=== PATIENT | female | born 1945 | race Caucasian/White ===

== ENCOUNTER 2019-05-15 07:33 | Inpatient (IN) ==
--- OUTSIDE RECORDS SUMMARY | 2019-05-15 07:36 | External Medical Summary | Continuity of Care Document ---
:1945 Author Name Lilia Falk Address Unavailable Unavailable , Care Team Providers Name Role Phone Unavailable Unavailable Unavailable KISHA Unavailable Unavailable Problems Active medical history not documented Allergies and Adverse Reactions Allergy history not documented Medications Medications not documented Procedures Procedures not documented Immunizations Immunizations not documented Plan of Treatment Planned Observations Planned Goals not documented Results No Known Results Results not documented
[2019-05-15] MEDS ORDERED: MoRPHine SULFATE 2 MG/ML CARP IV PRN (07:46)
[2019-05-15] MEDS ORDERED: ONDANSETRON INJ 2 MG/ML 2 ML VIAL IV STA (07:46)
[2019-05-15] MEDS ORDERED: SODIUM CHLORIDE 0.9% 1000ML 500 ML IV ONE ×2 (07:46→09:45)
[2019-05-15] MEDS ORDERED: ACETAMINOPHEN 1,000 MG/100 ML VIAL IV STA (07:46)
--- NOTE | 2019-05-15 08:00 | Emergency Department Note ---
Entered by Rasheeda Best acting as a scribe for Gilberto Schaeffer MD History of Present Illness General Chief complaint: Abdominal Pain Time Seen by Provider: 05/15/19 07:37 Source: patient Mode of arrival: EMS Limitations: no limitations History of Present Illness Provider complaint: abdominal pain Onset (ago): day(s) (4-5) Location: abdomen Radiation: back Pain Consistency: + other (persistent) Exacerbated By: + movement Associated symptoms: + denies other symptoms (urinary sx), + fever/chills, + nausea/vomiting and + other (diarrhea) The patient is a 73 year old female with a past medical history of diabetes who presents to the ER via EMS with complaints of persistent left-sided abdominal pain that began 4-5 days ago. The patient reports that the pain radiates into the left side of her back and that it is worsened with movement. She states that she has had a partial nephrectomy as well as several other abdominal surgeries. She also notes that she has a history of kidney stones but denies a history of diverticulitis. She explains that she has had about 10 colonoscopies performed in the past. She reports that she takes Coumadin but states that she did not take any of her morning medications. She denies any urinary symptoms but notes she has had a fever, as well as diarrhea. She reports that she has been nauseous as well but that she has been taking Zofran. She states that she did have an episode of emesis but that it was all liquid. Home Medications Home Medications Medication Instructions Recorded Confirmed Type acetaminophen [Tylenol Extra 500 mg PO Q6H PRN 05/15/19 05/15/19 History Strength] albuterol sulfate 2 puff INHALATION QID PRN 05/15/19 05/15/19 History amiodarone 100 mg PO QAM 05/15/19 05/15/19 History carvedilol 25 mg PO BID 05/15/19 05/15/19 History cholecalciferol (vitamin D3) 5,000 unit PO DAILY 05/15/19 05/15/19 History fish,bora,flax oils-om3,6,9no1 1 cap PO DAILY 05/15/19 05/15/19 History [Hanson 3-6-9] furosemide 40 mg PO BID 05/15/19 05/15/19 History insulin glargine [Lantus Solostar 25 unit SUBCUT HS 05/15/19 05/15/19 History U-100 Insulin] levothyroxine 50 mcg PO QAM 05/15/19 05/15/19 History losartan 100 mg PO HS 05/15/19 05/15/19 History metformin 500 mg PO BIDM 05/15/19 05/15/19 History omeprazole 20 mg PO QAM 05/15/19 05/15/19 History sennosides-docusate sodium 1 tab PO DAILY PRN 05/15/19 05/15/19 History [Senokot-S] spironolactone 50 mg PO BID 05/15/19 05/15/19 History warfarin 2.5 mg PO MO@1600 05/15/19 05/15/19 History warfarin 5 mg PO SUTUWETHFRSA@1600 05/15/19 05/15/19 History Allergies Allergy/AdvReac Type Severity Reaction Status Date / Time Ydzfzkw-Nqk-Dys Reductase Allergy Unknown UNKNOWN Unverified 05/15/19 08:21 Inhibitor Sulfa (Sulfonamide Allergy Unknown HIVES Verified 05/15/19 08:21 Antibiotics) citalopram AdvReac Unknown UNKNOWN Unverified 05/15/19 08:21 hydrocodone AdvReac Unknown NAUSEA AND Unverified 05/15/19 08:21 VOMITING ketorolac AdvReac Unknown RASH Unverified 05/15/19 08:21 oxycodone AdvReac Unknown UNKNOWN Unverified 05/15/19 08:21 propoxyphene AdvReac Unknown UNKNOWN Unverified 05/15/19 08:21 tramadol AdvReac Unknown UNKNOWN Unverified 05/15/19 08:21 Past Med/Surg History Medical History Coronary artery disease (Chronic) CKD (chronic kidney disease), stage III (Chronic) HTN (hypertension) (Chronic) Nocturnal hypoxia (Chronic) Idiopathic cardiomyopathy (Chronic) Chronic systolic heart failure (Chronic) Diabetes mellitus, type II (Chronic) Surgical History S/P ICD (internal cardiac defibrillator) procedure (Chronic) History of knee replacement (Chronic) History of hysterectomy (Chronic) History of cholecystectomy (Chronic) History of appendectomy (Chronic) History of partial nephrectomy (Chronic) [place] [facility] [place] Family History Other Colorectal cancer Heart disease Stroke Social History Preferred Language: [place] Communication Ability: Effective 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 and A total of 10 systems reviewed and were otherwise negative Physical Exam Vital Signs Vital Signs - 24 hr 05/15/19 07:42 05/15/19 07:45 05/15/19 08:00 Temperature 37.8 C H Temperature Source Oral Sepsis Recent Fever Within 48 Hours No Sepsis New/Unexplained Change in Mental Status No Sepsis Action Taken by Nursing No Action Required Pulse Rate 75 73 72 Pulse Rate [Finger] Pulse Rate from SpO2 Sensor 75 73 71 Respiratory Rate 21 17 16 Blood Pressure 138/68 130/59 L Blood Pressure [Right Arm] Blood Pressure Mean 91 82 Blood Pressure Mean [Right Arm] Pulse Oximetry 99 98 98 Oxygen Delivery Method Room Air 05/15/19 08:08 05/15/19 08:13 05/15/19 08:30 Temperature Temperature Source Sepsis Recent Fever Within 48 Hours Sepsis New/Unexplained Change in Mental Status Sepsis Action Taken by Nursing Pulse Rate 69 Pulse Rate [Finger] 73 Pulse Rate from SpO2 Sensor 69 Respiratory Rate 16 17 Blood Pressure 118/67 Blood Pressure [Right Arm] 130/59 L Blood Pressure Mean 84 Blood Pressure Mean [Right Arm] 82 Pulse Oximetry 100 96 97 Oxygen Delivery Method Room Air Room Air 05/15/19 09:10 05/15/19 09:22 05/15/19 09:30 Temperature Temperature Source Sepsis Recent Fever Within 48 Hours Sepsis New/Unexplained Change in Mental Status Sepsis Action Taken by Nursing Pulse Rate 70 66 67 Pulse Rate [Finger] Pulse Rate from SpO2 Sensor Respiratory Rate 13 19 16 Blood Pressure 115/53 L 106/62 Blood Pressure [Right Arm] Blood Pressure Mean 73 76 Blood Pressure Mean [Right Arm] Pulse Oximetry Oxygen Delivery Method 05/15/19 09:32 05/15/19 10:00 05/15/19 10:50 Temperature Temperature Source Sepsis Recent Fever Within 48 Hours Sepsis New/Unexplained Change in Mental Status Sepsis Action Taken by Nursing Pulse Rate 67 63 Pulse Rate [Finger] 67 63 Pulse Rate from SpO2 Sensor 67 Respiratory Rate 16 21 14 Blood Pressure 122/65 133/66 Blood Pressure [Right Arm] 106/62 133/66 Blood Pressure Mean 84 88 Blood Pressure Mean [Right Arm] 76 88 Pulse Oximetry 96 Oxygen Delivery Method 05/15/19 11:00 05/15/19 11:03 05/15/19 11:04 Temperature Temperature Source Sepsis Recent Fever Within 48 Hours Sepsis New/Unexplained Change in Mental Status Sepsis Action Taken by Nursing Pulse Rate 64 65 67 Pulse Rate [Finger] Pulse Rate from SpO2 Sensor Respiratory Rate 17 18 25 H Blood Pressure 129/67 Blood Pressure [Right Arm] Blood Pressure Mean 87 Blood Pressure Mean [Right Arm] Pulse Oximetry Oxygen Delivery Method 05/15/19 11:32 Temperature Temperature Source Sepsis Recent Fever Within 48 Hours Sepsis New/Unexplained Change in Mental Status Sepsis Action Taken by Nursing Pulse Rate 64 Pulse Rate [Finger] Pulse Rate from SpO2 Sensor Respiratory Rate 14 Blood Pressure 108/59 L Blood Pressure [Right Arm] Blood Pressure Mean 75 Blood Pressure Mean [Right Arm] Pulse Oximetry Oxygen Delivery Method GENERAL: Patient is in no acute distress. HEENT: No acute trauma, normocephalic atraumatic, mucous membranes moist, no nasal congestion, no scleral icterus. NECK: No stridor, no adenopathy, no meningismus, trachea is midline. LUNGS: Clear to auscultation bilaterally, no wheeze, no rhonchi, breath sounds equal. HEART: Without murmurs gallops or rubs, regular rate and rhythm. ABDOMEN: Soft, bowel sounds positive, no hernias, no peritonitis. Moderately tender along the entire left side. BACK: Left flank discomfort with percussion. EXTREMITIES: No cyanosis or edema, full range of motion of all the joints without pain or difficulty, no signs for acute trauma. NEUROLOGIC: Oriented x 3, no acute motor or sensory deficits, no focal weakness. SKIN: No jaundice, no diaphoresis. Erythematous, flat, rash noted in the left groin crease. Course 0738: Past medical records reviewed. The patient was evaluated in room B12B. A complete history and physical examination was performed. 1004: I updated the patient. 1013: I reviewed the patient's case with Haleigh Correa PA-C [facility] Hospitalist. She, in conjunction with Dr. Grady, will evaluate the patient for further management. Administered Medications Discontinued Medications Acetaminophen (Tylenol) Confirm Administered Dose 500 mg .ROUTE .STK-MED ONE Stop: 05/15/19 12:23 Last Admin: 05/15/19 12:24 Dose: 500 mg Documented by: [id number] Amiodarone HCl (Cordarone) 100 mg PO NOW ONE Stop: 05/15/19 13:27 Last Admin: 05/15/19 14:01 Dose: 100 mg Documented by: [id number] Carvedilol (Coreg) 25 mg PO NOW ONE Stop: 05/15/19 13:21 Last Admin: 05/15/19 14:01 Dose: 25 mg Documented by: [id number] Sodium Chloride (Nss 1000ml) 500 mls @ 999 mls/hr IV .Q31M ONE Stop: 05/15/19 08:16 Last Infusion: 05/15/19 08:29 Dose: 0 mls/hr Documented by: [id number] Admin: 05/15/19 08:00 Dose: 999 mls/hr Documented by: [id number] Acetaminophen (Ofirmev) 1,000 mg in 100 mls @ 400 mls/hr IV NOW STA Stop: 05/15/19 08:00 Last Infusion: 05/15/19 08:14 Dose: 0 mls/hr Documented by: [id number] Admin: 05/15/19 07:59 Dose: 400 mls/hr Documented by: [id number] Sodium Chloride (Nss 1000ml) 500 mls @ 999 mls/hr IV .Q31M ONE Stop: 05/15/19 10:15 Last Infusion: 05/15/19 10:47 Dose: 0 mls/hr Documented by: [id number] Admin: 05/15/19 10:18 Dose: 999 mls/hr Documented by: [id number] Ceftriaxone Sodium 2,000 mg/ (Dextrose) 70 mls @ 100 mls/hr IV NOW STA Stop: 05/15/19 10:44 Last Infusion: 05/15/19 11:33 Dose: 0 mls/hr Documented by: [id number] Admin: 05/15/19 10:37 Dose: 100 mls/hr Documented by: [id number] Morphine Sulfate (Morphine Sulfate) 2 mg IV Q30M PRN PRN Reason: Pain Stop: 05/29/19 07:45 Last Admin: 05/15/19 08:25 Dose: 2 mg Documented by: [id number] Ondansetron HCl (Zofran) 4 mg IV NOW STA Stop: 05/15/19 07:47 Last Admin: 05/15/19 08:00 Dose: 4 mg Documented by: [id number] Medical Decision Making Differential Diagnosis Differential diagnosis includes: renal colic, pyelonephritis, UTI, d iverticulitis, abscess, pancreatitis, pneumonia, cardiac ischemia, dehydration, electrolyte imbalance, tickborne illness, and renal failure. Medical Records Attestation: I reviewed the patient's medical records. Home Medications Current Medication List: was personally reviewed by me Laboratory Data Attestation: I reviewed the patient's lab results. Result diagrams: 05/15/19 07:53 05/15/19 07:53 Lab Results 05/15/19 05/15/19 05/15/19 Range/Units 07:53 07:53 07:53 WBC 3.36 L (4.8-10.8) K/uL RBC 3.79 L (4.2-5.4) M/uL Hgb 10.5 L (12.0-16.0) g/dL Hct 31.5 L (37-47) % MCV 83.1 (80-100) fL MCH 27.7 (25-34) pg MCHC 33.3 (32-36) g/dL RDW Std Deviation 43.6 (36.4-46.3) fL RDW Coeff of Edilma 14.4 (11.5-14.5) % Plt Count 95 L (130-400) K/uL MPV 10.5 H (7.4-10.4) fL Immature Gran % (Auto) 0.0 % Neut % (Auto) 75.6 % Lymph % (Auto) 11.9 % Kidder % (Auto) 12.2 % Eos % (Auto) 0.3 % Baso % (Auto) 0.0 % Immature Gran # (Auto) 0.00 (0.00-0.02) K/uL Neut # (Auto) 2.54 (1.4-6.5) K/uL Lymph # (Auto) 0.40 L (1.2-3.4) K/uL Kidder # (Auto) 0.41 (0.11-0.59) K/uL Eos # (Auto) 0.01 (0-0.5) K/uL Baso # (Auto) 0.00 (0-0.2) K/uL Platelet Estimate Decreased L (Normal) Peripher Smr Path Cons PT 16.1 H (9.0-12.0) Seconds INR 1.6 H (0.9-1.1) APTT 41.1 H (21.0-31.0) Seconds PTT Ratio 1.5 Sodium 138 (136-145) mmol/L Potassium 3.8 (3.5-5.1) mmol/L Chloride 106 (98-107) mmol/L Carbon Dioxide 23 (21-32) mmol/L Anion Gap 9.0 (3-11) BUN 22 H (7-18) mg/dl Creatinine 1.50 H (0.6-1.2) mg/dl Est Cr Clr Drug Dosing 44.1 ml/min Est GFR ( Amer) 40.2 Est GFR (Non-Af Amer) 34.7 BUN/Creatinine Ratio 14.3 (10-20) Glucose 156 H (70-99) mg/dl Calcium 8.5 (8.5-10.1) mg/dl Magnesium 1.9 (1.8-2.4) mg/dl Total Bilirubin 0.8 (0.2-1) mg/dl AST 19 (15-37) U/L ALT 23 (12-78) U/L Alkaline Phosphatase 68 (45-117) U/L Troponin I < 0.015 (0-0.045) ng/ml Total Protein 6.2 L (6.4-8.2) gm/dl Albumin 3.2 L (3.4-5.0) gm/dl Globulin 3.0 (2.5-4.0) gm/dl Albumin/Globulin Ratio 1.1 (0.9-2) Lipase 283 (73-393) U/L Urine Color Urine Appearance (Clear) Urine pH (4.5-7.5) Ur Specific Archer (1.000-1.030) Urine Protein (Negative) Urine Glucose (UA) (Negative) Urine Ketones (Negative) Urine Blood (Negative) Urine Nitrite (Negative) Urine Bilirubin (Negative) Urine Urobilinogen (Negative) Ur Leukocyte Esterase (Negative) Lyme Disease IgG Ab (Negative) Lyme Disease IgM Ab (Negative) 06/18/19 06/18/19 06/18/19 Range/Units 09:15 10:22 10:22 WBC (4.8-10.8) K/uL RBC (4.2-5.4) M/uL Hgb (12.0-16.0) g/dL Hct (37-47) % MCV (80-100) fL MCH (25-34) pg MCHC (32-36) g/dL RDW Std Deviation (36.4-46.3) fL RDW Coeff of Edilma (11.5-14.5) % Plt Count (130-400) K/uL MPV (7.4-10.4) fL Immature Gran % (Auto) % Neut % (Auto) % Lymph % (Auto) % Kidder % (Auto) % Eos % (Auto) % Baso % (Auto) % Immature Gran # (Auto) (0.00-0.02) K/uL Neut # (Auto) (1.4-6.5) K/uL Lymph # (Auto) (1.2-3.4) K/uL Kidder # (Auto) (0.11-0.59) K/uL Eos # (Auto) (0-0.5) K/uL Baso # (Auto) (0-0.2) K/uL Platelet Estimate (Normal) Peripher Smr Path Cons Cancelled PT (9.0-12.0) Seconds INR (0.9-1.1) APTT (21.0-31.0) Seconds PTT Ratio Sodium (136-145) mmol/L Potassium (3.5-5.1) mmol/L Chloride (98-107) mmol/L Carbon Dioxide (21-32) mmol/L Anion Gap (3-11) BUN (7-18) mg/dl Creatinine (0.6-1.2) mg/dl Est Cr Clr Drug Dosing ml/min Est GFR ( Amer) Est GFR (Non-Af Amer) BUN/Creatinine Ratio (10-20) Glucose (70-99) mg/dl Calcium (8.5-10.1) mg/dl Magnesium (1.8-2.4) mg/dl Total Bilirubin (0.2-1) mg/dl AST (15-37) U/L ALT (12-78) U/L Alkaline Phosphatase (45-117) U/L Troponin I (0-0.045) ng/ml Total Protein (6.4-8.2) gm/dl Albumin (3.4-5.0) gm/dl Globulin (2.5-4.0) gm/dl Albumin/Globulin Ratio (0.9-2) Lipase (73-393) U/L Urine Color Dark Yellow Urine Appearance Clear (Clear) Urine pH 6.0 (4.5-7.5) Ur Specific Archer 1.024 (1.000-1.030) Urine Protein Negative (Negative) Urine Glucose (UA) Negative (Negative) Urine Ketones Trace H (Negative) Urine Blood Negative (Negative) Urine Nitrite Negative (Negative) Urine Bilirubin Negative (Negative) Urine Urobilinogen Negative (Negative) Ur Leukocyte Esterase Negative (Negative) Lyme Disease IgG Ab Negative (Negative) Lyme Disease IgM Ab Negative (Negative) Imaging Data Radiologist's Impression: Radiology results as stated below per my review and the radiologist's interpretation: CT abd pelvis wo con CLINICAL HISTORY: 73 years-old Female presenting with nausea and vomiting, left sided abd pain, left renal surgery. TECHNIQUE: Multidetector CT of the abdomen and pelvis was performed without the use of intravenous contrast. IV contrast: None. One or more dose lowering techniques were used consistent with the principles of ALARA (as low as reasonably achievable), including automatic exposure control, mA or kV adjustment to individual patient size, and/or use of iterative reconstruction. COMPARISON: 07/10/2016. CT DOSE (mGy.cm): The estimated cumulative dose is 817.66 mGy.cm. FINDINGS: [employer] topogram: Cholecystectomy clips. Lung bases: Cardiac lead projects to the right ventricular apex. Calcification of the aortic valve. Normal heart size. No pericardial or pleural effusion. Minimal dependent changes likely atelectasis. Solid fissural 4 mm nodule in the right lower lobe unchanged since 2016 consistent with benignity. Liver: Normal morphology. Redemonstration of multiple liver lesions previously demonstrated to represent hemangiomas. Normal background liver density. Biliary: No gross biliary ductal dilatation allowing for noncontrast technique. Gallbladder surgically absent. Pancreas: Normal noncontrast appearance. Spleen: Normal noncontrast appearance. Adrenal glands: Normal noncontrast appearance. Kidneys and ureters: Postsurgical changes of partial mastectomy in the upper pole the left kidney. Moderate nonspecific perinephric fat infiltration and laterally. Cortical scarring at the posterior aspect of the interpolar region of the right kidney as on prior exam. Possible lesion at the lower pole of the ri ght kidney (series 3 image 229). No nephrolithiasis or hydronephrosis. Ureters nondistended. Bladder: Normal. Pelvic organs: Uterus surgically absent. Simple appearing cysts measuring 2.6 cm and the left ovary. This would be considered benign with no further follow-up warranted. Bowel: Normal. Lipomatous hypertrophy of the ileocecal valve. No bowel obstruction. Trace hiatal hernia. Peritoneal cavity: No free fluid or intraperitoneal gas. Lymph nodes: No gross lymphadenopathy allowing for noncontrast technique. Vasculature: Atherosclerosis of the normal caliber abdominal aorta. Abdominal wall: Postsurgical changes in the infraumbilical abdominal wall. Small fat-containing left inguinal hernia suspected. Musculoskeletal: Degenerative changes of the spine. IMPRESSION: 1. Interval postsurgical changes of partial left nephrectomy. No postsurgical complication. 2. Allowing for noncontrast technique, no acute intra-abdominal pathology. 3. Possible right lower pole lesion or cyst. Renal ultrasound could be obtained if there is clinical concern. Electronically signed by: Irwin Mccullough M.D. 05/15/2019 9:47 AM XR chest 1V portable CLINICAL HISTORY: 73 years-old Female presenting with epigastric pain. TECHNIQUE: Portable upright AP view of the chest was obtained. COMPARISON: 11/18/2016. FINDINGS: Left subclavian implanted cardiac defibrillator with single lead to the right ventricular apex. Atherosclerosis of the aortic arch. Cardiac silhouette enlarged. No focal opacity. No large effusion or pneumothorax. Degenerative changes of the thoracic spine. Upper abdomen normal. IMPRESSION: 1. No acute cardiopulmonary disease. Electronically signed by: Irwin Mccullough M.D. 05/15/2019 8:00 AM ECG Data Attestation: I personally reviewed and interpreted this ECG as follows: Indication: abdominal pain Rate (beats per minute): 75 Rhythm: normal sinus Findings: + other (non-specific ventricular block); no PVC and no ST elevation Blood Pressure Blood Pressure Findings: Normal blood pressure Blood Pressure Disposition: did not require urgent referral MDM Narrative There is a low white blood cell count and hemoglobin, the patient has had this history before. Platelet count is low and this is a new finding. INR is slightly elevated, consistent with her Coumadin use. There was some mild renal insufficiency with a creatinine of 1.5, this is above baseline for the patient and may be consistent with some dehydration. No elevation to the LFTs, no evidence for pancreatitis. EKG shows a sinus rhythm, no acute ischemia. Cardiac enzyme testing x1 is not consistent with acute cardiac injury. Chest film does not show mediastinal widening, free air or pneumonia. Abdominal and pelvis CT shows some chronic findings, no evidence for bowel obstruction, no evidence for diverticulitis or any acute surgical process. On exam, the patient has a bull's-eye-like reddened lesion to the left groin. The patient received IV saline for hydration. She was given IV Zofran for nausea, IV Tylenol for pain and IV morphine for pain. She received IV ceftriaxone as empiric antibiotic coverage. With the left groin rash noted, with the fever, Lyme disease testing and anaplasmosis testing was ordered, these results are pending. Blood cultures were ordered and a peripheral blood smear was ordered. Given the amount of pain, given her fever, given the rash, given her acute kidney injury, given the concern for tickborne illness, I did think a hospital stay would be warranted. Certainly, a cellulitis in the left groin is a consideration but I think less likely the cause of her complaints. I did speak with case management, I talked to the patient and her family. The on-call hosp italist was consulted. Impression & Plan Fever, Left sided abdominal pain, Weakness, Rash of groin Discharge Plan Visit Data Chief Complaint: Abdominal Pain ED Provider: Gilberto Schaeffer Discharge Problem: Fever, Left sided abdominal pain, Weakness, Rash of groin Patient Disposition: Being Evaluated by Hospitalist Discharge Instructions Interventions: ED Discharge Assessment Last Done: 05/15/19 14:25 The faustina's documentation has been prepared under my direction and personally reviewed by me in its entirety. I confirm that the note above accurately reflects all work, treatment, procedures, and medical decision making performed by me.
--- NOTE | 2019-05-15 08:02 | XRay Report ---
XR chest 1V portable CLINICAL HISTORY: 73 years-old Female presenting with epigastric pain. TECHNIQUE: Portable upright AP view of the chest was obtained. COMPARISON: 11/18/2016. FINDINGS: Left subclavian implanted cardiac defibrillator with single lead to the right ventricular apex. Ather osclerosis of the aortic arch. Cardiac silhouette enlarged. No focal opacity. No large effusion or pn eumothorax. Degenerative changes of the thoracic spine. Upper abdomen normal. IMPRESSION: 1. No acute cardiopulmonary disease. Electronically signed by: Irwin Mccullough M.D. 05/15/2019 8:00 AM
[2019-05-15 08:18] LABS: INR 1.6 (0.9-1.1); Partial Thromboplastin Ratio 1.5; Partial Thromboplastin Time 41.1 Seconds (21.0-31.0); Prothrombin Time 16.1 Seconds (9.0-12.0)
[2019-05-15 08:23] LABS: Alanine Aminotransferase 23 U/L (12-78); Albumin Level 3.2 gm/dl (3.4-5.0); Aspartate Aminotransferase 19 U/L (15-37); BUN Creatinine Ratio 14.3 (10-20); Blood Urea Nitrogen 22 mg/dl (7-18); Calcium 8.5 mg/dl (8.5-10.1); Carbon Dioxide 23 mmol/L (21-32); Chloride 106 mmol/L (98-107); Creatinine Clr Calc Pharmacy 44.1 ml/min; Est GFR (African American) 40.2; Est GFR (Non-African American) 34.7; Glucose 156 mg/dl (70-99); Magnesium 1.9 mg/dl (1.8-2.4); Potassium 3.8 mmol/L (3.5-5.1); Sodium 138 mmol/L (136-145)
[2019-05-15 08:25] LABS: Eosinophils # (auto) 0.01 K/uL (0-0.5); Eosinophils % (auto) 0.3 %; Hematocrit (blood only) 31.5 % (37-47); Hemoglobin 10.5 g/dL (12.0-16.0); Lymphocytes % (auto) 11.9 %; Mean Corpuscular Hgb Conc 33.3 g/dL (32-36); Mean Corpuscular Volume 83.1 fL (80-100); Mean Platelet Volume 10.5 fL (7.4-10.4); Monocytes # (auto) 0.41 K/uL (0.11-0.59); Monocytes % (auto) 12.2 %; Neutrophils # (auto) 2.54 K/uL (1.4-6.5); Neutrophils % (auto) 75.6 %; Platelet Count 95 K/uL (130-400); Platelet Estimate Decreased (Normal); RDW Coefficient of Variation 14.4 % (11.5-14.5); RDW Standard Deviation 43.6 fL (36.4-46.3); Red Blood Count 3.79 M/uL (4.2-5.4); White Blood Count 3.36 K/uL (4.8-10.8)
[2019-05-15 08:28] LABS: Albumin Globulin Ratio 1.1 (0.9-2); Alkaline Phosphatase 68 U/L (45-117); Bilirubin,Total 0.8 mg/dl (0.2-1); Total Protein 6.2 gm/dl (6.4-8.2); Troponin I < 0.015 ng/ml (0-0.045)
[2019-05-15 09:38] LABS: Appearance Urine Clear (Clear); Bilirubin Urine Negative (Negative); Blood Urine Negative (Negative); Color Urine Dark Yellow; Glucose Urine UA Negative (Negative); Ketones Urine Trace (Negative); Leukocyte Esterase Urine Negative (Negative); Nitrite Urine Negative (Negative); Protein Urine Negative (Negative); Specific Gravity Urine 1.024 (1.000-1.030); Urobilinogen Urine Negative (Negative)
--- NOTE | 2019-05-15 09:49 | CT Scan Report ---
CT abd pelvis wo con CLINICAL HISTORY: 73 years-old Female presenting with nausea and vomiting, left sided abd pain, left renal surgery. TECHNIQUE: Multidetector CT of the abdomen and pelvis was performed without the use of intravenous co ntrast. IV contrast: None. One or more dose lowering techniques were used consistent with the princip les of ALARA (as low as reasonably achievable), including automatic exposure control, mA or kV adjust ment to individual patient size, and/or use of iterative reconstruction. COMPARISON: 07/10/2016. CT DOSE (mGy.cm): The estimated cumulative dose is 817.66 mGy.cm. FINDINGS: Rn Clinical Appeals topogram: Cholecystectomy clips. Lung bases: Cardiac lead projects to the right ventricular apex. Calcification of the aortic valve. N ormal heart size. No pericardial or pleural effusion. Minimal dependent changes likely atelectasis. S olid fissural 4 mm nodule in the right lower lobe unchanged since 2016 consistent with benignity. Liver: Normal morphology. Redemonstration of multiple liver lesions previously demonstrated to repres ent hemangiomas. Normal background liver density. Biliary: No gross biliary ductal dilatation allowing for noncontrast technique. Gallbladder surgicall y absent. Pancreas: Normal noncontrast appearance. Spleen: Normal noncontrast appearance. Adrenal glands: Normal noncontrast appearance. Kidneys and ureters: Postsurgical changes of partial mastectomy in the upper pole the left kidney. Mo derate nonspecific perinephric fat infiltration and laterally. Cortical scarring at the posterior asp ect of the interpolar region of the right kidney as on prior exam. Possible lesion at the lower pole of the right kidney (series 3 image 229). No nephrolithiasis or hydronephrosis. Ureters nondistended. Bladder: Normal. Pelvic organs: Uterus surgically absent. Simple appearing cysts measuring 2.6 cm and the left ovary. This would be considered benign with no further follow-up warranted. Bowel: Normal. Lipomatous hypertrophy of the ileocecal valve. No bowel obstruction. Trace hiatal adal ia. Peritoneal cavity: No free fluid or intraperitoneal gas. Lymph nodes: No gross lymphadenopathy allowing for noncontrast technique. Vasculature: Atherosclerosis of the normal caliber abdominal aorta. Abdominal wall: Postsurgical changes in the infraumbilical abdominal wall. Small fat-containing left inguinal hernia suspected. Musculoskeletal: Degenerative changes of the spine. IMPRESSION: 1. Interval postsurgical changes of partial left nephrectomy. No postsurgical complication. 2. Allowing for noncontrast technique, no acute intra-abdominal pathology. 3. Possible right lower pole lesion or cyst. Renal ultrasound could be obtained if there is clinical concern. Electronically signed by: Irwin Mccullough M.D. 05/15/2019 9:47 AM
[2019-05-15] MEDS ORDERED: cefTRIAXone SODIUM 2,000 MG in DEXTROSE 5% 50 ML IV STA (10:03)
--- NOTE | 2019-05-15 11:42 | History & Physical Report ---
Date of Service May 15, 2019 Assessment & Plan (1) Fever of unknown origin: This is a 73yo F with a PMH of chronic systolic heart failure, idiopathic cardiomyopathy s/p ICD placement, paroxysmal A Fib on coumadin, known LBBB, DM II and other medical problems listed below who presents with fever, malaise and left-sided abdominal pain x 5 days. -Found to have pancytopenia with platelets of 95 (baseline 180) -Recently fishing, lives in [facility] [place], presenting with L groin rash so concern for lyme/anaplasmosis -Does not meet sepsis criteria, non-toxic appearance -CXR without abnormal findings, CT abd/pelvis w/o contrast with possible right lower pole lesion but no acute intra-abdominal pathology, UA within normal limits -Blood cultures pending, lyme/anaplasma serology pending. 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 Follows with Dr. Willett -CT abd/pelvis with possible R lower pole lesion. Renal ultrasound pending (3) HTN (hypertension): Normotensive. Given AM dose of Carvedilol -Continue losartan, carvedilol (4) Chronic systolic heart failure: (5) Idiopathic cardiomyopathy: (6) S/P ICD (internal cardiac defibrillator) procedure: H/o ICD placement in 2006, replaced in 2014 -2D echo from 2016 with EF of 40% -Clinically on dry side. Will hold lasix until tomorrow morning-- reassess volume status -Continue Spironolactone, carvedilol, losartan (7) CKD (chronic kidney disease), stage III: At baseline. Continue to monitor with daily BMP (8) Diabetes mellitus, type II: A1c of 5.9 in March 2019 -Hold home agents -Basal/bolus insulin while in-patient -BSG AC HS (9) Nocturnal hypoxia: Supplemental 2L NC O2 HS DVT Ppx: Coumadin Code status: FULL PCP: Oren Dispo: Observation med tele. Plan to return home once medically stable. Patient seen in collaboration with Dr. Randolph. Please see addendum. History of Present Illness Chief Complaint: abdominal pain, fever, weakness Primary Care Provider: Irwin Lott MD This is a 73yo F with a PMH of chronic systolic heart failure, idiopathic cardiomyopathy s/p ICD placement, paroxysmal A Fib on coumadin, known LBBB, DM II and other medical problems listed below who presents with fever, malaise and left-sided abdominal pain x 5 days. Patient first developed headache, fever , chills and body aches, followed by abdominal pain and left flank pain in the past few days. Describes left-sided abdominal pain/flank pain as dull, aching and intermittent. Exacerbated with activity. Pain is unchanged with eating. Has also had nausea with one episode of vomiting and diarrhea that is since resolved. Patient went fishing 2 weeks ago but did not note any tick bites. 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 Follows with Dr. Willett. In ED, low-grade fever noted at 37.8. Normotensive with heart rate of 64. Noted to be pancytopenic, with platelets of 95 (baseline around 180). Kidney function appears to be at baseline with creatinine of 1.5. CT abdomen pelvis with possible right lower pole lesion. Chest x-ray unremarkable. No acute intra-abdominal pathology. INR subtherapeutic at 1.6. Denies lightheadedness, visual changes, chest pain, palpitations, shortness of breath, dysuria, hemat uria, constipation, lower extremity swelling. Rash noticed in L groin by ED physician. Allergies Allergy/AdvReac Type Severity Reaction Status Date / Time [id number] Reductase Allergy Unknown UNKNOWN Unverified 05/15/19 08:21 Inhibitor Sulfa (Sulfonamide Allergy Unknown HIVES Verified 05/15/19 08:21 Antibiotics) citalopram AdvReac Unknown UNKNOWN Unverified 05/15/19 08:21 hydrocodone AdvReac Unknown NAUSEA AND Unverified 05/15/19 08:21 VOMITING ketorolac AdvReac Unknown RASH Unverified 05/15/19 08:21 oxycodone AdvReac Unknown UNKNOWN Unverified 05/15/19 08:21 propoxyphene AdvReac Unknown UNKNOWN Unverified 05/15/19 08:21 tramadol AdvReac Unknown UNKNOWN Unverified 05/15/19 08:21 Home Medications Home Medications Medication Instructions Recorded Confirmed Type acetaminophen [Tylenol Extra 500 mg PO Q6H PRN 05/15/19 05/15/19 History Strength] albuterol sulfate 2 puff INHALATION QID PRN 05/15/19 05/15/19 History amiodarone 100 mg PO QAM 05/15/19 05/15/19 History carvedilol 25 mg PO BID 05/15/19 05/15/19 History cholecalciferol (vitamin D3) 5,000 unit PO DAILY 05/15/19 05/15/19 History fish,bora,flax oils-om3,6,9no1 1 cap PO DAILY 05/15/19 05/15/19 History [[place] 3-6-9] furosemide 40 mg PO BID 05/15/19 05/15/19 History insulin glargine [Lantus Solostar 25 unit SUBCUT HS 05/15/19 05/15/19 History U-100 Insulin] levothyroxine 50 mcg PO QAM 05/15/19 05/15/19 History losartan 100 mg PO HS 05/15/19 05/15/19 History metformin 500 mg PO BIDM 05/15/19 05/15/19 History omeprazole 20 mg PO QAM 05/15/19 05/15/19 History sennosides-docusate sodium 1 tab PO DAILY PRN 05/15/19 05/15/19 History [Senokot-S] spironolactone 50 mg PO BID 05/15/19 05/15/19 History warfarin 2.5 mg PO MO@1600 05/15/19 05/15/19 History warfarin 5 mg PO SUTUWETHFRSA@1600 05/15/19 05/15/19 History Past Med/Surg History Medical History Coronary artery disease (Chronic) CKD (chronic kidney disease), stage III (Chronic) HTN (hypertension) (Chronic) Nocturnal hypoxia (Chronic) Idiopathic cardiomyopathy (Chronic) Chronic systolic heart failure (Chronic) Diabetes mellitus, type II (Chronic) Surgical History S/P ICD (internal cardiac defibrillator) procedure (Chronic) History of knee replacement (Chronic) History of hysterectomy (Chronic) History of cholecystectomy (Chronic) History of appendectomy (Chronic) History of partial nephrectomy (Chronic) Left, [facility] [place] Family History Other Colorectal cancer Heart disease Stroke Social History Preferred Language: Uzbek Communication Ability: Effective Denitrator Operator Required: No Beliefs That Will Affect Care: None Current Living Situation: Spouse Other Information That Helps Us Care for You: No Feels Safe at Home: Yes Safety Concerns: Feels Safe At This Time Smoking Status: Never smoker Do You Dip or Chew Tobacco: No Second Hand Exposure: No Tobacco Cessation Education Requested by Patient: No Hx Alcohol Use: No Hx Substance Use: No Review of Systems Review of Systems: At least ten systems reviewed and negative except as noted in the HPI. Physical Exam Physical Exam: General Appearance: WD/WN, no apparent distress, ill appearing Head: normocephalic, atraumatic Eyes: normal inspection, PERRL, EOMI ENT: hearing grossly normal, pharynx normal (dry mucous membranes) Neck: supple, no JVD, no adenopathy Respiratory/Chest: lungs clear to auscultation. No wheezes, rales or rhonci. No respiratory distress or accessory muscle use Cardiovascular: regular rate, rhythm, no murmur, normal peripheral pulses Abdomen/GI: normal bowel sounds, soft, LLQ and L flank tender to palpation, no guarding Back: No CVA tenderness Extremities/Musculoskelatal: normal inspection, no calf tenderness, normal capillary refill, no pedal edema Neurologic/Psych: alert, anxious mood/affect, oriented x 3 Skin: normal color, warm/dry. Flat, erythematous rash in left groin. Warm to touch, mildly TTP Results & Data Vital Signs (Past 12 Hours) Vital Signs Temp Pulse Pulse Resp BP BP Pulse Ox 05/15/19 11:03 65 18 129/67 05/15/19 11:00 64 17 05/15/19 10:50 63 63 14 133/66 133/66 05/15/19 10:00 67 21 122/65 96 05/15/19 09:32 67 16 106/62 05/15/19 09:30 67 16 106/62 05/15/19 09:22 66 19 115/53 L 05/15/19 09:10 70 13 05/15/19 08:30 69 17 118/67 97 05/15/19 08:13 96 05/15/19 08:08 73 16 130/59 L 100 05/15/19 08:00 72 16 130/59 L 98 05/15/19 07:45 73 17 98 05/15/19 07:42 37.8 C H 75 21 138/68 99 Laboratory Results Short CBC 05/15/19 Range/Units 07:53 WBC 3.36 L (4.8-10.8) K/uL Hgb 10.5 L (12.0-16.0) g/dL Hct 31.5 L (37-47) % Plt Count 95 L (130-400) K/uL BMP 05/15/19 07:53 Sodium 138 Potassium 3.8 Chloride 106 Carbon Dioxide 23 BUN 22 H Creatinine 1.50 H Glucose 156 H Calcium 8.5 Cardiac Enzymes 05/15/19 Range/Units 07:53 Troponin I < 0.015 (0-0.045) ng/ml Liver Function 05/15/19 Range/Units 07:53 Total Bilirubin 0.8 (0.2-1) mg/dl AST 19 (15-37) U/L ALT 23 (12-78) U/L Alkaline Phosphatase 68 (45-117) U/L Albumin 3.2 L (3.4-5.0) gm/dl Urine 05/15/19 Range/Units 09:15 Urine Color Dark Yellow Urine Appearance Clear (Clear) Urine pH 6.0 (4.5-7.5) Ur Specific Serena 1.024 (1.000-1.030) Urine Protein Negative (Negative) Urine Glucose (UA) Negative (Negative) Diagnostic Findings CXR: IMPRESSION: 1. No acute cardiopulmonary disease. CT abd/pelvis: IMPRESSION: 1. Interval postsurgical changes of partial left nephrectomy. No postsurgical complication. 2. Allowing for noncontrast technique, no acute intra-abdominal pathology. 3. Possible right lower pole lesion or cyst. Renal ultrasound could be obtained if there is clinical concern. Supervising Physician Co-Signing Physician Notes Pt was seen and examined. Agreed with Haleigh VILLEGAS exam, assessment and plan. 73yo F with a PMH of chronic systolic heart failure, idiopathic cardiomyopathy s/p ICD placement, paroxysmal A Fib on coumadin, known LBBB, DM II presents with left sided abdominal pain associated with fever, malaise, muscles weakness and body ache. Pt said that the abdominal pain radiating to her left flank pain area. Last bowel movement was yesterday that was diarrhea. Pt said that she does have a low appetite. She said that about 2 weeks ago, she was out fishing. She denies any thick bites. She noticed an erythema rash today in her left groin area while examining her in the ER. Denies any chest pain, palpitation, dizziness and SOB. CT abdomen/pelvis done in the ER showed no acute intra- abdominal pathology, but possible right lower pole lesion or cyst. CXR showed no acute cardiopulmonary disease. Blood cx collected in the ER and tick borne pathogen/anaplasmosis work up pending. Received Doxycycline and Rocephin in the ER. Will get an u/s of the kidney to evaluate the possible right lower pole lesion or cyst. Will continue monitor closely. Please refer to Haleigh Villegas documentation for other problems. MD Tomasa
[2019-05-15 11:46] LABS: Lyme Ab IgG w/WB Rflx Negative (Negative); Lyme Ab IgM w/WB Rflx Negative (Negative)
[2019-05-15] MEDS ORDERED: GLUCOSE 10 TABS/TUBE PO PRN (12:16)
[2019-05-15] MEDS ORDERED: DEXTROSE 50% 50 ML SYRINGE IV PRN (12:16)
[2019-05-15] MEDS ORDERED: CARBOHYDRATES FOR HYPOGLYCEMIA PO PRN (12:16)
[2019-05-15] MEDS ORDERED: GLUCOSE 40% GEL 15 GM TUBE PO PRN (12:16)
[2019-05-15] MEDS ORDERED: GLUCAGON FOR INJ 1 MG VIAL SQ PRN (12:16)
[2019-05-15] MEDS ORDERED: ACETAMINOPHEN 500 MG TAB ONE (12:22)
[2019-05-15] MEDS ORDERED: AMIODARONE 200 MG TAB PO ONE ×2 (13:19→13:26)
[2019-05-15] MEDS ORDERED: CARVEDILOL 25 MG TAB PO ONE (13:20)
[2019-05-15] MEDS ORDERED: DOCUSATE SODIUM/SENNA 50/8.6MG TAB PO PRN (14:18)
[2019-05-15] MEDS ORDERED: AMIODARONE 200 MG TAB PO SCH (14:18)
[2019-05-15] MEDS ORDERED: CARVEDILOL 25 MG TAB PO SCH (14:18)
[2019-05-15] MEDS ORDERED: ALBUTEROL HFA 8 GM INHALER INH PRN (14:18)
[2019-05-15] MEDS ORDERED: ACETAMINOPHEN 500 MG TAB PO PRN (14:18)
[2019-05-15] MEDS: DOXYCYCLINE HYCLATE 100 MG CAP PO SCH ×2 (15:32→20:48)
[2019-05-15] MEDS: WARFARIN SOD 5 MG TAB PO SCH (16:37)
--- NOTE | 2019-05-15 17:25 | Ultrasound Report ---
US renal/blad retro comp HISTORY: Pain L flank pain, h/o partial nephrect.,?R pole lesion COMPARISON: CT 05/15/2019 FINDINGS: Right kidney: Maximum linear dimension 11.5 cm. No evidence for hydronephrosis. No abnormality by ult rasound criteria Normal corticomedullary differentiation and cortical thickness. Left kidney: Maximum dimension 11.4 cm. No evidence for hydronephrosis. 7 mm exophytic cyst midpole. Normal corticomedullary differentiation and cortical thickness. Bladder: No bladder wall thickening. The bilateral ureteral jets were identified. IMPRESSION: 1. Normal right renal ultrasound. 2. No evidence for a lesion based on ultrasound criteria. 3. Left kidney contains an 8 mm exophytic cyst midpole. It is otherwise unremarkable. 4. note is made of mild splenomegaly with a maximum dimension of 15 cm. The above report was generated using voice recognition software. It may contain grammatical, syntax or spelling errors. Electronically signed by: Jamey Cat M.D. 05/15/2019 5:24 PM
[2019-05-15] MEDS: INSULIN ASPART 100 UNITS/ML 3 ML PEN SC SCH ×2 (17:30→20:47)
[2019-05-15] MEDS: SPIRONOLACTONE 25 MG TAB PO SCH (17:30)
[2019-05-15] MEDS: MoRPHine SULFATE 2 MG/ML CARP IV PRN (19:42)
[2019-05-15] MEDS: LOSARTAN POTASSIUM 50 MG TAB PO SCH (20:46)
[2019-05-15] MEDS: INSULIN GLARGINE SOLOSTAR 100 UNITS/ML 3 ML PEN SC SCH (20:46)
[2019-05-15] MEDS: CARVEDILOL 25 MG TAB PO SCH (20:48)
[2019-05-16] MEDS: ACETAMINOPHEN 325 MG TAB PO PRN ×4 (06:23→21:48)
[2019-05-16 06:48] LABS: Hematocrit (blood only) 29.7 % (37-47); Hemoglobin 9.8 g/dL (12.0-16.0); Mean Corpuscular Volume 83.2 fL (80-100); RDW Coefficient of Variation 14.4 % (11.5-14.5); RDW Standard Deviation 43.7 fL (36.4-46.3); Red Blood Count 3.57 M/uL (4.2-5.4); White Blood Count 2.96 K/uL (4.8-10.8)
[2019-05-16 06:58] LABS: INR 1.6 (0.9-1.1); Mean Platelet Volume 10.9 fL (7.4-10.4); Platelet Count 91 K/uL (130-400); Prothrombin Time 15.8 Seconds (9.0-12.0)
[2019-05-16 07:27] LABS: Albumin Level 2.9 gm/dl (3.4-5.0); BUN Creatinine Ratio 13.2 (10-20); Calcium 8.2 mg/dl (8.5-10.1); Creatinine Clr Calc Pharmacy 50.8 ml/min; Est GFR (African American) 46.9; Est GFR (Non-African American) 40.5; Potassium 3.9 mmol/L (3.5-5.1)
[2019-05-16 07:29] LABS: Albumin Globulin Ratio 0.9 (0.9-2); Bilirubin,Total 0.5 mg/dl (0.2-1); Globulin 3.1 gm/dl (2.5-4.0)
[2019-05-16] MEDS: INSULIN ASPART 100 UNITS/ML 3 ML PEN SC SCH ×4 (08:37→20:49)
[2019-05-16] MEDS: DOXYCYCLINE HYCLATE 100 MG CAP PO SCH (08:39)
[2019-05-16] MEDS: CARVEDILOL 25 MG TAB PO SCH ×2 (08:39→20:50)
[2019-05-16] MEDS: CHOLECALCIFEROL 1,000 UNITS TAB PO SCH (08:40)
[2019-05-16] MEDS: PANTOprazole 40 MG TAB PO SCH (08:41)
[2019-05-16] MEDS: SPIRONOLACTONE 25 MG TAB PO SCH (08:41)
[2019-05-16] MEDS: AMIODARONE 200 MG TAB PO SCH (08:41)
[2019-05-16] MEDS: INSULIN GLARGINE SOLOSTAR 100 UNITS/ML 3 ML PEN SC SCH ×2 (08:42→20:49)
[2019-05-16] MEDS: LEVOTHYROXINE SODIUM 50 MCG TABLET PO SCH (08:42)
--- NOTE | 2019-05-16 09:52 | Hospitalist Progress Note ---
Date of Service May 16, 2019 Assessment & Plan (1) Fever of unknown origin: This is a 73yo F with a PMH of chronic systolic heart failure, idiopathic cardiomyopathy s/p ICD placement, paroxysmal A Fib on coumadin, known LBBB, DM II and other medical problems listed below who presents with fever, malaise and left-sided abdominal pain x 5 days. 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 [address]. Willett -CT abd/pelvis with possible R lower pole lesion - renal US: IMPRESSION: 1. Normal right renal ultrasound. 2. No evidence for a lesion based on ultrasound criteria. 3. Left kidney contains an 8 mm exophytic cyst midpole. It is otherwise unremarkable. 4. note is made of mild splenomegaly with a maximum dimension of 15 cm. - will consult Urologist given history of renal cell CA (3) HTN (hypertension): Normotensive. Given AM dose of Carvedilol -Continue losartan, carvedilol (4) Chronic systolic heart failure: (5) Idiopathic cardiomyopathy: (6) S/P ICD (internal cardiac defibrillator) procedure: H/o ICD placement in 2006, replaced in 2014 -2D echo from 2017 with EF of 40% -Clinically on dry side. hold Lasix, Spironolactone - continue carvedilol, losartan Paroxysmal A fib - INR 1.6 on Doxycycline - continue usual coumadin monitor INR daily (7) CKD (chronic kidney disease), stage III: At baseline. Continue to monitor with daily BMP (8) Diabetes mellitus, type II: A1c of 5.9 in March 2019 -Hold home agents -Basal/bolus insulin while in-patient -BSG AC HS (9) Nocturnal hypoxia: Supplemental 2L NC O2 HS DVT Ppx: Coumadin INR 1.6 Code status: FULL PCP: Oren Dispo: pending anticipate d/c home when medically stable Subjective ff up for fever, weakness seen resting in bed, not in distress appears somewhat weak states she feels slightly better than yesterday but still with malaise noted left groin rash is head still operator, spreading laterally denies headache, neck pain, facial palsy symptoms, focal weakness/numbness denies flank or abdominal pain today no other symptoms Review of Systems Review of Systems: All systems reviewed & are unremarkable except as noted in HPI & below Physical Exam Physical Exam: Laboratory Results - last 24 hr 05/15/19 05/15/19 05/16/19 17:21 20:33 06:27 WBC 2.96 L RBC 3.57 L Hgb 9.8 L Hct 29.7 L MCV 83.2 MCH 27.5 MCHC 33.0 RDW Std Deviation 43.7 RDW Coeff of Edilma 14.4 Plt Count 91 L MPV 10.9 H Peripher Smr Path Cons PT INR Sodium Potassium Chloride Carbon Dioxide Anion Gap BUN Creatinine Est Cr Clr Drug Do sing Est GFR ( A chris) Est GFR (Non-Af Am er) BUN/Creatinine Rat io Glucose POC Glucose 182 H 155 H Calcium Total Bilirubin AST ALT Alkaline Phosphata se Total Protein Albumin Globulin Albumin/Globulin R atio Lyme IgG (Western Blot) Lyme IgG 18 kDa Ba nd Lyme IgG 23 kDa Ba nd Lyme IgG 28 kDa Ba nd Lyme IgG 30 kDa Ba nd Lyme IgG 39 kDa Ba nd Lyme IgG 41 kDa Ba nd Lyme IgG 45 kDa Ba nd Lyme IgG 58 kDa Ba nd Lyme IgG 66 kDa Ba nd Lyme IgG 93 kDa Ba nd Lyme IgM (Western Blot) Lyme IgM 23 kDa Ba nd Lyme IgM 39 kDa Ba nd Lyme IgM 41 kDa Ba nd 05/16/19 05/16/19 05/16/19 06:27 06:27 07:40 WBC RBC Hgb Hct MCV MCH MCHC RDW Std Deviation RDW Coeff of Edilma Plt Count MPV Peripher Smr Path Cons PT 15.8 H INR 1.6 H Sodium 138 Potassium 3.9 Chloride 109 H Carbon Dioxide 24 Anion Gap 5.0 BUN 17 Creatinine 1.32 H Est Cr Clr Drug Do sing 50.8 Est GFR ( A chris) 46.9 Est GFR (Non-Af Am er) 40.5 BUN/Creatinine Rat io 13.2 Glucose 102 H POC Glucose 114 H Calcium 8.2 L Total Bilirubin 0.5 AST 22 ALT 27 Alkaline Phosphata se 81 Total Protein 6.0 L Albumin 2.9 L Globulin 3.1 Albumin/Globulin R atio 0.9 Lyme IgG (Western Blot) Lyme IgG 18 kDa Ba nd Lyme IgG 23 kDa Ba nd Lyme IgG 28 kDa Ba nd Lyme IgG 30 kDa Ba nd Lyme IgG 39 kDa Ba nd Lyme IgG 41 kDa Ba nd Lyme IgG 45 kDa Ba nd Lyme IgG 58 kDa Ba nd Lyme IgG 66 kDa Ba nd Lyme IgG 93 kDa Ba nd Lyme IgM (Western Blot) Lyme IgM 23 kDa Ba nd Lyme IgM 39 kDa Ba nd Lyme IgM 41 kDa Ba nd 05/16/19 05/16/19 05/16/19 09:28 09:28 11:53 WBC RBC Hgb Hct MCV MCH MCHC RDW Std Deviation RDW Coeff of Edilma Plt Count MPV Peripher Smr Path Cons Cancelled PT INR Sodium Potassium Chloride Carbon Dioxide Anion Gap BUN Creatinine Est Cr Clr Drug Do sing Est GFR ( A chris) Est GFR (Non-Af Am er) BUN/Creatinine Rat io Glucose POC Glucose 122 H Calcium Total Bilirubin AST ALT Alkaline Phosphata se Total Protein Albumin Globulin Albumin/Globulin R atio Lyme IgG (Western Blot) Pending Lyme IgG 18 kDa Ba nd Pending Lyme IgG 23 kDa Ba nd Pending Lyme IgG 28 kDa Ba nd Pending Lyme IgG 30 kDa Ba nd Pending Lyme IgG 39 kDa Ba nd Pending Lyme IgG 41 kDa Ba nd Pending Lyme IgG 45 kDa Ba nd Pending Lyme IgG 58 kDa Ba nd Pending Lyme IgG 66 kDa Ba nd Pending Lyme IgG 93 kDa Ba nd Pending Lyme IgM (Western Blot) Pending Lyme IgM 23 kDa Ba nd Pending Lyme IgM 39 kDa Ba nd Pending Lyme IgM 41 kDa Ba nd Pending Results & Data Vital Signs (Past 12 Hours) Vital Signs Temp Pulse Pulse Resp BP Pulse Ox 05/16/19 07:19 36.9 C 69 20 103/63 95 05/16/19 04:00 36.7 C 66 18 102/61 95 05/15/19 23:43 75 05/15/19 22:53 38.0 C H 76 20 114/65 96
[2019-05-16] MEDS: WARFARIN SOD 5 MG TAB PO SCH (16:16)
[2019-05-16] MEDS: DOXYCYCLINE HYCLATE 100 MG in DEXTROSE 5% 100 ML IV SCH (20:48)
[2019-05-16] MEDS: LOSARTAN POTASSIUM 50 MG TAB PO SCH (20:50)
[2019-05-17] MEDS: ACETAMINOPHEN 325 MG TAB PO PRN ×5 (02:21→23:15)
[2019-05-17] MEDS: LEVOTHYROXINE SODIUM 50 MCG TABLET PO SCH (06:01)
[2019-05-17 06:21] LABS: Hematocrit (blood only) 29.5 % (37-47); Hemoglobin 9.8 g/dL (12.0-16.0); Mean Corpuscular Hgb Conc 33.2 g/dL (32-36); Mean Corpuscular Volume 82.6 fL (80-100); RDW Coefficient of Variation 14.3 % (11.5-14.5); RDW Standard Deviation 43.7 fL (36.4-46.3); Red Blood Count 3.57 M/uL (4.2-5.4); White Blood Count 2.51 K/uL (4.8-10.8)
[2019-05-17 06:35] LABS: INR 1.8 (0.9-1.1); Prothrombin Time 17.6 Seconds (9.0-12.0)
[2019-05-17 06:46] LABS: Mean Platelet Volume 10.5 fL (7.4-10.4); Platelet Count 97 K/uL (130-400)
[2019-05-17 06:48] LABS: Albumin Level 2.9 gm/dl (3.4-5.0); BUN Creatinine Ratio 14.1 (10-20); Calcium 8.5 mg/dl (8.5-10.1); Est GFR (African American) 54.9; Est GFR (Non-African American) 47.3; Potassium 3.7 mmol/L (3.5-5.1)
[2019-05-17 06:51] LABS: Bilirubin,Total 0.5 mg/dl (0.2-1); Total Protein 5.9 gm/dl (6.4-8.2)
[2019-05-17] MEDS: AMIODARONE 200 MG TAB PO SCH (07:44)
[2019-05-17] MEDS: CHOLECALCIFEROL 1,000 UNITS TAB PO SCH (07:45)
[2019-05-17] MEDS: PANTOprazole 40 MG TAB PO SCH (07:47)
[2019-05-17] MEDS: CARVEDILOL 25 MG TAB PO SCH ×2 (07:47→20:47)
[2019-05-17] MEDS: INSULIN ASPART 100 UNITS/ML 3 ML PEN SC SCH ×4 (07:49→20:49)
[2019-05-17] MEDS: INSULIN GLARGINE SOLOSTAR 100 UNITS/ML 3 ML PEN SC SCH ×2 (07:49→20:49)
[2019-05-17] MEDS: DOXYCYCLINE HYCLATE 100 MG in DEXTROSE 5% 100 ML IV SCH ×2 (09:03→20:54)
[2019-05-17] MEDS ORDERED: TRAMADOL HCL 50 MG TABLET PO PRN (09:51)
[2019-05-17] MEDS: cefTRIAXone SODIUM 2,000 MG in DEXTROSE 5% 50 ML IV SCH (10:39)
--- NOTE | 2019-05-17 11:07 | Infectious Disease Consult ---
Date of Consultation May 17, 2019 Assessment & Plan (1) Lyme disease: Patient with what appears to be early Lyme disease with erythema migrans, but I am concerned about possible coinfection with Anaplasma given low platelet count. Both possibilities will be adequately treated with doxycycline 100 mg twice daily for 14 days. Will likely take 5 to 7 days for results of Anaplasma PCR to return. Will follow. History of Present Illness Reason for Consultation: Possible Lyme disease Attending Physician: Sebastien Lala MD History of Present Illness 73-year-old female with history of hypertension, coronary artery disease, stage III chronic kidney disease, diabetes mellitus, status post ICD, who was in usual state of health until last week when she noted fever, body aches, weakness and fatigue. Symptoms progressively worsened, developed some left-sided flank pain and she eventually came to the emergency department for further management. She is found to have thrombocytopenia, and was noted to have erythematous rash in her left groin. Peripheral smear negative for inclusions consistent with Anaplasma, Lyme serology negative. Patient has been started on doxycycline and feeling slightly better. No further fevers. Blood cultures have been negative. Allergies Allergy/AdvReac Type Severity Reaction Status Date / Time Nyqzufp-Qbl-Eyt Reductase Allergy Unknown UNKNOWN Unverified 05/15/19 08:21 Inhibitor Sulfa (Sulfonamide Allergy Unknown HIVES Verified 05/15/19 08:21 Antibiotics) citalopram AdvReac Unknown UNKNOWN Unverified 05/15/19 08:21 hydrocodone AdvReac Unknown NAUSEA AND Unverified 05/15/19 08:21 VOMITING ketorolac AdvReac Unknown RASH Unverified 05/15/19 08:21 oxycodone AdvReac Unknown UNKNOWN Unverified 05/15/19 08:21 propoxyphene AdvReac Unknown UNKNOWN Unverified 05/15/19 08:21 tramadol AdvReac Unknown UNKNOWN Unverified 05/15/19 08:21 Home Medications Home Medications Medication Instructions Recorded Confirmed Type acetaminophen [Tylenol Extra 500 mg PO Q6H PRN 05/15/19 05/15/19 History Strength] albuterol sulfate 2 puff INHALATION QID PRN 05/15/19 05/15/19 History amiodarone 100 mg PO QAM 05/15/19 05/15/19 History carvedilol 25 mg PO BID 05/15/19 05/15/19 History cholecalciferol (vitamin D3) 5,000 unit PO DAILY 05/15/19 05/15/19 History fish,bora,flax oils-om3,6,9no1 1 cap PO DAILY 05/15/19 05/15/19 History [[place] 3-6-9] furosemide 40 mg PO BID 05/15/19 05/15/19 History insulin glargine [Lantus Solostar 25 unit SUBCUT HS 05/15/19 05/15/19 History U-100 Insulin] levothyroxine 50 mcg PO QAM 05/15/19 05/15/19 History losartan 100 mg PO HS 05/15/19 05/15/19 History metformin 500 mg PO BIDM 05/15/19 05/15/19 History omeprazole 20 mg PO QAM 05/15/19 05/15/19 History sennosides-docusate sodium 1 tab PO DAILY PRN 05/15/19 05/15/19 History [Senokot-S] spironolactone 50 mg PO BID 05/15/19 05/15/19 History warfarin 2.5 mg PO MO@1600 05/15/19 05/15/19 History warfarin 5 mg PO SUTUWETHFRSA@1600 05/15/19 05/15/19 History Patient History Medical History Coronary artery disease (Chronic) CKD (chronic kidney disease), stage III (Chronic) HTN (hypertension) (Chronic) Nocturnal hypoxia (Chronic) Idiopathic cardiomyopathy (Chronic) Chronic systolic heart failure (Chronic) Diabetes mellitus, type II (Chronic) Surgical History S/P ICD (internal cardiac defibrillator) procedure (Chronic) History of knee replacement (Chronic) History of hysterectomy (Chronic) History of cholecystectomy (Chronic) History of appendectomy (Chronic) History of partial nephrectomy (Chronic) [facility] in 2018 Family History Other Colorectal cancer Heart disease Stroke Social History Preferred Language: Luxembourgish Communication Ability: Effective 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: No Beliefs That Will Affect Care: None Current Living Situation: Spouse Other Information That Helps Us Care for You: No Feels Safe at Home: Yes Safety Concerns: Feels Safe At This Time Smoking Status: Never smoker Do You Dip or Chew Tobacco: No Second Hand Exposure: No Tobacco Cessation Education Requested by Patient: No Hx Alcohol Use: No Hx Substance Use: No Review of Systems Review of Systems: All systems reviewed & are unremarkable except as noted in HPI & below Physical Exam Constitutional: WD/WN, vitals as above comfortable; no acute distress Eyes: PERRL, conjunctivae normal, anicteric sclerae ENMT: external ear and nose normal, oropharynx normal Neck: trachea midline, no thyromegaly neck nontender Respiratory: normal respiratory effort, lungs clear to auscultation normal percussion; does not use accessory muscles Cardiovascular: Rate/Rhythm: + irregularly irregular Heart Sounds: normal S1 and normal S2; no gallop, no murmur and no cardiac rub Vessels: normal peripheral pulses; no JVD Gastrointestinal (Abdomen): normal bowel sounds, soft, nontender, no hepatosp lenomegaly Musculoskeletal: no cyanosis or clubbing, extremities motor strength 5/5 Spine: thoracic spine normal to inspection and lumbar spine normal to inspection; no cervical spinal tenderness Skin: normal turgor and + rash (Erythematous bull's-eye type rash left groin) Neurologic: patellar DTR's 2+ bilat, sensation intact no focal motor deficits Psychiatric: A+Ox3, euthymic affect Orientation: cooperative Lymphatic: no cervical or axillary lymphadenopathy no inguinal lymphadenopathy Results & Data Vital Signs (Past 12 Hours) Vital Signs Temp Pulse Pulse Resp BP BP Pulse Ox 05/17/19 10:46 62 05/17/19 06:53 36.4 C L 60 20 116/72 97 05/17/19 04:06 36.6 C 59 L 18 100/58 L 96 05/16/19 23:04 36.4 C L 57 L 18 122/89 97 Laboratory Results Short CBC 05/15/19 05/15/19 05/16/19 Range/Units 07:53 10:22 09:28 WBC (4.8-10.8) K/uL Hgb (12.0-16.0) g/dL Hct (37-47) % Plt Count (130-400) K/uL Peripher Smr Path Cons Cancelled Cancelled 05/17/19 Range/Units 06:06 WBC 2.51 L (4.8-10.8) K/uL Hgb 9.8 L (12.0-16.0) g/dL Hct 29.5 L (37-47) % Plt Count 97 L (130-400) K/uL Peripher Smr Path Cons BMP 05/17/19 06:06 Sodium 141 Potassium 3.7 Chloride 113 H Carbon Dioxide 23 BUN 16 Creatinine 1.16 Glucose 97 Calcium 8.5 Liver Function 05/17/19 Range/Units 06:06 Total Bilirubin 0.5 (0.2-1) mg/dl AST 21 (15-37) U/L ALT 27 (12-78) U/L Alkaline Phosphatase 79 (45-117) U/L Albumin 2.9 L (3.4-5.0) gm/dl Diagnostic Findings Microbiology 05/15/19 10:22 Blood Aerobic Blood Culture - Preliminary No growth in Aerobic bottle after 48 hours. 05/15/19 10:22 Blood Anaerobic Blood Culture - Preliminary No growth in Anaerobic bottle after 48 hours. 05/15/19 10:33 Blood Aerobic Blood Culture - Preliminary No growth in Aerobic bottle after 48 hours. 05/15/19 10:33 Blood Anaerobic Blood Culture - Preliminary No growth in Anaerobic bottle after [address] abd pelvis wo con CLINICAL HISTORY: 73 years-old Female presenting with nausea and vomiting, left sided abd pain, left renal surgery. TECHNIQUE: Multidetector CT of the abdomen and pelvis was performed without the use of intravenous contrast. IV contrast: None. One or more dose lowering techniques were used consistent with the principles of ALARA (as low as reasonably achievable), including automatic exposure control, mA or kV adjustment to individual patient size, and/or use of iterative reconstruction. COMPARISON: 07/10/2016. CT DOSE (mGy.cm): The estimated cumulative dose is 817.66 mGy.cm. 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 Lung bases: Cardiac lead projects to the right ventricular apex. Calcification of the aortic valve. Normal heart size. No pericardial or pleural effusion. Minimal dependent changes likely atelectasis. Solid fissural 4 mm nodule in the right lower lobe unchanged since 2016 consistent with benignity. Liver: Normal morphology. Redemonstration of multiple liver lesions previously demonstrated to represent hemangiomas. Normal background liver density. Biliary: No gross biliary ductal dilatation allowing for noncontrast technique. Gallbladder surgically absent. Pancreas: Normal noncontrast appearance. Spleen: Normal noncontrast appearance. Adrenal glands: Normal noncontrast appearance. Kidneys and ureters: Postsurgical changes of partial mastectomy in the upper pole the left kidney. Moderate nonspecific perinephric fat infiltration and laterally. Cortical scarring at the posterior aspect of the interpolar region of the right kidney as on prior exam. Possible lesion at the lower pole of the right kidney (series 3 image 229). No nephrolithiasis or hydronephrosis. Ureters nondistended. Bladder: Normal. Pelvic organs: Uterus surgically absent. Simple appearing cysts measuring 2.6 cm and the left ovary. This would be considered benign with no further follow-up warranted. Bowel: Normal. Lipomatous hypertrophy of the ileocecal valve. No bowel obstruction. Trace hiatal hernia. Peritoneal cavity: No free fluid or intraperitoneal gas. Lymph nodes: No gross lymphadenopathy allowing for noncontrast technique. Vasculature: Atherosclerosis of the normal caliber abdominal aorta. Abdominal wall: Postsurgical changes in the infraumbilical abdominal wall. Small fat-containing left inguinal hernia suspected. Musculoskeletal: Degenerative changes of the spine. IMPRESSION: 1. Interval postsurgical changes of partial left nephrectomy. No postsurgical complication. 2. Allowing for noncontrast technique, no acute intra-abdominal pathology. 3. Possible right lower pole lesion or cyst. Renal ultrasound could be obtained if there is clinical concern. Electronically signed by: Irwin Mccullough M.D. 05/15/2019 9:47 AM Dictated: 05/15/19 [id number]
--- NOTE | 2019-05-17 12:09 | CT Scan Report ---
CT head/brain wo con CLINICAL HISTORY: 73 years-old Female with headache, r/o bleed. Acute headache TECHNIQUE: Multiple axial CT images of the head were obtained without contrast. A dose lowering tech nique was utilized adhering to the principles of ALARA. CT DOSE: 638.56 mGycm COMPARISON: CT maxillofacial 02/07/2015. FINDINGS: No acute intracranial hemorrhage, midline shift, intracranial mass, hydrocephalus, territorial ischem ia or abnormal extra-axial collection. Mild age-related involutional changes. Calcifications noted ab out the bilateral lentiform nuclei. Cerebral vascular calcifications are noted. The calvarium is intact. Trace right mastoid effusion. Left mastoid air cells are clear. Prior bilat eral cataract repair. IMPRESSION: No acute intracranial abnormality. The above report was generated using voice recognition software. It may contain grammatical, syntax o r spelling errors. Electronically signed by: Roland Meza M.D. 05/17/2019 12:08 PM
[2019-05-17] MEDS: ONDANSETRON INJ 2 MG/ML 2 ML VIAL IV PRN (14:28)
[2019-05-17] MEDS: WARFARIN SOD 5 MG TAB PO SCH (15:49)
[2019-05-17 16:04] LABS: Anaplasma phagocytophila IgM <1:20 (<1:20)
--- NOTE | 2019-05-17 16:48 | Hospitalist Progress Note ---
Date of Service May 17, 2019 Assessment & Plan (1) Fever of unknown origin: Possible Lyme disease, rule out anaplasmosis This is a 73yo F with a PMH of chronic systolic heart failure, idiopathic cardiomyopathy s/p ICD placement, paroxysmal A Fib on coumadin, known LBBB, DM II and other medical problems listed below who presents with fever, malaise and left-sided abdominal pain x 5 days. 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 [address] Willett -CT abd/pelvis with possible R lower pole lesion - renal US: IMPRESSION: 1. Normal right renal ultrasound. 2. No evidence for a lesion based on ultrasound criteria. 3. Left kidney contains an 8 mm exophytic cyst midpole. It is otherwise unremarkable. 4. note is made of mild splenomegaly with a maximum dimension of 15 cm. - will consult Urologist given history of renal cell CA Denies left flank pain today (3) HTN (hypertension): Normotensive. Given AM dose of Carvedilol -Continue losartan, carvedilol (4) Chronic systolic heart failure: (5) Idiopathic cardiomyopathy: (6) S/P ICD (internal cardiac defibrillator) procedure: H/o ICD placement in 2006, replaced in 2014 -2D echo from 2017 with EF of 40% -Clinically on dry side. hold Lasix, Spironolactone - continue carvedilol, losartan Paroxysmal A fib - INR 1.8 on Doxycycline - continue usual coumadin monitor INR daily (7) CKD (chronic kidney disease), stage III: At baseline. Continue to monitor with daily BMP (8) Diabetes mellitus, type II: A1c of 5.9 in March 2019 -Hold home agents -Basal/bolus insulin while in-patient -BSG AC HS (9) Nocturnal hypoxia: Supplemental 2L NC O2 HS DVT Ppx: Coumadin INR 1.8 Code status: FULL PCP: Oren Dispo: pending anticipate d/c home when medically stable Subjective Follow-up for possible Lyme disease Seen resting in bed, not in distress but still seems to be on the weak side today next states she feels about the same Still has some weakness, generalized headache, malaise Appetite is fair Denies focal weakness or numbness, arthralgias or myalgias Reports left groin rash is improving, less painful Denies chest pain, shortness of breath, coughing, abdominal pain No other symptoms Review of Systems Review of Systems: All systems reviewed & are unremarkable except as noted in HPI & below Physical Exam Physical Exam: General- oriented x 3, not in distress, speaks in sentences with no effort or accessory muscle use Eyes- anicteric Neck- no JVD Lungs- clear breath sounds bilaterally Heart- normal rate, regular rhythm; no murmurs Abdomen- normal bowel sounds, nondistended, soft, nontender Left groin-erythematous rash fading, less tender, positive left inguinal lymphadenopathy Extremities- no pretibial edema, no calf tenderness Neuro- alert, oriented x 3; no gross focal neurologic deficits Skin- warm & dry Results & Data Vital Signs (Past 12 Hours) Vital Signs Temp Pulse Pulse Resp BP BP Pulse Ox 05/17/19 16:00 62 05/17/19 15:57 36.5 C 57 L 18 127/74 97 05/17/19 11:35 36.6 C 58 L 16 138/75 98 05/17/19 10:46 62 05/17/19 06:53 36.4 C L 60 20 116/72 97 Laboratory Results Laboratory Results - last 24 hr 05/15/19 05/16/19 05/17/19 10:22 20:44 06:06 WBC 2.51 L RBC 3.57 L Hgb 9.8 L Hct 29.5 L MCV 82.6 MCH 27.5 MCHC 33.2 RDW Std Deviation 43.7 RDW Coeff of Edilma 14.3 Plt Count 97 L MPV 10.5 H PT INR Sodium Potassium Chloride Carbon Dioxide Anion Gap BUN Creatinine Est Cr Clr Drug Dosing Est GFR ( Amer) Est GFR (Non-Af Amer) BUN/Creatinine Ratio Glucose POC Glucose 146 H Calcium Total Bilirubin AST ALT Alkaline Phosphatase Total Protein Albumin Globulin Albumin/Globulin Ratio A. phagocytophilum IgG <1:64 A. phagocytophilum IgM <1:20 A. phagocytophilum DNA Not Detected A.phagocytophilum Intrp see note A. phagocytophilum [facility] see note 05/17/19 05/17/19 05/17/19 06:06 06:06 07:24 WBC RBC Hgb Hct MCV MCH MCHC RDW Std Deviation RDW Coeff of Edilma Plt Count MPV PT 17.6 H INR 1.8 H Sodium 141 Potassium 3.7 Chloride 113 H Carbon Dioxide 23 Anion Gap 5.0 BUN 16 Creatinine 1.16 Est Cr Clr Drug Dosing 58.0 Est GFR ( Amer) 54.9 Est GFR (Non-Af Amer) 47.3 BUN/Creatinine Ratio 14.1 Glucose 97 POC Glucose 105 H Calcium 8.5 Total Bilirubin 0.5 AST 21 ALT 27 Alkaline Phosphatase 79 Total Protein 5.9 L Albumin 2.9 L Globulin 3.0 Albumin/Globulin Ratio 1.0 A. phagocytophilum IgG A. phagocytophilum IgM A. phagocytophilum DNA A.phagocytophilum Intrp A. phagocytophilum [facility] 05/17/19 05/17/19 11:42 16:36 WBC RBC Hgb Hct MCV MCH MCHC RDW Std Deviation RDW Coeff of Edilma Plt Count MPV PT INR Sodium Potassium Chloride Carbon Dioxide Anion Gap BUN Creatinine Est Cr Clr Drug Dosing Est GFR ( Amer) Est GFR (Non-Af Amer) BUN/Creatinine Ratio Glucose POC Glucose 137 H 134 H Calcium Total Bilirubin AST ALT Alkaline Phosphatase Total Protein Albumin Globulin Albumin/Globulin Ratio A. phagocytophilum IgG A. phagocytophilum IgM A. phagocytophilum DNA A.phagocytophilum Intrp A. phagocytophilum [facility]
--- NOTE | 2019-05-17 17:45 | Urology Consultation ---
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 I viewed the renal ultrasound and non contrast ct images and reports. Present on Admission?: Yes History of Present Illness Reason for Consultation: right renal mass Requesting Physician: Dr Fonseca Attending Physician: Sebastien Fonseca MD History of Present Illness I am asked by Dr fonseca to evaluate and treat patient for renal mass. She had a left partial nephrectomy for a type 1 papillary renal cell cancer just under 40mm last year. She has been FEDE. SHe is admitted with lymes disease. She has had abd pain and a ct was concerned about a right renal mass. She had a follow up ultrasound which showed the right kidney lesion was a 8mm simple exophytic cyst. No sign of any residual or new suspicious renal mass. Allergies Allergy/AdvReac Type Severity Reaction Status Date / Time Axajled-Llp-Hmd Reductase Allergy Unknown UNKNOWN Unverified 05/15/19 08:21 Inhibitor Sulfa (Sulfonamide Allergy Unknown HIVES Verified 05/15/19 08:21 Antibiotics) citalopram AdvReac Unknown UNKNOWN Unverified 05/15/19 08:21 hydrocodone AdvReac Unknown NAUSEA AND Unverified 05/15/19 08:21 VOMITING ketorolac AdvReac Unknown RASH Unverified 05/15/19 08:21 oxycodone AdvReac Unknown UNKNOWN Unverified 05/15/19 08:21 propoxyphene AdvReac Unknown UNKNOWN Unverified 05/15/19 08:21 tramadol AdvReac Unknown UNKNOWN Unverified 05/15/19 08:21 Home Medications Home Medications Medication Instructions Recorded Confirmed Type acetaminophen [Tylenol Extra 500 mg PO Q6H PRN 05/15/19 05/15/19 History Strength] albuterol sulfate 2 puff INHALATION QID PRN 05/15/19 05/15/19 History amiodarone 100 mg PO QAM 05/15/19 05/15/19 History carvedilol 25 mg PO BID 05/15/19 05/15/19 History cholecalciferol (vitamin D3) 5,000 unit PO DAILY 05/15/19 05/15/19 History fish,bora,flax oils-om3,6,9no1 1 cap PO DAILY 05/15/19 05/15/19 History [[place] 3-6-9] furosemide 40 mg PO BID 05/15/19 05/15/19 History insulin glargine [Lantus Solostar 25 unit SUBCUT HS 05/15/19 05/15/19 History U-100 Insulin] levothyroxine 50 mcg PO QAM 05/15/19 05/15/19 History losartan 100 mg PO HS 05/15/19 05/15/19 History metformin 500 mg PO BIDM 05/15/19 05/15/19 History omeprazole 20 mg PO QAM 05/15/19 05/15/19 History sennosides-docusate sodium 1 tab PO DAILY PRN 05/15/19 05/15/19 History [Senokot-S] spironolactone 50 mg PO BID 05/15/19 05/15/19 History warfarin 2.5 mg PO MO@1600 05/15/19 05/15/19 History warfarin 5 mg PO SUTUWETHFRSA@1600 05/15/19 05/15/19 History Patient History Medical History Coronary artery disease (Chronic) CKD (chronic kidney disease), stage III (Chronic) HTN (hypertension) (Chronic) Nocturnal hypoxia (Chronic) Idiopathic cardiomyopathy (Chronic) Chronic systolic heart failure (Chronic) Diabetes mellitus, type II (Chronic) Surgical History S/P ICD (internal cardiac defibrillator) procedure (Chronic) History of knee replacement (Chronic) History of hysterectomy (Chronic) History of cholecystectomy (Chronic) History of appendectomy (Chronic) History of partial nephrectomy (Chronic) [facility] Family History Other Colorectal cancer Heart disease Stroke Social History Preferred Language: Hebrew Communication Ability: Effective Comprehensive Advisor Required: No Beliefs That Will Affect Care: None Current Living Situation: Spouse Other Information That Helps Us Care for You: No Feels Safe at Home: Yes Safety Concerns: Feels Safe At This Time Smoking Status: Never smoker Do You Dip or Chew Tobacco: No Second Hand Exposure: No Tobacco Cessation Education Requested by Patient: No Hx Alcohol Use: No Hx Substance Use: No Review of Systems Review of Systems: PMH- severe heart disease, DM, Thyroid dz lymes disease Soc- retired, + children, no tobacco no alcohol ROS- no chest pain like angina, + myalgias, + diarrhea, poor appetite, no cough, + rash no emesis + mild nausea which was relieved with zofran Physical Exam Constitutional: + ill appearing, + obese and + frail appearing Respiratory: normal respiratory effort, lungs clear to auscultation able to speak in complete sentences Cardiovascular: Extremities: no calf tenderness and no pedal edema Gastrointestinal (Abdomen): normal bowel sounds, soft, nontender, no hepatosplenomegaly Inspection/Auscultation: abdomen normal to inspection Percussion/Palpation: abdomen nontender and no guarding Skin: normal turgor Psychiatric: A+Ox3, euthymic affect Results & Data Vital Signs (Past 12 Hours) Vital Signs Temp Pulse Pulse Resp BP BP Pulse Ox 05/17/19 16:00 62 05/17/19 15:57 36.5 C 57 L 18 127/74 97 05/17/19 11:35 36.6 C 58 L 16 138/75 98 05/17/19 10:46 62 05/17/19 06:53 36.4 C L 60 20 116/72 97
[2019-05-17] MEDS: LOSARTAN POTASSIUM 50 MG TAB PO SCH (20:47)
[2019-05-18] MEDS: LEVOTHYROXINE SODIUM 50 MCG TABLET PO SCH (06:00)
[2019-05-18] MEDS: INSULIN GLARGINE SOLOSTAR 100 UNITS/ML 3 ML PEN SC SCH ×2 (07:57→20:31)
[2019-05-18] MEDS: ONDANSETRON INJ 2 MG/ML 2 ML VIAL IV PRN (07:57)
[2019-05-18] MEDS: PANTOprazole 40 MG TAB PO SCH (07:58)
[2019-05-18] MEDS: AMIODARONE 200 MG TAB PO SCH (07:58)
[2019-05-18] MEDS: CHOLECALCIFEROL 1,000 UNITS TAB PO SCH (07:59)
[2019-05-18] MEDS: DOXYCYCLINE HYCLATE 100 MG in DEXTROSE 5% 100 ML IV SCH (08:01)
[2019-05-18] MEDS: CARVEDILOL 25 MG TAB PO SCH ×2 (08:05→20:28)
[2019-05-18] MEDS: INSULIN ASPART 100 UNITS/ML 3 ML PEN SC SCH ×4 (08:06→20:29)
[2019-05-18] MEDS: ACETAMINOPHEN 325 MG TAB PO PRN (09:17)
[2019-05-18] MEDS: cefTRIAXone SODIUM 2,000 MG in DEXTROSE 5% 50 ML IV SCH (10:15)
[2019-05-18 10:21] LABS: Basophils # (auto) 0.01 K/uL (0-0.2); Basophils % (auto) 0.3 %; Eosinophils # (auto) 0.06 K/uL (0-0.5); Eosinophils % (auto) 1.6 %; Hematocrit (blood only) 30.9 % (37-47); Hemoglobin 10.4 g/dL (12.0-16.0); Immature Granulocytes # (auto) 0.01 K/uL (0.00-0.02); Immature Granulocytes % (auto) 0.3 %; Lymphocytes # (auto) 0.57 K/uL (1.2-3.4); Lymphocytes % (auto) 15.4 %; Mean Corpuscular Hgb Conc 33.7 g/dL (32-36); Mean Corpuscular Volume 83.7 fL (80-100); Mean Platelet Volume 10.4 fL (7.4-10.4); Monocytes # (auto) 0.36 K/uL (0.11-0.59); Monocytes % (auto) 9.7 %; Neutrophils # (auto) 2.69 K/uL (1.4-6.5); Neutrophils % (auto) 72.7 %; Platelet Count 124 K/uL (130-400); RDW Coefficient of Variation 14.5 % (11.5-14.5); RDW Standard Deviation 44.5 fL (36.4-46.3); Red Blood Count 3.69 M/uL (4.2-5.4)
[2019-05-18 10:42] LABS: INR 2.1 (0.9-1.1)
[2019-05-18 10:48] LABS: BUN Creatinine Ratio 12.2 (10-20); Creatinine Clr Calc Pharmacy 59.7 ml/min; Est GFR (African American) 57.2; Est GFR (Non-African American) 49.4; Potassium 4.1 mmol/L (3.5-5.1)
[2019-05-18] MEDS ORDERED: POLYETHYLENE (MIRALAX) 17 GM PACK PO PRN (10:49)
--- NOTE | 2019-05-18 10:53 | Hospitalist Progress Note ---
Date of Service May 18, 2019 Assessment & Plan (1) Fever of unknown origin: Possible Lyme disease This is a 73yo F with a PMH of chronic systolic heart failure, idiopathic cardiomyopathy s/p ICD placement, paroxysmal A Fib on coumadin, known LBBB, DM II and other medical problems listed below who presents with fever, malaise and left-sided abdominal pain x 5 days. 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 [address]. Willett -CT abd/pelvis with possible R lower pole lesion - renal US: IMPRESSION: 1. Normal right renal ultrasound. 2. No evidence for a lesion based on ultrasound criteria. 3. Left kidney contains an 8 mm exophytic cyst midpole. It is otherwise unremarkable. 4. note is made of mild splenomegaly with a maximum dimension of 15 cm. - will consult Urologist given history of renal cell CA Left flank pain resolved (3) HTN (hypertension): Normotensive -Continue losartan, carvedilol (4) Chronic systolic heart failure: (5) Idiopathic cardiomyopathy: (6) S/P ICD (internal cardiac defibrillator) procedure: H/o ICD placement in 2006, replaced in 2014 -2D echo from 2017 with EF of 40% -Clinically on dry side. hold Lasix, Spironolactone Gentle IV fluids started - continue carvedilol, losartan Paroxysmal A fib - INR 2.1 on Doxycycline - continue usual coumadin monitor INR daily (7) CKD (chronic kidney disease), stage III: At baseline. Continue to monitor with daily BMP (8) Diabetes mellitus, type II: A1c of 5.9 in March 2019 -Hold home agents -Basal/bolus insulin while in-patient -BSG AC HS (9) Nocturnal hypoxia: Supplemental 2L NC O2 HS DVT Ppx: Coumadin INR 2.1 Code status: FULL PCP: Oren Dispo: pending anticipate d/c home when medically stable Subjective Follow-up for suspected Lyme disease Seen resting in bed, patient's and with the bedside States she feels slightly better today, still has frontal headache, still feels weak Denies arthralgias, myalgias, focal weakness or numbness, Denies other symptoms Review of Systems Review of Systems: All systems reviewed & are unremarkable except as noted in HPI & below Physical Exam Physical Exam: General- oriented x 3, not in distress, speaks in sentences with no effort or accessory muscle use Eyes- anicteric Neck- no JVD Lungs-clear BS bilaterally Heart- normal rate, regular rhythm; no murmurs Abdomen- normal bowel sounds, nondistended, soft, nontender Extremities- no pretibial edema, no calf tenderness Left groin-erythematous rash continues to resolve, less tenderness, positive inguinal lymphadenopathy Neuro- alert, oriented x 3; no gross focal neurologic deficits Skin- warm & dry Results & Data Vital Signs (Past 12 Hours) Vital Signs Temp Pulse Pulse Resp BP BP Pulse Ox 05/18/19 08:14 64 129/73 05/18/19 07:28 36.7 C 58 L 20 103/52 L 96 05/18/19 03:52 36.4 C L 59 L 18 92/51 L 96 05/18/19 00:00 59 L 05/17/19 23:00 36.6 C 56 L 20 126/67 98
[2019-05-18 11:12] LABS: Alanine Aminotransferase 26 U/L (12-78); Albumin Level 3.1 gm/dl (3.4-5.0); Alkaline Phosphatase 84 U/L (45-117); Aspartate Aminotransferase 19 U/L (15-37); Bilirubin Direct < 0.1 mg/dl (0-0.2); Bilirubin,Total 0.4 mg/dl (0.2-1); Total Protein 6.2 gm/dl (6.4-8.2)
[2019-05-18] MEDS: D5NSS + 20MEQ KCL 20 MEQ/1,000 ML BAG IV SCH (12:03)
--- NOTE | 2019-05-18 15:53 | Infectious Disease Progress Nt ---
Date of Service May 18, 2019 Assessment & Plan (1) Lyme disease: Patient with what appears to be early Lyme disease with erythema migrans. Continue doxycycline 100 mg twice daily for 14 days total. Subjective Patient seen in follow-up for possible Lyme disease. Feeling somewhat better, still weak and fatigued. Still with some flank pain. No other new complaints. Anaplasma PCR negative. Review of Systems Review of Systems: All systems reviewed & are unremarkable except as noted in HPI & below Physical Exam Constitutional: WD/WN, vitals as above comfortable; no acute distress Eyes: PERRL, conjunctivae normal, anicteric sclerae ENMT: external ear and nose normal, oropharynx normal Neck: trachea midline, no thyromegaly neck nontender Respiratory: normal respiratory effort, lungs clear to auscultation normal percussion; does not use accessory muscles Cardiovascular: Rate/Rhythm: + irregularly irregular Heart Sounds: normal S1 and normal S2; no gallop, no murmur and no cardiac rub Vessels: normal peripheral pulses; no JVD Gastrointestinal (Abdomen): normal bowel sounds, soft, nontender, no hepatosplenomegaly Musculoskeletal: no cyanosis or clubbing, extremities motor strength 5/5 Spine: thoracic spine normal to inspection and lumbar spine normal to inspection; no cervical spinal tenderness Skin: normal turgor and + rash (Erythematous bull's-eye type rash left groin) Neurologic: patellar DTR's 2+ bilat, sensation intact no focal motor deficits Psychiatric: A+Ox3, euthymic affect Orientation: cooperative Lymphatic: no cervical or axillary lymphadenopathy no inguinal lymphadenopathy Results & Data Vital Signs (Past 12 Hours) Vital Signs Temp Pulse Resp BP Pulse Ox 05/18/19 15:48 36.7 C 59 L 20 117/66 98 05/18/19 11:25 36.4 C L 58 L 18 122/70 98 05/18/19 08:14 64 129/73 05/18/19 07:28 36.7 C 58 L 20 103/52 L 96 05/18/19 03:52 36.4 C L 59 L 18 92/51 L 96 Laboratory Results Short CBC 05/18/19 Range/Units 10:06 WBC 3.70 L (4.8-10.8) K/uL Hgb 10.4 L (12.0-16.0) g/dL Hct 30.9 L (37-47) % Plt Count 124 L (130-400) K/uL BMP 05/18/19 10:06 Sodium 142 Potassium 4.1 Chloride 114 H Carbon Dioxide 20 L BUN 14 Creatinine 1.12 Glucose 208 H Calcium 9.0 Liver Function 05/18/19 Range/Units 10:43 Total Bilirubin 0.4 (0.2-1) mg/dl Direct Bilirubin < 0.1 (0-0.2) mg/dl AST 19 (15-37) U/L ALT 26 (12-78) U/L Alkaline Phosphatase 84 (45-117) U/L Albumin 3.1 L (3.4-5.0) gm/dl Diagnostic Findings Microbiology 05/15/19 10:22 Blood Aerobic Blood Culture - Preliminary No growth in Aerobic bottle after 48 hours. 05/15/19 10:22 Blood Anaerobic Blood Culture - Preliminary No growth in Anaerobic bottle after 48 hours. 05/15/19 10:33 Blood Aerobic Blood Culture - Preliminary No growth in Aerobic bottle after 48 hours. 05/15/19 10:33 Blood Anaerobic Blood Culture - Preliminary No growth in Anaerobic bottle after 48 hours.
[2019-05-18] MEDS: ACETAMINOPHEN 65 ML IV SCH (16:49)
[2019-05-18] MEDS: WARFARIN SOD 5 MG TAB PO SCH (16:50)
[2019-05-18] MEDS: DOXYCYCLINE HYCLATE 100 MG CAP PO SCH (20:28)
[2019-05-18] MEDS: LOSARTAN POTASSIUM 50 MG TAB PO SCH (20:28)
[2019-05-18] MEDS: MoRPHine SULFATE 2 MG/ML CARP IV PRN (21:57)
[2019-05-18 23:35] LABS: 18KDIGG Band NONREACTIVE (NONREACTIVE); 23KDIGG Band NONREACTIVE (NONREACTIVE); 23KDIGM Band REACTIVE (NONREACTIVE); 28KDIGG Band NONREACTIVE (NONREACTIVE); 30KDIGG Band NONREACTIVE (NONREACTIVE); 39KDIGG Band NONREACTIVE (NONREACTIVE); 39KDIGM Band NONREACTIVE (NONREACTIVE); 41KDIGG Band NONREACTIVE (NONREACTIVE); 41KDIGM Band NONREACTIVE (NONREACTIVE); 45KDIGG Band NONREACTIVE (NONREACTIVE); 58KDIGG Band NONREACTIVE (NONREACTIVE); 66KDIGG Band REACTIVE (NONREACTIVE); 93KDIGG Band NONREACTIVE (NONREACTIVE); Lyme Antibodies, WB IgG NEGATIVE (NEGATIVE); Lyme Antibodies, WB IgM NEGATIVE (NEGATIVE)
[2019-05-19] MEDS: ACETAMINOPHEN 65 ML IV SCH ×2 (00:44→07:26)
[2019-05-19] MEDS: D5NSS + 20MEQ KCL 20 MEQ/1,000 ML BAG IV SCH (00:44)
[2019-05-19] MEDS: LEVOTHYROXINE SODIUM 50 MCG TABLET PO SCH (06:08)
[2019-05-19 07:05] LABS: Basophils # (auto) 0.01 K/uL (0-0.2); Basophils % (auto) 0.3 %; Eosinophils # (auto) 0.07 K/uL (0-0.5); Eosinophils % (auto) 2.1 %; Hematocrit (blood only) 29.4 % (37-47); Hemoglobin 9.8 g/dL (12.0-16.0); Immature Granulocytes # (auto) 0.01 K/uL (0.00-0.02); Immature Granulocytes % (auto) 0.3 %; Lymphocytes # (auto) 1.01 K/uL (1.2-3.4); Lymphocytes % (auto) 29.8 %; Mean Corpuscular Hgb Conc 33.3 g/dL (32-36); Mean Corpuscular Volume 83.3 fL (80-100); Mean Platelet Volume 10.7 fL (7.4-10.4); Monocytes # (auto) 0.36 K/uL (0.11-0.59); Monocytes % (auto) 10.6 %; Neutrophils # (auto) 1.93 K/uL (1.4-6.5); Neutrophils % (auto) 56.9 %; Platelet Count 142 K/uL (130-400); RDW Coefficient of Variation 14.7 % (11.5-14.5); RDW Standard Deviation 45.2 fL (36.4-46.3); Red Blood Count 3.53 M/uL (4.2-5.4); White Blood Count 3.39 K/uL (4.8-10.8)
[2019-05-19 07:29] LABS: BUN Creatinine Ratio 9.4 (10-20); Calcium 8.6 mg/dl (8.5-10.1); Creatinine Clr Calc Pharmacy 58.8 ml/min; Est GFR (Non-African American) 48.3; Potassium 4.2 mmol/L (3.5-5.1)
[2019-05-19] MEDS: DOXYCYCLINE HYCLATE 100 MG CAP PO SCH (07:50)
[2019-05-19] MEDS: AMIODARONE 200 MG TAB PO SCH (07:50)
[2019-05-19] MEDS: CHOLECALCIFEROL 1,000 UNITS TAB PO SCH (07:50)
[2019-05-19] MEDS: CARVEDILOL 25 MG TAB PO SCH (07:51)
[2019-05-19] MEDS: PANTOprazole 40 MG TAB PO SCH (07:51)
[2019-05-19] MEDS: INSULIN ASPART 100 UNITS/ML 3 ML PEN SC SCH ×2 (07:52→12:08)
[2019-05-19] MEDS: INSULIN GLARGINE SOLOSTAR 100 UNITS/ML 3 ML PEN SC SCH (07:54)
[2019-05-19 09:03] LABS: INR 2.5 (0.9-1.1); Prothrombin Time 23.6 Seconds (9.0-12.0)
[2019-05-19] MEDS: cefTRIAXone SODIUM 2,000 MG in DEXTROSE 5% 50 ML IV SCH (09:48)
--- NOTE | 2019-05-19 11:00 | Hospitalist Progress Note ---
Date of Service May 19, 2019 Assessment & Plan (1) Fever of unknown origin: Possible Lyme disease This is a 73yo F with a PMH of chronic systolic heart failure, idiopathic cardiomyopathy s/p ICD placement, paroxysmal A Fib on coumadin, known LBBB, DM II and other medical problems listed below who presents with fever, malaise and left-sided abdominal pain x 5 days. - (+) fever, malaise in the setting of erythema migrans rash, pancytopenia - lyme screen negative lyme western blood negative anaplasma serologies negative Peripheral smear without evidence of inclusion bodies blood cultures negative - ID consulted received Doxycyline x 5 days, Ceftriaxone x 2 days -Patient remained afebrile malaise and headache improved Pancytopenia improved - discussed with ID Svc- Dr. 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 [address] Willett -CT abd/pelvis with possible R lower pole lesion - renal US: IMPRESSION: 1. Normal right renal ultrasound. 2. No evidence for a lesion based on ultrasound criteria. 3. Left kidney contains an 8 mm exophytic cyst midpole. It is otherwise unremarkable. 4. note is made of mild splenomegaly with a maximum dimension of 15 cm. - consulted Urologist Dr. Willett, per her notes: no sign of local or distant recurrence the new right renal lesion is a simple 8mm cyst Will see her for routine follow up as previously scheduled. I viewed the renal ultrasound and non contrast ct images and reports. -Left flank pain resolved (3) HTN (hypertension): Normotensive -Continue losartan, carvedilol (4) Chronic systolic heart failure: (5) Idiopathic cardiomyopathy: (6) S/P ICD (internal cardiac defibrillator) procedure: H/o ICD placement in 2006, replaced in 2014 -2D echo from 2017 with EF of 40% -Clinically on dry side. Held Lasix, Spironolactone Gentle IV fluids started - continue carvedilol, losartan Paroxysmal A fib - INR 2.5 - continue usual coumadin Repeat INR next week on follow-up with PCP (7) CKD (chronic kidney disease), stage III: At baseline. Continue to monitor with daily BMP (8) Diabetes mellitus, type II: A1c of 5.9 in March 2019 Continue usual regimen (9) Nocturnal hypoxia: Supplemental 2L NC O2 HS DVT Ppx: Coumadin INR 2. 5 Code status: FULL PCP: Oren Dispo: Discharge to home today Follow-up with PCP next week Follow-up with urologist as scheduled (10) Diarrhea: C diff Ag test: pending advised to hold Lasix and Spironoloactone if she has diarrhea Subjective ff up for suspected Lyme disease seen resting in bed, comfortable states she feels better overall headache is much better now strength coming back, ambulating with no problems denies focal weakness/numbness (+) diarrhea, multiple episodes denies abdominal pain, nausea, chills no other symptoms states she is ready and would like to be discharged today Review of Systems Review of Systems: All systems reviewed & are unremarkable except as noted in HPI & below Physical Exam Physical Exam: General- oriented x 3, not in distress, speaks in sentences with no effort or accessory muscle use Eyes- anicteric Neck- no JVD Lungs- clear breath sounds bilaterally no wheezing no crackles Heart- normal rate, regular rhythm; no murmurs Abdomen- normal bowel sounds, nondistended, soft, nontender Left Groin- rash mostly resolved Extremities- no pretibial edema, no calf tenderness Neuro- alert, oriented x 3; no gross focal neurologic deficits Skin- warm & dry Results & Data Vital Signs (Past 12 Hours) Vital Signs Temp Pulse Pulse Resp BP BP Pulse Ox 05/19/19 08:00 36.5 C 59 L 18 107/71 98 05/19/19 07:07 68 05/19/19 03:11 36.7 C 62 18 100/57 L 97 05/19/19 01:24 60 05/18/19 23:33 36.7 C 63 18 127/67 97 Laboratory Results Laboratory Results - last 24 hr 05/16/19 05/18/19 05/18/19 09:28 10:43 11:46 WBC RBC Hgb Hct MCV MCH MCHC RDW Std Deviation RDW Coeff of Edilma Plt Count MPV Immature Gran % (Auto) Neut % (Auto) Lymph % (Auto) [place] % (Auto) Eos % (Auto) Baso % (Auto) Immature Gran # (Auto) Neut # (Auto) Lymph # (Auto) [place] # (Auto) Eos # (Auto) Baso # (Auto) PT INR Sodium Potassium Chloride Carbon Dioxide Anion Gap BUN Creatinine Est Cr Clr Drug Dosing Est GFR ( Amer) Est GFR (Non-Af Amer) BUN/Creatinine Ratio Glucose POC Glucose 197 H Calcium Total Bilirubin 0.4 Direct Bilirubin < 0.1 AST 19 ALT 26 Alkaline Phosphatase 84 Total Protein 6.2 L Albumin 3.1 L Lyme IgG (Western Blot) NEGATIVE Lyme IgG 18 kDa Band NONREACTIVE Lyme IgG 23 kDa Band NONREACTIVE Lyme IgG 28 kDa Band NONREACTIVE Lyme IgG 30 kDa Band NONREACTIVE Lyme IgG 39 kDa Band NONREACTIVE Lyme IgG 41 kDa Band NONREACTIVE Lyme IgG 45 kDa Band NONREACTIVE Lyme IgG 58 kDa Band NONREACTIVE Lyme IgG 66 kDa Band REACTIVE A Lyme IgG 93 kDa Band NONREACTIVE Lyme IgM (Western Blot) NEGATIVE Lyme IgM 23 kDa Band REACTIVE A Lyme IgM 39 kDa Band NONREACTIVE Lyme IgM 41 kDa Band NONREACTIVE 05/18/19 05/18/19 05/19/19 16:40 20:11 06:33 WBC 3.39 L RBC 3.53 L Hgb 9.8 L Hct 29.4 L MCV 83.3 MCH 27.8 MCHC 33.3 RDW Std Deviation 45.2 RDW Coeff of Edilma 14.7 H Plt Count 142 MPV 10.7 H Immature Gran % (Auto) 0.3 Neut % (Auto) 56.9 Lymph % (Auto) 29.8 [place] % (Auto) 10.6 Eos % (Auto) 2.1 Baso % (Auto) 0.3 Immature Gran # (Auto) 0.01 Neut # (Auto) 1.93 Lymph # (Auto) 1.01 L [place] # (Auto) 0.36 Eos # (Auto) 0.07 Baso # (Auto) 0.01 PT INR Sodium Potassium Chloride Carbon Dioxide Anion Gap BUN Creatinine Est Cr Clr Drug Dosing Est GFR ( Amer) Est GFR (Non-Af Amer) BUN/Creatinine Ratio Glucose POC Glucose 169 H 164 H Calcium Total Bilirubin Direct Bilirubin AST ALT Alkaline Phosphatase Total Protein Albumin Lyme IgG (Western Blot) Lyme IgG 18 kDa Band Lyme IgG 23 kDa Band Lyme IgG 28 kDa Band Lyme IgG 30 kDa Band Lyme IgG 39 kDa Band Lyme IgG 41 kDa Band Lyme IgG 45 kDa Band Lyme IgG 58 kDa Band Lyme IgG 66 kDa Band Lyme IgG 93 kDa Band Lyme IgM (Western Blot) Lyme IgM 23 kDa Band Lyme IgM 39 kDa Band Lyme IgM 41 kDa Band 05/19/19 05/19/19 05/19/19 06:33 07:31 08:42 WBC RBC Hgb Hct MCV MCH MCHC RDW Std Deviation RDW Coeff of Edilma Plt Count MPV Immature Gran % (Auto) Neut % (Auto) Lymph % (Auto) [place] % (Auto) Eos % (Auto) Baso % (Auto) Immature Gran # (Auto) Neut # (Auto) Lymph # (Auto) [place] # (Auto) Eos # (Auto) Baso # (Auto) PT 23.6 H INR 2.5 H Sodium 142 Potassium 4.2 Chloride 117 H Carbon Dioxide 22 Anion Gap 3.0 BUN 11 Creatinine 1.14 Est Cr Clr Drug Dosing 58.8 Est GFR ( Amer) 56.0 Est GFR (Non-Af Amer) 48.3 BUN/Creatinine Ratio 9.4 L Glucose 141 H POC Glucose 166 H Calcium 8.6 Total Bilirubin Direct Bilirubin AST ALT Alkaline Phosphatase Total Protein Albumin Lyme IgG (Western Blot) Lyme IgG 18 kDa Band Lyme IgG 23 kDa Band Lyme IgG 28 kDa Band Lyme IgG 30 kDa Band Lyme IgG 39 kDa Band Lyme IgG 41 kDa Band Lyme IgG 45 kDa Band Lyme IgG 58 kDa Band Lyme IgG 66 kDa Band Lyme IgG 93 kDa Band Lyme IgM (Western Blot) Lyme IgM 23 kDa Band Lyme IgM 39 kDa Band Lyme IgM 41 kDa Band
--- NOTE | 2019-05-19 11:20 | Discharge Summary ---
Date of Service May 19, 2019 Admission HPI Per Admitting Provider This is a 73yo F with a PMH of chronic systolic heart failure, idiopathic cardiomyopathy s/p ICD placement, paroxysmal A Fib on coumadin, known LBBB, DM II and other medical problems listed below who presents with fever, malaise and left-sided abdominal pain x 5 days. Patient first developed headache, fever , chills and body aches, followed by abdominal pain and left flank pain in the past few days. Describes left-sided abdominal pain/flank pain as dull, aching and intermittent. Exacerbated with activity. Pain is unchanged with eating. Has also had nausea with one episode of vomiting and diarrhea that is since resolved. Patient went fishing 2 weeks ago but did not note any tick bites. Does have history of papillary renal cell carcinoma status [place] [facility] [place] Follows with Dr. Willett. In ED, low-grade fever noted at 37.8. Normotensive with heart rate of 64. Noted to be pancytopenic, with platelets of 95 (baseline around 180). Kidney function appears to be at baseline with creatinine of 1.5. CT abdomen pelvis with possible right lower pole lesion. Chest x-ray unremarkable. No acute intra-abdominal pathology. INR subtherapeutic at 1.6. Denies lightheadedness, visual changes, chest pain, palpitations, shortness of breath, dysuria, hematuria, constipation, lower extremity swelling. Rash noticed in L groin by ED physician. Admission Exam Per Admitting Provider General Appearance: WD/WN, no apparent distress, ill appearing Head: normocephalic, atraumatic Eyes: normal inspection, PERRL, EOMI ENT: hearing grossly normal, pharynx normal (dry mucous membranes) Neck: supple, no JVD, no adenopathy Respiratory/Chest: lungs clear to auscultation. No wheezes, rales or rhonci. No respiratory distress or accessory muscle use Cardiovascular: regular rate, rhythm, no murmur, normal peripheral pulses Abdomen/GI: normal bowel sounds, soft, LLQ and L flank tender to palpation, no guarding Back: No CVA tenderness Extremities/Musculoskelatal: normal inspection, no calf tenderness, normal capillary refill, no pedal edema Neurologic/Psych: alert, anxious mood/affect, oriented x 3 Skin: normal color, warm/dry. Flat, erythematous rash in left groin. Warm to touch, mildly TTP Principal Diagnosis Lyme disease Discharge Exam General- oriented x 3, not in distress, speaks in sentences with no effort or accessory muscle use Eyes- anicteric Neck- no JVD Lungs- clear breath sounds bilaterally no wheezing no crackles Heart- normal rate, regular rhythm; no murmurs Abdomen- normal bowel sounds, nondistended, soft, nontender Left Groin- rash mostly resolved Extremities- no pretibial edema, no calf tenderness Neuro- alert, oriented x 3; no gross focal neurologic deficits Skin- warm & dry Discharge Data Allergies Allergy/AdvReac Type Severity Reaction Status Date / Time [id number]-Bme Reductase Allergy Unknown UNKNOWN Unverified 05/15/19 08:21 Inhibitor Sulfa (Sulfonamide Allergy Unknown HIVES Verified 05/15/19 08:21 Antibiotics) citalopram AdvReac Unknown UNKNOWN Unverified 05/15/19 08:21 hydrocodone AdvReac Unknown NAUSEA AND Unverified 05/15/19 08:21 VOMITING ketorolac AdvReac Unknown RASH Unverified 05/15/19 08:21 oxycodone AdvReac Unknown UNKNOWN Unverified 05/15/19 08:21 propoxyphene AdvReac Unknown UNKNOWN Unverified 05/15/19 08:21 tramadol AdvReac Unknown UNKNOWN Unverified 05/15/19 08:21 Consultations 05/15/19 10:14 ED Decision to Admit Stat 05/17/19 07:31 Consult Urology Routine 05/17/19 09:49 Consult Infectious Diseases Routine Ordered Studies 05/15/19 07:46 CT abd pelvis wo con Stat CT abd pelvis wo con CLINICAL HISTORY: 73 years-old Female presenting with nausea and vomiting, left sided abd pain, left renal surgery. TECHNIQUE: Multidetector CT of the abdomen and pelvis was performed without the use of intravenous contrast. IV contrast: None. One or more dose lowering techniques were used consistent with the principles of ALARA (as low as reasonably achievable), including automatic exposure control, mA or kV adjustment to individual patient size, and/or use of iterative reconstruction. COMPARISON: 07/10/2016. CT DOSE (mGy.cm): The estimated cumulative dose is 817.66 mGy.cm. FINDINGS: Nurse topogram: Cholecystectomy clips. Lung bases: Cardiac lead projects to the right ventricular apex. Calcification of the aortic valve. Normal heart size. No pericardial or pleural effusion. Minimal dependent changes likely atelectasis. Solid fissural 4 mm nodule in the right lower lobe unchanged since 2016 consistent with benignity. Liver: Normal morphology. Redemonstration of multiple liver lesions previously demonstrated to represent hemangiomas. Normal background liver density. Biliary: No gross biliary ductal dilatation allowing for noncontrast technique. Gallbladder surgically absent. Pancreas: Normal noncontrast appearance. Spleen: Normal noncontrast appearance. Adrenal glands: Normal noncontrast appearance. Kidneys and ureters: Postsurgical changes of partial mastectomy in the upper pole the left kidney. Moderate nonspecific perinephric fat infiltration and laterally. Cortical scarring at the posterior aspect of the interpolar region of the right kidney as on prior exam. Possible lesion at the lower pole of the right kidney (series 3 image 229). No nephrolithiasis or hydronephrosis. Ureters nondistended. Bladder: Normal. Pelvic organs: Uterus surgically absent. Simple appearing cysts measuring 2.6 cm and the left ovary. This would be considered benign with no further follow-up warranted. Bowel: Normal. Lipomatous hypertrophy of the ileocecal valve. No bowel obstruction. Trace hiatal hernia. Peritoneal cavity: No free fluid or intraperitoneal gas. Lymph nodes: No gross lymphadenopathy allowing for noncontrast technique. Vasculature: Atherosclerosis of the normal caliber abdominal aorta. Abdominal wall: Postsurgical changes in the infraumbilical abdominal wall. Small fat-containing left inguinal hernia suspected. Musculoskeletal: Degenerative changes of the spine. IMPRESSION: 1. Interval postsurgical changes of partial left nephrectomy. No postsurgical complication. 2. Allowing for noncontrast technique, no acute intra-abdominal pathology. 3. Possible right lower pole lesion or cyst. Renal ultrasound could be obtained if there is clinical concern. 05/15/19 14:18 US renal/blad retro comp Routine US renal/blad retro comp HISTORY: Pain L flank pain, h/o partial nephrect.,?R pole lesion COMPARISON: CT 05/15/2019 FINDINGS: Right kidney: Maximum linear dimension 11.5 cm. No evidence for hydronephrosis. No abnormality by ultrasound criteria Normal corticomedullary differentiation and cortical thickness. Left kidney: Maximum dimension 11.4 cm. No evidence for hydronephrosis. 7 mm exophytic cyst midpole. Normal corticomedullary differentiation and cortical thickness. Bladder: No bladder wall thickening. The bilateral ureteral jets were identified. IMPRESSION: 1. Normal right renal ultrasound. 2. No evidence for a lesion based on ultrasound criteria. 3. Left kidney contains an 8 mm exophytic cyst midpole. It is otherwise unremarkable. 4. note is made of mild splenomegaly with a maximum dimension of 15 cm. 05/17/19 09:49 CT head/brain wo con Stat CT head/brain wo con CLINICAL HISTORY: 73 years-old Female with headache, r/o bleed. Acute headache TECHNIQUE: Multiple axial CT images of the head were obtained without contrast. A dose lowering technique was utilized adhering to the principles of ALARA. CT DOSE: 638.56 mGycm COMPARISON: CT maxillofacial 02/07/2015. FINDINGS: No acute intracranial hemorrhage, midline shift, intracranial mass, hydrocephalus, territorial ischemia or abnormal extra-axial collection. Mild age-related involutional changes. Calcifications noted about the bilateral lentiform nuclei. Cerebral vascular calcifications are noted. The calvarium is intact. Trace right mastoid effusion. Left mastoid air cells are clear. Prior bilateral cataract repair. IMPRESSION: No acute intracranial abnormality. Hospital Course (1) Fever of unknown origin: Possible Lyme disease This is a 73yo F with a PMH of chronic systolic heart failure, idiopathic cardiomyopathy s/p ICD placement, paroxysmal A Fib on coumadin, known LBBB, DM II and other medical problems listed below who presents with fever, malaise and left-sided abdominal pain x 5 days. - (+) fever, malaise in the setting of erythema migrans rash, pancytopenia - lyme screen negative lyme western blood negative anaplasma serologies negative Peripheral smear without evidence of inclusion bodies blood cultures negative - ID consulted received Doxycyline x 5 days, Ceftriaxone x 2 days -Patient remained afebrile malaise and headache improved Pancytopenia improved - discussed with ID Svc- Dr. Candelario Lyme serologies may be negative with early Lyme disease patient clinically improving - discharge plan: Doxycycline 100mg po BID x 9 more days to complete 14 day course repeat CBC on ff up with PCP (2) Left flank pain: Left flank pain made worse with movement -No acute pathology on CT abd/pelvis -H/o papillary renal cell carcinoma status post [place] [facility] [place]. Follow[address] with [address]. Willett -CT abd/pelvis with possible R lower pole lesion - renal US: IMPRESSION: 1. Normal right renal ultrasound. 2. No evidence for a lesion based on ultrasound criteria. 3. Left kidney contains an 8 mm exophytic cyst midpole. It is otherwise unremarkable. 4. note is made of mild splenomegaly with a maximum dimension of 15 cm. - consulted Urologist Dr. Willett, per her notes: no sign of local or distant recurrence the new right renal lesion is a simple 8mm cyst Will see her for routine follow up as previously scheduled. I viewed the renal ultrasound and non contrast ct images and reports. -Left flank pain resolved (3) Diarrhea: C diff Ag test: negative advised to take Imodium PRN advised to hold Lasix and Spironoloactone if she has diarrhea Repeat PRP/BMP on follow-up with PCP next week (4) HTN (hypertension): Normotensive -Continue losartan, carvedilol (5) Chronic systolic heart failure: (6) Idiopathic cardiomyopathy: (7) S/P ICD (internal cardiac defibrillator) procedure: H/o ICD placement in 2006, replaced in 2014 -2D echo from 2016 with EF of 40% -Clinically on dry side. Held Lasix, Spironolactone Gentle IV fluids started - continue carvedilol, losartan Paroxysmal A fib - INR 2.5 - continue usual coumadin Repeat INR next week on follow-up with PCP (8) CKD (chronic kidney disease), stage III: At baseline. Continue to monitor with daily BMP (9) Diabetes mellitus, type II: A1c of 5.9 in March 2019 Continue usual regimen (10) Nocturnal hypoxia: Supplemental 2L NC O2 HS DVT Ppx: Coumadin INR 2. 5 Code status: FULL PCP: Oren Dispo: Discharge to home today Follow-up with PCP next week Follow-up with urologist as scheduled Total Time Total Time Spent Total Time Spent (In Minutes): 50 minutes Discharge Plan Discharge Items Patient Disposition: Home - Self-Care Reason For Visit: ABD PAIN, FEVER, CONCERN FOR AMPLASMOSIS Discharge Diagnosis: Lyme disease Discharge Goals: Diagnostic testing and Therapeutic intervention Activity: As commented below Activity Comment: Resume activity gradually as tolerated Lifting: Wait until after follow-up appointment Exercise/Sports: Wait until after follow-up appointment Driving/Machine Use Comment: No driving until reevaluated by primary care physician Non-emergency contact: Primary Care Provider Call non-emergency contact if: you have any medication questions, your symptoms worsen, your pain is not controlled, your pain is worsening, your pain is unusual for you, your pain is concerning for you and you have a fever Follow-up/Referrals: Irwin Lott MD [Primary Care Provider] - Diet: Heart Healthy Addtl Provider Instructions: Follow-up with primary care physician in 3 to 5 days. The clinic will be calling you for the appointment soon. The Coumadin clinic will be calling you soon for advice regarding blood work and Coumadin dose. Follow-up with Dr. Willett as scheduled. Please review your new medication list and follow instructions carefully. Resume Lasix (furosemide) and Aldactone (spironolactone) once diarrhea resolves. Always stay well-hydrated. Take probiotics daily while on antibiotics and at least 1 week after completing the course of antibiotics. Call primary care physician or return to the ER immediately if with worsening symptoms, Including worsening of headache, fever or chills, nausea vomiting, weakness, dizziness, diarrhea. Prescriptions: New doxycycline hyclate 100 mg Capsule 100 mg PO BID 9 Days Qty: 18 RF: 0 Continued metformin 500 mg tablet 500 mg PO BIDM RF: 0 carvedilol 25 mg tablet 25 mg PO BID RF: 0 levothyroxine 50 mcg tablet 50 mcg PO QAM RF: 0 warfarin 5 mg tablet 2.5 mg PO MO@1600 RF: 0 warfarin 5 mg tablet 5 mg PO SUTUWETHFRSA@1600 RF: 0 omeprazole 20 mg capsule,delayed release(DR/EC) 20 mg PO QAM RF: 0 losartan 100 mg tablet 100 mg PO HS RF: 0 amiodarone 100 mg tablet 100 mg PO QAM RF: 0 Lantus Solostar U-100 Insulin 100 unit/mL (3 mL) insulin pen 25 unit subcut HS RF: 0 acetaminophen [Tylenol Extra Strength] 500 mg Tablet 500 mg PO Q6H PRN (Reason: Pain) RF: 0 sennosides-docusate sodium [Senokot-S] 8.6-50 mg Tablet 1 tab PO DAILY PRN (Reason: Constipation) RF: 0 albuterol sulfate 90 mcg/actuation Hfa Aerosol Inhaler 2 puff INHALATION QID PRN (Reason: Shortness Of Breath Or Wheezing) RF: 0 cholecalciferol (vitamin D3) 5,000 unit Tablet 5,000 unit PO DAILY RF: 0 [place] 3-6-9 1,200 mg Capsule 1 cap PO DAILY RF: 0 Discontinued furosemide 40 mg tablet 40 mg PO BID RF: 0 spironolactone 50 mg tablet 50 mg PO BID RF: 0 Stand-Alone Forms: Call Back Authorization, [facility] Discharge Orders: Discharge Order (Routine); Ordered 05/19/19 Ordered By: Sebastien Lala Admission Data Admit Date/Time: 05/18/19 14:23 Attending Provider: Sebastien Lala Admit Provider: Jerrell Randolph Primary Care Provider: Irwin Lott Other Providers: Galo Grady ; Erinn Willett ; Erinn Malave Service: Telemetry Medical
[2019-05-19] MEDS ORDERED: LOPERAMIDE HCL 2 MG CAP PO PRN (14:01)
[2019-05-21] MEDS ORDERED: WARFARIN SOD 5 MG TAB PO SCH (16:00)
[2019-05-21] MEDS ORDERED: WARFARIN SOD 2.5 MG TAB PO SCH (16:00)
== END 2019-05-19 15:00 | disposition home or self-care (01) | DRG 868 ==
LOC: 2N 07:33 → ED 07:33 → SUATTDRO 11:37 → 2N 14:25

== ENCOUNTER 2022-08-18 21:17 | Inpatient (IN) ==
[2022-08-18] MEDS ORDERED: LIDOCAINE/PRILOCAINE 2.5% EA CRM EXT ONE (21:33)
[2022-08-18] MEDS ORDERED: SODIUM CHLORIDE 0.9% 1000ML 1,000 ML IV SCH (22:00)
[2022-08-18] MEDS ORDERED: SODIUM CHLORIDE 0.9% 1000ML 500 ML IV ONE (22:10)
[2022-08-18 22:58] LABS: INR 3.3 (0.9-1.1); Partial Thromboplastin Ratio 1.8; Prothrombin Time 32.7 Seconds (9.0-12.0)
[2022-08-18 23:02] LABS: Partial Thromboplastin Time 48.4 Seconds (21.0-31.0)
[2022-08-18 23:04] LABS: Albumin Level 3.6 gm/dl (3.4-5.0); BUN Creatinine Ratio 22.9 (10-20); Bilirubin Direct 0.1 mg/dl (0-0.2); Bilirubin,Total 0.5 mg/dl (0.2-1.0); Calcium 8.5 mg/dl (8.5-10.1); Creatinine Clr Calc Pharmacy 40.6 ml/min; Est GFR (African American) 38.2 ml/min; Est GFR (Non-African American) 32.9 ml/min; Magnesium 1.8 mg/dl (1.7-2.4); Potassium 4.3 mmol/L (3.5-5.1); Total Protein 5.7 gm/dl (6.0-8.3)
--- NOTE | 2022-08-18 23:27 | Emergency Department Note ---
History of Present Illness General Chief complaint: Illness Stated complaint: pain all over, cancer Time Seen by Provider: 08/18/22 21:32 History of Present Illness Maximum Pain Intensity: 8 This 77-year-old newly diagnosed with breast carcinoma presents to the ER complaining of generalized pain and fever today who had chemo last and her Procrit shot on Tuesday Location: Generalized Quality: Weak Severity: Moderate Duration: Today Timing: Today Context: Patient was concerned and came in Modifying factors: better with Tylenol; worse with activity T-max 99.4 at home. Here was 101 patient last took Tylenol at 7:30 PM. Patient states everything hurts. Patient denies chest pain, dyspnea, localized abdominal pain, vomiting, diarrhea. Home Medications Medication Instructions Recorded Confirmed Type acetaminophen 500 mg tablet 500 mg PO Q6H PRN Pain 05/15/19 08/19/22 History (Tylenol Extra Strength) amiodarone 100 mg tablet 100 mg PO QAM 05/15/19 08/19/22 History carvedilol 25 mg tablet 25 mg PO BID 05/15/19 08/19/22 History fish, borage, flaxseed oils-omega 1 cap PO QAM 05/15/19 08/19/22 History 3,6,9 comb no.1 1,200 mg capsule ([place] 3-6-9) insulin glargine 100 unit/mL (3 25 - 30 unit subcut HS 05/15/19 08/19/22 History mL) subcutaneous pen (Lantus Solostar U-100 Insulin) levothyroxine 50 mcg tablet 50 mcg PO QAM 05/15/19 08/19/22 History losartan 100 mg tablet 100 mg PO HS 05/15/19 08/19/22 History metformin 500 mg tablet 500 mg PO BIDM 05/15/19 08/19/22 History omeprazole 20 mg capsule,delayed 20 mg PO QAM 05/15/19 08/19/22 History release warfarin 5 mg tablet 2.5 mg PO WK 05/15/19 08/19/22 History warfarin 5 mg tablet 5 mg PO 6XWK 05/15/19 08/19/22 History furosemide 40 mg tablet (Lasix) 40 mg PO BID 06/06/19 08/19/22 History polyethylene glycol 3350 17 17 g PO BID PRN Constipation 08/27/21 08/19/22 History gram/dose oral powder (Miralax) spironolactone 50 mg tablet 50 mg PO BID 08/27/21 08/19/22 History benzonatate 100 mg capsule 100 mg PO TID PRN cough #30 caps 11/01/21 08/19/22 Rx albuterol sulfate 2.5 mg/3 mL 2.5 mg (3 mL) inhalation Q4H PRN 11/02/21 08/19/22 Rx (0.083 %) solution for nebulization shortness of breath or wheezing #90 mL dexamethasone 4 mg tablet 8 mg PO DIRECTED 08/19/22 08/19/22 History lidocaine-prilocaine 2.5 %-2.5 % 1 applic topical DIRECTED 08/19/22 08/19/22 History topical cream ondansetron HCl 8 mg tablet 8 mg PO Q8 PRN Nausea 08/19/22 08/19/22 History prochlorperazine maleate 10 mg 10 mg PO Q6 PRN Nausea 08/19/22 08/19/22 History tablet Allergies Allergy/AdvReac Type Severity Reaction Status Date / Time Llixtju-CTQ-[id number] Reductase Allergy Intermediate Muscle Pain Verified 08/19/22 02:14 Inhibitor [Uqnbuda-Ujc-Gid Reductase Inhibitor] ketorolac Allergy Mild RASH Verified 08/19/22 02:14 Sulfa (Sulfonamide Allergy Unknown HIVES Verified 08/19/22 02:14 Antibiotics) tramadol AdvReac Intermediate VERY SICK Verified 08/19/22 02:14 TO STOMACH hydrocodone AdvReac Mild NAUSEA AND Verified 08/19/22 02:14 VOMITING Past Med/Surg History Medical History Atrial fibrillation "NOT CHRONIC" Chronic systolic heart failure CKD (chronic kidney disease), stage III Diabetes mellitus, type II Diabetic neuropathy GERD (gastroesophageal reflux disease) Hemorrhoids History of kidney cancer History of kidney stones History of skin cancer ON NOSE HTN (hypertension) Hx of blood clots IN HEART (TREATED WITH INCEASED BLOOD THINNERS) Hypothyroidism Idiopathic cardiomyopathy Nocturnal hypoxia PT DENIES Pacemaker ? DATE IMPLANTED ([facility]) Surgical History H/O breast biopsy H/O cervical spine surgery X 2 (GOOD ROM) H/O knee surgery LEFT H/O partial nephrectomy LEFT "CANCEROUS TUMOR REMOVED" H/O: hysterectomy History of anesthesia reaction N/V AND AGITATED WITH ANESTHESIA History of appendectomy History of bladder surgery History of cardiac cath X 4 (NO STENTS) History of cataract surgery RT/LEFT History of cholecystectomy History of colonoscopy History of cystoscopy History of esophagogastroduodenoscopy (EGD) [place] [facility] [place] [facility] [place] History of tonsillectomy History of tooth extraction S/P ICD (internal cardiac defibrillator) procedure IMPLANTED PACEMAKER/DEFIB ? [facility] Family History Mother Family history of diabetes mellitus Colorectal cancer Brother Family history of diabetes mellitus Sister Colorectal cancer Other Heart disease No family history of adverse response to anesthesia Stroke Social History Smoking Status: Former smoker Second Hand Exposure: No; Hx Alcohol Use: No Hx Substance Use: No Preferred Language: Greenlandic Communication Ability: Effective Records Management Specialist Required: No Beliefs That Will Affect Care: None Current Living Situation: Spouse Feels Safe at Home: Yes Assistive Devices: None Review of Systems A total of 10 systems reviewed and were otherwise negative Physical Exam Vital Signs Vital Signs - 24 hr 08/18/22 21:26 08/18/22 21:26 08/18/22 22:27 Temperature 37.3 C Temperature Source Oral Pulse Rate 103 H 110 H Pulse Rate [Apical] 103 H Pulse Rate from SpO2 Sensor Respiratory Rate 20 20 20 Respiratory Effort / Characteristics Non-Labored Spontaneous Non-Labored Spontaneous Respiratory Depth Normal Normal Respiratory Pattern Regular Regular Blood Pressure 116/66 Blood Pressure [Right Arm] 116/66 Blood Pressure Mean 82 Blood Pressure Mean [Right Arm] 82 Pulse Oximetry 97 97 96 Oxygen Delivery Method Room Air Room Air Room Air Sepsis Recent Fever Within 48 Hours No Sepsis New/Unexplained Change in Mental Status No Sepsis Action Taken by Nursing No Action Required 08/18/22 22:27 08/18/22 21:39 08/18/22 22:00 Temperature 36.8 C Temperature Source Oral Pulse Rate 108 H 95 H Pulse Rate [Apical] Pulse Rate from SpO2 Sensor 109 H 99 H Respiratory Rate Respiratory Effort / Characteristics Respiratory Depth Respiratory Pattern Blood Pressure Blood Pressure [Right Arm] Blood Pressure Mean Blood Pressure Mean [Right Arm] Pulse Oximetry 96 95 Oxygen Delivery Method Sepsis Recent Fever Within 48 Hours Sepsis New/Unexplained Change in Mental Status Sepsis Action Taken by Nursing 08/18/22 22:19 08/18/22 22:19 08/18/22 22:22 Temperature Temperature Source Pulse Rate 108 H Pulse Rate [Apical] Pulse Rate from SpO2 Sensor 107 H Respiratory Rate Respiratory Effort / Characteristics Respiratory Depth Respiratory Pattern Blood Pressure 92/65 L 99/67 L Blood Pressure [Right Arm] Blood Pressure Mean 74 77 Blood Pressure Mean [Right Arm] Pulse Oximetry 96 Oxygen Delivery Method Sepsis Recent Fever Within 48 Hours Sepsis New/Unexplained Change in Mental Status Sepsis Action Taken by Nursing 08/18/22 22:22 08/18/22 22:30 08/18/22 22:30 Temperature Temperature Source Pulse Rate 106 H 100 H Pulse Rate [Apical] Pulse Rate from SpO2 Sensor 107 H 101 H Respiratory Rate Respiratory Effort / Characteristics Respiratory Depth Respiratory Pattern Blood Pressure 109/66 Blood Pressure [Right Arm] Blood Pressure Mean 80 Blood Pressure Mean [Right Arm] Pulse Oximetry 96 96 Oxygen Delivery Method Sepsis Recent Fever Within 48 Hours Sepsis New/Unexplained Change in Mental Status Sepsis Action Taken by Nursing 08/18/22 23:00 08/18/22 23:00 08/18/22 23:30 Temperature Temperature Source Pulse Rate Pulse Rate [Apical] Pulse Rate from SpO2 Sensor 98 H Respiratory Rate Respiratory Effort / Characteristics Respiratory Depth Respiratory Pattern Blood Pressure 97/71 L 103/64 Blood Pressure [Right Arm] Blood Pressure Mean 79 77 Blood Pressure Mean [Right Arm] Pulse Oximetry 97 Oxygen Delivery Method Sepsis Recent Fever Within 48 Hours Sepsis New/Unexplained Change in Mental Status Sepsis Action Taken by Nursing 08/18/22 23:30 08/19/22 00:00 08/19/22 00:00 Temperature Temperature Source Pulse Rate Pulse Rate [Apical] Pulse Rate from SpO2 Sensor 100 H 96 H Respiratory Rate 22 20 Respiratory Effort / Characteristics Respiratory Depth Respiratory Pattern Blood Pressure 90/59 L Blood Pressure [Right Arm] Blood Pressure Mean 69 Blood Pressure Mean [Right Arm] Pulse Oximetry 96 95 Oxygen Delivery Method Sepsis Recent Fever Within 48 Hours Sepsis New/Unexplained Change in Mental Status Sepsis Action Taken by Nursing 08/19/22 00:17 08/19/22 00:17 08/19/22 00:29 Temperature Temperature Source Pulse Rate 104 H Pulse Rate [Apical] Pulse Rate from SpO2 Sensor 100 H 100 H Respiratory Rate 20 Respiratory Effort / Characteristics Respiratory Depth Respiratory Pattern Blood Pressure 90/56 L Blood Pressure [Right Arm] Blood Pressure Mean 67 Blood Pressure Mean [Right Arm] Pulse Oximetry 94 95 Oxygen Delivery Method Sepsis Recent Fever Within 48 Hours Sepsis New/Unexplained Change in Mental Status Sepsis Action Taken by Nursing 08/19/22 00:29 08/19/22 00:30 08/19/22 00:30 Temperature Temperature Source Pulse Rate Pulse Rate [Apical] Pulse Rate from SpO2 Sensor 98 H Respiratory Rate 20 Respiratory Effort / Characteristics Respiratory Depth Respiratory Pattern Blood Pressure 100/62 98/63 L Blood Pressure [Right Arm] Blood Pressure Mean 74 74 Blood Pressure Mean [Right Arm] Pulse Oximetry 97 Oxygen Delivery Method Sepsis Recent Fever Within 48 Hours Sepsis New/Unexplained Change in Mental Status Sepsis Action Taken by Nursing 08/19/22 01:00 08/19/22 01:00 08/19/22 02:00 Temperature Temperature Source Pulse Rate 82 Pulse Rate [Apical] Pulse Rate from SpO2 Sensor Respiratory Rate 20 Respiratory Effort / Characteristics Respiratory Depth Respiratory Pattern Blood Pressure 102/62 Blood Pressure [Right Arm] Blood Pressure Mean 75 Blood Pressure Mean [Right Arm] Pulse Oximetry 97 Oxygen Delivery Method Sepsis Recent Fever Within 48 Hours Sepsis New/Unexplained Change in Mental Status Sepsis Action Taken by Nursing 08/19/22 02:01 08/19/22 02:01 08/19/22 02:30 Temperature Temperature Source Pulse Rate 87 Pulse Rate [Apical] Pulse Rate from SpO2 Sensor 99 H Respiratory Rate 20 Respiratory Effort / Characteristics Respiratory Depth Respiratory Pattern Blood Pressure 102/65 104/56 L Blood Pressure [Right Arm] Blood Pressure Mean 77 72 Blood Pressure Mean [Right Arm] Pulse Oximetry 94 Oxygen Delivery Method Sepsis Recent Fever Within 48 Hours Sepsis New/Unexplained Change in Mental Status Sepsis Action Taken by Nursing 08/19/22 02:30 08/19/22 03:00 08/19/22 03:00 Temperature Temperature Source Pulse Rate 82 80 Pulse Rate [Apical] Pulse Rate from SpO2 Sensor 82 83 Respiratory Rate 20 20 Respiratory Effort / Characteristics Respiratory Depth Respiratory Pattern Blood Pressure 91/53 L Blood Pressure [Right Arm] Blood Pressure Mean 65 Blood Pressure Mean [Right Arm] Pulse Oximetry 95 96 Oxygen Delivery Method Sepsis Recent Fever Within 48 Hours Sepsis New/Unexplained Change in Mental Status Sepsis Action Taken by Nursing VITALS: Vitals are noted on the nurse's note and reviewed by myself. Vital signs reviewed. GENERAL: Pleasant elderly female, in no acute distress, nondiaphoretic, well-d eveloped well-nourished. SKIN: The skin was without rashes, erythema, edema, or bruising. There is no tenting of the skin. Capillary reflex less than 2 seconds. HEAD: Normocephalic atraumatic. EARS: External auditory canals clear, EYES: Pupils equal round and reactive to light and accommodation. Conjunctivae without injection, sclerae without icterus. Extraocular movements intact. NOSE: Patent, turbinates without inflammation or discharge. No sinus tenderness. MOUTH: Mucous membranes mildly dry pharynx without erythema or exudate. Uvula midline. Airway patent. Tongue does not deviate. NECK: Supple without nuchal rigidity. No lymphadenopathy. No thyromegaly. Cervical spine is nontender. No JVD. HEART: Regular rate and rhythm LUNGS: Clear to auscultation bilaterally without wheezes, rales or rhonchi. No retractions or accessory muscle use. ABDOMEN: Positive bowel sounds x 4. Normal tympanic percussion. Soft, nontender, without masses or organomegaly. Villasenor sign negative. No guarding or rebound tenderness. No CVA tenderness MUSCULOSKELETAL: No muscle atrophy, erythema, or edema noted. NEURO: Patient was alert and oriented to person place and time. Normal sensation to light and sharp touch. No focal neurological deficits. Course Administered Medications Discontinued Medications Sodium Chloride (Nss 1000ml) 1,000 mls @ 999 mls/hr IV .Q1H1M JULIA Stop: 08/18/22 23:00 Last Admin: 08/18/22 22:17 Dose: Not Given Documented By: YANET Sodium Chloride (Nss 1000ml) 500 mls @ 999 mls/hr IV .Q31M ONE Stop: 08/18/22 22:40 Last Infusion: 08/18/22 22:54 Dose: 0 mls/hr Documented By: Admin: 08/18/22 22:17 Dose: 999 mls/hr Documented By: YANET Sodium Chloride (Nss 1000ml) 500 mls @ 999 mls/hr IV .Q31M ONE Stop: 08/19/22 01:04 Last Infusion: 08/19/22 01:07 Dose: 0 mls/hr Documented By: Admin: 08/19/22 00:40 Dose: 999 mls/hr Documented By: YANET Lidocaine/Prilocaine (Lidocaine/Prilocaine 2.5% Ea Crm) Confirm Administered Dose 1 each EXT .STK-MED ONE Stop: 08/18/22 21:34 Last Admin: 08/18/22 22:26 Dose: 1 each Documented By: YANET Medical Decision Making Medical Records Attestation: I reviewed the patient's medical records. Home Medications Current Medication List: was personally reviewed by me Laboratory Data Attestation: I reviewed the patient's lab results. Result diagrams: 08/18/22 22:14 08/18/22 22:14 Lab Results 08/18/22 08/18/22 08/18/22 Range/Units 22:14 22:14 22:14 WBC 1.39 L (4.8-10.8) K/ul RBC 3.45 L (3.93-5.22) M/uL Hgb 9.8 L (12.0-16.0) g/dl Hct 29.7 L (34.1-44.9) % MCV 86.1 (80.0-100.0) fL MCH 28.4 (25.0-34.0) pg MCHC 33.0 (32.0-36.0) g/dL RDW Std Deviation 42.2 (36.4-46.3) fL RDW Coeff of Edilma 13.4 (11.5-14.5) % Plt Count 96 L (130-400) K/uL MPV 12.0 (9.4-12.3) fL Neutrophils % (Manual) 17 % Lymphocytes % (Manual) 48 % Monocytes % (Manual) 25 % Eosinophils % (Manual) 1 % Metamyelocytes % (Man) 1 % Myelocytes % (Man) 8 % Neutrophils # (Manual) 0.24 L (1.4-6.5) K/uL Total Absolute Neuts 0.24 L* (1.4-6.5) K/uL Lymphocytes # (Manual) 0.67 L (1.2-3.4) K/uL Total Abs Lymphocytes 0.67 L (1.2-3.4) K/uL Monocytes # (Manual) 0.35 (0.24-0.82) K/uL Eosinophils # (Manual) 0.01 (0-0.50) K/uL Metamyelocytes # (Man) 0.01 H (0-0) K/uL Myelocytes # (Manual) 0.11 H (0-0) K/uL PT 32.7 H (9.0-12.0) Seconds INR 3.3 H (0.9-1.1) APTT 48.4 H* (21.0-31.0) Seconds PTT Ratio 1.8 Sodium 137 (136-145) mmol/L Potassium 4.3 (3.5-5.1) mmol/L Chloride 107 (98-107) mmol/L Carbon Dioxide 23 (21-32) mmol/L Anion Gap 7 (3-11) BUN 35 H (6-23) mg/dl Creatinine 1.53 H (0.6-1.2) mg/dl Est Cr Clr Drug Dosing 40.6 ml/min Est GFR ( Amer) 38.2 ml/min Est GFR (Non-Af Amer) 32.9 ml/min BUN/Creatinine Ratio 22.9 H (10-20) Glucose 172 H (70-99(Fasting)) mg/dl Lactate (0.4-2.0) mmol/L Calcium 8.5 (8.5-10.1) mg/dl Magnesium 1.8 (1.7-2.4) mg/dl Total Bilirubin 0.5 (0.2-1.0) mg/dl Direct Bilirubin 0.1 (0-0.2) mg/dl AST 11 L (13-39) U/L ALT 12 (7-52) U/L Alkaline Phosphatase 49 (34-104) U/L Troponin I High Sens 7.0 (0-14) pg/ml Total Protein 5.7 L (6.0-8.3) gm/dl Albumin 3.6 (3.4-5.0) gm/dl Procalcitonin (0-0.5) ng/ml Urine Color Urine Appearance (Clear) Urine pH (4.5-7.5) Ur Specific [place] (1.000-1.030) Urine Protein (Negative) Urine Glucose (UA) (Negative) Urine Ketones (Negative) Urine Blood (Negative) Urine Nitrite (Negative) Urine Bilirubin (Negative) Urine Urobilinogen (Negative) Ur Leukocyte Esterase (Negative) Urine WBC (Auto) (0-5) /hpf Urine RBC (Auto) (0-4) /hpf U Hyaline Cast (Auto) (0-5) /lpf U Epithel Cells (Auto) (0-5) /lpf Urine Bacteria (Auto) (Negative) Adenovirus (PCR) (NotDetected) B. pertussis DNA (PCR) (NotDetected) B.parapertussis DNA PCR (NotDetected) C. pneumoniae DNA (PCR) (NotDetected) Coronavirus OC43 (PCR) (NotDetected) Coronavirus HKU1 (PCR) (NotDetected) Coronavirus 229E (PCR) (NotDetected) SARS-CoV-2 (PCR) (NotDetected) Coronavirus NL63 (PCR) (NotDetected) Human Metapneumovir PCR (NotDetected) Influenza Type A (PCR) (NotDetected) Influenza Type B (PCR) (NotDetected) M. pneumoniae (PCR) (NotDetected) Parainfluenza 1 (PCR) (NotDetected) Parainfluenza 2 (PCR) (NotDetected) Parainfluenza 3 (PCR) (NotDetected) Parainfluenza 4 (PCR) (NotDetected) RSV (PCR) (NotDetected) Entero/Rhino (PCR) (NotDetected) 08/18/22 08/18/22 08/18/22 Range/Units 22:14 22:14 22:20 WBC (4.8-10.8) K/ul RBC (3.93-5.22) M/uL Hgb (12.0-16.0) g/dl Hct (34.1-44.9) % MCV (80.0-100.0) fL MCH (25.0-34.0) pg MCHC (32.0-36.0) g/dL RDW Std Deviation (36.4-46.3) fL RDW Coeff of Edilma (11.5-14.5) % Plt Count (130-400) K/uL MPV (9.4-12.3) fL Neutrophils % (Manual) % Lymphocytes % (Manual) % Monocytes % (Manual) % Eosinophils % (Manual) % Metamyelocytes % (Man) % Myelocytes % (Man) % Neutrophils # (Manual) (1.4-6.5) K/uL Total Absolute Neuts (1.4-6.5) K/uL Lymphocytes # (Manual) (1.2-3.4) K/uL Total Abs Lymphocytes (1.2-3.4) K/uL Monocytes # (Manual) (0.24-0.82) K/uL Eosinophils # (Manual) (0-0.50) K/uL Metamyelocytes # (Man) (0-0) K/uL Myelocytes # (Manual) (0-0) K/uL PT (9.0-12.0) Seconds INR (0.9-1.1) APTT (21.0-31.0) Seconds PTT Ratio Sodium (136-145) mmol/L Potassium (3.5-5.1) mmol/L Chloride (98-107) mmol/L Carbon Dioxide (21-32) mmol/L Anion Gap (3-11) BUN (6-23) mg/dl Creatinine (0.6-1.2) mg/dl Est Cr Clr Drug Dosing ml/min Est GFR ( Amer) ml/min Est GFR (Non-Af Amer) ml/min BUN/Creatinine Ratio (10-20) Glucose (70-99(Fasting)) mg/dl Lactate 1.2 (0.4-2.0) mmol/L Calcium (8.5-10.1) mg/dl Magnesium (1.7-2.4) mg/dl Total Bilirubin (0.2-1.0) mg/dl Direct Bilirubin (0-0.2) mg/dl AST (13-39) U/L ALT (7-52) U/L Alkaline Phosphatase (34-104) U/L Troponin I High Sens (0-14) pg/ml Total Protein (6.0-8.3) gm/dl Albumin (3.4-5.0) gm/dl Procalcitonin 0.20 (0-0.5) ng/ml Urine Color Urine Appearance (Clear) Urine pH (4.5-7.5) Ur Specific [place] (1.000-1.030) Urine Protein (Negative) Urine Glucose (UA) (Negative) Urine Ketones (Negative) Urine Blood (Negative) Urine Nitrite (Negative) Urine Bilirubin (Negative) Urine Urobilinogen (Negative) Ur Leukocyte Esterase (Negative) Urine WBC (Auto) (0-5) /hpf Urine RBC (Auto) (0-4) /hpf U Hyaline Cast (Auto) (0-5) /lpf U Epithel Cells (Auto) (0-5) /lpf Urine Bacteria (Auto) (Negative) Adenovirus (PCR) Not Detected (NotDetected) B. pertussis DNA (PCR) Not Detected (NotDetected) B.parapertussis DNA PCR Not Detected (NotDetected) C. pneumoniae DNA (PCR) Not Detected (NotDetected) Coronavirus OC43 (PCR) Not Detected (NotDetected) Coronavirus HKU1 (PCR) Not Detected (NotDetected) Coronavirus 229E (PCR) Not Detected (NotDetected) SARS-CoV-2 (PCR) DETECTED A* (NotDetected) Coronavirus NL63 (PCR) Not Detected (NotDetected) Human Metapneumovir PCR Not Detected (NotDetected) Influenza Type A (PCR) Not Detected (NotDetected) Influenza Type B (PCR) Not Detected (NotDetected) M. pneumoniae (PCR) Not Detected (NotDetected) Parainfluenza 1 (PCR) Not Detected (NotDetected) Parainfluenza 2 (PCR) Not Detected (NotDetected) Parainfluenza 3 (PCR) Not Detected (NotDetected) Parainfluenza 4 (PCR) Not Detected (NotDetected) RSV (PCR) Not Detected (NotDetected) Entero/Rhino (PCR) Not Detected (NotDetected) 08/19/22 Range/Units 00:17 WBC (4.8-10.8) K/ul RBC (3.93-5.22) M/uL Hgb (12.0-16.0) g/dl Hct (34.1-44.9) % MCV (80.0-100.0) fL MCH (25.0-34.0) pg MCHC (32.0-36.0) g/dL RDW Std Deviation (36.4-46.3) fL RDW Coeff of Edilma (11.5-14.5) % Plt Count (130-400) K/uL MPV (9.4-12.3) fL Neutrophils % (Manual) % Lymphocytes % (Manual) % Monocytes % (Manual) % Eosinophils % (Manual) % Metamyelocytes % (Man) % Myelocytes % (Man) % Neutrophils # (Manual) (1.4-6.5) K/uL Total Absolute Neuts (1.4-6.5) K/uL Lymphocytes # (Manual) (1.2-3.4) K/uL Total Abs Lymphocytes (1.2-3.4) K/uL Monocytes # (Manual) (0.24-0.82) K/uL Eosinophils # (Manual) (0-0.50) K/uL Metamyelocytes # (Man) (0-0) K/uL Myelocytes # (Manual) (0-0) K/uL PT (9.0-12.0) Seconds INR (0.9-1.1) APTT (21.0-31.0) Seconds PTT Ratio Sodium (136-145) mmol/L Potassium (3.5-5.1) mmol/L Chloride (98-107) mmol/L Carbon Dioxide (21-32) mmol/L Anion Gap (3-11) BUN (6-23) mg/dl Creatinine (0.6-1.2) mg/dl Est Cr Clr Drug Dosing ml/min Est GFR ( Amer) ml/min Est GFR (Non-Af Amer) ml/min BUN/Creatinine Ratio (10-20) Glucose (70-99(Fasting)) mg/dl Lactate (0.4-2.0) mmol/L Calcium (8.5-10.1) mg/dl Magnesium (1.7-2.4) mg/dl Total Bilirubin (0.2-1.0) mg/dl Direct Bilirubin (0-0.2) mg/dl AST (13-39) U/L ALT (7-52) U/L Alkaline Phosphatase (34-104) U/L Troponin I High Sens (0-14) pg/ml Total Protein (6.0-8.3) gm/dl Albumin (3.4-5.0) gm/dl Procalcitonin (0-0.5) ng/ml Urine Color Yellow Urine Appearance Clear (Clear) Urine pH 5.5 (4.5-7.5) Ur Specific [place] 1.016 (1.000-1.030) Urine Protein Negative (Negative) Urine Glucose (UA) Negative (Negative) Urine Ketones Negative (Negative) Urine Blood Negative (Negative) Urine Nitrite Positive A (Negative) Urine Bilirubin Negative (Negative) Urine Urobilinogen Negative (Negative) Ur Leukocyte Esterase Negative (Negative) Urine WBC (Auto) 1-5 (0-5) /hpf Urine RBC (Auto) 0-4 (0-4) /hpf U Hyaline Cast (Auto) 0 (0-5) /lpf U Epithel Cells (Auto) 5-10 H (0-5) /lpf Urine Bacteria (Auto) 2+ H (Negative) Adenovirus (PCR) (NotDetected) B. pertussis DNA (PCR) (NotDetected) B.parapertussis DNA PCR (NotDetected) C. pneumoniae DNA (PCR) (NotDetected) Coronavirus OC43 (PCR) (NotDetected) Coronavirus HKU1 (PCR) (NotDetected) Coronavirus 229E (PCR) (NotDetected) SARS-CoV-2 (PCR) (NotDetected) Coronavirus NL63 (PCR) (NotDetected) Human Metapneumovir PCR (NotDetected) Influenza Type A (PCR) (NotDetected) Influenza Type B (PCR) (NotDetected) M. pneumoniae (PCR) (NotDetected) Parainfluenza 1 (PCR) (NotDetected) Parainfluenza 2 (PCR) (NotDetected) Parainfluenza 3 (PCR) (NotDetected) Parainfluenza 4 (PCR) (NotDetected) RSV (PCR) (NotDetected) Entero/Rhino (PCR) (NotDetected) Imaging Data Attestation: I personally reviewed and interpreted this imaging study as follows: MDM Narrative Prior records/ancillary studies reviewed. Triage Nursing notes reviewed. Additional history obtained from nursing. The patient's history was concerning for fever. Differential diagnosis: Etiologies such as neutropenic fever, viral syndrome, otitis, pharyngitis, pneumonia, influenza, meningitis, urinary tract infection, sepsis, bacteremia, as well as others were entertained. Physical examination: As above ER treatment provided: An order was placed for continuous cardiac monitoring. The monitor shows a rate of 60-1 50 with a sinus rhythm. IV fluids On reassessment the patient felt better. Diagnostics interpreted by me: ECG: Ordered for weakness EKG: Left axis, left bundle branch block, rate of 106. Impression sinus tachycardia with left bundle branch block with PACs deviation interpreted by myself I think arrhythmia is unlikely. EKG shows no interval abnormalities such as QT prolongation or WPW. There are no findings to suggest Brugada syndrome. Cardiac monitoring in the emergency department reveals no tachycardic or bradycardic dysrhythmia. Hypertrophic cardiomyopathy was considered but there are no clear historical elements pointing toward this. EKG is not suggestive. The QRS voltage is not extremely large The labs revealed neutropenia Creat 1.53 and is stable per chart review Supratherapeutic INR Imaging studies: Chest x-ray with no acute consolidation, pneumothorax or free air per my interpretation Consultation: A consultation was placed with hospitalist. The case was discussed and diagnostics were reviewed. The patient was evaluated in the ER for further treatment. This appears to be consistent with COVID-19. Patient was feeling quite weak. H er blood pressure was slightly low. Medicine is consulted. She will be evaluated for possible admission. Patient cannot take the paxlovid secondary to her medications that she is on. This was reviewed with the pharmacist. By the evaluation outlined above emergent etiologies such as otitis, pharyngitis, meningitis, urinary tract infection, sepsis, bacteremia, as well as others were deemed relatively unlikely. The pt informed about the findings as listed above. All questions were answered and pleased with the treatment. The chart was completed utilizing [employer] voice recognition software. Grammatical errors, random word insertions, pronoun errors, and incomplete sentences are an occassional consequence of this system due to software limitations, ambient noise, and hardware issues. Any formal questions or concerns about the content, text, or information contained within the body of this dictation should be directly addressed to the physician senior agricultural assistant for clarification. Impression & Plan COVID-19, Weakness, Myalgia and myositis Discharge Plan Visit Data Chief Complaint: Illness Stated Complaint: pain all over, cancer ED Provider: Jamey Sutton ED Midlevel Provider: Jaki Nix Discharge Problem: COVID-19, Weakness, Myalgia and myositis Patient Disposition: Admitted As Inpatient Condition: Fair Forms Stand Alone Forms: [facility] Prescriptions Prescriptions: No Action furosemide [Lasix] 40 mg Tablet 40 mg PO BID metformin 500 mg tablet 500 mg PO BIDM carvedilol 25 mg tablet 25 mg PO BID levothyroxine 50 mcg tablet 50 mcg PO QAM warfarin 5 mg tablet 2.5 mg PO WK Rx Instructions: 2.5 MG ON FRI warfarin 5 mg tablet 5 mg PO 6XWK Rx Instructions: Tuesday, Tuesday, Tuesday, , Tue, Sat omeprazole 20 mg capsule,delayed release(DR/EC) 20 mg PO QAM losartan 100 mg tablet 100 mg PO HS amiodarone 100 mg tablet 100 mg PO QAM insulin glargine [Lantus Solostar U-100 Insulin] 100 unit/mL (3 mL) insulin pen 25 - 30 unit subcut HS Label Comments: WILL ADJUST DOSE BASED ON BSG acetaminophen [Tylenol Extra Strength] 500 mg Tablet 500 mg PO Q6H PRN (Reason: Pain) [place] 3-6-9 1,200 mg Capsule 1 cap PO QAM ondansetron HCl 8 mg tablet 8 mg PO Q8 PRN (Reason: Nausea) prochlorperazine maleate 10 mg tablet 10 mg PO Q6 PRN (Reason: Nausea) lidocaine-prilocaine 2.5-2.5 % cream 1 applic topical DIRECTED Rx Instructions: BEFORE ACCESSING PORT dexamethasone 4 mg tablet 8 mg PO DIRECTED Rx Instructions: DIRECTED WHEN RECEIVING CHEMO polyethylene glycol 3350 [Miralax] 17 gram/dose Powder 17 g PO BID PRN (Reason: Constipation) spironolactone 50 mg Tablet 50 mg PO BID benzonatate 100 mg capsule 100 mg PO TID PRN (Reason: cough) Qty: 30 0RF albuterol sulfate 2.5 mg /3 mL (0.083 %) solution for nebulization 2.5 mg inhalation Q4H PRN (Reason: shortness of breath or wheezing) Qty: 90 0RF Referrals Referrals: Irwin Lott MD [Primary Care Provider] -
[2022-08-18 23:42] LABS: Adenovirus PCR Not Detected (NotDetected); Bordetella parapertussis PCR Not Detected (NotDetected); Bordetella pertussis PCR Not Detected (NotDetected); Chlamydia pneumoniae PCR Not Detected (NotDetected); Coronavirus 229E PCR Not Detected (NotDetected); Coronavirus HKU1 PCR Not Detected (NotDetected); Coronavirus NL63 PCR Not Detected (NotDetected); Coronavirus OC43PCR Not Detected (NotDetected); Human Metapneumovirus PCR Not Detected (NotDetected); Influenza A PCR Not Detected (NotDetected); Influenza B PCR Not Detected (NotDetected); Mycoplasma pneumoniae PCR Not Detected (NotDetected); Parainfluenza Virus 1 PCR Not Detected (NotDetected); Parainfluenza Virus 2 PCR Not Detected (NotDetected); Parainfluenza Virus 3 PCR Not Detected (NotDetected); Parainfluenza Virus 4 PCR Not Detected (NotDetected); Respiratory Syncytial VirusPCR Not Detected (NotDetected); Rhinovirus/Enterovirus PCR Not Detected (NotDetected)
[2022-08-19 00:03] LABS: Coronavirus CoV-2 (COVID19)PCR DETECTED (NotDetected)
[2022-08-19 00:23] LABS: Hematocrit (blood only) 29.7 % (34.1-44.9); Hemoglobin 9.8 g/dl (12.0-16.0); Mean Corpuscular Hemoglobin 28.4 pg (25.0-34.0); Mean Corpuscular Volume 86.1 fL (80.0-100.0); Platelet Count 96 K/uL (130-400); RDW Coefficient of Variation 13.4 % (11.5-14.5); RDW Standard Deviation 42.2 fL (36.4-46.3); Red Blood Count 3.45 M/uL (3.93-5.22); White Blood Count 1.39 K/ul (4.8-10.8)
[2022-08-19 00:25] LABS: ALC (manual) 0.67 K/uL (1.2-3.4); ANC (manual) 0.24 K/uL (1.4-6.5); Eosinophils # (manual) 0.01 K/uL (0-0.50); Eosinophils % (manual) 1 %; Lymphocytes # (manual) 0.67 K/uL (1.2-3.4); Lymphocytes % (manual) 48 %; Metamyelocytes # (manual) 0.01 K/uL (0-0); Metamyelocytes % (manual) 1 %; Monocytes # (manual) 0.35 K/uL (0.24-0.82); Monocytes % (manual) 25 %; Myelocytes # (manual) 0.11 K/uL (0-0); Myelocytes % (manual) 8 %; Neutrophils # (manual) 0.24 K/uL (1.4-6.5); Neutrophils % (manual) 17 %
[2022-08-19] MEDS ORDERED: SODIUM CHLORIDE 0.9% 1000ML 500 ML IV ONE (00:34)
[2022-08-19 00:52] LABS: Appearance Urine Clear (Clear); Bacteria Urine Automated 2+ (Negative); Bilirubin Urine Negative (Negative); Blood Urine Negative (Negative); Cast Urine Automated 0 /lpf (0-5); Color Urine Yellow; Glucose Urine UA Negative (Negative); Ketones Urine Negative (Negative); Leukocyte Esterase Urine Negative (Negative); Nitrite Urine Positive (Negative); Protein Urine Negative (Negative); RBC Urine Automated 0-4 /hpf (0-4); Specific Gravity Urine 1.016 (1.000-1.030); Urobilinogen Urine Negative (Negative); pH Urine 5.5 (4.5-7.5)
--- NOTE | 2022-08-19 03:45 | History and Physical Report ---
DATE OF ADMISSION: 08/19/2022. CHIEF COMPLAINT: Illness. HISTORY OF PRESENT ILLNESS: A 77-year-old female with past medical history significant for diabetes, chronic kidney disease stage III, hyperlipidemia, hypothyroidism, mild intermittent asthma, chronic systolic CHF with EF of 35% to 39%, paroxysmal atrial fibrillation, hypertension, status post ICD, gastroesophageal reflux disease, history of COVID in October 2021, history of left kidney cancer, status post left partial nephrectomy on 03/28/2018, history of recent diagnosis of breast cancer, left breast invasive ductal carcinoma, triple negative. Underwent lumpectomy, currently on chemo, first cycle of chemo was given last , status post A-port placement, .Taxotere and cyclophosphamide therapy planned , was given, only 20% dosed, plan for if she tolerated well to give full dose. Seems to also have been given prophylactic filgrastim to prevent febrile neutropenia. The patient says since chemo last , she was feeling terrible with severe body aches, weakness, not feeling well. Appetite is down. Today, she checked her temperature and it was elevated. She came to the ER. In the ER, she currently is afebrile. Her blood pressure was low, systolic in 90s, and she has pancytopenia. White count was 1.39, hemoglobin 9.8, platelets 96. INR was 3.3, the patient is on Coumadin. Creatinine 1.53, seems to be at baseline. Urine was positive. COVID came back positive on the BioFire. Chest x-ray, no obvious lesions. Saturating okay on room air. Because the patient recently had chemo and COVID and hypotension, we were called for admission. The patient denies any cough. She is just feeling severe pains all over the body. No shortness of breath. She has nausea, but used her nausea medication. Has some abdominal discomfort. No diarrhea or constipation. Normal bladder movements, but did not micturate much. She says since after chemo, she gained 6 pounds, but when she weighed today, she again lost her 6 pounds. In spite of taking Lasix, she is not micturating much as per the patient. Received a fluid bolus in the ER. Blood pressure improved. No blurred visions, no earache, no runny nose. Has some mild sore throat. Paxlovid was not given as the patient is on amiodarone. The patient is vaccinated and boosted once. ALLERGIES: STATINS, KETOROLAC, SULFA, TRAMADOL, HYDROCODONE. PAST MEDICAL HISTORY: As mentioned above. PAST SURGICAL HISTORY: Breast biopsy, colonoscopy, excision of lymphoma, excision of basal cell carcinoma, defibrillator pacemaker placement, left knee arthroscopy, left partial mastectomy, cervical spinal fusion surgery, partial hysterectomy, left partial removal of the kidney, cataract surgery, cholecystectomy, tonsillectomy, adenoidectomy, sentinel lymph node identification on the left side. MEDICATIONS: The patient is on Tylenol 500 mg p.o. q. 6 hours p.r.n., albuterol 2.5 mg inhalation q. 4 hours p.r.n., amiodarone 100 mg p.o. a.m., benzoate 100 mg p.o. t.i.d. p.r.n., Coreg 25 mg p.o. b.i.d., dexamethasone 8 mg injected prior to chemo, Lasix 40 mg p.o. b.i.d., Lantus 35 units subcutaneous at bedtime, levothyroxine 50 mcg p.o. daily, lidocaine-prilocaine as directed, losartan 100 mg p.o. at bedtime, metformin 500 mg p.o. b.i.d., [place] fish oil 1 capsule daily, omeprazole 20 mg p.o. daily, Zofran 8 mg p.o. 8 hours p.r.n., MiraLax 17 g p.o. b.i.d. p.r.n., prochlorperazine 10 mg p.o. q. 6 hours p.r.n., spironolactone 50 mg p.o. b.i.d., warfarin 2.5 mg on Tuesday and 5 mg rest of the days. FAMILY HISTORY: Significant for brother had cancer, mother had lung cancer, sister has non-Hodgkin lymphoma, brother of COVID in October 2020, father had stroke. SOCIAL HISTORY: Currently . Quit smoking in 1964, smoked quarter pack a day for 2 years. No alcohol use. No drug use. REVIEW OF SYSTEMS: As per HPI. Rest of the review of systems is negative. PHYSICAL EXAMINATION: GENERAL: The patient is of moderate build, not in acute distress. VITAL SIGNS: Temperature 36.8, pulse 87, respiratory rate 20, blood pressure 102/65, oxygen 94% on room air. HEENT: Pupils equal, round and reactive to light. Oral mucosa dry. NECK: No JVD. No neck masses. CARDIOVASCULAR: S1 and S2 heard. Regular rate and rhythm. No murmur, no gallop. RESPIRATORY SYSTEM: Normal AP diameter. No accessory muscle use. No wheezing, no crackles. ABDOMEN: Soft, bowel sounds present, nontender, no distention. CENTRAL NERVOUS SYSTEM: Cranial nerves II-XII grossly intact, nonfocal. EXTREMITIES: No edema, no erythema. LABORATORY DATA: WBC 1.39, hemoglobin 9.8, hematocrit 29.7, platelets 96, neutrophils 0.24. PTT 32.7, INR 3.3, APTT 48.4. Sodium 137, potassium 4.3, chloride 107, bicarbonate 23, BUN 35, creatinine 1.5, serum glucose 172. Lactate 1.2, calcium 8.5, magnesium 1.8, total bilirubin 0.5, direct bilirubin 0.1, AST 11, ALT 12, alkaline phosphatase 49, troponin I of 7, procalcitonin 0.2. Urinalysis positive for nitrite and +2 bacteria. BioFire SARS-CoV-2 PCR positive. IMAGING DATA: Chest x-ray, no acute findings. EKG: Sinus tachycardia with second-degree AV block at the rate of 106, left axis deviation, left bundle-branch block. ASSESSMENT AND PLAN: This is a 77-year-old female who presents with generalized body ache and weakness, COVID positive, recently started on chemo. 1. COVID positive: The patient is saturating okay on room air. Chest x-ray unremarkable. The patient had COVID in October 2021. She is COVID vaccinated and boosted, booster was in November 2021. The patient is currently not qualifying for Paxlovid because the patient is on amiodarone. Will monitor in the hospital. Generalized body aches could also be from the recent chemo last . Getting fluids, will monitor. 2. Urinary tract infection:Started on Rocephin. Follow the cultures. 3. Triple negative breast cancer diagnosed in April of this year. She is status post left partial mastectomy.First chemo last . 4. Pancytopenia secondary to chemo. Seemed to have received filgrastim, monitor the labs. 5 History of chronic systolic congestive heart failure: EF of 35%, status post ICD, holding the Lasix and spironolactone currently. Getting gentle fluids. Monitor for volume overload. Also holding Losartan and Coreg for low blood pressures. Closely monitor. 6. History of hypertension: Currently blood pressure is on lower side. Holding Coreg, losartan, spironolactone, and Lasix. Will monitor the blood pressure. Restart when the pressure comes up. 7. Type 2 heart block, Mobitz 1 in the EKG: Will hold amiodarone and coreg.Consulting cardiology in the a.m. close monitor. 7. History of atrial fibrillation: Holding Coreg and amiodarone. Will monitor in the tele. On Coumadin, INR 3.3. Follow the PT/INR and adjust the Coumadin dose. 8. Chronic kidney disease III: Currently with a creatinine of 1.5, seems to be around baseline, will follow the labs. 9. History of left renal cancer: Partial nephrectomy. Seems to be stable. Seems to be no recurrence. Follows with yearly CAT scans. 10. Diabetes: Continue her home Lantus. Hold metformin. Insulin sliding scale. Follow the blood sugars. 11. Hypothyroidism: On Synthroid. 12. Asthma: On albuterol p.r.n. 13. Gastroesophageal reflux disease: On omeprazole. 14. Deep venous thrombosis prophylaxis: INR 3.3. Monitor the platelets. DISPOSITION: Admit to tele floor. PT/OT prior to discharge. Social service to help with discharge planning. Job ID: [id number] MTDD
[2022-08-19] MEDS ORDERED: POLYETHYLENE (MIRALAX) 17 GM PACK PO PRN (04:14)
[2022-08-19] MEDS ORDERED: BENZONATATE 100 MG CAPSULE PO PRN (04:14)
[2022-08-19] MEDS ORDERED: NITROGLYCERIN SL 0.4 MG/TAB TAB SL PRN (04:14)
[2022-08-19] MEDS ORDERED: ALBUTEROL 0.083% NEBU SOLN 3 ML VIAL INH PRN (04:14)
[2022-08-19] MEDS ORDERED: SODIUM CHLORIDE 0.9% 1000ML 1,000 ML IV SCH (04:14)
[2022-08-19] MEDS ORDERED: DEXTROSE 50% 50 ML SYRINGE IV PRN (04:30)
[2022-08-19] MEDS ORDERED: GLUCOSE 40% GEL 15 GM TUBE PO PRN (04:30)
[2022-08-19] MEDS ORDERED: GLUCAGON FOR INJ 1 MG VIAL IM PRN (04:30)
[2022-08-19] MEDS ORDERED: GLUCOSE 10 TAB/TUBE PO PRN (04:30)
[2022-08-19] MEDS ORDERED: CARBOHYDRATES FOR HYPOGLYCEMIA PO PRN (04:30)
[2022-08-19] MEDS: INSULIN ASPART PER UNIT SC SCH ×5 (04:34→20:41)
[2022-08-19] MEDS ORDERED: oxyCODONE HCL IR 5 MG TAB (IMMEDIATE RELEASE) PO PRN (04:45)
[2022-08-19] MEDS: cefTRIAXone SODIUM 2,000 MG in DEXTROSE 5% 50 ML IV SCH (05:50)
[2022-08-19] MEDS ORDERED: PROMETHAZINE HCL 12.5 MG in SODIUM CHLORIDE 0.9% 50 ML IV PRN (06:43)
[2022-08-19] MEDS ORDERED: traMADol HCL 50 MG TABLET PO PRN (06:43)
[2022-08-19 07:02] LABS: INR 2.7 (0.9-1.1); Prothrombin Time 26.8 Seconds (9.0-12.0)
[2022-08-19 07:11] LABS: Estimated Average Glucose 180 mg/dl; Hemoglobin A1C 7.9 % (4.5-5.6)
[2022-08-19 07:15] LABS: Calcium 7.9 mg/dl (8.5-10.1); Est GFR (African American) 44.4 ml/min; Est GFR (Non-African American) 38.3 ml/min; Magnesium 1.8 mg/dl (1.7-2.4); Potassium 4.1 mmol/L (3.5-5.1)
[2022-08-19 07:16] LABS: Hematocrit (blood only) 28.5 % (34.1-44.9); Hemoglobin 9.4 g/dl (12.0-16.0); Mean Corpuscular Hemoglobin 28.5 pg (25.0-34.0); Mean Corpuscular Volume 86.4 fL (80.0-100.0); Mean Platelet Volume 12.3 fL (9.4-12.3); Platelet Count 101 K/uL (130-400); RDW Coefficient of Variation 13.4 % (11.5-14.5); RDW Standard Deviation 42.3 fL (36.4-46.3); White Blood Count 2.18 K/ul (4.8-10.8)
[2022-08-19 07:36] LABS: Lyme Ab IgG w/WB Rflx Negative (Negative)
[2022-08-19 07:46] LABS: Lyme Ab IgM w/WB Rflx Positive (Negative)
[2022-08-19 07:56] LABS: Basophils # (auto) 0.01 K/uL (0-0.2); Basophils % (auto) 0.5 %; Dohle Bodies 1+; Eosinophils # (auto) 0.02 K/uL (0-0.50); Eosinophils % (auto) 0.9 %; Immature Granulocytes # (auto) 0.15 K/uL (0.00-0.02); Immature Granulocytes % (auto) 6.9 %; Lymphocytes # (auto) 0.77 K/uL (1.2-3.4); Lymphocytes % (auto) 35.3 %; Monocytes # (auto) 0.54 K/uL (0.24-0.82); Monocytes % (auto) 24.8 %; Neutrophils # (auto) 0.69 K/uL (1.4-6.5); Neutrophils % (auto) 31.6 %
--- NOTE | 2022-08-19 08:37 | Electrocardiogram Report ---
Test Reason : Blood Pressure : / mmHG Vent. Rate : 106 BPM Atrial Rate : 127 BPM P-R Int : 000 ms QRS Dur : 132 ms QT Int : 374 ms P-R-T Axes : 000 -68 086 degrees QTc Int : 496 ms Sinus tachycardia with 2nd degree A-V block (Mobitz I) Left axis deviation Left bundle branch block Abnormal ECG When compared with ECG of 14-NOV-2021 10:05, Sinus rhythm has replaced Atrial fibrillation HR has increased by 33 bpm Confirmed by Erik Mathew ([id number]) on 08/19/2022 8:37:23 AM Referred By: REFERRED SELF Confirmed By:Erik Mathew
[2022-08-19] MEDS: LEVOTHYROXINE SODIUM 50 MCG TABLET PO SCH (08:51)
--- NOTE | 2022-08-19 09:31 | XRay Report ---
XR chest 1V portable HISTORY: Sepsis. COMPARISON: Chest 11/14/2021. FINDINGS: No pneumothorax. No pleural effusions. The heart remains mildly enlarged. Is left-sided pac emaker/defibrillator. A right subclavian Port-A-Cath terminates at the proximal SVC. The tip is parti ally obscured by the pacemaker wire. No new focal lung consolidations to suggest edema and pneumonia. No evidence for pulmonary edema. IMPRESSION: No acute process. ACT 112: Negative or not required by law. Electronically signed by: Bebeto Ford M.D. 08/19/2022 9:29 AM
--- NOTE | 2022-08-19 10:56 | Cardiology Consultation ---
Date of Consultation August 19, 2022 Assessment & Plan (1) COVID-19: (2) Chemotherapy induced nausea and vomiting: (3) Pancytopenia: (4) Hypotension: (5) Idiopathic cardiomyopathy: (6) S/P ICD (internal cardiac defibrillator) procedure: (7) Chronic systolic heart failure: (8) Mobitz (type) I (Wenckebach's) atrioventricular block: Plan Hold furosemide (40 mg BID), spironolactone (50 mg BID), and Losartan (100 mg QHS) Resume low dose Amiodarone 100 mg/day Replace carvedilol (25 mg BID) with low dose metoprolol succinate 12.5 mg/day for now Continue anticoagulation Refer for resting echocardiography Interrogate device ([employer]), RE: ? inappropriate pacer spikes on Telemetry, Huseyin Cuevas lead Further recommendations pending the above, patient's ongoing hospitalization, evaluation by Dr. Fitzgerald. Supervising Physician Co-Signing Physician Notes Patient seen and examined at the bedside. Patient admitted secondary to COVID- 19 infection, urinary tract infection, hypotension, pancytopenia. Currently denies chest pain or shortness of breath. No orthopnea or PND. PE: VSS. Gen: NAD, AAOx3. Heart: Regular rhythm. Normal S1-S2. No murmur. Lungs: Clear bilateral, no rales, rhonchi, wheeze. Extremities: No edema. A/P: Agree with above PA-C history, physical exam, assessment and plan. Current diuretics and antihypertensive medications will be placed on hold due to borderline hypotension. Carvedilol transition to low-dose metoprolol for the time being. Telemetry reveals sinus rhythm as well as periods of atrial tachycardia with variable block. ICD in place. Continue amiodarone and anticoagulation with warfarin. Monitor platelet count. History of Present Illness Reason for Consultation: Sinus tachycardia. Mobitz type I. Covid Requesting Physician: Sachi Attending Physician: Fausto History of Present Illness Ms. Marsha Villareal is a complex 77-year-old female who was recently diagnosed with left breast cancer, invasive ductal carcinoma, triple negative, status post lumpectomy. Patient received her first cycle of chemotherapy last . Since chemotherapy last , patient has been feeling poorly with body aches, weakness, nausea and vomiting (no diarrhea), decreased appetite, malaise and fatigue. Patient afebrile on presentation to the ER. Pancytopenia observed along with hypotension, possible urinary tract infection. COVID testing was positive. INR was mildly supratherapeutic at 3.3. Chest x-ray showed no acute process. Patient saturating well on room air with SPO2 readings of 94 to 97%. Cardiology consultation requested due to EKG finding of sinus tachycardia with second-degree AV block, Mobitz type I, Wenckebach. Additional notable EKG findings include left axis deviation, left bundle branch block with QRS duration of 132 ms, QTc 496 ms. Continuous telemetry monitoring reveals sinus tachycardia initially, currently sinus rhythm in the 70s. Carvedilol (25 BI), amiodarone (100 mg/day), losartan, furosemide, and spironolactone have been held. Patient is notably status post single chamber Medtronic ICD implantation initially in March 2007 (with a [employer] Mason lead) with generator exchange last on April 02, 2015. Device interrogation on May 18, 2022 demonstrated appropriate function, 4.1 years of remaining longevity. Backup pacemaker is set to VVI 40 bpm. Past Medical and Surgical History: Nonischemic idiopathic cardiomyopathy with ejection fraction 20% when initially diagnosed in 1986, NYHA Class III CHF Status post single-chamber Medtronic ICD implantation with generator exchange last on April 02, 2015 Cardiac catheterizations in 1986 and again on April 27, 2006 with angiographically normal coronary arteries. 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 No alcohol. No illegal drug use. 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 Lives alone in [place], [place]. Family History: Mother with colon cancer. Father had a stroke. Sister with non-Hodgkin's lymphoma. Brother with CAD, passing with COVID in October 2020. Brother with? Multiple myeloma. Allergies Allergy/AdvReac Type Severity Reaction Status Date / Time Uzyloxf-LTE-CjV Reductase Allergy Intermediate Muscle Pain Verified 08/19/22 02:14 Inhibitor [Jedrcpl-Ikp-Boq Reductase Inhibitor] ketorolac Allergy Mild RASH Verified 08/19/22 02:14 Sulfa (Sulfonamide Allergy Unknown HIVES Verified 08/19/22 02:14 Antibiotics) tramadol AdvReac Intermediate VERY SICK Verified 08/19/22 02:14 TO STOMACH hydrocodone AdvReac Mild NAUSEA AND Verified 08/19/22 02:14 VOMITING Home Medications Medication Instructions Recorded Confirmed Type acetaminophen 500 mg tablet 500 mg PO Q6H PRN Pain 05/15/19 08/19/22 History (Tylenol Extra Strength) amiodarone 100 mg tablet 100 mg PO QAM 05/15/19 08/19/22 History carvedilol 25 mg tablet 25 mg PO BID 05/15/19 08/19/22 History fish, borage, flaxseed oils-omega 1 cap PO QAM 05/15/19 08/19/22 History 3,6,9 comb no.1 1,200 mg capsule ([place] 3-6-9) insulin glargine 100 unit/mL (3 25 - 30 unit subcut HS 05/15/19 08/19/22 History mL) subcutaneous pen (Lantus Solostar U-100 Insulin) levothyroxine 50 mcg tablet 50 mcg PO QAM 05/15/19 08/19/22 History losartan 100 mg tablet 100 mg PO HS 05/15/19 08/19/22 History metformin 500 mg tablet 500 mg PO BIDM 05/15/19 08/19/22 History omeprazole 20 mg capsule,delayed 20 mg PO QAM 05/15/19 08/19/22 History release warfarin 5 mg tablet 2.5 mg PO WK 05/15/19 08/19/22 History warfarin 5 mg tablet 5 mg PO 6XWK 05/15/19 08/19/22 History furosemide 40 mg tablet (Lasix) 40 mg PO BID 06/06/19 08/19/22 History polyethylene glycol 3350 17 17 g PO BID PRN Constipation 08/27/21 08/19/22 History gram/dose oral powder (Miralax) spironolactone 50 mg tablet 50 mg PO BID 08/27/21 08/19/22 History benzonatate 100 mg capsule 100 mg PO TID PRN cough #30 caps 11/01/21 08/19/22 Rx albuterol sulfate 2.5 mg/3 mL 2.5 mg (3 mL) inhalation Q4H PRN 11/02/21 08/19/22 Rx (0.083 %) solution for nebulization shortness of breath or wheezing #90 mL dexamethasone 4 mg tablet 8 mg PO DIRECTED 08/19/22 08/19/22 History lidocaine-prilocaine 2.5 %-2.5 % 1 applic topical DIRECTED 08/19/22 08/19/22 History topical cream ondansetron HCl 8 mg tablet 8 mg PO Q8 PRN Nausea 08/19/22 08/19/22 History prochlorperazine maleate 10 mg 10 mg PO Q6 PRN Nausea 08/19/22 08/19/22 History tablet Patient History Medical History Atrial fibrillation "NOT CHRONIC" Chronic systolic heart failure CKD (chronic kidney disease), stage III Diabetes mellitus, type II Diabetic neuropathy GERD (gastroesophageal reflux disease) Hemorrhoids History of kidney cancer History of kidney stones History of skin cancer ON NOSE HTN (hypertension) Hx of blood clots IN HEART (TREATED WITH INCEASED BLOOD THINNERS) Hypothyroidism Idiopathic cardiomyopathy Nocturnal hypoxia PT DENIES Pacemaker ? DATE IMPLANTED ([employer]) Surgical History H/O breast biopsy H/O cervical spine surgery X 2 (GOOD ROM) H/O knee surgery LEFT H/O partial nephrectomy LEFT "CANCEROUS TUMOR REMOVED" H/O: hysterectomy History of anesthesia reaction N/V AND AGITATED WITH ANESTHESIA History of appendectomy History of bladder surgery History of cardiac cath X 4 (NO STENTS) History of cataract surgery RT/LEFT History of cholecystectomy History of colonoscopy History of cystoscopy History of esophagogastroduodenoscopy (EGD) History of partial nephrectomy Left, [facility] [place] [place] in 2018 History of tonsillectomy History of tooth extraction S/P ICD (internal cardiac defibrillator) procedure IMPLANTED PACEMAKER/DEFIB ? DATE IMPLANTED ([employer] CARDIOLOGY FOLLOWS) Family History Mother Family history of diabetes mellitus Colorectal cancer Brother Family history of diabetes mellitus Sister Colorectal cancer Other Heart disease No family history of adverse response to anesthesia Stroke Social History Smoking Status: Never smoker Second Hand Exposure: No; Do You Dip or Chew Tobacco: No; Hx Alcohol Use: No Hx Substance Use: No Preferred Language: Kazakh Communication Ability: Unable Format Proofreader Required: No Beliefs That Will Affect Care: None marital status: / Current Living Situation: Alone Feels Safe at Home: Yes Safety Concerns: Feels Safe At This Time Assistive Devices: Cane Assistive Devices Comment: cane "sometimes" Review of Systems Review of Systems: Complete Review of Systems is as stated above, negative, or noncontributory. Physical Exam Physical Exam: General: A&Ox3. NAD. Mucous membranes are dry. HENT: Normocephalic. Atraumatic. Eyes: PER. Conjunctiva pink, sclera pale. Neck: Neck veins are flat. Heart: RRR, 70 bpm. Soft systolic murmur. Lungs: Clear to auscultation. Abdomen: +BS. Extremities: No clubbing, cyanosis, or edema. Limited neurological examination is without focal deficits. Results & Data ([facility]) Vital Signs (Past 12 Hours) Vital Signs Temp Pulse Pulse Resp BP BP Pulse Ox 08/19/22 07:55 36.5 C 100 H 18 119/62 96 08/19/22 06:15 72 08/19/22 04:10 36.6 C 76 18 102/58 L 96 08/19/22 04:15 85 08/19/22 04:14 08/19/22 03:00 80 20 96 08/19/22 03:00 91/53 L 08/19/22 02:30 82 20 95 08/19/22 02:30 104/56 L 08/19/22 02:01 87 20 94 08/19/22 02:01 102/65 08/19/22 02:00 82 08/19/22 01:00 20 97 08/19/22 01:00 102/62 08/19/22 00:30 20 97 08/19/22 00:30 98/63 L 08/19/22 00:29 100/62 08/19/22 00:29 95 08/19/22 00:17 104 H 20 94 08/19/22 00:17 90/56 L 08/19/22 00:00 20 95 08/19/22 00:00 90/59 L 08/18/22 23:30 22 96 08/18/22 23:30 103/64 08/18/22 23:00 97 08/18/22 23:00 97/71 L Pulse Ox O2 Del Method O2 Del Method 08/19/22 07:55 Room Air 08/19/22 06:15 08/19/22 04:10 Room Air 08/19/22 04:15 08/19/22 04:14 96 Room Air 08/19/22 03:00 08/19/22 03:00 08/19/22 02:30 08/19/22 02:30 08/19/22 02:01 08/19/22 02:01 08/19/22 02:00 08/19/22 01:00 08/19/22 01:00 08/19/22 00:30 08/19/22 00:30 08/19/22 00:29 08/19/22 00:29 08/19/22 00:17 08/19/22 00:17 08/19/22 00:00 08/19/22 00:00 08/18/22 23:30 08/18/22 23:30 08/18/22 23:00 08/18/22 23:00 Laboratory Results Cardiac Enzymes 08/18/22 Range/Units 22:14 AST 11 L (13-39) U/L Troponin I High Sens 7.0 (0-14) pg/ml Coagulation 08/18/22 08/19/22 Range/Units 22:14 06:01 PT 32.7 H 26.8 H (9.0-12.0) Seconds APTT 48.4 H* (21.0-31.0) Seconds CBC 08/18/22 08/19/22 Range/Units 22:14 06:01 WBC 1.39 L 2.18 L (4.8-10.8) K/ul RBC 3.45 L 3.30 L (3.93-5.22) M/uL Hgb 9.8 L 9.4 L (12.0-16.0) g/dl Hct 29.7 L 28.5 L (34.1-44.9) % Plt Count 96 L 101 L (130-400) K/uL Neut # (Auto) 0.69 L* (1.4-6.5) K/uL Lymph # (Auto) 0.77 L (1.2-3.4) K/uL [place] # (Auto) 0.54 (0.24-0.82) K/uL Eos # (Auto) 0.02 (0-0.50) K/uL Baso # (Auto) 0.01 (0-0.2) K/uL Comprehensive Metabolic Panel 08/18/22 08/19/22 Range/Units 22:14 06:01 Sodium 137 139 (136-145) mmol/L Potassium 4.3 4.1 (3.5-5.1) mmol/L Chloride 107 109 H (98-107) mmol/L Carbon Dioxide 23 25 (21-32) mmol/L BUN 35 H 31 H (6-23) mg/dl Creatinine 1.53 H 1.35 H (0.6-1.2) mg/dl Glucose 172 H 134 H (70-99(Fasting)) mg/dl Calcium 8.5 7.9 L (8.5-10.1) mg/dl Direct Bilirubin 0.1 (0-0.2) mg/dl AST 11 L (13-39) U/L ALT 12 (7-52) U/L Alkaline Phosphatase 49 (34-104) U/L Total Protein 5.7 L (6.0-8.3) gm/dl Albumin 3.6 (3.4-5.0) gm/dl Intake and Output 08/18/22 08/19/22 08/19/22 22:59 06:59 14:59 Intake Total 500 / 1070 570 / 1070 50.5 / 50.5 Balance 500 / 1070 570 / 1070 50.5 / 50.5 Intake: IV 500 / 1070 570 / 1070 50.5 / 50.5 Promethazine HCl 12.5 mg In 50.5 / 50.5 Sodium Chloride 0.9% 50 ml @ 202 mls/hr IV Q6H PRN Rx#: [id number] Sodium Chloride 0.9% 1000ML 500 500 / 1000 500 / 1000 ml @ 999 mls/hr IV .Q31M ONE Rx#:[id number] cefTRIAXone SODIUM 2,000 mg In 70 / 70 Dextrose 5% 50 ml @ 100 mls/hr IV Q24H [facility] Rx#:[id number] Other: Weight 92.5 kg 92.8 kg 92.8 kg Weight Measurement Method Built in [facility] Built in [facility] Patient Weight 08/20/22 06:59 Weight 92.8 kg Diagnostic Findings February 23, 2021 TTE Interpretation Summary (as per Dr. Booth): The left ventricular cavity size is normal. The LV wall thickness is mildly increased (concentric). Trabeculation of the LV apex is present. The septal motion is abnormal consistent with intrventricular conduction delay. The remaining left ventricular wall segments are moderately hypokinetic. The qualitative LV ejection fraction is 35-39% (moderately reduced). The left ventricular diastolic function is mildly abnormal (grade I). Moderate to severe secondary mitral regurgitation is present. The mitral regurgitation jet is posteriorly directed. TSH and LFT's normal this admission.
[2022-08-19] MEDS: CHOLECALCIFEROL 5,000 UNITS 125 MCG TAB PO SCH (11:46)
[2022-08-19] MEDS: PANTOprazole 40 MG TAB PO SCH (11:46)
--- NOTE | 2022-08-19 14:49 | Hospitalist Progress Note ---
Date of Service August 19, 2022 Assessment & Plan (1) Pancytopenia: Plan: Patient is a 77 yr female who presents with generalized body ache and weakness, COVID positive, recently started on chemo. COVID 19 Infection Vaccinated and had Booster in Nov 2021 CXR:No acute process. Normal Procalcitonin CRP pending Blood cultures pending Saturating well on room air Conservative management Urinary tract infection: Urine culture pending Continue empiric Rocephin Suspected Lyme's disease Serological tests pending Continue Rocephin as above Mobitz (type) I (Wenckebach's) atrioventricular block Interrogation of pacemaker requested Carvedilol changed to metoprolol Continue amiodarone as pacemaker already in place Appreciate Cardiology Input Monitor Triple negative breast cancer S/P left partial mastectomy Last chemo 1 week ago Follow up as outpatient Pancytopenia secondary to chemo Received filgrastim as outpatient monitor Chronic systolic congestive heart failure Last EF of 35% S/P ICD Lasix and spironolactone currently held Monitor for volume overload Hypertension: BP currently low Diuretics and Losartan currently held Monitor H/O atrial fibrillation: Coreg changed to Metoprolol Continue Coumadin INR: 2.[address] at baseline Monitor H/O Left renal cancer: S/P Partial nephrectomy Follows with yearly CT scans DM II Hold metformin Continue Insulin Monitor BGs Hypothyroidism: Normal TSH Continue levothyroxine Asthma: On albuterol p.r.n. GERD on PPI DVT Px: Coumadin Code Status Full Code Admission and Anticipated Discharge Date Admission Date: August 19, 2022 Subjective Patient is seen and examined at bedside States having nausea/dry heaves this morning Also reports generalized weakness and body ache Denies any cough, chest pain, dyspnea, dizziness Discussed with cardiology today Offers no other complaints Saturating well on room air Review of Systems Review of Systems: All systems reviewed & are unremarkable except as noted in Subjective Physical Exam Physical Exam: Physical Exam: Vitals signs as noted above General Appearance:Moderately built and nourished, no apparent distress Head: normocephalic, Atraumatic Eyes: normal inspection, EOMI Neck: supple, Trachea midline Respiratory/Chest: Normal breath sounds, CTA, No accessory muscle use Cardiovascular: S1, S2, + murmur Abdomen/GI:Soft, Non tender, Bowel sounds present Extremities/Musculoskeletal:normal inspection, no edema Neurologic/Psych:AAOX3, grossly no focal neurological deficits Skin: normal color, warm Results & Data Results & Data ([facility]) Vital Signs (Past 12 Hours) Vital Signs Temp Pulse Pulse Resp BP BP Pulse Ox 08/19/22 12:01 58 L 08/19/22 11:02 36.7 C 64 17 112/55 L 97 08/19/22 07:55 36.5 C 100 H 18 119/62 96 08/19/22 06:15 72 08/19/22 04:10 36.6 C 76 18 102/58 L 96 08/19/22 04:15 85 08/19/22 04:14 08/19/22 03:00 80 20 96 08/19/22 03:00 91/53 L Pulse Ox O2 Del Method O2 Del Method 08/19/22 12:01 08/19/22 11:02 Room Air 08/19/22 07:55 Room Air 08/19/22 06:15 08/19/22 04:10 Room Air 08/19/22 04:15 08/19/22 04:14 96 Room Air 08/19/22 03:00 08/19/22 03:00 Laboratory Results Short CBC 08/18/22 08/19/22 Range/Units 22:14 06:01 WBC 1.39 L 2.18 L (4.8-10.8) K/ul Hgb 9.8 L 9.4 L (12.0-16.0) g/dl Hct 29.7 L 28.5 L (34.1-44.9) % Plt Count 96 L 101 L (130-400) K/uL BMP 08/18/22 08/19/22 22:14 06:01 Sodium 137 139 Potassium 4.3 4.1 Chloride 107 109 H Carbon Dioxide 23 25 BUN 35 H 31 H Creatinine 1.53 H 1.35 H Glucose 172 H 134 H Calcium 8.5 7.9 L Liver Function 08/18/22 Range/Units 22:14 Total Bilirubin 0.5 (0.2-1.0) mg/dl Direct Bilirubin 0.1 (0-0.2) mg/dl AST 11 L (13-39) U/L ALT 12 (7-52) U/L Alkaline Phosphatase 49 (34-104) U/L Albumin 3.6 (3.4-5.0) gm/dl Urine 09/22/22 Range/Units 00:17 Urine Color Yellow Urine Appearance Clear (Clear) Urine pH 5.5 (4.5-7.5) Ur Specific [place] 1.016 (1.000-1.030) Urine Protein Negative (Negative) Urine Glucose (UA) Negative (Negative)
[2022-08-19] MEDS ORDERED: WARFARIN SOD 5 MG TAB PO SCH (16:00)
--- NOTE | 2022-08-19 16:03 | Electrocardiogram Report ---
Test Reason : Blood Pressure : / mmHG Vent. Rate : 068 BPM Atrial Rate : 068 BPM P-R Int : 166 ms QRS Dur : 134 ms QT Int : 462 ms P-R-T Axes : 013 -73 060 degrees QTc Int : 491 ms Normal sinus rhythm Left axis deviation Left bundle branch block T-wave inversion in Anterior leads , consider ischemia Abnormal ECG When compared with ECG of 18-AUG-2022 21:40, Sinus rhythm is no longer with 2nd degree A-V block (Mobitz I) Vent. rate has decreased BY 38 BPM T wave inversion now evident in Anterior leads Confirmed by Erik Mathew [id number] on 08/19/2022 4:03:16 PM Referred By: REFERRED SELF Confirmed By:Erik Mathew
[2022-08-19] MEDS: ACETAMINOPHEN 325 MG TAB PO PRN (17:21)
[2022-08-19] MEDS ORDERED: LANTUS PER UNIT CHARGE SQ SCH (21:00)
[2022-08-19] MEDS: LANTUS PER UNIT CHARGE SQ SCH (22:25)
[2022-08-20] MEDS ORDERED: HEPARIN 100 UNIT/ML 5ML FLUSH FLUSH PRN (03:23)
[2022-08-20] MEDS: cefTRIAXone SODIUM 2,000 MG in DEXTROSE 5% 50 ML IV SCH (05:33)
[2022-08-20] MEDS: LEVOTHYROXINE SODIUM 50 MCG TABLET PO SCH (05:34)
[2022-08-20 06:13] LABS: INR 2.5 (0.9-1.1); Prothrombin Time 25.6 Seconds (9.0-12.0)
[2022-08-20 06:38] LABS: Hematocrit (blood only) 27.5 % (34.1-44.9); Mean Corpuscular Hemoglobin 28.1 pg (25.0-34.0); Mean Corpuscular Hgb Conc 32.7 g/dL (32.0-36.0); Mean Corpuscular Volume 85.9 fL (80.0-100.0); Mean Platelet Volume 11.7 fL (9.4-12.3); Nucleated RBC # (auto) 0.03 K/uL (0-0); Nucleated RBC % (auto) 0.4 %; Platelet Count 117 K/uL (130-400); RDW Coefficient of Variation 13.7 % (11.5-14.5); RDW Standard Deviation 43.3 fL (36.4-46.3); White Blood Count 8.55 K/ul (4.8-10.8)
[2022-08-20 06:44] LABS: BUN Creatinine Ratio 15.7 (10-20); C Reactive Protein 6.94 mg/dl (0-0.5); Calcium 7.7 mg/dl (8.5-10.1); Creatinine Clr Calc Pharmacy 46.4 ml/min; Est GFR (African American) 44.8 ml/min; Est GFR (Non-African American) 38.7 ml/min; Potassium 4.1 mmol/L (3.5-5.1)
[2022-08-20] MEDS: AMIODARONE 200 MG TAB PO SCH (08:10)
[2022-08-20] MEDS: CHOLECALCIFEROL 5,000 UNITS 125 MCG TAB PO SCH (08:10)
[2022-08-20] MEDS: PANTOprazole 40 MG TAB PO SCH (08:11)
[2022-08-20] MEDS: METOPROLOL SUCC 25MG EXT REL TAB PO SCH (08:11)
[2022-08-20] MEDS ORDERED: PERFLUTREN LIPID MICROSPHERE (DEFINITY) IV ONE (08:13)
[2022-08-20] MEDS: INSULIN ASPART PER UNIT SC SCH ×4 (08:34→21:12)
[2022-08-20 09:59] LABS: Dohle Bodies 1+; Polychromasia 1+; Toxic Granulation 1+
--- NOTE | 2022-08-20 11:01 | Cardiology Progress Note ---
Date of Service August 20, 2022 Assessment & Plan (1) COVID-19: (2) Chemotherapy induced nausea and vomiting: (3) Pancytopenia: (4) Hypotension: (5) Idiopathic cardiomyopathy: (6) S/P ICD (internal cardiac defibrillator) procedure: (7) Chronic systolic heart failure: (8) Mobitz (type) I (Wenckebach's) atrioventricular block: Plan Continue to hold furosemide, spironolactone, and losartan. Continue low-dose metoprolol succinate and amiodarone. Furosemide and Aldactone will likely be resumed at lower doses as patient nears discharge, consider furosemide 40 mg daily, and spironolactone 25 mg daily pending clinical course. ICD interrogation pending regarding inappropriate pacer spikes on Telemetry, [place] lead Admission and Anticipated Discharge Date Admission Date: August 19, 2022 Subjective Patient seen examined the bedside wearing appropriate PPE due to + COVID-19 status. Feeling better from a cardiovascular perspective. No recurrent nausea or vomiting overnight. Tolerated her a.m. meal. Blood pressure improved. Losartan, furosemide, and Aldactone currently on hold. Carvedilol transitioned to low-dose metoprolol 08/19/2022. Patient offers no concerns/complaints. Telemetry reveals sinus rhythm with a first-degree AV block and intermittent atrial tachycardia. Review of Systems Review of Systems: All systems reviewed & are unremarkable except as noted in Subjective Physical Exam Constitutional: well nourished Respiratory: normal respiratory effort; no respiratory distress, no labored breathing and no retractions Auscultation: no crackles, no rales, no rhonchi and no wheezes Cardiovascular: Rate/Rhythm: regular rate and regular rhythm Heart Sounds: normal S1 and normal S2; no murmur Vessels: no JVD Extremities: no edema Gastrointestinal (Abdomen): Inspection/Auscultation: abdomen normal to inspection and normal bowel sounds; abdomen not distended Percussion/Palpation: abdomen soft; abdomen nontender, no guarding and abdomen not rigid Neurologic: CN's II-XI intact bilaterally and moves all extremities; no focal motor deficits Psychiatric: A+Ox3, euthymic affect Results & Data ([facility]) Vital Signs (Past 12 Hours) Vital Signs Temp Pulse Pulse Resp BP Pulse Ox O2 Del Method 08/20/22 08:00 70 08/20/22 03:54 36.6 C 72 18 116/58 L 95 Room Air 08/20/22 01:14 70 08/19/22 23:22 36.7 C 76 20 114/55 L 93 Room Air
[2022-08-20 11:02] LABS: ANC (manual) 5.73 K/uL (1.4-6.5); Blast # (manual) 0.17 K/uL (0-0); Lymphocytes % (manual) 14 %; Metamyelocytes # (manual) 1.03 K/uL (0-0); Metamyelocytes % (manual) 12 %; Monocytes # (manual) 0.34 K/uL (0.24-0.82); Monocytes % (manual) 4 %; Myelocytes # (manual) 0.17 K/uL (0-0); Myelocytes % (manual) 2 %; Neutrophils # (manual) 5.73 K/uL (1.4-6.5); Neutrophils % (manual) 67 %
[2022-08-20 11:03] LABS: Blast Cells % (manual) 2 %
[2022-08-20] MEDS: ACETAMINOPHEN 325 MG TAB PO PRN ×2 (15:55→21:12)
[2022-08-20] MEDS ORDERED: WARFARIN SOD 2.5 MG TAB PO SCH (16:00)
--- NOTE | 2022-08-20 17:11 | Hospitalist Progress Note ---
Date of Service August 20, 2022 Assessment & Plan (1) Pancytopenia: Plan: Patient is a 77 yr female who presents with generalized body ache and weakness, COVID positive, recently started on chemo. COVID 19 Infection Vaccinated and had Booster in Nov 2021 CXR:No acute process. Normal Procalcitonin CRP 6.94 Blood cultures:No growth to date Saturating well on room air Continue Conservative management Urinary tract infection: Urine culture growing gram-negative bacilli Continue empiric Rocephin Suspected Lyme's disease Serological tests pending Continue Rocephin as above Mobitz (type) I (Wenckebach's) atrioventricular block Interrogation of pacemaker requested Carvedilol changed to metoprolol Continue amiodarone as pacemaker already in place Appreciate Cardiology Input Monitor Triple negative breast cancer S/P left partial mastectomy Last chemo 1 week ago Follow up as outpatient Pancytopenia secondary to chemo Received filgrastim as outpatient monitor Neutropenia improved Chronic systolic congestive heart failure Last EF of 35% S/P ICD Lasix and spironolactone currently held Monitor for volume overload Hypertension: BP stable Diuretics and Losartan currently held Monitor H/O atrial fibrillation: Coreg changed to Metoprolol Continue Coumadin INR: 2.[address] at baseline Monitor H/O Left renal cancer: S/P Partial nephrectomy Follows with yearly CT scans DM II Hold metformin Continue Insulin Monitor BGs Hypothyroidism: Normal TSH Continue levothyroxine Asthma: On albuterol p.r.n. GERD on PPI DVT Px: Coumadin Code Status Full Code Admission and Anticipated Discharge Date Admission Date: August 19, 2022 Subjective Patient is seen and examined at bedside States feeling lot better today Eager to get discharged Nausea, weakness much improved Denies any cough, chest pain, dyspnea, dizziness, cough Review of Systems Review of Systems: All systems reviewed & are unremarkable except as noted in Subjective Physical Exam Physical Exam: Physical Exam: Vitals signs as noted above General Appearance:Moderately built and nourished, no apparent distress Head: normocephalic, Atraumatic Eyes: normal inspection, EOMI Neck: supple, Trachea midline Respiratory/Chest: Normal breath sounds, CTA, No accessory muscle use Cardiovascular: S1, S2, + murmur Abdomen/GI:Soft, Non tender, Bowel sounds present Extremities/Musculoskeletal:normal inspection, no edema Neurologic/Psych:AAOX3, grossly no focal neurological deficits Skin: normal color, warm Results & Data Results & Data ([facility]) Vital Signs (Past 12 Hours) Vital Signs Temp Pulse Pulse Resp BP Pulse Ox O2 Del Method 08/20/22 15:12 36.6 C 75 15 116/75 98 Room Air 08/20/22 12:00 36.8 C 70 16 109/59 L 98 Room Air 08/20/22 08:00 70 Laboratory Results Short CBC 08/20/22 Range/Units 05:21 WBC 8.55 (4.8-10.8) K/ul Hgb 9.0 L (12.0-16.0) g/dl Hct 27.5 L (34.1-44.9) % Plt Count 117 L (130-400) K/uL BMP 08/20/22 05:21 Sodium 140 Potassium 4.1 Chloride 110 H Carbon Dioxide 25 BUN 21 Creatinine 1.34 H Glucose 77 Calcium 7.7 L
[2022-08-20] MEDS: LANTUS PER UNIT CHARGE SQ SCH (21:12)
[2022-08-21] MEDS: cefTRIAXone SODIUM 2,000 MG in DEXTROSE 5% 50 ML IV SCH (05:27)
[2022-08-21] MEDS: LEVOTHYROXINE SODIUM 50 MCG TABLET PO SCH (05:28)
[2022-08-21 06:16] LABS: Hematocrit (blood only) 27.1 % (34.1-44.9); Hemoglobin 8.8 g/dl (12.0-16.0); Mean Corpuscular Hemoglobin 27.8 pg (25.0-34.0); Mean Corpuscular Hgb Conc 32.5 g/dL (32.0-36.0); Mean Corpuscular Volume 85.8 fL (80.0-100.0); Mean Platelet Volume 11.2 fL (9.4-12.3); Nucleated RBC # (auto) 0.02 K/uL (0-0); Nucleated RBC % (auto) 0.1 %; Platelet Count 121 K/uL (130-400); RDW Coefficient of Variation 13.8 % (11.5-14.5); RDW Standard Deviation 43.1 fL (36.4-46.3); Red Blood Count 3.16 M/uL (3.93-5.22); White Blood Count 14.01 K/ul (4.8-10.8)
[2022-08-21 06:33] LABS: INR 2.6 (0.9-1.1)
[2022-08-21 06:38] LABS: BUN Creatinine Ratio 11.7 (10-20); Calcium 7.8 mg/dl (8.5-10.1); Creatinine Clr Calc Pharmacy 48.5 ml/min; Est GFR (African American) 47.4 ml/min; Est GFR (Non-African American) 40.9 ml/min; Potassium 3.9 mmol/L (3.5-5.1)
[2022-08-21] MEDS: INSULIN ASPART PER UNIT SC SCH ×2 (08:23→12:05)
[2022-08-21 08:42] LABS: 18KDIGG Band NON-REACTIVE; 23KDIGG Band NON-REACTIVE; 23KDIGM Band REACTIVE; 28KDIGG Band NON-REACTIVE; 30KDIGG Band NON-REACTIVE; 39KDIGG Band NON-REACTIVE; 39KDIGM Band NON-REACTIVE; 41KDIGG Band REACTIVE; 41KDIGM Band NON-REACTIVE; 45KDIGG Band NON-REACTIVE; 58KDIGG Band REACTIVE; 66KDIGG Band NON-REACTIVE; 93KDIGG Band NON-REACTIVE; Lyme Antibodies, WB IgG NEGATIVE (NEGATIVE); Lyme Antibodies, WB IgM NEGATIVE (NEGATIVE)
[2022-08-21] MEDS: AMIODARONE 200 MG TAB PO SCH (08:55)
[2022-08-21] MEDS: PANTOprazole 40 MG TAB PO SCH (08:55)
[2022-08-21] MEDS: METOPROLOL SUCC 25MG EXT REL TAB PO SCH (08:55)
[2022-08-21] MEDS: CHOLECALCIFEROL 5,000 UNITS 125 MCG TAB PO SCH (08:55)
[2022-08-21] MEDS: ACETAMINOPHEN 325 MG TAB PO PRN (08:59)
[2022-08-21 09:09] LABS: ANC (manual) 11.63 K/uL (1.4-6.5); Lymphocytes % (manual) 5 %; Metamyelocytes # (manual) 0.56 K/uL (0-0); Metamyelocytes % (manual) 4 %; Monocytes % (manual) 5 %; Myelocytes # (manual) 0.14 K/uL (0-0); Myelocytes % (manual) 1 %; Neutrophils # (manual) 11.63 K/uL (1.4-6.5); Neutrophils % (manual) 83 %; Ovalocytes 1+; Promyelocytes # (manual) 0.28 K/uL (0-0); Promyelocytes % (manual) 2 %; Toxic Granulation 3+
--- NOTE | 2022-08-21 13:20 | Hospitalist Progress Note ---
Date of Service August 21, 2022 Assessment & Plan (1) Pancytopenia: Plan: Patient is a 77 yr female who presents with generalized body ache and weakness, COVID positive, recently started on chemo. COVID 19 Infection Vaccinated and had Booster in Nov 2021 CXR:No acute process. Normal Procalcitonin CRP 6.94 Blood cultures:No growth to date Saturating well on room air Continue Conservative management Urinary tract infection: Urine culture E.Coli Continue Rocephin Day #3 Suspected Lyme's disease Serological tests negative for lyme based on Western blot Criteria Patient denies any tick bite/rash Mobitz (type) I (Wenckebach's) atrioventricular block Interrogation of pacemaker requested Carvedilol changed to metoprolol Continue amiodarone as pacemaker already in place Appreciate Cardiology Input Monitor Triple negative breast cancer S/P left partial mastectomy Last chemo 1 week ago Follow up as outpatient Pancytopenia secondary to chemo Received filgrastim as outpatient monitor Neutropenia resolved Now Leukocytosis likely due to Filgrastim Chronic systolic congestive heart failure Last EF of 35% S/P ICD Lasix and spironolactone currently held Monitor for volume overload Hypertension: BP stable Resume Diuretics and Losartan at reduced doses Monitor H/O atrial fibrillation: Coreg changed to Metoprolol Continue Coumadin INR: 2.6 CKD III Cr at baseline Monitor H/O Left renal cancer: S/P Partial nephrectomy Follows with yearly CT scans DM II Hold metformin Continue Insulin Monitor BGs Hypothyroidism: Normal TSH Continue levothyroxine Asthma: On albuterol p.r.n. GERD on PPI DVT Px: Coumadin Code Status Full Code Disposition Home Admission and Anticipated Discharge Date Admission Date: August 19, 2022 Subjective Patient is seen and examined at bedside No new complaints Doing well Weakness much improved Nausea resolved Denies any cough, chest pain, dyspnea, dizziness, cough Eager to get discharged Review of Systems Review of Systems: All systems reviewed & are unremarkable except as noted in Subjective Physical Exam Physical Exam: Physical Exam: Vitals signs as noted above General Appearance:Moderately built and nourished, no apparent distress Head: normocephalic, Atraumatic Eyes: normal inspection, EOMI Neck: supple, Trachea midline Respiratory/Chest: Normal breath sounds, CTA, No accessory muscle use Cardiovascular: S1, S2, + murmur Abdomen/GI:Soft, Non tender, Bowel sounds present Extremities/Musculoskeletal:normal inspection, no edema Neurologic/Psych:AAOX3, grossly no focal neurological deficits Skin: normal color, warm Results & Data Results & Data ([facility]) Vital Signs (Past 12 Hours) Vital Signs Temp Pulse Pulse Resp BP Pulse Ox O2 Del Method 08/21/22 12:07 36.5 C 71 18 114/60 94 Room Air 08/21/22 11:46 75 08/21/22 07:23 36.9 C 73 18 133/65 98 Room Air 08/21/22 02:26 37 C 72 19 126/63 98 Room Air Laboratory Results Short CBC 08/21/22 Range/Units 05:41 WBC 14.01 H (4.8-10.8) K/ul Hgb 8.8 L (12.0-16.0) g/dl Hct 27.1 L (34.1-44.9) % Plt Count 121 L (130-400) K/uL BMP 08/21/22 05:41 Sodium 143 Potassium 3.9 Chloride 112 H Carbon Dioxide 24 BUN 15 Creatinine 1.28 H Glucose 108 H Calcium 7.8 L
--- NOTE | 2022-08-21 14:52 | Discharge Summary ---
Date of Service August 21, 2022 Admission HPI Per Admitting Provider CHIEF COMPLAINT: Illness. HISTORY OF PRESENT ILLNESS: A 77-year-old female with past medical history significant for diabetes, chronic kidney disease stage III, hyperlipidemia, hypothyroidism, mild intermittent asthma, chronic systolic CHF with EF of 35% to 39%, paroxysmal atrial fibrillation, hypertension, status post ICD, gastroesophageal reflux disease, history of COVID in October 2021, history of left kidney cancer, status post left partial nephrectomy on 03/28/2018, history of recent diagnosis of breast cancer, left breast invasive ductal carcinoma, triple negative. Underwent lumpectomy, currently on chemo, first cycle of chemo was given last , status post A-port placement, .Taxotere and cyclophosphamide therapy planned , was given, only 20% dosed, plan for if she tolerated well to give full dose. Seems to also have been given prophylactic filgrastim to prevent febrile neutropenia. The patient says since chemo last , she was feeling terrible with severe body aches, weakness, not feeling well. Appetite is down. Today, she checked her temperature and it was elevated. She came to the ER. In the ER, she currently is afebrile. Her blood pressure was low, systolic in 90s, and she has pancytopenia. White count was 1.39, hemoglobin 9.8, platelets 96. INR was 3.3, the patient is on Coumadin. Creatinine 1.53, seems to be at baseline. Urine was positive. COVID came back positive on the [employer]. Chest x-ray, no obvious lesions. Saturating okay on room air. Because the patient recently had chemo and COVID and hypotension, we were called for admission. The patient denies any cough. She is just feeling severe pains all over the body. No shortness of breath. She has nausea, but used her nausea medication. Has some abdominal discomfort. No diarrhea or cons tipation. Normal bladder movements, but did not micturate much. She says since after chemo, she gained 6 pounds, but when she weighed today, she again lost her 6 pounds. In spite of taking Lasix, she is not micturating much as per the patient. Received a fluid bolus in the ER. Blood pressure improved. No blurred visions, no earache, no runny nose. Has some mild sore throat. Paxlovid was not given as the patient is on amiodarone. The patient is vaccinated and boosted once. Admission Exam Per Admitting Provider PHYSICAL EXAMINATION: GENERAL: The patient is of moderate build, not in acute distress. VITAL SIGNS: Temperature 36.8, pulse 87, respiratory rate 20, blood pressure 102/65, oxygen 94% on room air. HEENT: Pupils equal, round and reactive to light. Oral mucosa dry. NECK: No JVD. No neck masses. CARDIOVASCULAR: S1 and S2 heard. Regular rate and rhythm. No murmur, no gallop. RESPIRATORY SYSTEM: Normal AP diameter. No accessory muscle use. No wheezing, no crackles. ABDOMEN: Soft, bowel sounds present, nontender, no distention. CENTRAL NERVOUS SYSTEM: Cranial nerves II-XII grossly intact, nonfocal. EXTREMITIES: No edema, no erythema. Principal Diagnosis COVID 19 Infection Urinary tract infection Mobitz (type) I (Wenckebach's) atrioventricular block Pancytopenia Discharge Data Allergies Allergy/AdvReac Type Severity Reaction Status Date / Time [id number] Reductase Allergy Intermediate Muscle Pain Verified 08/19/22 02:14 Inhibitor [Qoozdnm-Aix-Ggt Reductase Inhibitor] ketorolac Allergy Mild RASH Verified 08/19/22 02:14 Sulfa (Sulfonamide Allergy Unknown HIVES Verified 08/19/22 02:14 Antibiotics) tramadol AdvReac Intermediate VERY SICK Verified 08/19/22 02:14 TO STOMACH hydrocodone AdvReac Mild NAUSEA AND Verified 08/19/22 02:14 VOMITING Consultations 08/19/22 01:18 ED Decision to Admit Stat 08/19/22 08:00 Consult Cardiology Routine Procedures Performed Laboratory Results WBC 14.01 K/ul (4.8-10.8) H 08/21/22 05:41 RBC 3.16 M/uL (3.93-5.22) L 08/21/22 05:41 Hgb 8.8 g/dl (12.0-16.0) L 08/21/22 05:41 Hct 27.1 % (34.1-44.9) L 08/21/22 05:41 MCV 85.8 fL (80.0-100.0) 08/21/22 05:41 MCH 27.8 pg (25.0-34.0) 08/21/22 05:41 MCHC 32.5 g/dL (32.0-36.0) 08/21/22 05:41 RDW Std Deviation 43.1 fL (36.4-46.3) 08/21/22 05:41 RDW Coeff of Edilma 13.8 % (11.5-14.5) 08/21/22 05:41 Plt Count 121 K/uL (130-400) L 08/21/22 05:41 MPV 11.2 fL (9.4-12.3) 08/21/22 05:41 Immature Gran % (Auto) 6.9 % 08/19/22 06:01 Neut % (Auto) 31.6 % 08/19/22 06:01 Lymph % (Auto) 35.3 % 08/19/22 06:01 Ballard % (Auto) 24.8 % 08/19/22 06:01 Eos % (Auto) 0.9 % 08/19/22 06:01 Baso % (Auto) 0.5 % 08/19/22 06:01 Neut # (Auto) 0.69 K/uL (1.4-6.5) L* 08/19/22 06:01 Lymph # (Auto) 0.77 K/uL (1.2-3.4) L 08/19/22 06:01 [place] # (Auto) 0.54 K/uL (0.24-0.82) 08/19/22 06:01 Eos # (Auto) 0.02 K/uL (0-0.50) 08/19/22 06:01 Baso # (Auto) 0.01 K/uL (0-0.2) 08/19/22 06:01 Immature Gran # (Auto) 0.15 K/uL (0.00-0.02) H 08/19/22 06:01 Absolute Nucleated RBC 0.02 K/uL (0-0) H 08/21/22 05:41 Nucleated RBC % (auto) 0.1 % 08/21/22 05:41 Neutrophils % (Manual) 83 % 08/21/22 05:41 Lymphocytes % (Manual) 5 % 08/21/22 05:41 Monocytes % (Manual) 5 % 08/21/22 05:41 Eosinophils % (Manual) 1 % 08/18/22 22:14 Metamyelocytes % (Man) 4 % 08/21/22 05:41 Myelocytes % (Man) 1 % 08/21/22 05:41 Promyelocytes % (Man) 2 % 08/21/22 05:41 Blast Cells % (Manual) 2 % 08/20/22 05:21 Neutrophils # (Manual) 11.63 K/uL (1.4-6.5) H 08/21/22 05:41 Total Absolute Neuts 11.63 K/uL (1.4-6.5) H 08/21/22 05:41 Lymphocytes # (Manual) 0.70 K/uL (1.2-3.4) L 08/21/22 05:41 Total Abs Lymphocytes 0.70 K/uL (1.2-3.4) L 08/21/22 05:41 Monocytes # (Manual) 0.70 K/uL (0.24-0.82) 08/21/22 05:41 Eosinophils # (Manual) 0.01 K/uL (0-0.50) 08/18/22 22:14 Metamyelocytes # (Man) 0.56 K/uL (0-0) H 08/21/22 05:41 Myelocytes # (Manual) 0.14 K/uL (0-0) H 08/21/22 05:41 Promyelocytes # (Man) 0.28 K/uL (0-0) H 08/21/22 05:41 Blast Cells # (Man) 0.17 K/uL (0-0) H 08/20/22 05:21 Toxic Granulation 3+ 08/21/22 05:41 Dohle Bodies 1+ 08/20/22 05:21 Polychromasia 1+ 08/20/22 05:21 Ovalocytes 1+ 08/21/22 05:41 Peripher Smr Path Cons 08/20/22 05:21 PT 26.0 Seconds (9.0-12.0) H 08/21/22 05:41 INR 2.6 (0.9-1.1) H 08/21/22 05:41 APTT 48.4 Seconds (21.0-31.0) H* 08/18/22 22:14 PTT Ratio 1.8 08/18/22 22:14 Sodium 143 mmol/L (136-145) 08/21/22 05:41 Potassium 3.9 mmol/L (3.5-5.1) 08/21/22 05:41 Chloride 112 mmol/L (98-107) H 08/21/22 05:41 Carbon Dioxide 24 mmol/L (21-32) 08/21/22 05:41 Anion Gap 7 (3-11) 08/21/22 05:41 BUN 15 mg/dl (6-23) 08/21/22 05:41 Creatinine 1.28 mg/dl (0.6-1.2) H 08/21/22 05:41 Est Cr Clr Drug Dosing 48.5 ml/min 08/21/22 05:41 Est GFR ( Amer) 47.4 ml/min 08/21/22 05:41 Est GFR (Non-Af Amer) 40.9 ml/min 08/21/22 05:41 BUN/Creatinine Ratio 11.7 (10-20) 08/21/22 05:41 Glucose 108 mg/dl (70-99(Fasting)) H 08/21/22 05:41 POC Glucose 187 mg/dl (70-99) H 08/21/22 11:15 Estimat Average Glucose 180 mg/dl 08/19/22 06:01 Hemoglobin A1c 7.9 % (4.5-5.6) H 08/19/22 06:01 Lactate 1.2 mmol/L (0.4-2.0) 08/18/22 22:14 Calcium 7.8 mg/dl (8.5-10.1) L 08/21/22 05:41 Magnesium 1.8 mg/dl (1.7-2.4) 08/19/22 06:01 Total Bilirubin 0.5 mg/dl (0.2-1.0) 08/18/22 22:14 Direct Bilirubin 0.1 mg/dl (0-0.2) 08/18/22 22:14 AST 11 U/L (13-39) L 08/18/22 22:14 ALT 12 U/L (7-52) 08/18/22 22:14 Alkaline Phosphatase 49 U/L (34-104) 08/18/22 22:14 Troponin I High Sens 7.0 pg/ml (0-14) 08/18/22 22:14 C-Reactive Protein 6.94 mg/dl (0-0.5) H 08/20/22 05:21 Total Protein 5.7 gm/dl (6.0-8.3) L 08/18/22 22:14 Albumin 3.6 gm/dl (3.4-5.0) 08/18/22 22:14 Procalcitonin 0.10 ng/ml (0-0.5) 08/20/22 05:21 TSH 2.896 uIu/ml (0.300-4.500) 08/19/22 06:01 Urine Color Yellow 08/19/22 00:17 Urine Appearance Clear (Clear) 08/19/22 00:17 Urine pH 5.5 (4.5-7.5) 08/19/22 00:17 Ur Specific [place] 1.016 (1.000-1.030) 08/19/22 00:17 Urine Protein Negative (Negative) 08/19/22 00:17 Urine Glucose (UA) Negative (Negative) 08/19/22 00:17 Urine Ketones Negative (Negative) 08/19/22 00:17 Urine Blood Negative (Negative) 08/19/22 00:17 Urine Nitrite Positive (Negative) A 08/19/22 00:17 Urine Bilirubin Negative (Negative) 08/19/22 00:17 Urine Urobilinogen Negative (Negative) 08/19/22 00:17 Ur Leukocyte Esterase Negative (Negative) 08/19/22 00:17 Urine WBC (Auto) 1-5 /hpf (0-5) 08/19/22 00:17 Urine RBC (Auto) 0-4 /hpf (0-4) 08/19/22 00:17 U Hyaline Cast (Auto) 0 /lpf (0-5) 08/19/22 00:17 U Epithel Cells (Auto) 5-10 /lpf (0-5) H 08/19/22 00:17 Urine Bacteria (Auto) 2+ (Negative) H 08/19/22 00:17 Adenovirus (PCR) Not Detected (NotDetected) 08/18/22 22:20 Anaplasma Smear See Comment 08/19/22 06:01 B. pertussis DNA (PCR) Not Detected (NotDetected) 08/18/22 22:20 B.parapertussis DNA PCR Not Detected (NotDetected) 08/18/22 22:20 Lyme Disease IgG Ab Negative (Negative) 08/19/22 06:01 Lyme IgG (Western Blot) NEGATIVE (NEGATIVE) 08/19/22 06:01 Lyme IgG 18 kDa Band NON-REACTIVE 08/19/22 06:01 Lyme IgG 23 kDa Band NON-REACTIVE 08/19/22 06:01 Lyme IgG 28 kDa Band NON-REACTIVE 08/19/22 06:01 Lyme IgG 30 kDa Band NON-REACTIVE 08/19/22 06:01 Lyme IgG 39 kDa Band NON-REACTIVE 08/19/22 06:01 Lyme IgG 41 kDa Band REACTIVE A 08/19/22 06:01 Lyme IgG 45 kDa Band NON-REACTIVE 08/19/22 06:01 Lyme IgG 58 kDa Band REACTIVE A 08/19/22 06:01 Lyme IgG 66 kDa Band NON-REACTIVE 08/19/22 06:01 Lyme IgG 93 kDa Band NON-REACTIVE 08/19/22 06:01 Lyme IgM Ab (WB) NEGATIVE (NEGATIVE) 08/19/22 06:01 Lyme Disease IgM Ab Positive (Negative) A 08/19/22 06:01 Lyme IgM 23 kDa Band REACTIVE A 08/19/22 06:01 Lyme IgM 39 kDa Band NON-REACTIVE 08/19/22 06:01 Lyme IgM 41 kDa Band NON-REACTIVE 08/19/22 06:01 C. pneumoniae DNA (PCR) Not Detected (NotDetected) 08/18/22 22:20 Coronavirus OC43 (PCR) Not Detected (NotDetected) 08/18/22 22:20 Coronavirus HKU1 (PCR) Not Detected (NotDetected) 08/18/22 22:20 Coronavirus 229E (PCR) Not Detected (NotDetected) 08/18/22 22:20 SARS-CoV-2 (PCR) DETECTED (NotDetected) A* 08/18/22 22:20 Coronavirus NL63 (PCR) Not Detected (NotDetected) 08/18/22 22:20 Human Metapneumovir PCR Not Detected (NotDetected) 08/18/22 22:20 Influenza Type A (PCR) Not Detected (NotDetected) 08/18/22 22:20 Influenza Type B (PCR) Not Detected (NotDetected) 08/18/22 22:20 M. pneumoniae (PCR) Not Detected (NotDetected) 08/18/22 22:20 Parainfluenza 1 (PCR) Not Detected (NotDetected) 08/18/22 22:20 Parainfluenza 2 (PCR) Not Detected (NotDetected) 08/18/22 22:20 Parainfluenza 3 (PCR) Not Detected (NotDetected) 08/18/22 22:20 Parainfluenza 4 (PCR) Not Detected (NotDetected) 08/18/22 22:20 RSV (PCR) Not Detected (NotDetected) 08/18/22 22:20 Entero/Rhino (PCR) Not Detected (NotDetected) 08/18/22 22:20 Impressions Chest X-Ray 08/18/22 21:52 XR chest 1V portable HISTORY: Sepsis. COMPARISON: Chest 11/14/2021. FINDINGS: No pneumothorax. No pleural effusions. The heart remains mildly enlarged. Is left-sided pacemaker/defibrillator. A right subclavian Port-A-Cath terminates at the proximal SVC. The tip is partially obscured by the pacemaker wire. No new focal lung consolidations to suggest edema and pneumonia. No evidence for pulmonary edema. IMPRESSION: No acute process. ACT 112: Negative or not required by law. Electronically signed by: Bebeto Ford M.D. 08/19/2022 9:29 AM Hospital Course (1) Pancytopenia: Patient is a 77 yr female who presents with generalized body ache and weakness, COVID positive, recently started on chemo. COVID 19 Infection Vaccinated and had Booster in Nov 2021 CXR:No acute process. Normal Procalcitonin CRP 6.94 Blood cultures:No growth to date Saturating well on room air Continue Conservative management Urinary tract infection: Urine culture E.Coli Continue Rocephin Day #3 Suspected Lyme's disease Serological tests negative for lyme based on Western blot Criteria Patient denies any tick bite/rash Mobitz (type) I (Wenckebach's) atrioventricular block Interrogation of pacemaker requested Carvedilol changed to metoprolol Continue amiodarone as pacemaker already in place Appreciate Cardiology Input Monitor Triple negative breast cancer S/P left partial mastectomy Last chemo 1 week ago Follow up as outpatient Pancytopenia secondary to chemo Received filgrastim as outpatient monitor Neutropenia resolved Now Leukocytosis likely due to Filgrastim Chronic systolic congestive heart failure Last EF of 35% S/P ICD Lasix and spironolactone currently held Monitor for volume overload Hypertension: BP stable Resume Diuretics and Losartan at reduced doses Monitor H/O atrial fibrillation: Coreg changed to Metoprolol Continue Coumadin INR: 2.6 CKD III Cr at baseline Monitor H/O Left renal cancer: S/P Partial nephrectomy Follows with yearly CT scans DM II Hold metformin Continue Insulin Monitor BGs Hypothyroidism: Normal TSH Continue levothyroxine Asthma: On albuterol p.r.n. GERD on PPI DVT Px: Coumadin Code Status Full Code Disposition Home Total Time Total Time Spent Total Time Spent (In Minutes): 50 minutes Discharge Plan Discharge Items Patient Disposition: Home - Self-Care Reason For Visit: ILLNESS Discharge Diagnosis: COVID 19 Infection Urinary tract infection Mobitz (type) I (Wenckebach's) atrioventricular block Pancytopenia Condition on Discharge: Fair Activity: Per Instructions section Exercise/Sports: Gradually increase as tolerated Non-emergency contact: Primary Care Provider and Laundry Technician Call non-emergency contact if: you have any medication questions, your symptoms worsen, your pain is concerning for you and you have a fever Follow-up/Referrals: Irwin Lott MD [Primary Care Provider] - Diet: Carb Consistent or DM2 and Heart Healthy Addtl Attending Provider Instructions: Follow up with your PCP in 1 week Follow up with your Laundry Technician in 3-4 weeks --Your Final blood cultures are pending at the time of discharge. Follow up with your physician for results. -- Complete the antibiotic course for Urinary tract infection as prescribed. Seek immediate medical attention if your symptoms reoccur or worsen Please take all medications as instructed on discharge list below. Please call if you have any questions or problems. You can reach a [facility] hospitalist on duty at [facility] 24 hours a day by calling [phone] Home Isolation COVID-19 Instructions The following information about Home Isolation is from the CDC Website: https://www.cdc.gov/coronavirus/2019-ncov/hcp/qwqiaiet-zavulrx-dtjorb.html Stay home except to get medical care People who are mildly ill with COVID-19 are able to isolate at home during their illness. You should restrict activities outside your home, except for getting medical care. Do not go to work, school, or public areas. Avoid using public transportation, ride-sharing, or taxis. Separate yourself from other people and animals in your home People: As much as possible, you should stay in a specific room and away from other people in your home. Also, you should use a separate bathroom, if available. Animals: You should restrict contact with pets and other animals while you are sick with COVID-19, just like you would around other people. Although there have not been reports of pets or other animals becoming sick with COVID-19, it is still recommended that people sick with COVID-19 limit contact with animals until more information is known about the virus. When possible, have another member of your household care for your animals while you are sick. If you are sick with COVID-19, avoid contact with your pet, including petting, snuggling, being kissed or licked, and sharing food. If you must care for your pet or be around animals while you are sick, wash your hands before and after you interact with pets and wear a face mask. Call ahead before visiting your doctor If you have a medical appointment, call the healthcare provider and tell them that you have or may have COVID-19. This will help the healthcare providers office take steps to keep other people from getting infected or exposed. Wear a face mask You should wear a face mask when you are around other people (e.g., sharing a room or vehicle) or pets and before you enter a healthcare providers office. If you are not able to wear a face mask (for example, because it causes trouble breathing), then people who live with you should not stay in the same room with you, or they should wear a face mask if they enter your room. Cover your coughs and sneezes Cover your mouth and nose with a tissue when you cough or sneeze. Throw used tissues in a lined trash can. Immediately wash your hands with soap and water for at least 20 seconds or, if soap and water are not available, clean your hands with an alcohol-based hand ecommerce analyst that contains at least 60% alcohol. Clean your hands often Wash your hands often with soap and water for at least 20 seconds, especially after blowing your nose, coughing, or sneezing; going to the bathroom; and before eating or preparing food. If soap and water are not readily available, use an alcohol-based hand ecommerce analyst with at least 60% alcohol, covering all surfaces of your hands and rubbing them together until they feel dry. Soap and water are the best option if hands are visibly dirty. Avoid touching your eyes, nose, and mouth with unwashed hands. Avoid sharing personal household items You should not share dishes, drinking glasses, cups, eating utensils, towels, or bedding with other people or pets in your home. After using these items, they should be washed thoroughly with soap and water. Clean all high-touch surfaces everyday High touch surfaces include counters, tabletops, doorknobs, bathroom fixtures, toilets, phones, keyboards, tablets, and bedside tables. Also, clean any surfaces that may have blood, stool, or body fluids on them. Use a household cleaning spray or wipe, according to the label instructions. Labels contain instructions for safe and effective use of the cleaning product including precautions you should take when applying the product, such as wearing gloves and making sure you have good ventilation during use of the product. Monitor your symptoms Seek prompt medical attention if your illness is worsening (e.g., difficulty breathing).Beforeseeking care, call your healthcare provider and tell them that you have, or are being evaluated for, COVID-19. Put on a face mask before you enter the facility. These steps will help the healthcare providers office to keep other people in the office or waiting room from getting infected or exposed. Ask your healthcare provider to call the local or state health department. Persons who are placed under active monitoring or facilitated self- monitoring should follow instructions provided by their local health department or occupational health professionals, as appropriate. When working with your local health department check their available hours. If you have a medical emergency and need to call 911, notify the dispatch personnel that you have, or are being evaluated for COVID-19. If possible, put on a face mask before emergency medical services arrive. Discontinuing home isolation Patients with confirmed COVID-19 should remain under home isolation precautions until the risk of secondary transmission to others is thought to be low. The decision to discontinue home isolation precautions should be made on a rasq-py-jagg basis, in consultation with healthcare providers and state and local health departments. Pending Studies at Discharge: Yes Studies:: Final Blood Cultures Stand-Alone Forms: My [facility], Smoking Cessation Medications and DC Order Prescriptions: New metoprolol succinate 25 mg Tablet Extended Release 24 Hr 12.5 mg PO QAM Qty: 30 0RF spironolactone 25 mg tablet 25 mg PO DAILY Qty: 30 1RF losartan 50 mg tablet 50 mg PO DAILY Qty: 30 1RF cefdinir 300 mg capsule 300 mg PO BID Qty: 6 0RF Rx Instructions: Start Taking from 08/22/22 Continued metformin 500 mg tablet 500 mg PO BIDM levothyroxine 50 mcg tablet 50 mcg PO QAM warfarin 5 mg tablet 2.5 mg PO WK Rx Instructions: 2.5 MG ON FRI warfarin 5 mg tablet 5 mg PO [id number] Rx Instructions: Tuesday, Tuesday, Tuesday, , Tue, Sat omeprazole 20 mg capsule,delayed release(DR/EC) 20 mg PO QAM amiodarone 100 mg tablet 100 mg PO QAM insulin glargine [Lantus Solostar U-100 Insulin] 100 unit/mL (3 mL) insulin pen 25 - 30 unit subcut HS Label Comments: WILL ADJUST DOSE BASED ON BSG acetaminophen [Tylenol Extra Strength] 500 mg Tablet 500 mg PO Q6H PRN (Reason: Pain) [place] 3-6-9 1,200 mg Capsule 1 cap PO QAM ondansetron HCl 8 mg tablet 8 mg PO Q8 PRN (Reason: Nausea) prochlorperazine maleate 10 mg tablet 10 mg PO Q6 PRN (Reason: Nausea) lidocaine-prilocaine 2.5-2.5 % cream 1 applic topical DIRECTED Rx Instructions: BEFORE ACCESSING PORT dexamethasone 4 mg tablet 8 mg PO DIRECTED Rx Instructions: DIRECTED WHEN RECEIVING CHEMO polyethylene glycol 3350 [Miralax] 17 gram/dose Powder 17 g PO BID PRN (Reason: Constipation) benzonatate 100 mg capsule 100 mg PO TID PRN (Reason: cough) Qty: 30 0RF albuterol sulfate 2.5 mg /3 mL (0.083 %) solution for nebulization 2.5 mg inhalation Q4H PRN (Reason: shortness of breath or wheezing) Qty: 90 0RF Changed furosemide [Lasix] 40 mg Tablet 40 mg PO DAILY Qty: 30 0RF Discontinued carvedilol 25 mg tablet 25 mg PO BID losartan 100 mg tablet 100 mg PO HS spironolactone 50 mg Tablet 50 mg PO BID Discharge Orders: Discharge Order (Routine); Ordered 08/21/22 Ordered By: Zacarias Lambert Admission Data Admit Date/Time: 08/19/22 02:33 Attending Provider: Zacarias Lambert Admit Provider: Ignacio Karimi Primary Care Provider: Irwin Lott Other Providers: Aman Matthews ; Sami Hayden ; Len Booth ; Bony Fitzgerald ; Presley Hammond ; Jamey Carbajal ; Reba Quezada ; Unique Sanchez ; Haylee Rivera ; Jeffery Coelho ; Ignacio Karimi
== END 2022-08-21 17:26 | disposition home or self-care (01) | DRG 177 ==
LOC: ED 21:17 → 2E 08-19 02:00

== ENCOUNTER 2022-10-15 13:17 | Inpatient (IN) ==
--- NOTE | 2022-10-15 13:41 | Emergency Department Note ---
Impression & Plan SOB (shortness of breath), Tachycardia, CHF (congestive heart failure), Anemia, Hypokalemia ED Provider Note NAME: SHWETA ALVARADO AGE: 77 SEX: F : 1945 ARRIVES VIA: Ambulance INFORMANT: [Patient] ED PROVIDER(S): [Gilberto Schaeffer MD] CHIEF COMPLAINT: Short of breath HISTORY OF PRESENT ILLNESS: The patient is a 77-year-old female with a complicated recent past history. She has had renal cancer previously but is now undergoing chemotherapy for breast cancer. She has had 3 chemotherapy appointments. She was supposed to have chemotherapy yesterday when it was canceled because of her shortness of breath and tachycardia. The patient states that for a week or so, she has had some cough and congestion. She had a low-grade fever. She spoke with her doctors office and for 3 days now, she has been on Augmentin. She has been using an albuterol inhaler. The patient complains of shortness of breath with exertion and palpitations with exertion. Her chest feels tight when she exerts herself. She has had some cough. She did have COVID and flu testing done and was told that the results were negative. The patient spoke with her placement coordinator office today, Dr. Hammond is her placement coordinator. She was referred to the ED for probable admission. REVIEW OF SYSTEMS: See HPI for pertinent positives and negatives. A total of ten systems were reviewed and were otherwise negative. PMHx/PSHx: See Below SOCIAL HISTORY: See Below. PHYSICAL EXAM: GENERAL: Patient is in no acute distress. HEENT: No acute trauma, normocephalic atraumatic, mucous membranes moist, no nasal congestion, no scleral icterus. NECK: No stridor, no adenopathy, no meningismus, trachea is midline. LUNGS: Clear to auscultation bilaterally, no wheeze, no rhonchi, breath sounds equal. HEART: No murmurs, irregular rhythm, normal rate. ABDOMEN: Soft, nontender, bowel sounds positive, no peritonitis. EXTREMITIES: No cyanosis or edema, full range of motion of all the joints without pain or difficulty, no signs for acute trauma. NEUROLOGIC: Oriented x 3, no acute motor or sensory deficits, no focal weakness. SKIN: No rash, no jaundice, no diaphoresis. DIFFERENTIAL DIAGNOSIS: Reactive airway disease, pneumonia, RSV, COVID-19, influenza, generalized viral illness, dysrhythmia, pneumothorax, COPD, CHF, infection, cardiac ischemia, pulmonary embolism, bronchitis, chemotherapy reaction, as well as other pathologies. EMERGENCY DEPARTMENT COURSE/PROCEDURES: ECG: Indication was shortness of breath. The ECG shows a very poor baseline but likely atrial fibrillation. The rate was 104. There was a left bundle b ranch block. No ST elevation, no PVCs. The QTc is 544 Continuous Cardiac Monitoring: An order was placed for continuous cardiac monitoring. The monitor shows a rate of 98 with atrial fibrillation. MEDICAL DECISION MAKING: There is no leukocytosis. The patient is anemic but this is baseline when looking back at recent testing. There was a normal platelet count. INR was high at 5.4, she is over anticoagulated on Coumadin. Renal panel testing showed some renal insufficiency consistent with her past history. Potassium slightly low. Lactic acid level was elevated at over 3, this could be consistent with infection or maybe hypoxia. No concerning liver enzyme elevation. BNP was elevated consistent with CHF and fluid overload. Chest x-ray does show CHF, no pneumonia. Respiratory bio fire testing was completely negative. ECG showed atrial fibrillation with a poor baseline. Cardiac enzyme testing x1 was not consistent with acute cardiac injury. The patient was given IV Lasix to help with diuresis. She was given oral and IV potassium for the somewhat lower potassium value. The patient presents with shortness of breath, tachycardia and fatigue. She is not able to function at home. She was found to be in heart failure. I do think a hospital stay is warranted. I spoke with the patient and case management, the on-call hospitalist was consulted. Past Med/Surg History Medical History Atrial fibrillation "NOT CHRONIC" Chronic systolic heart failure CKD (chronic kidney disease), stage III Diabetes mellitus, type II Diabetic neuropathy GERD (gastroesophageal reflux disease) Hemorrhoids History of kidney cancer History of kidney stones History of skin cancer ON NOSE HTN (hypertension) Hx of blood clots IN HEART (TREATED WITH INCEASED BLOOD THINNERS) Hypothyroidism Idiopathic cardiomyopathy Nocturnal hypoxia PT DENIES Pacemaker ? DATE IMPLANTED ([facility]) Surgical History H/O breast biopsy H/O cervical spine surgery X 2 (GOOD ROM) H/O knee surgery LEFT H/O partial nephrectomy LEFT "CANCEROUS TUMOR REMOVED" H/O: hysterectomy History of anesthesia reaction N/V AND AGITATED WITH ANESTHESIA History of appendectomy History of bladder surgery History of cardiac cath X 4 (NO STENTS) History of cataract surgery RT/LEFT History of cholecystectomy History of colonoscopy History of cystoscopy History of esophagogastroduodenoscopy (EGD) History of partial nephrectomy Left, [facility] in 2018 History of tonsillectomy History of tooth extraction S/P ICD (internal cardiac defibrillator) procedure IMPLANTED PACEMAKER/DEFIB ? DATE [facility] Family History Mother Family history of diabetes mellitus Colorectal cancer Brother Family history of diabetes mellitus Sister Colorectal cancer Other Heart disease No family history of adverse response to anesthesia Stroke Social History Smoking Status: Former smoker Second Hand Exposure: No; Hx Alcohol Use: No Hx Substance Use: No Preferred Language: Lithuanian Communication Ability: Unable Manager Ob Required: No Beliefs That Will Affect Care: None marital status: / Current Living Situation: Alone Feels Safe at Home: Yes Assistive Devices: Cane Allergies Allergies Allergy/AdvReac Type Severity Reaction Status Date / Time Yjvncwe-YCM-EyW Reductase Allergy Intermediate Muscle Pain Verified 08/19/22 02:14 Inhibitor [Eywldjr-Pas-Mla Reductase Inhibitor] ketorolac Allergy Mild RASH Verified 08/19/22 02:14 Sulfa (Sulfonamide Allergy Unknown HIVES Verified 08/19/22 02:14 Antibiotics) tramadol AdvReac Intermediate VERY SICK Verified 08/19/22 02:14 TO STOMACH hydrocodone AdvReac Mild NAUSEA AND Verified 08/19/22 02:14 VOMITING Home Meds Home Medications Medication Instructions Recorded Confirmed acetaminophen 500 mg tablet 500 mg PO UD PRN Pain 05/15/19 10/15/22 (Tylenol Extra Strength) amiodarone 100 mg tablet 100 mg PO QAM 05/15/19 10/15/22 insulin glargine 100 unit/mL (3 32 unit subcut HS 05/15/19 10/15/22 mL) subcutaneous pen (Lantus Solostar U-100 Insulin) levothyroxine 50 mcg tablet 50 mcg PO QAM 05/15/19 10/15/22 metformin 500 mg tablet 500 mg PO BIDM 05/15/19 10/15/22 omeprazole 20 mg capsule,delayed 20 mg PO QAM 05/15/19 10/15/22 release warfarin 5 mg tablet 2.5 mg PO WK 05/15/19 10/15/22 warfarin 5 mg tablet 5 mg PO 6XWK 05/15/19 10/15/22 polyethylene glycol 3350 17 17 g PO DAILY PRN Constipation 08/27/21 10/15/22 gram/dose oral powder (Miralax) dexamethasone 4 mg tablet 4 mg PO DIRECTED 08/19/22 10/15/22 lidocaine-prilocaine 2.5 %-2.5 % 1 applic topical DIRECTED 08/19/22 10/15/22 topical cream ondansetron HCl 8 mg tablet 8 mg PO Q8 PRN Nausea 08/19/22 10/15/22 prochlorperazine maleate 10 mg 10 mg PO Q6 PRN Nausea 08/19/22 10/15/22 tablet albuterol sulfate 90 mcg/actuation 2 puff inhalation Q4 PRN Wheezing 10/15/22 10/15/22 aerosol inhaler amoxicillin 875 mg-potassium 1 tab PO BID 10/15/22 10/15/22 clavulanate 125 mg tablet fexofenadine 180 mg tablet 180 mg PO QAM 10/15/22 10/15/22 furosemide 40 mg tablet (Lasix) 40 mg PO QAM 10/15/22 10/15/22 losartan 25 mg tablet 25 mg PO QAM 10/15/22 10/15/22 omega-3s 300 ye-amh-mls-other 1 cap PO DAILY 10/15/22 10/15/22 [id number] oil 1,000 mg capsule ([place]-3 Fish Oil) spironolactone 25 mg tablet 25 mg PO QAM 10/15/22 10/15/22 Previous Rx's Medication Instructions Recorded metoprolol succinate 25 mg 12.5 mg PO QAM #30 tabs 08/21/22 tablet,extended release 24 hr Results & Data (ED) Vital Signs Vital Signs - 24 hr 10/15/22 13:31 10/15/22 13:31 10/15/22 13:31 Temperature 36.6 C Temperature Source Oral Pulse Rate 93 H Pulse Rate from SpO2 Sensor Pulse Rhythm Irregular Pulse Strength Normal Respiratory Rate 22 Respiratory Effort / Characteristics Non-Labored Spontaneous Short of Breath Non-Labored Spontaneous Short of Breath Respiratory Depth Normal Blood Pressure 138/92 Blood Pressure Mean 107 Pulse Oximetry 97 97 Oxygen Delivery Method Room Air Room Air Sepsis Recent Fever Within 48 Hours No Sepsis New/Unexplained Change in Mental Status No Sepsis Action Taken by Nursing No Action Required 10/15/22 13:28 10/15/22 13:30 10/15/22 13:30 Temperature Temperature Source Pulse Rate 85 82 Pulse Rate from SpO2 Sensor 90 85 Pulse Rhythm Pulse Strength Respiratory Rate 17 23 Respiratory Effort / Characteristics Respiratory Depth Blood Pressure 149/80 H Blood Pressure Mean 103 Pulse Oximetry 97 98 Oxygen Delivery Method Sepsis Recent Fever Within 48 Hours Sepsis New/Unexplained Change in Mental Status Sepsis Action Taken by Nursing 10/15/22 14:00 10/15/22 14:00 10/15/22 14:30 Temperature Temperature Source Pulse Rate 66 69 Pulse Rate from SpO2 Sensor 68 70 Pulse Rhythm Pulse Strength Respiratory Rate 19 20 Respiratory Effort / Characteristics Respiratory Depth Blood Pressure 141/70 H Blood Pressure Mean 93 Pulse Oximetry 98 99 Oxygen Delivery Method Sepsis Recent Fever Within 48 Hours Sepsis New/Unexplained Change in Mental Status Sepsis Action Taken by Nursing 10/15/22 15:00 10/15/22 15:00 10/15/22 15:30 Temperature Temperature Source Pulse Rate 81 Pulse Rate from SpO2 Sensor 79 Pulse Rhythm Pulse Strength Respiratory Rate 24 Respiratory Effort / Characteristics Respiratory Depth Blood Pressure 118/69 124/77 Blood Pressure Mean 85 92 Pulse Oximetry 99 Oxygen Delivery Method Sepsis Recent Fever Within 48 Hours Sepsis New/Unexplained Change in Mental Status Sepsis Action Taken by Nursing 10/15/22 15:30 10/15/22 16:00 10/15/22 16:00 Temperature Temperature Source Pulse Rate 80 81 Pulse Rate from SpO2 Sensor 85 78 Pulse Rhythm Pulse Strength Respiratory Rate 23 16 Respiratory Effort / Characteristics Respiratory Depth Blood Pressure 133/70 Blood Pressure Mean 91 Pulse Oximetry 99 98 Oxygen Delivery Method Sepsis Recent Fever Within 48 Hours Sepsis New/Unexplained Change in Mental Status Sepsis Action Taken by Snf Medications Current Medication List: was personally reviewed by me Laboratory Data Attestation: I reviewed the patient's lab results. Result diagrams: 10/15/22 13:37 10/15/22 13:37 Lab Results 10/15/22 10/15/22 10/15/22 Range/Units 13:37 13:37 13:37 WBC 9.51 (4.8-10.8) K/ul RBC 3.12 L (3.93-5.22) M/uL Hgb 8.7 L (12.0-16.0) g/dl Hct 27.4 L (34.1-44.9) % MCV 87.8 (80.0-100.0) fL MCH 27.9 (25.0-34.0) pg MCHC 31.8 L (32.0-36.0) g/dL RDW Std Deviation 54.0 H (36.4-46.3) fL RDW Coeff of Edilma 17.0 H (11.5-14.5) % Plt Count 316 (130-400) K/uL MPV 10.5 (9.4-12.3) fL Immature Gran % (Auto) 0.8 % Neut % (Auto) 84.4 % Lymph % (Auto) 4.9 % Wilson % (Auto) 9.6 % Eos % (Auto) 0.1 % Baso % (Auto) 0.2 % Neut # (Auto) 8.02 H (1.4-6.5) K/uL Lymph # (Auto) 0.47 L (1.2-3.4) K/uL Wilson # (Auto) 0.91 H (0.24-0.82) K/uL Eos # (Auto) 0.01 (0-0.50) K/uL Baso # (Auto) 0.02 (0-0.2) K/uL Immature Gran # (Auto) 0.08 H (0.00-0.02) K/uL PT 52.6 H (9.0-12.0) Seconds INR 5.4 H (0.9-1.1) APTT 43.3 H (21.0-31.0) Seconds PTT Ratio 1.6 Sodium (136-145) mmol/L Potassium (3.5-5.1) mmol/L Chloride (98-107) mmol/L Carbon Dioxide (21-32) mmol/L Anion Gap (3-11) BUN (6-23) mg/dl Creatinine (0.6-1.2) mg/dl Est Cr Clr Drug Dosing ml/min Est GFR ( Amer) ml/min Est GFR (Non-Af Amer) ml/min BUN/Creatinine Ratio (10-20) Glucose (70-99(Fasting)) mg/dl Lactate 3.2 H* (0.4-2.0) mmol/L Calcium (8.5-10.1) mg/dl Magnesium (1.7-2.4) mg/dl Total Bilirubin (0.2-1.0) mg/dl AST (13-39) U/L ALT (7-52) U/L Alkaline Phosphatase (34-104) U/L Troponin I High Sens (0-14) pg/ml B-Natriuretic Peptide (0-100) pg/ml Total Protein (6.0-8.3) gm/dl Albumin (3.4-5.0) gm/dl Globulin (2.5-4.0) gm/dl Albumin/Globulin Ratio (0.9-2) Adenovirus (PCR) (NotDetected) B. pertussis DNA (PCR) (NotDetected) B.parapertussis DNA PCR (NotDetected) C. pneumoniae DNA (PCR) (NotDetected) Coronavirus OC43 (PCR) (NotDetected) Coronavirus HKU1 (PCR) (NotDetected) Coronavirus 229E (PCR) (NotDetected) SARS-CoV-2 (PCR) (NotDetected) Coronavirus NL63 (PCR) (NotDetected) Human Metapneumovir PCR (NotDetected) Influenza Type A (PCR) (NotDetected) Influenza Type B (PCR) (NotDetected) M. pneumoniae (PCR) (NotDetected) Parainfluenza 1 (PCR) (NotDetected) Parainfluenza 2 (PCR) (NotDetected) Parainfluenza 3 (PCR) (NotDetected) Parainfluenza 4 (PCR) (NotDetected) RSV (PCR) (NotDetected) Entero/Rhino (PCR) (NotDetected) 10/15/22 10/15/22 10/15/22 Range/Units 13:37 14:15 14:42 WBC (4.8-10.8) K/ul RBC (3.93-5.22) M/uL Hgb (12.0-16.0) g/dl Hct (34.1-44.9) % MCV (80.0-100.0) fL MCH (25.0-34.0) pg MCHC (32.0-36.0) g/dL RDW Std Deviation (36.4-46.3) fL RDW Coeff of Edilma (11.5-14.5) % Plt Count (130-400) K/uL MPV (9.4-12.3) fL Immature Gran % (Auto) % Neut % (Auto) % Lymph % (Auto) % Wilson % (Auto) % Eos % (Auto) % Baso % (Auto) % Neut # (Auto) (1.4-6.5) K/uL Lymph # (Auto) (1.2-3.4) K/uL Wilson # (Auto) (0.24-0.82) K/uL Eos # (Auto) (0-0.50) K/uL Baso # (Auto) (0-0.2) K/uL Immature Gran # (Auto) (0.00-0.02) K/uL PT (9.0-12.0) Seconds INR (0.9-1.1) APTT (21.0-31.0) Seconds PTT Ratio Sodium 138 (136-145) mmol/L Potassium 3.4 L (3.5-5.1) mmol/L Chloride 104 (98-107) mmol/L Carbon Dioxide 22 (21-32) mmol/L Anion Gap 12 H (3-11) BUN 36 H (6-23) mg/dl Creatinine 1.44 H (0.6-1.2) mg/dl Est Cr Clr Drug Dosing 43.9 ml/min Est GFR ( Amer) 41.1 ml/min Est GFR (Non-Af Amer) 35.4 ml/min BUN/Creatinine Ratio 25.0 H (10-20) Glucose 211 H (70-99(Fasting)) mg/dl Lactate (0.4-2.0) mmol/L Calcium 9.2 (8.5-10.1) mg/dl Magnesium 1.8 (1.7-2.4) mg/dl Total Bilirubin 0.5 (0.2-1.0) mg/dl AST 24 (13-39) U/L ALT 17 (7-52) U/L Alkaline Phosphatase 70 (34-104) U/L Troponin I High Sens 7.1 (0-14) pg/ml B-Natriuretic Peptide 224 H (0-100) pg/ml Total Protein 6.4 (6.0-8.3) gm/dl Albumin 3.8 (3.4-5.0) gm/dl Globulin 2.6 (2.5-4.0) gm/dl Albumin/Globulin Ratio 1.5 (0.9-2) Adenovirus (PCR) Not Detected (NotDetected) B. pertussis DNA (PCR) Not Detected (NotDetected) B.parapertussis DNA PCR Not Detected (NotDetected) C. pneumoniae DNA (PCR) Not Detected (NotDetected) Coronavirus OC43 (PCR) Not Detected (NotDetected) Coronavirus HKU1 (PCR) Not Detected (NotDetected) Coronavirus 229E (PCR) Not Detected (NotDetected) SARS-CoV-2 (PCR) Not Detected (NotDetected) Coronavirus NL63 (PCR) Not Detected (NotDetected) Human Metapneumovir PCR Not Detected (NotDetected) Influenza Type A (PCR) Not Detected (NotDetected) Influenza Type B (PCR) Not Detected (NotDetected) M. pneumoniae (PCR) Not Detected (NotDetected) Parainfluenza 1 (PCR) Not Detected (NotDetected) Parainfluenza 2 (PCR) Not Detected (NotDetected) Parainfluenza 3 (PCR) Not Detected (NotDetected) Parainfluenza 4 (PCR) Not Detected (NotDetected) RSV (PCR) Not Detected (NotDetected) Entero/Rhino (PCR) Not Detected (NotDetected) 10/15/22 Range/Units 15:39 WBC (4.8-10.8) K/ul RBC (3.93-5.22) M/uL Hgb (12.0-16.0) g/dl Hct (34.1-44.9) % MCV (80.0-100.0) fL MCH (25.0-34.0) pg MCHC (32.0-36.0) g/dL RDW Std Deviation (36.4-46.3) fL RDW Coeff of Edilma (11.5-14.5) % Plt Count (130-400) K/uL MPV (9.4-12.3) fL Immature Gran % (Auto) % Neut % (Auto) % Lymph % (Auto) % Wilson % (Auto) % Eos % (Auto) % Baso % (Auto) % Neut # (Auto) (1.4-6.5) K/uL Lymph # (Auto) (1.2-3.4) K/uL Wilson # (Auto) (0.24-0.82) K/uL Eos # (Auto) (0-0.50) K/uL Baso # (Auto) (0-0.2) K/uL Immature Gran # (Auto) (0.00-0.02) K/uL PT (9.0-12.0) Seconds INR (0.9-1.1) APTT (21.0-31.0) Seconds PTT Ratio Sodium (136-145) mmol/L Potassium (3.5-5.1) mmol/L Chloride (98-107) mmol/L Carbon Dioxide (21-32) mmol/L Anion Gap (3-11) BUN (6-23) mg/dl Creatinine (0.6-1.2) mg/dl Est Cr Clr Drug Dosing ml/min Est GFR ( Amer) ml/min Est GFR (Non-Af Amer) ml/min BUN/Creatinine Ratio (10-20) Glucose (70-99(Fasting)) mg/dl Lactate 2.2 H* (0.4-2.0) mmol/L Calcium (8.5-10.1) mg/dl Magnesium (1.7-2.4) mg/dl Total Bilirubin (0.2-1.0) mg/dl AST (13-39) U/L ALT (7-52) U/L Alkaline Phosphatase (34-104) U/L Troponin I High Sens (0-14) pg/ml B-Natriuretic Peptide (0-100) pg/ml Total Protein (6.0-8.3) gm/dl Albumin (3.4-5.0) gm/dl Globulin (2.5-4.0) gm/dl Albumin/Globulin Ratio (0.9-2) Adenovirus (PCR) (NotDetected) B. pertussis DNA (PCR) (NotDetected) B.parapertussis DNA PCR (NotDetected) C. pneumoniae DNA (PCR) (NotDetected) Coronavirus OC43 (PCR) (NotDetected) Coronavirus HKU1 (PCR) (NotDetected) Coronavirus 229E (PCR) (NotDetected) SARS-CoV-2 (PCR) (NotDetected) Coronavirus NL63 (PCR) (NotDetected) Human Metapneumovir PCR (NotDetected) Influenza Type A (PCR) (NotDetected) Influenza Type B (PCR) (NotDetected) M. pneumoniae (PCR) (NotDetected) Parainfluenza 1 (PCR) (NotDetected) Parainfluenza 2 (PCR) (NotDetected) Parainfluenza 3 (PCR) (NotDetected) Parainfluenza 4 (PCR) (NotDetected) RSV (PCR) (NotDetected) Entero/Rhino (PCR) (NotDetected) Administered Medications Discontinued Medications Furosemide (Furosemide 40 Mg/4 Ml Vial) 60 mg IV ONE ONE Stop: 10/15/22 14:05 Last Admin: 10/15/22 14:31 Dose: 60 mg Documented By: MAG Potassium Chloride (K Timi / Wtr) 10 meq in 100 mls @ 100 mls/hr IV ONE ONE; Protocol Stop: 10/15/22 15:28 Last Infusion: 10/15/22 15:40 Dose: 0 mls/hr Documented By: Admin: 10/15/22 14:53 Dose: 100 mls/hr Documented By: AMS Potassium Chloride (Potassium Chloride Crtab 20 Meq Tabcr) 20 meq PO NOW STA Stop: 10/15/22 14:30 Last Admin: 10/15/22 14:50 Dose: 20 meq Documented By: [facility] Imaging Data Radiologist's Impression: Chest X-Ray 10/15/22 13:31 XR chest 1V portable CLINICAL HISTORY: Dyspnea TECHNIQUE: Single frontal radiograph of the chest was obtained. Comparison: Comparison is made to chest radiograph 08/18/2022 FINDINGS: Pacemaker defibrillator is seen. A right port catheter is seen. Cardiomegaly is noted. There is prominence and cephalization of the vasculature with Jose Miguel B lines seen. No evidence of pleural effusion or pneumothorax. IMPRESSION: Cardiomegaly and moderate pulmonary edema. This is new from prior exam. ACT 112: Negative or not required by law. Electronically signed by: Hari Fuentes M.D. 10/15/2022 2:02 PM Discharge Plan Visit Data Chief Complaint: Chest Pain Stated Complaint: CHEST PRESSURE, SOB ED Provider: Gilberto Schaeffer Discharge Problem: SOB (shortness of breath), Tachycardia, CHF (congestive heart failure), Anemia, Hypokalemia Patient Disposition: Admitted As Inpatient Condition: Fair Forms Stand Alone Forms: My [facility] [place] [facility]ubl Prescriptions Prescriptions: No Action metformin 500 mg tablet 500 mg PO BIDM levothyroxine 50 mcg tablet 50 mcg PO QAM warfarin 5 mg tablet 2.5 mg PO WK Rx Instructions: 2.5 MG ON FRI warfarin 5 mg tablet 5 mg PO [id number] Rx Instructions: Tuesday, Tuesday, Tuesday, , Tue, Sat omeprazole 20 mg capsule,delayed release(DR/EC) 20 mg PO QAM amiodarone 100 mg tablet 100 mg PO QAM insulin glargine [Lantus Solostar U-100 Insulin] 100 unit/mL (3 mL) insulin pen 32 unit subcut HS Label Comments: WILL ADJUST DOSE BASED ON BSG Rx Instructions: increase by 3 units every 3 days fasting sugar above 150 acetaminophen [Tylenol Extra Strength] 500 mg Tablet 500 mg PO UD PRN (Reason: Pain) ondansetron HCl 8 mg tablet 8 mg PO Q8 PRN (Reason: Nausea) prochlorperazine maleate 10 mg tablet 10 mg PO Q6 PRN (Reason: Nausea) lidocaine-prilocaine 2.5-2.5 % cream 1 applic topical DIRECTED Rx Instructions: apply to skin over mediport & cover 1 hour prior to accessing dexamethasone 4 mg tablet 4 mg PO DIRECTED Rx Instructions: take 2 tablets twice a day,starting on the previous day of the the treatment for a total 3 dayas and repeat with each chemo cycle. PT TAKING 2 TABLETS A DAY metoprolol succinate 25 mg Tablet Extended Release 24 Hr 12.5 mg PO QAM Qty: 30 0RF polyethylene glycol 3350 [Miralax] 17 gram/dose Powder 17 g PO DAILY PRN (Reason: Constipation) albuterol sulfate 90 mcg/actuation HFA aerosol inhaler 2 puff INHALATION Q4 PRN (Reason: Wheezing) amoxicillin-pot clavulanate 875-125 mg tablet 1 tab PO BID Rx Instructions: take for 10 days ordered 10/13/22 end 10/23/22 spironolactone 25 mg tablet 25 mg PO QAM losartan 25 mg tablet 25 mg PO QAM furosemide [Lasix] 40 mg tablet 40 mg PO QAM Rx Instructions: can also take extra 20mg or 40mg in the afternoon as needed for fluid retention. Take extra 40mg on days you take decadron fexofenadine 180 mg Tablet 180 mg PO QAM [place]-3 Fish Oil 300-1,000 mg Capsule 1 cap PO DAILY Referrals Referrals: Irwin Lott MD [Primary Care Provider] -
[2022-10-15 13:51] LABS: Basophils # (auto) 0.02 K/uL (0-0.2); Basophils % (auto) 0.2 %; Eosinophils # (auto) 0.01 K/uL (0-0.50); Eosinophils % (auto) 0.1 %; Hematocrit (blood only) 27.4 % (34.1-44.9); Hemoglobin 8.7 g/dl (12.0-16.0); Immature Granulocytes # (auto) 0.08 K/uL (0.00-0.02); Immature Granulocytes % (auto) 0.8 %; Lymphocytes # (auto) 0.47 K/uL (1.2-3.4); Lymphocytes % (auto) 4.9 %; Mean Corpuscular Hemoglobin 27.9 pg (25.0-34.0); Mean Corpuscular Hgb Conc 31.8 g/dL (32.0-36.0); Mean Corpuscular Volume 87.8 fL (80.0-100.0); Mean Platelet Volume 10.5 fL (9.4-12.3); Monocytes # (auto) 0.91 K/uL (0.24-0.82); Monocytes % (auto) 9.6 %; Neutrophils # (auto) 8.02 K/uL (1.4-6.5); Neutrophils % (auto) 84.4 %; Platelet Count 316 K/uL (130-400); Red Blood Count 3.12 M/uL (3.93-5.22); White Blood Count 9.51 K/ul (4.8-10.8)
--- NOTE | 2022-10-15 14:03 | XRay Report ---
XR chest 1V portable CLINICAL HISTORY: Dyspnea TECHNIQUE: Single frontal radiograph of the chest was obtained. Comparison: Comparison is made to chest radiograph 08/18/2022 FINDINGS: Pacemaker defibrillator is seen. A right port catheter is seen. Cardiomegaly is noted. There is promi nence and cephalization of the vasculature with Jose Miguel B lines seen. No evidence of pleural effusion or pneumothorax. IMPRESSION: Cardiomegaly and moderate pulmonary edema. This is new from prior exam. ACT 112: Negative or not required by law. Electronically signed by: Hari Fuentes M.D. 10/15/2022 2:02 PM
[2022-10-15] MEDS ORDERED: FUROSEMIDE 40 MG/4 ML VIAL IV ONE (14:04)
--- NOTE | 2022-10-15 14:04 | Electrocardiogram Report ---
Test Reason : Blood Pressure : / mmHG Vent. Rate : 104 BPM Atrial Rate : 102 BPM P-R Int : 000 ms QRS Dur : 140 ms QT Int : 414 ms P-R-T Axes : 000 -68 075 degrees QTc Int : 544 ms Poor data quality, interpretation may be adversely affected Atrial fibrillation with rapid ventricular response Left axis deviation Left bundle branch block Abnormal ECG When compared with ECG of 19-AUG-2022 10:52, Atrial fibrillation has replaced Sinus rhythm Vent. rate has increased BY 36 BPM T wave inversion no longer evident in Anterior leads Confirmed by Alverto Zamora ([id number]) on 10/15/2022 2:04:10 PM Referred By: ED Confirmed By:Alverto Zamora
[2022-10-15 14:11] LABS: INR 5.4 (0.9-1.1); Partial Thromboplastin Ratio 1.6; Partial Thromboplastin Time 43.3 Seconds (21.0-31.0); Prothrombin Time 52.6 Seconds (9.0-12.0)
[2022-10-15 14:16] LABS: Troponin I High Sensitivity 7.1 pg/ml (0-14)
[2022-10-15 14:20] LABS: Albumin Globulin Ratio 1.5 (0.9-2); Albumin Level 3.8 gm/dl (3.4-5.0); Bilirubin,Total 0.5 mg/dl (0.2-1.0); Calcium 9.2 mg/dl (8.5-10.1); Creatinine Clr Calc Pharmacy 43.9 ml/min; Est GFR (African American) 41.1 ml/min; Est GFR (Non-African American) 35.4 ml/min; Globulin 2.6 gm/dl (2.5-4.0); Magnesium 1.8 mg/dl (1.7-2.4); Potassium 3.4 mmol/L (3.5-5.1); Total Protein 6.4 gm/dl (6.0-8.3)
[2022-10-15] MEDS ORDERED: POTASSIUM CHLORIDE CRTAB 20 MEQ TABCR PO STA ×2 (14:29→17:11)
[2022-10-15] MEDS ORDERED: POTASSIUM CHLORIDE / WTR 10 MEQ/100 ML PLCT IV ONE (14:29)
[2022-10-15 16:20] LABS: Adenovirus PCR Not Detected (NotDetected); Bordetella parapertussis PCR Not Detected (NotDetected); Bordetella pertussis PCR Not Detected (NotDetected); Chlamydia pneumoniae PCR Not Detected (NotDetected); Coronavirus 229E PCR Not Detected (NotDetected); Coronavirus CoV-2 (COVID19)PCR Not Detected (NotDetected); Coronavirus HKU1 PCR Not Detected (NotDetected); Coronavirus NL63 PCR Not Detected (NotDetected); Coronavirus OC43PCR Not Detected (NotDetected); Human Metapneumovirus PCR Not Detected (NotDetected); Influenza A PCR Not Detected (NotDetected); Influenza B PCR Not Detected (NotDetected); Mycoplasma pneumoniae PCR Not Detected (NotDetected); Parainfluenza Virus 1 PCR Not Detected (NotDetected); Parainfluenza Virus 2 PCR Not Detected (NotDetected); Parainfluenza Virus 3 PCR Not Detected (NotDetected); Parainfluenza Virus 4 PCR Not Detected (NotDetected); Respiratory Syncytial VirusPCR Not Detected (NotDetected); Rhinovirus/Enterovirus PCR Not Detected (NotDetected)
--- NOTE | 2022-10-15 18:15 | History & Physical Report ---
Date of Service October 15, 2022 Assessment & Plan (1) Acute on chronic systolic CHF (congestive heart failure): (2) Nonischemic cardiomyopathy: (3) ICD (implantable cardioverter-defibrillator) in place: Plan: Admit to telemetry Patient presenting from home with reports of shortness of breath. Reports shortness of breath over the past several weeks that acutely worsened in the past week. History of idiopathic nonischemic cardiomyopathy s/p ICD, EF 35 to 40% on echo 07/2022 In the ED, patient is saturating well on room air, CXR shows moderate pulmonary edema, however I cannot appreciate significant crackles on exam and patient's BNP is only minimally elevated with minimal lower extremity edema. Admitted 07/2022 for illness 2/2 chemo and COVID 19, diuretics reduced at discharged s/p Lasix 60mg IV in the ED, patient also took her home dose of PO Lasix 40mg this AM. Will hold on further diuresis at this time and re-assess volume status in the morning. Strict I/Os, kulkarni, daily standing weights, low Na+ diet Update echo Cardio consult (4) Elevated lactic acid level: Plan: Lactate 3.2 --> 2.2 --> 1.3 ? Due to possible transient exertional hypoxia Does not appear septic (5) Bronchitis: Plan: Started on Augmentin as an outpatient, improving per patient, continue Augmentin to complete course (6) Paroxysmal atrial fibrillation: Plan: Presenting EKG shows atrial fibrillation, rate 104 Rhythm controlled on amiodarone, rate controlled on metoprolol Anticoagulated on Coumadin, INR 5.2 (? Due to recent antibiotic use), no signs of bleeding Hold Coumadin for now, follow-up INR in a.m. (7) Breast cancer: Plan: Left breast invasive ductal carcinoma triple negative, s/p lumpectomy Currently on chemotherapy, Taxotere and cyclophosphamide every 21 days, last treatment on 09/[address] Mitchell Posada (8) Diabetes mellitus, type II: Plan: Hgb A1c 7.9 07/2022 Lantus and NovoLog per protocol while hospitalized (9) Anemia: Plan: Chronic anemia 2/2 chemo, malignancy hgb 8.7, at baseline (10) CKD (chronic kidney disease), stage III: Plan: Baseline creat low 1s Creat 1.4 today Monitor renal functions w/ diuresis (11) DVT prophylaxis: Plan: On Coumadin with supratherapeutic INR History of Present Illness Chief Complaint: Shortness of breath Primary Care Provider: Irwin Lott MD 77-year-old female with PMH DM type II, hypothyroidism, idiopathic cardiomyopathy s/p ICD, EF 35 to 40%, paroxysmal atrial fibrillation anticoagulant on Coumadin and on amiodarone therapy, HTN, CKD stage III, history of primary renal papillary carcinoma s/p left nephrectomy, invasive ductal carcinoma of left breast diagnosed 07/2022 s/p lumpectomy currently on chemotherapy, and other problems listed below who presents to the ED for evaluation of shortness of breath. Patient recently admitted to [facility] 08/19 through 08/21 for management of illness s/p chemo, COVID-19, UTI. At discharge, patient's spironolactone, Lasix, losartan doses were all reduced and carvedilol was transitioned to metoprolol succinate. Patient's last chemotherapy on 09/23. Patient reports she has not felt well since her last treatment. She reports progressive worsening shortness of breath that has gotten acutely worse over the past week. Patient reports shortness of breath with minimal exertion. Patient states that she typically sleeps with her HOB elevated at 45 degrees. She weighs herself twice daily, reports weights have been stable. Notes increased lower extremity edema around her ankles yesterday. Patient developed a cough productive for yellow/green sputum. Started on Augmentin 2 days ago for suspected bronchitis/sinus infection. Patient reports improvement in cough since starting Augmentin. Patient reports that when she is feeling very short o f breath, she also has palpitations. She denies chest pain. No lightheadedness, dizziness, diaphoresis, syncopal events. Reports she has had a very poor appetite however denies abdominal pain, nausea, vomiting, diarrhea. No fevers or chills. Denies urinary symptoms. In the ED, patient is hemodynamically stable and saturating well on room air. CXR shows Cardiomegaly and moderate pulmonary edema. Patient was given Lasix 60 mg IV. Allergies Allergy/AdvReac Type Severity Reaction Status Date / Time Plovodf-TKH-OyL Reductase Allergy Intermediate Muscle Pain Verified 08/19/22 02:14 Inhibitor [Orlwymr-Qaq-Kqr Reductase Inhibitor] ketorolac Allergy Mild RASH Verified 08/19/22 02:14 Sulfa (Sulfonamide Allergy Unknown HIVES Verified 08/19/22 02:14 Antibiotics) tramadol AdvReac Intermediate VERY SICK Verified 08/19/22 02:14 TO STOMACH hydrocodone AdvReac Mild NAUSEA AND Verified 08/19/22 02:14 VOMITING Home Medications Medication Instructions Recorded Confirmed Type acetaminophen 500 mg tablet 500 mg PO UD PRN Pain 05/15/19 10/15/22 History (Tylenol Extra Strength) amiodarone 100 mg tablet 100 mg PO QAM 05/15/19 10/15/22 History insulin glargine 100 unit/mL (3 24 - 26 unit subcut HS 05/15/19 10/15/22 History mL) subcutaneous pen (Lantus Solostar U-100 Insulin) levothyroxine 50 mcg tablet 50 mcg PO QAM 05/15/19 10/15/22 History metformin 500 mg tablet 500 mg PO BIDM 05/15/19 10/15/22 History omeprazole 20 mg capsule,delayed 20 mg PO QAM 05/15/19 10/15/22 History release warfarin 5 mg tablet 2.5 mg PO WK 05/15/19 10/15/22 History warfarin 5 mg tablet 5 mg PO 6XWK 05/15/19 10/15/22 History polyethylene glycol 3350 17 17 g PO DAILY PRN Constipation 08/27/21 10/15/22 History gram/dose oral powder (Miralax) dexamethasone 4 mg tablet 4 mg PO DIRECTED 08/19/22 10/15/22 History lidocaine-prilocaine 2.5 %-2.5 % 1 applic topical DIRECTED 08/19/22 10/15/22 History topical cream ondansetron HCl 8 mg tablet 8 mg PO Q8 PRN Nausea 08/19/22 10/15/22 History prochlorperazine maleate 10 mg 10 mg PO Q6 PRN Nausea 08/19/22 10/15/22 History tablet metoprolol succinate 25 mg 12.5 mg PO QAM #30 tabs 08/21/22 10/15/22 Rx tablet,extended release 24 hr albuterol sulfate 90 mcg/actuation 2 puff inhalation Q4 PRN Wheezing 10/15/22 10/15/22 History aerosol inhaler amoxicillin 875 mg-potassium 1 tab PO BID 10/15/22 10/15/22 History clavulanate 125 mg tablet furosemide 40 mg tablet 20 mg PO QDL 10/15/22 10/15/22 History furosemide 40 mg tablet (Lasix) 40 mg PO QAM 10/15/22 10/15/22 History loratadine 10 mg tablet 10 mg PO DAILY 10/15/22 10/15/22 History losartan 25 mg tablet 25 mg PO QAM 10/15/22 10/15/22 History omega-3s 300 tb-wqx-fdp-other 1 cap PO DAILY 10/15/22 10/15/22 History nwnmp1j-naeh oil 1,000 mg capsule ([place]-3 Fish Oil) spironolactone 25 mg tablet 25 mg PO QAM 10/15/22 10/15/22 History Past Med/Surg History Medical History Anemia Breast cancer left breast invasive ductal carcinoma, s/p lumpectomy Chronic systolic heart failure CKD (chronic kidney disease), stage III Diabetes mellitus, type II Diabetic neuropathy GERD (gastroesophageal reflux disease) Hemorrhoids History of kidney cancer History of kidney stones History of skin cancer ON NOSE HTN (hypertension) Hx of blood clots IN HEART (TREATED WITH INCEASED BLOOD THINNERS) Hypothyroidism ICD (implantable cardioverter-defibrillator) in place Idiopathic cardiomyopathy Nocturnal hypoxia PT DENIES Nonischemic cardiomyopathy Paroxysmal atrial fibrillation Surgical History H/O breast biopsy H/O cervical spine surgery X 2 (GOOD ROM) H/O knee surgery LEFT H/O partial nephrectomy LEFT "CANCEROUS TUMOR REMOVED" H/O: hysterectomy History of anesthesia reaction N/V AND AGITATED WITH ANESTHESIA History of appendectomy History of bladder surgery History of cardiac cath X 4 (NO STENTS) History of cataract surgery RT/LEFT History of cholecystectomy History of colonoscopy History of cystoscopy History of esophagogastroduodenoscopy (EGD) History of partial nephrectomy Left, [facility] [place] in 2018 History of tonsillectomy History of tooth extraction S/P ICD (internal cardiac defibrillator) procedure IMPLANTED PACEMAKER/DEFIB ? DATE IMPLANTED ([facility] FOLLOWS) Family History Mother Family history of diabetes mellitus Colorectal cancer Brother Family history of diabetes mellitus Sister Colorectal cancer Other Heart disease No family history of adverse response to anesthesia Stroke Social History Smoking Status: Never smoker Second Hand Exposure: No; Do You Dip or Chew Tobacco: No; Tobacco Cessation Education Requested by Patient: No Hx Alcohol Use: No Hx Substance Use: No Preferred Language: Polish Communication Ability: Effective Resource Director Required: No Beliefs That Will Affect Care: None marital status: / Current Living Situation: Alone Other Information That Helps Us Care for You: No Feels Safe at Home: Yes Safety Concerns: Feels Safe At This Time Assistive Devices: Cane and Walker Review of Systems Review of Systems: ROS per HPI, all other systems reviewed and negative Results & Data Results & Data ([place]) Vital Signs (Past 12 Hours) Vital Signs Temp Pulse Resp BP Pulse Ox O2 Del Method 10/15/22 16:00 81 16 98 10/15/22 16:00 133/70 10/15/22 15:30 80 23 99 10/15/22 15:30 124/77 10/15/22 15:00 81 24 99 10/15/22 15:00 118/69 10/15/22 14:30 69 20 99 10/15/22 14:00 66 19 98 10/15/22 14:00 141/70 H 10/15/22 13:30 82 23 98 10/15/22 13:30 149/80 H 10/15/22 13:28 85 17 97 10/15/22 13:31 97 Room Air 10/15/22 13:31 36.6 C 93 H 22 138/92 97 Room Air Code Status & VTE Plan VTE Prophylaxis Plan VTE Prophylaxis will be ordered: No Supervising Physician Co-Signing Physician Notes I have seen and examined the patient and have discussed the case with the provider above. I agree with the assessment and plan as stated. 77 yo F with underlying breast cancer s/p recent chemotherapy that has wiped her out causing generalized weakness and poor energy. 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 Her SOB is also better. She denies any focal symptoms at this time but it just wipeed out. My exam is consistent with that listed above. Labs and imaging reviewed. Agree with plan to hold further diuresis and reassess her in the morning. Consulting cardiology for further recommendations. DO Lb (1) Anemia Anemia type: unspecified type Qualified Code(s): D64.9 - Anemia, unspecified
[2022-10-15] MEDS ORDERED: GLUCAGON FOR INJ 1 MG VIAL SQ PRN (18:27)
[2022-10-15] MEDS ORDERED: GLUCOSE 40% GEL 15 GM TUBE PO PRN (18:27)
[2022-10-15] MEDS ORDERED: GLUCOSE 10 TAB/TUBE PO PRN (18:27)
[2022-10-15] MEDS ORDERED: ACETAMINOPHEN 325 MG TAB PO PRN (18:27)
[2022-10-15] MEDS ORDERED: CARBOHYDRATES FOR HYPOGLYCEMIA PO PRN (18:27)
[2022-10-15] MEDS ORDERED: DEXTROSE 50% 50 ML SYRINGE IV PRN (18:27)
[2022-10-15] MEDS: AMOXICILLIN/CLAVULANATE 875 MG TAB PO SCH (20:12)
[2022-10-15] MEDS: INSULIN ASPART PER UNIT SC SCH (21:23)
[2022-10-15] MEDS: LANTUS PER UNIT CHARGE SQ SCH (21:23)
[2022-10-15] MEDS: ACETAMINOPHEN 500 MG TAB PO SCH (21:24)
[2022-10-16 05:44] LABS: Appearance Urine Clear (Clear); Bacteria Urine Automated Negative (Negative); Bilirubin Urine Negative (Negative); Blood Urine 3+ (Negative); Color Urine Yellow; Glucose Urine UA Negative (Negative); Ketones Urine Negative (Negative); Leukocyte Esterase Urine Trace (Negative); Nitrite Urine Negative (Negative); Protein Urine 1+ (Negative); RBC Urine Automated >30 /hpf (0-4); Urobilinogen Urine Negative (Negative); pH Urine 5.5 (4.5-7.5)
[2022-10-16 05:52] LABS: Hematocrit (blood only) 25.1 % (34.1-44.9); Mean Corpuscular Hemoglobin 27.9 pg (25.0-34.0); Mean Corpuscular Hgb Conc 31.9 g/dL (32.0-36.0); Mean Corpuscular Volume 87.5 fL (80.0-100.0); Mean Platelet Volume 10.4 fL (9.4-12.3); Platelet Count 254 K/uL (130-400); RDW Coefficient of Variation 16.8 % (11.5-14.5); RDW Standard Deviation 53.7 fL (36.4-46.3); Red Blood Count 2.87 M/uL (3.93-5.22); White Blood Count 4.58 K/ul (4.8-10.8)
[2022-10-16 06:09] LABS: Prothrombin Time 56.9 Seconds (9.0-12.0)
[2022-10-16 06:11] LABS: Cast Urine Automated 0 /lpf (0-5)
[2022-10-16 06:12] LABS: BUN Creatinine Ratio 25.4 (10-20); Calcium 8.7 mg/dl (8.5-10.1); Creatinine Clr Calc Pharmacy 40.6 ml/min; Est GFR (African American) 43.2 ml/min; Est GFR (Non-African American) 37.3 ml/min; Magnesium 1.9 mg/dl (1.7-2.4); Potassium 3.4 mmol/L (3.5-5.1)
[2022-10-16] MEDS: ACETAMINOPHEN 500 MG TAB PO SCH ×3 (06:16→21:21)
[2022-10-16] MEDS: LEVOTHYROXINE SODIUM 50 MCG TABLET PO SCH (06:16)
[2022-10-16 06:43] LABS: INR 5.9 (0.9-1.1)
[2022-10-16] MEDS ORDERED: PHYTONADIONE 5 MG TAB PO STA (07:07)
[2022-10-16] MEDS ORDERED: PHYTONADIONE PED 1 MG, ORA-SWEET SYRUP 2.25 ML, ORA-PLUS SUSP VEHICLE 2.25 ML, BARCODE ... PO STA (07:13)
[2022-10-16] MEDS: INSULIN ASPART PER UNIT SC SCH ×4 (08:18→21:12)
[2022-10-16] MEDS: AMIODARONE 200 MG TAB PO SCH (08:50)
[2022-10-16] MEDS: AMOXICILLIN/CLAVULANATE 875 MG TAB PO SCH ×2 (08:51→21:20)
[2022-10-16] MEDS: LORATADINE 10 MG TAB PO SCH (08:52)
[2022-10-16] MEDS: PANTOprazole 40 MG TAB PO SCH (08:52)
[2022-10-16] MEDS ORDERED: LOSARTAN POTASSIUM 25 MG TAB PO SCH (09:00)
[2022-10-16] MEDS ORDERED: METOPROLOL SUCC 25MG EXT REL TAB PO SCH (09:00)
[2022-10-16] MEDS ORDERED: POTASSIUM CHLORIDE CRTAB 20 MEQ TABCR PO ONE (09:30)
--- NOTE | 2022-10-16 13:07 | Cardiology Consultation ---
Date of Consultation October 16, 2022 Assessment & Plan (1) Acute on chronic systolic CHF (congestive heart failure): (2) Nonischemic cardiomyopathy: (3) Anemia: (4) Breast cancer: (5) Paroxysmal atrial fibrillation: Plan - At time of admission in July,, with findings of hypotension in the setting of COVID-19 infection, UTI, pancytopenia with recent chemotherapy patient was in sinus rhythm. She has now reverted to atrial fibrillation. Upon presentation yesterday ventricular rates are mildly elevated, well controlled now. Based on device interrogation has likely been in atrial fibrillation for several weeks dating back to August,. -During hospital stay July,, there were concerns of intermittent type I second-degree AV block (Wenckebach block on telemetry), relative hypotension. This prompted to transition from carvedilol 25 mg twice daily to metoprolol succinate 12.5 mg daily. Losartan was reduced to 25 mg daily, spironolactone reduced to 12.5 mg daily. Echocardiogram performed today reveals no pericardial effusion. There is been interval decline in the left ventricular ejection fraction, now down to 30%, with 2D suggestion of left ventricular dyssynchrony, abnormal septal motion consistent with left bundle branch block, otherwise moderate to severe global hypokinesis present, with moderate to severe mitral regurgitation. Of note, this degree of mitral regurgitation has been present on previous studies dating back to 2020 prior to the diagnosis of breast carcinoma. At present, we will cautiously transition the patient back to carvedilol, 3.125 mg twice daily as patient subjectively feels like she was doing better on that medication in the past. -Discontinue losartan, proceed with trial of Entresto. -Potassium supplemented earlier today. -Remain off spironolactone -Proceed with furosemide 20 mg x 1 now. -Based on recent hematology input, chemotherapy to remain on hold due to patient's generalized illness pending further optimization. -Patient received vitamin K for coagulopathy, INR 5.9. -It may be time to consider transitioning her to Eliquis if cost permits to avoid labile INRs. -Given her recurrent atrial fibrillation, we will plan on titrating her amiodarone after the coagulopathy is resolved. -Future considerations include referral back to [facility] for consideration of upgrade to a ENVIRONMENTAL SOLUTIONS ENGINEER capable device. Per patient, this has been discussed in the past, but it is felt that the risks outweigh the benefits at that time. With patient's progressive decline, this likely needs to be reassessed. History of Present Illness Attending Physician: Zacarias Lambert MD History of Present Illness Marsha Villareal is a 77-year-old female seen in cardiology consultation per the request of MIC Nunez for evaluation of acute on chronic heart failure with reduced ejection fraction. The patient has a longstanding history of congestive heart failure due to an idiopathic cardiomyopathy dating back to 1986 as noted below. Recently she has had relatively stable ejection fractions in the range of 35 to 40%. Shortly after initiating chemotherapy for breast carcinoma having received first course of Taxotere and cyclophosphamide she was hospitalized with generalized illness including recurrent COVID-19 infection, urinary tract infection, hypotension and pancytopenia. Telemetry at that time revealed sinus rhythm and atrial tachycardia, but no atrial fibrillation. After recovering, she had a second course of chemotherapy. She presents however with over a month of progressive shortness of breath and increasing palpitations. Remote device interrogation was performed, with findings of normal single-chamber Medtronic AICD function, and based on her heart rate trend , it appears that she reverted back to atrial fibrillation sometime in August. At present, rate controlled atrial fibrillation noted on telemetry. Patient received 60 mg of IV furosemide in the emergency room yesterday, as well as potassium chloride. Her INR had trended up to 5.9, prompting administration of vitamin K this morning at 707 a.m. At present, patient without acute distress. PAST MEDICAL HISTORY: Nonischemic idiopathic cardiomyopathy with ejection fraction 20% when initially diagnosed in 1986, NYHA Class III CHF Status post single-chamber Medtronic ICD implantation with generator exchange last on April 02, 2015 Cardiac catheterizations in 1986 and again on April 27, 2006 with angiographically normal coronary arteries. 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 Stage III chronic kidney disease Recent diagnosis of left breast invasive ductal carcinoma, triple negative, status postlumpectomy, initiation of chemotherapy in July 2022 Status post A port placement Type 2 diabetes mellitus Hypertension Dyslipidemia Hypothyroidism Asthma COVID in October 2021 GERD Osteoarthritis Degenerative joint disease Status post cervical spine fusion Social History: Patient notes that her , Chato, in October,, with history of CLL, and acute illness with COVID-19 related pneumonia and ventilator dependent respiratory failure Allergies Allergy/AdvReac Type Severity Reaction Status Date / Time Ynjtgpz-WPV-RrC Reductase Allergy Intermediate Muscle Pain Verified 08/19/22 02:14 Inhibitor [Bggbncc-Zze-Vka Reductase Inhibitor] ketorolac Allergy Mild RASH Verified 08/19/22 02:14 Sulfa (Sulfonamide Allergy Unknown HIVES Verified 08/19/22 02:14 Antibiotics) tramadol AdvReac Intermediate VERY SICK Verified 08/19/22 02:14 TO STOMACH hydrocodone AdvReac Mild NAUSEA AND Verified 08/19/22 02:14 VOMITING Home Medications Medication Instructions Recorded Confirmed Type acetaminophen 500 mg tablet 500 mg PO UD PRN Pain 05/15/19 10/15/22 History (Tylenol Extra Strength) amiodarone 100 mg tablet 100 mg PO QAM 05/15/19 10/15/22 History insulin glargine 100 unit/mL (3 24 - 26 unit subcut HS 05/15/19 10/15/22 History mL) subcutaneous pen (Lantus Solostar U-100 Insulin) levothyroxine 50 mcg tablet 50 mcg PO QAM 05/15/19 10/15/22 History metformin 500 mg tablet 500 mg PO BIDM 05/15/19 10/15/22 History omeprazole 20 mg capsule,delayed 20 mg PO QAM 05/15/19 10/15/22 History release warfarin 5 mg tablet 2.5 mg PO WK 05/15/19 10/15/22 History warfarin 5 mg tablet 5 mg PO 6XWK 05/15/19 10/15/22 History polyethylene glycol 3350 17 17 g PO DAILY PRN Constipation 08/27/21 10/15/22 History gram/dose oral powder (Miralax) dexamethasone 4 mg tablet 4 mg PO DIRECTED 08/19/22 10/15/22 History lidocaine-prilocaine 2.5 %-2.5 % 1 applic topical DIRECTED 08/19/22 10/15/22 History topical cream ondansetron HCl 8 mg tablet 8 mg PO Q8 PRN Nausea 08/19/22 10/15/22 History prochlorperazine maleate 10 mg 10 mg PO Q6 PRN Nausea 08/19/22 10/15/22 History tablet metoprolol succinate 25 mg 12.5 mg PO QAM #30 tabs 08/21/22 10/15/22 Rx tablet,extended release 24 hr albuterol sulfate 90 mcg/actuation 2 puff inhalation Q4 PRN Wheezing 10/15/22 10/15/22 History aerosol inhaler amoxicillin 875 mg-potassium 1 tab PO BID 10/15/22 10/15/22 History clavulanate 125 mg tablet furosemide 40 mg tablet 20 mg PO QDL 10/15/22 10/15/22 History furosemide 40 mg tablet (Lasix) 40 mg PO QAM 10/15/22 10/15/22 History loratadine 10 mg tablet 10 mg PO DAILY 10/15/22 10/15/22 History losartan 25 mg tablet 25 mg PO QAM 10/15/22 10/15/22 History omega-3s 300 lg-iuw-teg-other 1 cap PO DAILY 10/15/22 10/15/22 History wugns8v-hkjl oil 1,000 mg capsule ([place]-3 Fish Oil) spironolactone 25 mg tablet 25 mg PO QAM 10/15/22 10/15/22 History Patient History Medical History Anemia Breast cancer left breast invasive ductal carcinoma, s/p lumpectomy Chronic systolic heart failure CKD (chronic kidney disease), stage III Diabetes mellitus, type II Diabetic neuropathy GERD (gastroesophageal reflux disease) Hemorrhoids History of kidney cancer History of kidney stones History of skin cancer ON NOSE HTN (hypertension) Hx of blood clots IN HEART (TREATED WITH INCEASED BLOOD THINNERS) Hypothyroidism ICD (implantable cardioverter-defibrillator) in place Idiopathic cardiomyopathy Nocturnal hypoxia PT DENIES Nonischemic cardiomyopathy Paroxysmal atrial fibrillation Surgical History H/O breast biopsy H/O cervical spine surgery X 2 (GOOD ROM) H/O knee surgery LEFT H/O partial nephrectomy LEFT "CANCEROUS TUMOR REMOVED" H/O: hysterectomy History of anesthesia reaction N/V AND AGITATED WITH ANESTHESIA History of appendectomy History of bladder surgery History of cardiac cath X 4 (NO STENTS) History of cataract surgery RT/LEFT History of cholecystectomy History of colonoscopy History of cystoscopy History of esophagogastroduodenoscopy (EGD) History of partial nephrectomy Left, [facility] [place] in 2018 History of tonsillectomy History of tooth extraction S/P ICD (internal cardiac defibrillator) procedure IMPLANTED PACEMAKER/DEFIB ? DATE IMPLANTED ([facility] C[facility] FOLLOWS) Family History Mother Family history of diabetes mellitus Colorectal cancer Brother Family history of diabetes mellitus Sister Colorectal cancer Other Heart disease No family history of adverse response to anesthesia Stroke Social History Smoking Status: Never smoker Second Hand Exposure: No; Do You Dip or Chew Tobacco: No; Tobacco Cessation Education Requested by Patient: No Hx Alcohol Use: No Hx Substance Use: No Preferred Language: Slovak Communication Ability: Effective Methods Time Analyst Required: No Beliefs That Will Affect Care: None marital status: / Current Living Situation: Alone Other Information That Helps Us Care for You: No Feels Safe at Home: Yes Safety Concerns: Feels Safe At This Time Assistive Devices: Cane and Walker Review of Systems Review of Systems: All systems reviewed & are unremarkable except as noted in HPI & below Physical Exam Constitutional: + ill appearing; no acute distress Respiratory: no labored breathing, no retractions and does not use accessory muscles Auscultation: + diminished lung sounds (Mildly reduced breath sounds at the bases); no crackles and no rales Cardiovascular: Rate/Rhythm: + irregularly irregular Heart Sounds: + murmur (2/6 systolic murmur, apex) Vessels: no JVD Extremities: no edema Neurologic: PERRL, EOMI, accommodation nl, no face palsy, no dysarthria Genitourinary: Chavez catheter in place draining clear yellow urine Results & Data ([facility]) Vital Signs (Past 12 Hours) Vital Signs Temp Pulse Resp BP Pulse Ox O2 Del Method 10/16/22 11:30 36.5 C 72 18 119/72 97 Room Air 10/16/22 06:48 36.8 C 75 18 117/68 96 Room Air 10/16/22 04:05 36.6 C 68 17 102/65 98 Room Air Laboratory Results Cardiac Enzymes 10/15/22 10/15/22 10/15/22 Range/Units 13:37 14:15 19:08 AST 24 (13-39) U/L Troponin I High Sens 7.1 8.9 (0-14) pg/ml B-Natriuretic Peptide 224 H (0-100) pg/ml 10/16/22 Range/Units 00:46 AST (13-39) U/L Troponin I High Sens 9.5 (0-14) pg/ml B-Natriuretic Peptide (0-100) pg/ml Coagulation 10/15/22 10/15/22 10/16/22 Range/Units 13:37 14:15 05:26 PT 52.6 H 56.9 H (9.0-12.0) Seconds APTT 43.3 H (21.0-31.0) Seconds B-Natriuretic Peptide 224 H (0-100) pg/ml CBC 10/15/22 10/16/22 Range/Units 13:37 05:26 WBC 9.51 4.58 L (4.8-10.8) K/ul RBC 3.12 L 2.87 L (3.93-5.22) M/uL Hgb 8.7 L 8.0 L (12.0-16.0) g/dl Hct 27.4 L 25.1 L (34.1-44.9) % Plt Count 316 254 (130-400) K/uL Neut # (Auto) 8.02 H (1.4-6.5) K/uL Lymph # (Auto) 0.47 L (1.2-3.4) K/uL Greer # (Auto) 0.91 H (0.24-0.82) K/uL Eos # (Auto) 0.01 (0-0.50) K/uL Baso # (Auto) 0.02 (0-0.2) K/uL Comprehensive Metabolic Panel 10/15/22 10/16/22 Range/Units 13:37 05:26 Sodium 138 141 (136-145) mmol/L Potassium 3.4 L 3.4 L (3.5-5.1) mmol/L Chloride 104 107 (98-107) mmol/L Carbon Dioxide 22 26 (21-32) mmol/L BUN 36 H 35 H (6-23) mg/dl Creatinine 1.44 H 1.38 H (0.6-1.2) mg/dl Glucose 211 H 128 H (70-99(Fasting)) mg/dl Calcium 9.2 8.7 (8.5-10.1) mg/dl AST 24 (13-39) U/L ALT 17 (7-52) U/L Alkaline Phosphatase 70 (34-104) U/L Total Protein 6.4 (6.0-8.3) gm/dl Albumin 3.8 (3.4-5.0) gm/dl Diagnostic Findings Chest x-ray with findings of enlargement of the cardiac silhouette and moderate pulmonary edema EKG performed 10/15/2022 at 1321 and reviewed/interpreted independently: Atrial fibrillation 104 bpm with left bundle branch block, QRS duration 140 ms. QT interval difficult to measure due to the regular RR interval, and not certain that the computer-generated measurement of 544 is clinically accurate. Compared to the previous dated 08/19/2022, atrial fibrillation has replaced sinus rhythm, rate is increased by 36 bpm (1) Anemia Anemia type: unspecified type Qualified Code(s): D64.9 - Anemia, unspecified
[2022-10-16] MEDS ORDERED: FUROSEMIDE INJ 20 MG/2 ML VIAL IV ONE (13:30)
--- NOTE | 2022-10-16 16:07 | Hospitalist Progress Note ---
Date of Service October 16, 2022 Assessment & Plan (1) Acute on chronic systolic CHF (congestive heart failure): (2) Nonischemic cardiomyopathy: (3) ICD (implantable cardioverter-defibrillator) in place: Plan: Acute on chronic systolic heart failure Nonischemic cardiomyopathy --CXR:Cardiomegaly and moderate pulmonary edema. This is new from prior exam. --ECHO: Rate controlled atrial fibrillation at the time of echo study. (COVID moderately dilated. Interventricular septal motion is abnormal consistent with left bundle branch block. Otherwise moderate to severe global hypokinesis present. Left ventricle systolic function is moderate to severely reduced, EF 30%. Moderate to severe mitral regurgitation. -Losartan discontinued, started on Entresto Continue diuretics as per cardiology Metoprolol transition to carvedilol Appreciate Cardiology input Monitor volume status, I/Os, daily weight (4) Elevated lactic acid level: Plan: Lactate 3.2 --> 2.2 --> 1.3 No signs of sepsis On Metformin at home (5) Bronchitis: Plan: Continue Augmentin--started as outpatient Improving (6) Paroxysmal atrial fibrillation: Plan: Rate controlled Continue amiodarone Metoprolol changed back to Carvedilol Coumadin on hold Coagulopathy Received vitamin K INR 5.9 On Coumadin for Monitor INR No bleeding issues Hypokalemia Replace electrolytes as needed Monitor (7) Breast cancer: Plan: Left breast invasive ductal carcinoma triple negative S/P lumpectomy Currently on chemotherapy, Taxotere and cyclophosphamide every 21 days, last treatment on 09/[address] Mitchell Posada (8) Diabetes mellitus, type II: Plan: Hgb A1c 7.9 07/2022 Lantus and NovoLog per protocol while hospitalized Monitor BGs (9) Anemia: Plan: Anemia of Chronic disease Due to Malignancy, Chemotherapy Monitor CBC (10) CKD (chronic kidney disease), stage III: Plan: Baseline creat low 1s Cr at baseline Monitor renal functions (11) DVT prophylaxis: Plan: Supratherapeutic INR Code Status Full Code Admission and Anticipated Discharge Date Admission Date: October 15, 2022 Subjective Patient is seen and examined at bedside Emotional during my encounter Less dyspnea today Reports intermittent palpitations Denies any chest pain, dizziness, nausea, abdominal pain Offers no new complaints Review of Systems Review of Systems: All systems reviewed & are unremarkable except as noted in Subjective Physical Exam Physical Exam: Physical Exam: Vitals signs as noted above General Appearance:Moderately built and nourished, no apparent distress, chronic ill Head: normocephalic, Atraumatic Eyes: normal inspection, EOMI Neck: supple, Trachea midline Respiratory/Chest: Normal breath sounds, CTA, No accessory muscle use Cardiovascular:+ Irregularly irregular, + murmur Abdomen/GI:Soft, Non tender, Bowel sounds present Extremities/Musculoskeletal:normal inspection, no edema Neurologic/Psych:AAOX3, grossly no focal neurological deficits Skin: normal color, warm Results & Data Results & Data ([facility]) Vital Signs (Past 12 Hours) Vital Signs Temp Pulse Resp BP Pulse Ox O2 Del Method 10/16/22 11:30 36.5 C 72 18 119/72 97 Room Air 10/16/22 06:48 36.8 C 75 18 117/68 96 Room Air 10/16/22 04:05 36.6 C 68 17 102/65 98 Room Air Laboratory Results Short CBC 10/16/22 Range/Units 05:26 WBC 4.58 L (4.8-10.8) K/ul Hgb 8.0 L (12.0-16.0) g/dl Hct 25.1 L (34.1-44.9) % Plt Count 254 (130-400) K/uL BMP 10/16/22 05:26 Sodium 141 Potassium 3.4 L Chloride 107 Carbon Dioxide 26 BUN 35 H Creatinine 1.38 H Glucose 128 H Calcium 8.7 Urine 10/16/22 Range/Units 05:10 Urine Color Yellow Urine Appearance Clear (Clear) Urine pH 5.5 (4.5-7.5) Ur Specific [place] 1.020 (1.000-1.030) Urine Protein 1+ H (Negative) Urine Glucose (UA) Negative (Negative) (1) Anemia Anemia type: unspecified type Qualified Code(s): D64.9 - Anemia, unspecified
[2022-10-16] MEDS: LANTUS PER UNIT CHARGE SQ SCH (21:13)
[2022-10-16] MEDS: carvediloL 3.125 MG TAB PO SCH (21:20)
[2022-10-17] MEDS: ACETAMINOPHEN 500 MG TAB PO SCH ×3 (05:28→21:05)
[2022-10-17] MEDS: LEVOTHYROXINE SODIUM 50 MCG TABLET PO SCH (05:30)
[2022-10-17 05:59] LABS: Hematocrit (blood only) 27.8 % (34.1-44.9); Hemoglobin 8.7 g/dl (12.0-16.0)
[2022-10-17 06:14] LABS: BUN Creatinine Ratio 23.2 (10-20); Calcium 8.8 mg/dl (8.5-10.1); Creatinine Clr Calc Pharmacy 44.5 ml/min; Est GFR (African American) 43.2 ml/min; Est GFR (Non-African American) 37.3 ml/min; Potassium 3.8 mmol/L (3.5-5.1)
[2022-10-17 06:26] LABS: INR 2.1 (0.9-1.1); Prothrombin Time 21.8 Seconds (9.0-12.0)
[2022-10-17] MEDS: INSULIN ASPART PER UNIT SC SCH ×4 (08:11→21:13)
[2022-10-17] MEDS: AMIODARONE 200 MG TAB PO SCH (08:42)
[2022-10-17] MEDS: carvediloL 3.125 MG TAB PO SCH ×2 (08:43→21:04)
[2022-10-17] MEDS: AMOXICILLIN/CLAVULANATE 875 MG TAB PO SCH ×2 (08:43→21:03)
[2022-10-17] MEDS: VALSARTAN/SACUBITRIL 26/24MG TAB PO SCH ×2 (08:43→21:04)
[2022-10-17] MEDS: PANTOprazole 40 MG TAB PO SCH (08:43)
[2022-10-17] MEDS: LORATADINE 10 MG TAB PO SCH (08:43)
[2022-10-17] MEDS ORDERED: FUROSEMIDE INJ 20 MG/2 ML VIAL IV ONE (12:14)
[2022-10-17] MEDS ORDERED: POTASSIUM CHLORIDE CRTAB 20 MEQ TABCR PO STA (12:15)
--- NOTE | 2022-10-17 14:04 | Hospitalist Progress Note ---
Date of Service October 17, 2022 Assessment & Plan (1) Acute on chronic systolic CHF (congestive heart failure): (2) Nonischemic cardiomyopathy: (3) ICD (implantable cardioverter-defibrillator) in place: Plan: Acute on chronic systolic heart failure Nonischemic cardiomyopathy --CXR:Cardiomegaly and moderate pulmonary edema. This is new from prior exam. --ECHO: Rate controlled atrial fibrillation at the time of echo study. (COVID moderately dilated. Interventricular septal motion is abnormal consistent with left bundle branch block. Otherwise moderate to severe global hypokinesis present. Left ventricle systolic function is moderate to severely reduced, EF 30%. Moderate to severe mitral regurgitation. -Losartan discontinued, started on Entresto Continue diuretics as per cardiology Metoprolol transition to carvedilol Appreciate Cardiology input Monitor volume status, I/Os, daily weight Received 20mg IV lasix today Volume status improved (4) Elevated lactic acid level: Plan: Lactate 3.2 --> 2.2 --> 1.3 No signs of sepsis On Metformin at home (5) Bronchitis: Plan: Continue Augmentin--started as outpatient Improving (6) Paroxysmal atrial fibrillation: Plan: Rate controlled Continue amiodarone Metoprolol changed back to Carvedilol Resumed Coumadin Coagulopathy Received vitamin K INR 5.9>2.1 Monitor INR No bleeding issues Coumadin resumed Hypokalemia Replace electrolytes as needed Monitor (7) Breast cancer: Plan: Left breast invasive ductal carcinoma triple negative S/P lumpectomy Currently on chemotherapy, Taxotere and cyclophosphamide every 21 days, last treatment on 09/[address] Mitchell Posada (8) Diabetes mellitus, type II: Plan: Hgb A1c 7.9 07/2022 Lantus and NovoLog per protocol while hospitalized Monitor BGs (9) Anemia: Plan: Anemia of Chronic disease Due to Malignancy, Chemotherapy Monitor CBC (10) CKD (chronic kidney disease), stage III: Plan: Baseline creat low 1s Cr at baseline Monitor renal functions (11) DVT prophylaxis: Plan: Coumadin Code Status Full Code Admission and Anticipated Discharge Date Admission Date: October 15, 2022 Subjective Patient is seen and examined at bedside Feels much better today Dyspnea on exertion improved No new complaints Denies any chest pain, dizziness, nausea, abdominal pain Review of Systems Review of Systems: All systems reviewed & are unremarkable except as noted in Subjective Physical Exam Physical Exam: Physical Exam: Vitals signs as noted above General Appearance:Moderately built and nourished, no apparent distress, chronic ill Head: normocephalic, Atraumatic Eyes: normal inspection, EOMI Neck: supple, Trachea midline Respiratory/Chest: Normal breath sounds, CTA, No accessory muscle use Cardiovascular:+ Irregularly irregular, + murmur Abdomen/GI:Soft, Non tender, Bowel sounds present Extremities/Musculoskeletal:normal inspection, no edema Neurologic/Psych:AAOX3, grossly no focal neurological deficits Skin: normal color, warm Results & Data Results & Data ([facility]) Vital Signs (Past 12 Hours) Vital Signs Temp Pulse Resp BP Pulse Ox O2 Del Method 10/17/22 12:30 36.5 C 90 18 133/62 97 Room Air 10/17/22 08:00 36.5 C 90 18 133/80 97 Room Air 10/17/22 03:00 36.9 C 79 18 107/67 98 Room Air Laboratory Results Short CBC 10/17/22 Range/Units 05:33 Hgb 8.7 L (12.0-16.0) g/dl Hct 27.8 L (34.1-44.9) % BMP 10/17/22 05:33 Sodium 141 Potassium 3.8 Chloride 108 H Carbon Dioxide 27 BUN 32 H Creatinine 1.38 H Glucose 121 H Calcium 8.8 (1) Anemia Anemia type: unspecified type Qualified Code(s): D64.9 - Anemia, unspecified
--- NOTE | 2022-10-17 14:45 | Cardiology Progress Note ---
Date of Service October 17, 2022 Assessment & Plan (1) Acute on chronic systolic CHF (congestive heart failure): (2) Nonischemic cardiomyopathy: (3) Anemia: (4) Breast cancer: (5) Paroxysmal atrial fibrillation: Plan -Continue repeat trial of carvedilol 3.125 mg twice daily (replaces metoprolol). -Received second dose of Entresto this morning, tolerating thus far -INR 2.1, down from 5.9, continue current dose of Coumadin. Repeat INR in am. -Increase amiodarone to 200 mg daily with patient having lapsed into atrial fibrillation in August,. -Proceed with another dose of furosemide 20 mg IV x1 today, 10/17/2022, with plans to likely transition her to oral furosemide 40 mg daily tomorrow. Admission and Anticipated Discharge Date Admission Date: October 15, 2022 Subjective Patient seen in cardiology follow-up of chief complaint of shortness of breath. Patient states that she feels markedly improved. She is cleaned up and is in her pajamas in the bedside chair. 2.3 L of urine output noted in the last 24 hours, fluid balance -1.9 L, having received furosemide 20 mg x 1 on 10/16/2022. Physical Exam Constitutional: no acute distress Respiratory: no labored breathing, no retractions and does not use accessory muscles Auscultation: + diminished lung sounds (Mildly reduced breath sounds at the bases); no crackles and no rales Cardiovascular: Rate/Rhythm: + irregularly irregular Heart Sounds: + murmur (2/6 systolic murmur, apex) Vessels: no JVD Extremities: no edema Neurologic: PERRL, EOMI, accommodation nl, no face palsy, no dysarthria Results & Data ([facility]) Vital Signs (Past 12 Hours) Vital Signs Temp Pulse Resp BP Pulse Ox O2 Del Method 10/17/22 12:30 36.5 C 90 18 133/62 97 Room Air 10/17/22 08:00 36.5 C 90 18 133/80 97 Room Air 10/17/22 03:00 36.9 C 79 18 107/67 98 Room Air (1) Anemia Anemia type: unspecified type Qualified Code(s): D64.9 - Anemia, unspecified
[2022-10-17] MEDS ORDERED: WARFARIN SOD 3 MG TAB PO SCH (16:00)
[2022-10-17] MEDS: LANTUS PER UNIT CHARGE SQ SCH (21:13)
[2022-10-18] MEDS: ACETAMINOPHEN 500 MG TAB PO SCH ×2 (04:52→13:56)
[2022-10-18] MEDS: LEVOTHYROXINE SODIUM 50 MCG TABLET PO SCH (04:53)
[2022-10-18 05:21] LABS: Hematocrit (blood only) 27.7 % (34.1-44.9); Hemoglobin 8.8 g/dl (12.0-16.0); Mean Corpuscular Hgb Conc 31.8 g/dL (32.0-36.0); Mean Corpuscular Volume 88.2 fL (80.0-100.0); Mean Platelet Volume 10.3 fL (9.4-12.3); Platelet Count 261 K/uL (130-400); RDW Coefficient of Variation 16.5 % (11.5-14.5); RDW Standard Deviation 53.3 fL (36.4-46.3); Red Blood Count 3.14 M/uL (3.93-5.22)
[2022-10-18 05:43] LABS: INR 1.7 (0.9-1.1); Prothrombin Time 17.5 Seconds (9.0-12.0)
[2022-10-18 05:45] LABS: Calcium 8.4 mg/dl (8.5-10.1); Creatinine Clr Calc Pharmacy 45.5 ml/min; Est GFR (African American) 44.4 ml/min; Est GFR (Non-African American) 38.3 ml/min; Potassium 3.5 mmol/L (3.5-5.1)
[2022-10-18] MEDS: carvediloL 3.125 MG TAB PO SCH (08:37)
[2022-10-18] MEDS: AMOXICILLIN/CLAVULANATE 875 MG TAB PO SCH (08:37)
[2022-10-18] MEDS: PANTOprazole 40 MG TAB PO SCH (08:37)
[2022-10-18] MEDS: LORATADINE 10 MG TAB PO SCH (08:37)
[2022-10-18] MEDS: VALSARTAN/SACUBITRIL 26/24MG TAB PO SCH (08:37)
[2022-10-18] MEDS: INSULIN ASPART PER UNIT SC SCH ×2 (08:38→12:23)
[2022-10-18] MEDS ORDERED: AMIODARONE 200 MG TAB PO SCH (09:00)
--- NOTE | 2022-10-18 11:41 | Cardiology Progress Note ---
Date of Service October 18, 2022 Assessment & Plan (1) Acute on chronic systolic CHF (congestive heart failure): (2) Nonischemic cardiomyopathy: (3) Anemia: (4) Breast cancer: (5) Paroxysmal atrial fibrillation: Plan - Supplement potassium orally - Start oral furosemide at 20 mg/day for now - Start spironolactone at 12.5 mg/day for now - Losartan was replaced by Entresto this admission, hence the reason for the reduce dose of furosemide/spironolactone for now. - Metoprolol was replaced by carvedilol, 3.125 mg twice daily, this admission. - Amiodarone increased to 200 mg/day this admission, patient lapsing in to atrial fibrillation in August 2022 - INR 1.7. Give 7.5 mg Coumadin today. Admission and Anticipated Discharge Date Admission Date: October 15, 2022 Supervising Physician Co-Signing Physician Notes Supervising Physician Attestation: I have personally performed a history and physical examination on the patient. I agree with the physician assistant health educator's findings and plan as documented with the following additions. Subjective: Patient feeling subjectively improved. Sitting in bedside chair. Telemetry rev eals rate controlled atrial fibrillation in the 70s to 90s, with occasional PVCs. Exam: Pulmonary: Lungs clear to auscultation Cardiovascular: Irregular rhythm, no murmurs, no edema Data: Hemoglobin 8.8 INR 1.7 Potassium 3.5 Assessment and Plan: Diagnosis as noted above -Agree with medications as noted above. -stable for discharge from cardiac perspective with medication changes as noted. -Has a follow up visit with Dr Hammond scheduled in November. I requested an additonal visit with one of our cardio providers in 1-2 weeks. Sami Hayden, DO Subjective Patient seen and examined. Chart, medications, and telemetry reviewed. Feeling a lot better than when she came, in regards to dyspnea. + Palpitations with activity. No chest pain. No PND. No edema. No dizziness or near syncope. I/O's 2,775 mL's overall INR 1.7 this morning, having received vitamin K for coagulopathy, INR 5.9 on 10/16/2022. Telemetry: Atrial fibrillation in the 70's and 80's predominately, rare PVC overnight. Review of Systems Review of Systems: Complete Review of Systems is as stated above, negative, or noncontributory Physical Exam Physical Exam: General: A&Ox3. NAD. + Pallor HENT: Normocephalic. Atraumatic. Eyes: PER. Conjunctiva pink, sclera clear. Neck: No carotid bruits. No JVD. Heart: Irregularly irregular at 90 bpm. No murmur. No rub. Lungs: Clear to auscultation. Abdomen: +BS. Soft. Nontender. No masses or organomegaly. Extremities: No clubbing, cyanosis, or edema. Limited neurological examination is without focal deficits. Pulses: Posterior tibial=2/4. Results & Data ([facility]) Vital Signs (Past 12 Hours) Vital Signs Temp Pulse Pulse Resp BP Pulse Ox O2 Del Method 10/18/22 06:50 36.6 C 73 18 106/62 96 Room Air 10/18/22 04:56 36.9 C 80 18 116/70 94 Room Air 10/17/22 23:40 71 Laboratory Results Coagulation 10/18/22 Range/Units 04:45 PT 17.5 H (9.0-12.0) Seconds CBC 10/18/22 Range/Units 04:45 WBC 5.90 (4.8-10.8) K/ul RBC 3.14 L (3.93-5.22) M/uL Hgb 8.8 L (12.0-16.0) g/dl Hct 27.7 L (34.1-44.9) % Plt Count 261 (130-400) K/uL Comprehensive Metabolic Panel 10/18/22 Range/Units 04:45 Sodium 140 (136-145) mmol/L Potassium 3.5 (3.5-5.1) mmol/L Chloride 108 H (98-107) mmol/L Carbon Dioxide 26 (21-32) mmol/L BUN 27 H (6-23) mg/dl Creatinine 1.35 H (0.6-1.2) mg/dl Glucose 111 H (70-99(Fasting)) mg/dl Calcium 8.4 L (8.5-10.1) mg/dl Intake and Output 10/17/22 10/18/22 10/18/22 22:59 06:59 14:59 Intake Total 400 / 600 200 / 600 Output Total 500 / 1850 350 / 1850 Balance -100 / -1250 -150 / -1250 Intake: Oral 400 / 600 200 / 600 Output: Urine 500 / 1450 350 / 1450 Other: Weight 90.1 kg Weight Measurement Method Standing Scale (1) Anemia Anemia type: unspecified type Qualified Code(s): D64.9 - Anemia, unspecified
[2022-10-18] MEDS ORDERED: WARFARIN SOD 2.5 MG TAB PO ONE (11:57)
[2022-10-18] MEDS ORDERED: POTASSIUM CHLORIDE 10 MEQ TABCR PO ONE (12:00)
[2022-10-18] MEDS ORDERED: SPIRONOLACTONE 12.5 MG TAB PO SCH (12:00)
[2022-10-18] MEDS ORDERED: FUROSEMIDE 20 MG TAB PO SCH (12:00)
[2022-10-18] MEDS ORDERED: FUROSEMIDE INJ 20 MG/2 ML VIAL IV ONE (12:31)
--- NOTE | 2022-10-18 14:40 | Hospitalist Progress Note ---
Date of Service October 18, 2022 Assessment & Plan (1) Acute on chronic systolic CHF (congestive heart failure): (2) Nonischemic cardiomyopathy: (3) ICD (implantable cardioverter-defibrillator) in place: Plan: Acute on chronic systolic heart failure Nonischemic cardiomyopathy --CXR:Cardiomegaly and moderate pulmonary edema. This is new from prior exam. --ECHO: Rate controlled atrial fibrillation at the time of echo study. (COVID moderately dilated. Interventricular septal motion is abnormal consistent with left bundle branch block. Otherwise moderate to severe global hypokinesis present. Left ventricle systolic function is moderate to severely reduced, EF 30%. Moderate to severe mitral regurgitation. -Losartan discontinued, started on Entresto Continue diuretics as per cardiology Metoprolol transition to carvedilol 3.125 mg twice a day Appreciate Cardiology input Monitor volume status, I/Os, daily weight Received 20mg IV lasix today Volume status improved Plan to discharge on furosemide 20 mg daily and spironolactone 12.5 mg daily Needs follow-up with cardiology upon discharge (4) Elevated lactic acid level: Plan: Lactate 3.2 --> 2.2 --> 1.3 No signs of sepsis On Metformin at home (5) Bronchitis: Plan: Continue Augmentin--started as outpatient Improving (6) Paroxysmal atrial fibrillation: Plan: Rate controlled Continue amiodarone--increased to 200 mg daily Metoprolol changed back to Carvedilol Resumed Coumadin Coagulopathy Received vitamin K INR 5.9>2.1>1.7 Monitor INR No bleeding issues Coumadin resumed Plan to give 7.5 mg Coumadin today Hypokalemia Replace electrolytes as needed Monitor (7) Breast cancer: Plan: Left breast invasive ductal carcinoma triple negative S/P lumpectomy Currently on chemotherapy, Taxotere and cyclophosphamide every 21 days, last treatment on 09/[address] Mitchell Posada (8) Diabetes mellitus, type II: Plan: Hgb A1c 7.9 07/2022 Lantus and NovoLog per protocol while hospitalized Monitor BGs (9) Anemia: Plan: Anemia of Chronic disease Due to Malignancy, Chemotherapy Monitor CBC (10) CKD (chronic kidney disease), stage III: Plan: Baseline creat low 1s Cr at baseline Monitor renal functions (11) DVT prophylaxis: Plan: Coumadin Code Status Full Code Disposition Home Admission and Anticipated Discharge Date Admission Date: October 15, 2022 Subjective Patient is seen and examined at bedside Reports minimal cough Dyspnea on exertion continues to improve Discussed with cardiology today Reports intermittent palpitations with activity Denies any chest pain, dizziness, nausea, abdominal pain Plan to discharge home today Review of Systems Review of Systems: All systems reviewed & are unremarkable except as noted in Subjective Physical Exam Physical Exam: Physical Exam: Vitals signs as noted above General Appearance:Moderately built and nourished, no apparent distress, chronic ill Head: normocephalic, Atraumatic Eyes: normal inspection, EOMI Neck: supple, Trachea midline Respiratory/Chest: Normal breath sounds, CTA, No accessory muscle use Cardiovascular:+ Irregularly irregular, + murmur Abdomen/GI:Soft, Non tender, Bowel sounds present Extremities/Musculoskeletal:normal inspection, no edema Neurologic/Psych:AAOX3, grossly no focal neurological deficits Skin: normal color, warm Results & Data Results & Data ([facility]) Vital Signs (Past 12 Hours) Vital Signs Temp Pulse Resp BP Pulse Ox O2 Del Method 10/18/22 11:56 36.5 C 84 20 107/68 96 Room Air 10/18/22 06:50 36.6 C 73 18 106/62 96 Room Air 10/18/22 04:56 36.9 C 80 18 116/70 94 Room Air Laboratory Results Short CBC 10/18/22 Range/Units 04:45 WBC 5.90 (4.8-10.8) K/ul Hgb 8.8 L (12.0-16.0) g/dl Hct 27.7 L (34.1-44.9) % Plt Count 261 (130-400) K/uL BMP 10/18/22 04:45 Sodium 140 Potassium 3.5 Chloride 108 H Carbon Dioxide 26 BUN 27 H Creatinine 1.35 H Glucose 111 H Calcium 8.4 L (1) Anemia Anemia type: unspecified type Qualified Code(s): D64.9 - Anemia, unspecified
--- NOTE | 2022-10-18 15:02 | Discharge Summary ---
Date of Service October 18, 2022 Admission HPI Per Admitting Provider 77-year-old female with PMH DM type II, hypothyroidism, idiopathic cardiomyopathy s/p ICD, EF 35 to 40%, paroxysmal atrial fibrillation anticoagulant on Coumadin and on amiodarone therapy, HTN, CKD stage III, history of primary renal papillary carcinoma s/p left nephrectomy, invasive ductal carcinoma of left breast diagnosed 07/2022 s/p lumpectomy currently on chemotherapy, and other problems listed below who presents to the ED for evaluation of shortness of breath. Patient recently admitted to [facility] 08/19 through 08/21 for management of illness s/p chemo, COVID-19, UTI. At discharge, patient's spironolactone, Lasix, losartan doses were all reduced and carvedilol was transitioned to metoprolol succinate. Patient's last chemotherapy on 09/23. Patient reports she has not felt well since her last treatment. She reports progressive worsening shortness of breath that has gotten acutely worse over the past week. Patient reports shortness of breath with minimal exertion. Patient states that she typically sleeps with her HOB elevated at 45 degrees. She weighs herself twice daily, reports weights have been stable. Notes increased lower extremity edema around her ankles yesterday. Patient developed a cough productive for yellow/green sputum. Started on Augmentin 2 days ago for suspected bronchitis/sinus infection. Patient reports improvement in cough since starting Augmentin. Patient reports that when she is feeling very short of breath, she also has palpitations. She denies chest pain. No lightheadedness, dizziness, diaphoresis, syncopal events. Reports she has had a very poor appetite however denies abdominal pain, nausea, vomiting, diarrhea. No fevers or chills. Denies urinary symptoms. In the ED, patient is hemodynamically stable and saturating well on room air. CXR shows Cardiomegaly and moderate pulmonary edema. Patient was given Lasix 60 mg IV. Principal Diagnosis Acute on chronic systolic heart failure Nonischemic cardiomyopathy Coagulopathy secondary to Coumadin Paroxysmal atrial fibrillation Discharge Data Allergies Allergy/AdvReac Type Severity Reaction Status Date / Time Eqvgicr-JPW-PvC Reductase Allergy Intermediate Muscle Pain Verified 08/19/22 02:14 Inhibitor [Qgostgq-Scg-Dgq Reductase Inhibitor] ketorolac Allergy Mild RASH Verified 08/19/22 02:14 Sulfa (Sulfonamide Allergy Unknown HIVES Verified 08/19/22 02:14 Antibiotics) tramadol AdvReac Intermediate VERY SICK Verified 08/19/22 02:14 TO STOMACH hydrocodone AdvReac Mild NAUSEA AND Verified 08/19/22 02:14 VOMITING Consultations 10/15/22 15:27 ED Decision to Admit Stat 10/15/22 18:27 Consult Cardiology Routine Procedures Performed Laboratory Results WBC 5.90 K/ul (4.8-10.8) 10/18/22 04:45 RBC 3.14 M/uL (3.93-5.22) L 10/18/22 04:45 Hgb 8.8 g/dl (12.0-16.0) L 10/18/22 04:45 Hct 27.7 % (34.1-44.9) L 10/18/22 04:45 MCV 88.2 fL (80.0-100.0) 10/18/22 04:45 MCH 28.0 pg (25.0-34.0) 10/18/22 04:45 MCHC 31.8 g/dL (32.0-36.0) L 10/18/22 04:45 RDW Std Deviation 53.3 fL (36.4-46.3) H 10/18/22 04:45 RDW Coeff of Edilma 16.5 % (11.5-14.5) H 10/18/22 04:45 Plt Count 261 K/uL (130-400) 10/18/22 04:45 MPV 10.3 fL (9.4-12.3) 10/18/22 04:45 Immature Gran % (Auto) 0.8 % 10/15/22 13:37 Neut % (Auto) 84.4 % 10/15/22 13:37 Lymph % (Auto) 4.9 % 10/15/22 13:37 Yell % (Auto) 9.6 % 10/15/22 13:37 Eos % (Auto) 0.1 % 10/15/22 13:37 Baso % (Auto) 0.2 % 10/15/22 13:37 Neut # (Auto) 8.02 K/uL (1.4-6.5) H 10/15/22 13:37 Lymph # (Auto) 0.47 K/uL (1.2-3.4) L 10/15/22 13:37 Yell # (Auto) 0.91 K/uL (0.24-0.82) H 10/15/22 13:37 Eos # (Auto) 0.01 K/uL (0-0.50) 10/15/22 13:37 Baso # (Auto) 0.02 K/uL (0-0.2) 10/15/22 13:37 Immature Gran # (Auto) 0.08 K/uL (0.00-0.02) H 10/15/22 13:37 PT 17.5 Seconds (9.0-12.0) H 10/18/22 04:45 INR 1.7 (0.9-1.1) H 10/18/22 04:45 APTT 43.3 Seconds (21.0-31.0) H 10/15/22 13:37 PTT Ratio 1.6 10/15/22 13:37 Sodium 140 mmol/L (136-145) 10/18/22 04:45 Potassium 3.5 mmol/L (3.5-5.1) 10/18/22 04:45 Chloride 108 mmol/L (98-107) H 10/18/22 04:45 Carbon Dioxide 26 mmol/L (21-32) 10/18/22 04:45 Anion Gap 6 (3-11) 10/18/22 04:45 BUN 27 mg/dl (6-23) H 10/18/22 04:45 Creatinine 1.35 mg/dl (0.6-1.2) H 10/18/22 04:45 Est Cr Clr Drug Dosing 45.5 ml/min 10/18/22 04:45 Est GFR ( Amer) 44.4 ml/min 10/18/22 04:45 Est GFR (Non-Af Amer) 38.3 ml/min 10/18/22 04:45 BUN/Creatinine Ratio 20.0 (10-20) 10/18/22 04:45 Glucose 111 mg/dl (70-99(Fasting)) H 10/18/22 04:45 POC Glucose 230 mg/dl (70-99) H 10/18/22 11:55 Lactate 1.3 mmol/L (0.4-2.0) 10/15/22 19:08 Calcium 8.4 mg/dl (8.5-10.1) L 10/18/22 04:45 Magnesium 2.0 mg/dl (1.7-2.4) 10/18/22 04:45 Total Bilirubin 0.5 mg/dl (0.2-1.0) 10/15/22 13:37 AST 24 U/L (13-39) 10/15/22 13:37 ALT 17 U/L (7-52) 10/15/22 13:37 Alkaline Phosphatase 70 U/L (34-104) 10/15/22 13:37 Troponin I High Sens 9.5 pg/ml (0-14) 10/16/22 00:46 B-Natriuretic Peptide 224 pg/ml (0-100) H 10/15/22 14:15 Total Protein 6.4 gm/dl (6.0-8.3) 10/15/22 13:37 Albumin 3.8 gm/dl (3.4-5.0) 10/15/22 13:37 Globulin 2.6 gm/dl (2.5-4.0) 10/15/22 13:37 Albumin/Globulin Ratio 1.5 (0.9-2) 10/15/22 13:37 Urine Color Yellow 10/16/22 05:10 Urine Appearance Clear (Clear) 10/16/22 05:10 Urine pH 5.5 (4.5-7.5) 10/16/22 05:10 Ur Specific Fletcher 1.020 (1.000-1.030) 10/16/22 05:10 Urine Protein 1+ (Negative) H 10/16/22 05:10 Urine Glucose (UA) Negative (Negative) 10/16/22 05:10 Urine Ketones Negative (Negative) 10/16/22 05:10 Urine Blood 3+ (Negative) H 10/16/22 05:10 Urine Nitrite Negative (Negative) 10/16/22 05:10 Urine Bilirubin Negative (Negative) 10/16/22 05:10 Urine Urobilinogen Negative (Negative) 10/16/22 05:10 Ur Leukocyte Esterase Trace (Negative) H 10/16/22 05:10 Urine WBC (Auto) 5-10 /hpf (0-5) H 10/16/22 05:10 Urine RBC (Auto) >30 /hpf (0-4) H 10/16/22 05:10 U Hyaline Cast (Auto) 0 /lpf (0-5) 10/16/22 05:10 U Epithel Cells (Auto) 10-20 /lpf (0-5) H 10/16/22 05:10 Urine Bacteria (Auto) Negative (Negative) 10/16/22 05:10 Ur Renal Epithelial Cell Not Reportable 10/16/22 05:10 Adenovirus (PCR) Not Detected (NotDetected) 10/15/22 14:42 B. pertussis DNA (PCR) Not Detected (NotDetected) 10/15/22 14:42 B.parapertussis DNA PCR Not Detected (NotDetected) 10/15/22 14:42 C. pneumoniae DNA (PCR) Not Detected (NotDetected) 10/15/22 14:42 Coronavirus OC43 (PCR) Not Detected (NotDetected) 10/15/22 14:42 Coronavirus HKU1 (PCR) Not Detected (NotDetected) 10/15/22 14:42 Coronavirus 229E (PCR) Not Detected (NotDetected) 10/15/22 14:42 SARS-CoV-2 (PCR) Not Detected (NotDetected) 10/15/22 14:42 Coronavirus NL63 (PCR) Not Detected (NotDetected) 10/15/22 14:42 Human Metapneumovir PCR Not Detected (NotDetected) 10/15/22 14:42 Influenza Type A (PCR) Not Detected (NotDetected) 10/15/22 14:42 Influenza Type B (PCR) Not Detected (NotDetected) 10/15/22 14:42 M. pneumoniae (PCR) Not Detected (NotDetected) 10/15/22 14:42 Parainfluenza 1 (PCR) Not Detected (NotDetected) 10/15/22 14:42 Parainfluenza 2 (PCR) Not Detected (NotDetected) 10/15/22 14:42 Parainfluenza 3 (PCR) Not Detected (NotDetected) 10/15/22 14:42 Parainfluenza 4 (PCR) Not Detected (NotDetected) 10/15/22 14:42 RSV (PCR) Not Detected (NotDetected) 10/15/22 14:42 Entero/Rhino (PCR) Not Detected (NotDetected) 10/15/22 14:42 Impressions Chest X-Ray 10/15/22 13:31 XR chest 1V portable CLINICAL HISTORY: Dyspnea TECHNIQUE: Single frontal radiograph of the chest was obtained. Comparison: Comparison is made to chest radiograph 08/18/2022 FINDINGS: Pacemaker defibrillator is seen. A right port catheter is seen. Cardiomegaly is noted. There is prominence and cephalization of the vasculature with Jose Miguel B lines seen. No evidence of pleural effusion or pneumothorax. IMPRESSION: Cardiomegaly and moderate pulmonary edema. This is new from prior exam. ACT 112: Negative or not required by law. Electronically signed by: Hari Fuentes M.D. 10/15/2022 2:02 PM Hospital Course (1) Acute on chronic systolic CHF (congestive heart failure): (2) Nonischemic cardiomyopathy: (3) ICD (implantable cardioverter-defibrillator) in place: Acute on chronic systolic heart failure Nonischemic cardiomyopathy --CXR:Cardiomegaly and moderate pulmonary edema. This is new from prior exam. --ECHO: Rate controlled atrial fibrillation at the time of echo study. (COVID moderately dilated. Interventricular septal motion is abnormal consistent with left bundle branch block. Otherwise moderate to severe global hypokinesis present. Left ventricle systolic function is moderate to severely reduced, EF 30%. Moderate to severe mitral regurgitation. -Losartan discontinued, started on Entresto Continue diuretics as per cardiology Metoprolol transition to carvedilol 3.125 mg twice a day Appreciate Cardiology input Monitor volume status, I/Os, daily weight Received 20mg IV lasix today Volume status improved Plan to discharge on furosemide 20 mg daily and spironolactone 12.5 mg daily Needs follow-up with cardiology upon discharge (4) Elevated lactic acid level: Lactate 3.2 --> 2.2 --> 1.3 No signs of sepsis On Metformin at home (5) Bronchitis: Continue Augmentin--started as outpatient Improving (6) Paroxysmal atrial fibrillation: Rate controlled Continue amiodarone--increased to 200 mg daily Metoprolol changed back to Carvedilol Resumed Coumadin Coagulopathy Received vitamin K INR 5.9>2.1>1.7 Monitor INR No bleeding issues Coumadin resumed Plan to give 7.5 mg Coumadin today Hypokalemia Replace electrolytes as needed Monitor (7) Breast cancer: Left breast invasive ductal carcinoma triple negative S/P lumpectomy Currently on chemotherapy, Taxotere and cyclophosphamide every 21 days, last treatment on 09/[address] Mitchell Posada (8) Diabetes mellitus, type II: Hgb A1c 7.9 07/2022 Lantus and NovoLog per protocol while hospitalized Monitor BGs (9) Anemia: Anemia of Chronic disease Due to Malignancy, Chemotherapy Monitor CBC (10) CKD (chronic kidney disease), stage III: Baseline creat low 1s Cr at baseline Monitor renal functions (11) DVT prophylaxis: Coumadin Code Status Full Code Disposition Home Total Time Total Time Spent Total Time Spent (In Minutes): 48 minutes Discharge Plan Discharge Items Patient Disposition: Home - Self-Care Reason For Visit: CHF Discharge Diagnosis: Acute on chronic systolic heart failure Nonischemic cardiomyopathy Coagulopathy secondary to Coumadin Paroxysmal atrial fibrillation Condition on Discharge: Fair Activity: Per Instructions section Exercise/Sports: Gradually increase as tolerated Non-emergency contact: Primary Care Provider and [employer] Cabinet Finisher Call non-emergency contact if: you have any medication questions, your symptoms worsen, your pain is concerning for you and you have a fever Follow-up/Referrals: Irwin Lott MD [Primary Care Provider] - (Date & Time 10/26/2022 1:00 PM Provider rIwin Lott MD Department Family Practice [facility] ) Presley Hammond DO [Met[employer]isher] - (The cardiology office will call you with a hospital follow up appointment.) Diet: Carb Consistent or DM2 and Low Sodium (2gm) Addtl Attending Provider Instructions: Follow-up with your primary care physician Dr. Ibanez on 10/26/2022 1:00 PM Follow-up with your unit director Dr. Hammond as advised. Cardiology office will call you with appointment. -- Follow-up with Coumadin clinic in 2 to 3 days for monitoring of PT/INR and adjusting your Coumadin dose as needed. Take Coumadin 7.5 mg daily as your INR is 1.7 today (Your Target INR is between 2.0-3.0) Seek immediate medical attention if your symptoms reoccur or worsen Please take all medications as instructed on discharge list below. Please call if you have any questions or problems. You can reach a [facility] hospitalist on duty at [facility] 24 hours a day by calling [phone] Call your Primary Care doctor if any of the following symptoms or problems start or get worse: * Shortness of breath or difficulty breathing * Wake up at night short of breath * Chest pain * Cough * Swelling of your hands, feet, or legs * More fatigued or tired with your normal activity * Palpitations - sudden fast heart beats WEIGHT * Weigh yourself every morning after using the bathroom. * Use the same scale. * Wear the same amount of clothing. * Write your weight down on a chart. * Call your Primary Care doctor if you gain more than 2-3 pounds in 1-2 days. MEDICATIONS * Use this discharge instruction sheet for medication instructions. * Take your medications at the time your doctor ordered. * Do not skip a dose of your medicines. * If you miss a dose of medicine, take it as soon as possible, but DO NOT DOUBLE A DOSE. * Read your medicine information when you get home. * Know all of the side effects of your medicine. If in doubt, ask your pharmacist * Call your Primary Care doctor's office if you have any side effects. * Be sure all of your doctors know what medicine and herbs you take (including cold, flu, and herbal medicine). Take the following with you to your follow-up doctor appointments: * Weight Chart * Medication List * List of questions Do not drink excessive alcohol, beer or wine. Pending Studies at Discharge: No Stand-Alone Forms: My [facility], Smoking Cessation Medications and DC Order Prescriptions: New carvedilol 3.125 mg Tablet 3.125 mg PO BID Qty: 60 1RF Entresto 24-26 mg Tablet 1 tab PO BID Qty: 60 1RF furosemide 20 mg Tablet 20 mg PO QAM Qty: 30 1RF Continued metformin 500 mg tablet 500 mg PO BIDM levothyroxine 50 mcg tablet 50 mcg PO QAM warfarin 5 mg tablet 2.5 mg PO WK Rx Instructions: 2.5 MG ON TUE warfarin 5 mg tablet 5 mg PO [id number] Rx Instructions: Tuesday, Tuesday, Tuesday, Tuesday, , Tue omeprazole 20 mg capsule,delayed release(DR/EC) 20 mg PO QAM insulin glargine [Lantus Solostar U-100 Insulin] 100 unit/mL (3 mL) insulin pen 24 - 26 unit subcut HS Label Comments: WILL ADJUST DOSE BASED ON BSG acetaminophen [Tylenol Extra Strength] 500 mg Tablet 500 mg PO UD PRN (Reason: Pain) ondansetron HCl 8 mg tablet 8 mg PO Q8 PRN (Reason: Nausea) prochlorperazine maleate 10 mg tablet 10 mg PO Q6 PRN (Reason: Nausea) lidocaine-prilocaine 2.5-2.5 % cream 1 applic topical DIRECTED Rx Instructions: apply to skin over mediport & cover 1 hour prior to accessing dexamethasone 4 mg tablet 4 mg PO DIRECTED Rx Instructions: take 2 tablets twice a day,starting on the previous day of the the treatment for a total 3 dayas and repeat with each chemo cycle. PT TAKING 2 TABLETS A DAY polyethylene glycol 3350 [Miralax] 17 gram/dose Powder 17 g PO DAILY PRN (Reason: Constipation) albuterol sulfate 90 mcg/actuation HFA aerosol inhaler 2 puff INHALATION Q4 PRN (Reason: Wheezing) amoxicillin-pot clavulanate 875-125 mg tablet 1 tab PO BID Rx Instructions: take for 10 days ordered 10/13/22 end 10/23/22 losartan 25 mg tablet 25 mg PO QAM [place]-3 Fish Oil 300-1,000 mg Capsule 1 cap PO DAILY loratadine 10 mg Tablet 10 mg PO DAILY Changed amiodarone 100 mg tablet 200 mg PO QAM Qty: 60 0RF spironolactone 25 mg tablet 12.5 mg PO QAM Qty: 30 0RF Discontinued metoprolol succinate 25 mg Tablet Extended Release 24 Hr 12.5 mg PO QAM Qty: 30 0RF furosemide [Lasix] 40 mg tablet 40 mg PO QAM furosemide 40 mg tablet 20 mg PO QDL Discharge Orders: Discharge Order (Routine); Ordered 10/18/22 Ordered By: Zacarias Lambert Admission Data Admit Date/Time: 10/15/22 15:38 Attending Provider: Zacarias Lambert Admit Provider: Bridgette Asher Primary Care Provider: Irwin Lott Other Providers: Bridgette Asher ; Sami Hayden
[2022-10-18] MEDS ORDERED: WARFARIN SOD 5 MG TAB PO SCH (16:00)
== END 2022-10-18 17:04 | disposition home or self-care (01) | DRG 291 ==
LOC: ED 13:17 → 4W 15:38 → SUATTDRO 15:38 → 4W 17:30

== ENCOUNTER 2022-10-25 23:19 | Inpatient (IN) ==
[2022-10-25] MEDS ORDERED: ALBUT/IPRATROP 3MG/0.5MG NEB 3 ML VIAL INH STA (23:29)
--- NOTE | 2022-10-25 23:33 | Emergency Department Note ---
Impression & Plan Acute dyspnea ADMIT ED Provider Note HPI: The patient is a 77-year-old female with history of idiopathic cardiomyopathy with reduced ejection fraction, status post ICD, history of atrial fibrillation on Coumadin, history of breast cancer, recently taken off chemotherapy, presents emergency department with a chief complaint of worsening cough and shortness of breath over the past 2 days. Patient states she is having increasing difficulty ambulating throughout her house secondary to severe shortness of breath with exertion. She denies any chest pain. She states she has had a harsh cough. On arrival here to the ED the patient is hemodynamically stable, she is saturating well on room air on my initial assessment. ROS: -Cardiopulmonary: Dyspnea on exertion *10 point review systems was conducted and is otherwise negative unless stated above *Outpatient medications and allergy history reviewed PE: General: Alert, no acute distress HEENT: Normocephalic, trachea midline Eyes: Extraocular eye movement is intact, no scleral erythema Pulmonary: Rhonchorous breath sounds at the bases, mild expiratory wheezing, no crackles Cardio: Regular rate and rhythm GI: Abdomen is soft, nontender : No suprapubic tenderness MSK: No evidence of trauma or malformation of the extremities, no edema Skin: No evidence of rash Neuro: Alert, no focal deficits Psychiatric: Cooperative traffic monitor specialist: - An order was placed for continuous cardiac monitoring - Patient was noted to be in atrial fibrillation with a rate of 95 EKG: The rate: 101 Rhythm: Atrial fibrillation Intervals: NJ indeterminate, QRS 146 ms, QTC [address] changes: No ST elevation Time: 2331 Interventions provided in ED: -DuoNeb breathing treatment, IV Lasix Medical Decision Making: Patient presented to the emergency department chief complaint shortness of breath, dyspnea on exertion, she does have multiple comorbidities including a idiopathic cardiomyopathy, status post ICD, atrial fibrillation, on Coumadin. Patient denies any chest pain. Chest x-ray shows a pattern concerning for pulmonary edema per my interpretation, patient does not have any leukocytosis, no fever, low suspicion for pneumonia at this time. Viral panel testing was sent and is negative. Troponin is within normal limits, EKG does not show any acute ischemic changes. BNP is mildly elevated at 233. Patient was given a DuoNeb breathing treatment here in the ED and on my reassessment her wheezing is improved but the patient states that symptomatically she does not feel much improved. I did discuss IV steroid initiation with the patient and she declined, states that this causes her sugar to go up and she does not want to be initiated on steroids for bronchospasm. She was given a dose of IV Lasix secondary to concern for pulmonary edema on chest x-ray in addition to her history of reduced ejection fraction. She states that her symptoms are mostly when she exerts herself, states this has been an acute blade changer the past several days. Patient is concerned about her medication regimen and feels that she is unsafe to go home secondary to her inability to ambulate and take care of herself very well. Given the patient's concerns, I did discuss the above findings with the on-call hospitalist, Dr. Karimi, who was in agreement to admit the patient for further care. Patient and her daughter at the bedside are in agreement to the above plan and the patient was admitted in stable condition. Diagnosis: 1. Dyspnea on exertion, acute 2. Idiopathic cardiomyopathy with reduced ejection fraction 3. Pulmonary edema, mild 4. Elevated BNP level 5. Chronic anemia, stable 6. Supratherapeutic INR 7. Cough, acute 8. Acute bronchospasm Disposition: ADMIT Jamey Sutton DO Emergency Medicine Past Med/Surg History Medical History Anemia Breast cancer left breast invasive ductal carcinoma, s/p lumpectomy Chronic systolic heart failure CKD (chronic kidney disease), stage III Diabetes mellitus, type II Diabetic neuropathy GERD (gastroesophageal reflux disease) Hemorrhoids History of kidney cancer History of kidney stones History of skin cancer ON NOSE HTN (hypertension) Hx of blood clots IN HEART (TREATED WITH INCEASED BLOOD THINNERS) Hypothyroidism ICD (implantable cardioverter-defibrillator) in place Idiopathic cardiomyopathy Nocturnal hypoxia PT DENIES Nonischemic cardiomyopathy Paroxysmal atrial fibrillation Surgical History H/O breast biopsy H/O cervical spine surgery X 2 (GOOD ROM) H/O knee surgery LEFT H/O partial nephrectomy LEFT "CANCEROUS TUMOR REMOVED" H/O: hysterectomy History of anesthesia reaction N/V AND AGITATED WITH ANESTHESIA History of appendectomy History of bladder surgery History of cardiac cath X 4 (NO STENTS) History of cataract surgery RT/LEFT History of cholecystectomy History of colonoscopy History of cystoscopy History of esophagogastroduodenoscopy (EGD) History of partial nephrectomy Left, [facility] in 2018 History of tonsillectomy History of tooth extraction S/P ICD (internal cardiac defibrillator) procedure IMPLANTED PACEMAKER/DEFIB ? DATE IMPLANTED ([facility] CARDI[facility] FOLLOWS) Family History Mother Family history of diabetes mellitus Colorectal cancer Brother Family history of diabetes mellitus Sister Colorectal cancer Other Heart disease No family history of adverse response to anesthesia Stroke Social History Smoking Status: Never smoker Second Hand Exposure: No; Hx Alcohol Use: No Hx Substance Use: No Preferred Language: Kittitian Communication Ability: Effective Certified Energy Manager Required: No Beliefs That Will Affect Care: None marital status: / Current Living Situation: Alone Feels Safe at Home: Yes Assistive Devices: Cane Allergies Allergies Allergy/AdvReac Type Severity Reaction Status Date / Time Hhqkbkd-CPP-[id number] Reductase Allergy Intermediate Muscle Pain Verified 08/19/22 02:14 Inhibitor [Uvfcktl-Cdv-Jtt Reductase Inhibitor] ketorolac Allergy Mild RASH Verified 08/19/22 02:14 Sulfa (Sulfonamide Allergy Unknown HIVES Verified 08/19/22 02:14 Antibiotics) tramadol AdvReac Intermediate VERY SICK Verified 08/19/22 02:14 TO STOMACH hydrocodone AdvReac Mild NAUSEA AND Verified 08/19/22 02:14 VOMITING Home Meds Home Medications Medication Instructions Recorded Confirmed acetaminophen 500 mg tablet 500 mg PO UD PRN Pain 05/15/19 10/15/22 (Tylenol Extra Strength) insulin glargine 100 unit/mL (3 24 - 26 unit subcut HS 05/15/19 10/15/22 mL) subcutaneous pen (Lantus Solostar U-100 Insulin) levothyroxine 50 mcg tablet 50 mcg PO QAM 05/15/19 10/15/22 metformin 500 mg tablet 500 mg PO BIDM 05/15/19 10/15/22 omeprazole 20 mg capsule,delayed 20 mg PO QAM 05/15/19 10/15/22 release warfarin 5 mg tablet 2.5 mg PO WK 05/15/19 10/15/22 warfarin 5 mg tablet 5 mg PO 6XWK 05/15/19 10/15/22 polyethylene glycol 3350 17 17 g PO DAILY PRN Constipation 08/27/21 10/15/22 gram/dose oral powder (Miralax) dexamethasone 4 mg tablet 4 mg PO DIRECTED 08/19/22 10/15/22 lidocaine-prilocaine 2.5 %-2.5 % 1 applic topical DIRECTED 08/19/22 10/15/22 topical cream ondansetron HCl 8 mg tablet 8 mg PO Q8 PRN Nausea 08/19/22 10/15/22 prochlorperazine maleate 10 mg 10 mg PO Q6 PRN Nausea 08/19/22 10/15/22 tablet albuterol sulfate 90 mcg/actuation 2 puff inhalation Q4 PRN Wheezing 10/15/22 10/15/22 aerosol inhaler amoxicillin 875 mg-potassium 1 tab PO BID 10/15/22 10/15/22 clavulanate 125 mg tablet loratadine 10 mg tablet 10 mg PO DAILY 10/15/22 10/15/22 losartan 25 mg tablet 25 mg PO QAM 10/15/22 10/15/22 omega-3s 300 yo-dnk-ewa-other 1 cap PO DAILY 10/15/22 10/15/22 ovzpa2n-etpy oil 1,000 mg capsule ([place]-3 Fish Oil) Previous Rx's Medication Instructions Recorded amiodarone 100 mg tablet 200 mg PO QAM #60 tabs 10/18/22 carvedilol 3.125 mg tablet 3.125 mg PO BID #60 tabs 10/18/22 furosemide 20 mg tablet 20 mg PO QAM #30 tabs 10/18/22 sacubitril 24 mg-valsartan 26 mg 1 tab PO BID #60 tabs 10/18/22 tablet (Entresto) spironolactone 25 mg tablet 12.5 mg PO QAM #30 tabs 10/18/22 Results & Data (ED) Vital Signs Vital Signs - 24 hr 10/25/22 23:28 10/25/22 23:28 10/25/22 23:28 Temperature 36.7 C Temperature Source Oral Pulse Rate 101 H Pulse Rate [Apical] Pulse Rhythm Irregular Respiratory Rate 24 Respiratory Depth Normal Respiratory Pattern Regular Blood Pressure 138/76 Blood Pressure [Right Arm] Blood Pressure Mean 96 Blood Pressure Mean [Right Arm] Pulse Oximetry 96 Oxygen Delivery Method Room Air Room Air Sepsis Recent Fever Within 48 Hours No Sepsis New/Unexplained Change in Mental Status No Sepsis Action Taken by Nursing Physician Notified 10/26/22 00:06 10/26/22 01:00 Temperature Temperature Source Pulse Rate Pulse Rate [Apical] 91 H 85 Pulse Rhythm Respiratory Rate 15 19 Respiratory Depth Normal Respiratory Pattern Blood Pressure Blood Pressure [Right Arm] 107/60 120/69 Blood Pressure Mean Blood Pressure Mean [Right Arm] 75 86 Pulse Oximetry 95 96 Oxygen Delivery Method Room Air Sepsis Recent Fever Within 48 Hours Sepsis New/Unexplained Change in Mental Status Sepsis Action Taken by Nursing Laboratory Data Result diagrams: 10/25/22 23:55 10/25/22 23:56 Lab Results 10/25/22 10/25/22 10/25/22 Range/Units 23:55 23:55 23:55 WBC 6.43 (4.8-10.8) K/ul RBC 3.27 L (3.93-5.22) M/uL Hgb 8.8 L (12.0-16.0) g/dl Hct 28.1 L (34.1-44.9) % MCV 85.9 (80.0-100.0) fL MCH 26.9 (25.0-34.0) pg MCHC 31.3 L (32.0-36.0) g/dL RDW Std Deviation 51.0 H (36.4-46.3) fL RDW Coeff of Edilma 16.2 H (11.5-14.5) % Plt Count 287 (130-400) K/uL MPV 10.4 (9.4-12.3) fL Immature Gran % (Auto) 0.2 % Neut % (Auto) 78.8 % Lymph % (Auto) 8.2 % [place] % (Auto) 10.0 % Eos % (Auto) 2.0 % Baso % (Auto) 0.8 % Neut # (Auto) 5.07 (1.4-6.5) K/uL Lymph # (Auto) 0.53 L (1.2-3.4) K/uL [place] # (Auto) 0.64 (0.24-0.82) K/uL Eos # (Auto) 0.13 (0-0.50) K/uL Baso # (Auto) 0.05 (0-0.2) K/uL Immature Gran # (Auto) 0.01 (0.00-0.02) K/uL PT (9.0-12.0) Seconds INR (0.9-1.1) VBG pH 7.40 (7.36-7.41) VBG pCO2 37 L (38-50) mmHg VBG pO2 34 mmHg VBG HCO3 23 mmol/L VBG O2 Saturation < 60.0 % VBG Base Excess -1.5 mEq/L Sodium (136-145) mmol/L Potassium (3.5-5.1) mmol/L Chloride (98-107) mmol/L Carbon Dioxide (21-32) mmol/L Anion Gap (3-11) BUN (6-23) mg/dl Creatinine (0.6-1.2) mg/dl Est Cr Clr Drug Dosing Est GFR ( Amer) ml/min Est GFR (Non-Af Amer) ml/min BUN/Creatinine Ratio (10-20) Glucose (70-99(Fasting)) mg/dl Calcium (8.5-10.1) mg/dl Total Bilirubin (0.2-1.0) mg/dl AST (13-39) U/L ALT (7-52) U/L Alkaline Phosphatase (34-104) U/L Troponin I High Sens (0-14) pg/ml B-Natriuretic Peptide 233 H (0-100) pg/ml Total Protein (6.0-8.3) gm/dl Albumin (3.4-5.0) gm/dl Globulin (2.5-4.0) gm/dl Albumin/Globulin Ratio (0.9-2) SARS-CoV-2 (PCR) (Negative) Influenza Type A (PCR) (Neg) Influenza Type B (PCR) (Neg) RSV (RT-PCR) (Neg) 10/25/22 10/25/22 10/26/22 Range/Units 23:56 23:56 00:00 WBC (4.8-10.8) K/ul RBC (3.93-5.22) M/uL Hgb (12.0-16.0) g/dl Hct (34.1-44.9) % MCV (80.0-100.0) fL MCH (25.0-34.0) pg MCHC (32.0-36.0) g/dL RDW Std Deviation (36.4-46.3) fL RDW Coeff of Edilma (11.5-14.5) % Plt Count (130-400) K/uL MPV (9.4-12.3) fL Immature Gran % (Auto) % Neut % (Auto) % Lymph % (Auto) % [place] % (Auto) % Eos % (Auto) % Baso % (Auto) % Neut # (Auto) (1.4-6.5) K/uL Lymph # (Auto) (1.2-3.4) K/uL [place] # (Auto) (0.24-0.82) K/uL Eos # (Auto) (0-0.50) K/uL Baso # (Auto) (0-0.2) K/uL Immature Gran # (Auto) (0.00-0.02) K/uL PT 47.8 H (9.0-12.0) Seconds INR 4.9 H (0.9-1.1) VBG pH (7.36-7.41) VBG pCO2 (38-50) mmHg VBG pO2 mmHg VBG HCO3 mmol/L VBG O2 Saturation % VBG Base Excess mEq/L Sodium 139 (136-145) mmol/L Potassium 3.6 (3.5-5.1) mmol/L Chloride 109 H (98-107) mmol/L Carbon Dioxide 21 (21-32) mmol/L Anion Gap 9 (3-11) BUN 18 (6-23) mg/dl Creatinine 1.28 H (0.6-1.2) mg/dl Est Cr Clr Drug Dosing Not Reportable Est GFR ( Amer) 47.4 ml/min Est GFR (Non-Af Amer) 40.9 ml/min BUN/Creatinine Ratio 14.1 (10-20) Glucose 143 H (70-99(Fasting)) mg/dl Calcium 9.1 (8.5-10.1) mg/dl Total Bilirubin 0.6 (0.2-1.0) mg/dl AST 12 L (13-39) U/L ALT 11 (7-52) U/L Alkaline Phosphatase 61 (34-104) U/L Troponin I High Sens 6.9 (0-14) pg/ml B-Natriuretic Peptide (0-100) pg/ml Total Protein 5.9 L (6.0-8.3) gm/dl Albumin 3.8 (3.4-5.0) gm/dl Globulin 2.1 L (2.5-4.0) gm/dl Albumin/Globulin Ratio 1.8 (0.9-2) SARS-CoV-2 (PCR) NEGATIVE (Negative) Influenza Type A (PCR) Negative (Neg) Influenza Type B (PCR) Negative (Neg) RSV (RT-PCR) Negative (Neg) Administered Medications Discontinued Medications Albuterol (Albut/Ipratrop 3mg/0.5mg Neb 3 Ml Vial) 3 ml INH NOW STA Stop: 10/25/22 23:30 Last Admin: 10/25/22 23:59 Dose: 3 ml Documented By: EMB Discharge Plan Visit Data Chief Complaint: Shortness of Breath/Dyspnea ED Provider: Jamey Sutton Discharge Problem: Acute dyspnea Forms Stand Alone Forms: My [facility] Prescriptions Prescriptions: No Action metformin 500 mg tablet 500 mg PO BIDM levothyroxine 50 mcg tablet 50 mcg PO QAM warfarin 5 mg tablet 2.5 mg PO WK Rx Instructions: 2.5 MG ON TUE warfarin 5 mg tablet 5 mg PO 6XWK Rx Instructions: Tuesday, Tuesday, Tuesday, Tuesday, , Sat omeprazole 20 mg capsule,delayed release(DR/EC) 20 mg PO QAM insulin glargine [Lantus Solostar U-100 Insulin] 100 unit/mL (3 mL) insulin pen 24 - 26 unit subcut HS Label Comments: WILL ADJUST DOSE BASED ON BSG acetaminophen [Tylenol Extra Strength] 500 mg Tablet 500 mg PO UD PRN (Reason: Pain) ondansetron HCl 8 mg tablet 8 mg PO Q8 PRN (Reason: Nausea) prochlorperazine maleate 10 mg tablet 10 mg PO Q6 PRN (Reason: Nausea) lidocaine-prilocaine 2.5-2.5 % cream 1 applic topical DIRECTED Rx Instructions: apply to skin over mediport & cover 1 hour prior to accessing dexamethasone 4 mg tablet 4 mg PO DIRECTED Rx Instructions: take 2 tablets twice a day,starting on the previous day of the the treatment for a total 3 dayas and repeat with each chemo cycle. PT TAKING 2 TABLETS A DAY polyethylene glycol 3350 [Miralax] 17 gram/dose Powder 17 g PO DAILY PRN (Reason: Constipation) albuterol sulfate 90 mcg/actuation HFA aerosol inhaler 2 puff INHALATION Q4 PRN (Reason: Wheezing) amoxicillin-pot clavulanate 875-125 mg tablet 1 tab PO BID Rx Instructions: take for 10 days ordered 10/13/22 end 10/23/22 losartan 25 mg tablet 25 mg PO QAM [place]-3 Fish Oil 300-1,000 mg Capsule 1 cap PO DAILY loratadine 10 mg Tablet 10 mg PO DAILY carvedilol 3.125 mg Tablet 3.125 mg PO BID Qty: 60 1RF Entresto 24-26 mg Tablet 1 tab PO BID Qty: 60 1RF furosemide 20 mg Tablet 20 mg PO QAM Qty: 30 1RF spironolactone 25 mg tablet 12.5 mg PO QAM Qty: 30 0RF amiodarone 100 mg tablet 200 mg PO QAM Qty: 60 0RF Referrals Referrals: Irwin Lott MD [Primary Care Provider] -
[2022-10-26 00:08] LABS: Base Excess VBG -1.5 mEq/L; HCO3 VBG 23 mmol/L; Oxygen Saturation VBG < 60.0 %; PCO2 VBG 37 mmHg (38-50); PO2 VBG 34 mmHg
[2022-10-26 00:12] LABS: Basophils # (auto) 0.05 K/uL (0-0.2); Basophils % (auto) 0.8 %; Eosinophils # (auto) 0.13 K/uL (0-0.50); Hematocrit (blood only) 28.1 % (34.1-44.9); Hemoglobin 8.8 g/dl (12.0-16.0); Immature Granulocytes # (auto) 0.01 K/uL (0.00-0.02); Immature Granulocytes % (auto) 0.2 %; Lymphocytes # (auto) 0.53 K/uL (1.2-3.4); Lymphocytes % (auto) 8.2 %; Mean Corpuscular Hemoglobin 26.9 pg (25.0-34.0); Mean Corpuscular Hgb Conc 31.3 g/dL (32.0-36.0); Mean Corpuscular Volume 85.9 fL (80.0-100.0); Mean Platelet Volume 10.4 fL (9.4-12.3); Monocytes # (auto) 0.64 K/uL (0.24-0.82); Neutrophils # (auto) 5.07 K/uL (1.4-6.5); Neutrophils % (auto) 78.8 %; Platelet Count 287 K/uL (130-400); RDW Coefficient of Variation 16.2 % (11.5-14.5); Red Blood Count 3.27 M/uL (3.93-5.22); White Blood Count 6.43 K/ul (4.8-10.8)
[2022-10-26 00:31] LABS: INR 4.9 (0.9-1.1); Prothrombin Time 47.8 Seconds (9.0-12.0)
[2022-10-26 00:32] LABS: Alanine Aminotransferase 11 U/L (7-52); Albumin Globulin Ratio 1.8 (0.9-2); Albumin Level 3.8 gm/dl (3.4-5.0); Alkaline Phosphatase 61 U/L (34-104); Anion Gap 9 (3-11); Aspartate Aminotransferase 12 U/L (13-39); BUN Creatinine Ratio 14.1 (10-20); Bilirubin,Total 0.6 mg/dl (0.2-1.0); Blood Urea Nitrogen 18 mg/dl (6-23); Calcium 9.1 mg/dl (8.5-10.1); Carbon Dioxide 21 mmol/L (21-32); Chloride 109 mmol/L (98-107); Est GFR (African American) 47.4 ml/min; Est GFR (Non-African American) 40.9 ml/min; Globulin 2.1 gm/dl (2.5-4.0); Glucose 143 mg/dl (70-99(Fasting)); Potassium 3.6 mmol/L (3.5-5.1); Sodium 139 mmol/L (136-145); Total Protein 5.9 gm/dl (6.0-8.3)
[2022-10-26 00:35] LABS: Troponin I High Sensitivity 6.9 pg/ml (0-14)
[2022-10-26 01:27] LABS: Influenza A virus by PCR Negative (Neg); Influenza B virus by PCR Negative (Neg); RSV by PCR Negative (Neg); SARS CoV2 RNA(COVID-19) Ceph NEGATIVE (Negative)
[2022-10-26] MEDS ORDERED: FUROSEMIDE INJ 20 MG/2 ML VIAL IV ONE (01:50)
[2022-10-26] MEDS ORDERED: POLYETHYLENE (MIRALAX) 17 GM PACK PO PRN (04:55)
[2022-10-26] MEDS ORDERED: ACETAMINOPHEN 325 MG TAB PO PRN (04:55)
[2022-10-26] MEDS ORDERED: LIDOCAINE/PRILOCAINE 2.5% EA CRM EXT PRN (04:55)
[2022-10-26] MEDS ORDERED: ALBUTEROL HFA 8 GM INHALER INH PRN (04:55)
[2022-10-26] MEDS ORDERED: NITROGLYCERIN SL 0.4 MG/TAB TAB SL PRN (04:55)
--- NOTE | 2022-10-26 05:07 | History and Physical Report ---
DATE OF ADMISSION: 10/26/2022. CHIEF COMPLAINT: Shortness of breath. HISTORY OF PRESENT ILLNESS: This is a 77-year-old female with past medical history significant for type 2 diabetes, hypothyroidism, idiopathic cardiomyopathy, status post ICD, recent echo on 10/15/2022 showed an EF of 30% and zswpfyly-vu-brsxjx mitral regurgitation, history of paroxysmal atrial fibrillation, on Coumadin and on amiodarone, history of hypertension, chronic kidney disease stage III, history of primary renal papillary carcinoma, status post left nephrectomy, history of invasive ductal carcinoma of left breast diagnosed in July 2022, triple negative breast cancer, status post lumpectomy. Had three cycles of chemotherapy, could not tolerate it, last dose was in end of August. As per the patient, currently chemo is stopped and plan for radiation therapy. History of hypothyroidism, intermittent asthma, GERD, history of COVID last year, presents with shortness of breath. The patient was recently in the hospital. He was in the hospital from 10/15/2022 to 10/18/2022 with focli-fx-tamhipu systolic CHF, was treated with IV Lasix and discharged on Lasix 20 mg daily and spironolactone 12.5 mg p.o. daily, metoprolol changed to Coreg 3.125 mg daily, and also started on Entresto. The patient says that she was also on losartan dose, decreased to 25 mg daily, and amiodarone was increased to 200 mg daily and the patient says she was not getting better. She also was on antibiotics for bronchitis, she was discharged on Augmentin 10-day course, completed on 10/24/2022. The patient says before that, she was on doxycycline, but she is still having a lot of cough, not able to bring phlegm, before she used bring greenish phlegm, now she thinks she is phlegm inside but is not coming out. When she is resting, she is okay, but minimal exertion is making her heart rate to go to 120s and feeling huffing and puffing and could not do anything. Says she is not doing much activity because of these ongoing symptoms. She says the chemo has upset her body and if the heart rates and shortness of breath are controlled, then she can do some activity. She has some chest discomfort when the heart rate goes into 120, otherwise there is no chest pain. Currently, no nausea or vomiting. Appetite is very down. No difficulty swallowing. Has some abdominal pain from coughing. Once in a while, she gets diarrhea and she uses Imodium. She says she is not micturating much since the Lasix dose was decreased to 20 mg. Has some swelling in the legs. Denies any headache. No blurred visions, somewhat hard of hearing, no runny nose, no sore throat. Afebrile. Resting comfortably and able to give her history and daughter is in the room. Daughter lives across the street. The patient lives alone at home. At home, she does not use any support for ambulation, but when she goes out she uses a cane. ALLERGIES: STATINS, KETOROLAC, SULFA ANTIBIOTICS, TRAMADOL, HYDROCODONE. PAST MEDICAL HISTORY: As mentioned above. PAST SURGICAL HISTORY: Breast biopsy, colonoscopy, excision of the breast lesion, excision of lipoma, excision of basal cell carcinoma, pacemaker placement, biventricular upgrade, left knee arthroscopy, left partial mastectomy, cervical fusion surgery, partial hysterectomy, left partial nephrectomy, bilateral cataract surgery, cholecystectomy, tonsillectomy, adenoidectomy, sentinel lymph node identification. MEDICATIONS: The patient is on Tylenol Extra Strength 500 mg p.r.n., albuterol 2 puffs inhalation q. 4 hours p.r.n., amiodarone 200 mg p.o. a.m., Coreg 3.125 mg p.o. b.i.d., Lasix 20 mg p.o. daily, Lantus 24- 26 units at bedtime, levothyroxine 50 mcg p.o. daily, lidocaine patch topical p.r.n., loratadine 10 mg p.o. daily, losartan 25 mg p.o. daily, metformin 500 mg p.o. b.i.d., fish oil 1 capsule p.o. daily, omeprazole 20 mg p.o. daily, MiraLax 17 g p.o. daily p.r.n., prochlorperazine 10 mg p.o. q. 6 hours p.r.n., Entresto 24/26 one tablet p.o. b.i.d., spironolactone 12.5 mg p.o. daily, Coumadin 2.5 mg p.o. once weekly on 5 mg p.o. 6 times a week. FAMILY HISTORY: Significant for brother had cancer; mother had colon cancer; sister has non-Hodgkin lymphoma; one brother from COVID; father had stroke. SOCIAL HISTORY: Currently . Quit smoking in 1965, smoked quarter pack a day for 2 years. No alcohol use. No drug use. REVIEW OF SYSTEMS: As per HPI. Rest of review of systems is negative. PHYSICAL EXAMINATION: GENERAL: The patient is of moderate build, not in acute distress. VITAL SIGNS: Temperature 36.7, pulse 85, respiratory rate 19, blood pressure 120/69, oxygen 96% on room air. HEENT: Pupils equal, round and reactive to light. Oral mucosa moist. NECK: No JVD or neck masses. CARDIOVASCULAR: S1 and S2 heard. Irregular rhythm. No obvious murmur. RESPIRATORY SYSTEM: Normal AP diameter. No accessory muscle use. Bilateral mild wheezing heard. No bibasilar crackles. ABDOMEN: Soft, bowel sounds present, nontender, no distention. CENTRAL NERVOUS SYSTEM: Cranial nerves II through XII grossly intact, nonfocal. EXTREMITIES: Bilateral pedal edema present, no erythema seen. LABORATORY DATA: WBC 6.4, hemoglobin 8.8, hematocrit 28.1, platelets 287. PT 47.8, INR 4.9. Venous pH of 7.4. Sodium 139, potassium 3.6, chloride 109, bicarbonate 21, BUN 18, creatinine 1.2, serum glucose 143, calcium 9.1, total bilirubin 0.6, AST 12, ALT 11, alkaline phosphatase 61. Troponin I high sensitivity 6.9. BNP 233. SARS-CoV-2 PCR negative. Influenza A and B PCR negative. RSV PCR negative. IMAGING DATA: Chest x-ray, possible mild pulmonary congestion. EKG: Atrial fibrillation with rapid ventricular response at a rate of 104, left axis deviation, left bundle-branch block, prolonged QTc. ASSESSMENT AND PLAN: This is a 77-year-old female who presents with shortness of breath with exertion and palpitations. 1. Shortness of breath with exertion: Most likely abufg-vd-tmlfqal systolic congestive heart failure. Recent echo on 10/15/2022 showed EF of 30% and atfozxkg-op-xhkotz mitral regurgitation. Received IV Lasix 20 in the ER, will continue with IV Lasix 40 daily. Continue her home spironolactone. Daily weights, I's and O's. Consult cardiology. Recently, her medications were adjusted. Currently on Entresto, spironolactone, Lasix 20 mg which will be held, and losartan, and Coreg. Further adjustment of medication as per Cardiology. Closely monitor. 2. Rapid atrial fibrillation: Currently, when resting heart rate is okay, but with minimal exertion, heart rate is going up. Last admission, amiodarone was increased to 200 mg, and on Coreg and Coumadin. INR is supratherapeutic at 4.9. Adjustment of medications as per cardiology. 3. Ongoing cough: Just completed a 10-day course of Augmentin for bronchitis and also prior to that, she had a course of doxycycline. Will get a CT of chest to get a better picture for any underlying pneumonia. Viral studies for COVID, influenza A and B, and RSV are negative. 4. Chronic kidney disease stage III: Baseline creatinine of around 1.3, presently creatinine of 1.2. Will follow the labs while the patient is getting IV Lasix. 5. Diabetes: Continue her home Lantus. Insulin sliding scale. Follow the blood sugars. 6. Supratherapeutic INR: INR is 4.9. Holding Coumadin. Follow the PT/INR. 7. History of breast cancer, left breast invasive ductal carcinoma, triple negative, status post lumpectomy: Was started on chemotherapy with Taxotere and cyclophosphamide. Last treatment was on 09/23/2022. She says she had three cycles of chemo, but could not tolerate it. Currently, chemo is stopped and plan for radiation treatment. Follow up with hem/onc. 8. Anemia of chronic disease: Due to malignancy and chemotherapy. Will monitor CBC. Seems to be around baseline. 9.Prolonged Qt .To avoid qt prolonging drugs. Will follow repeat ekg. 10. Deep venous thrombosis prophylaxis: On Coumadin. INR is supratherapeutic. CODE STATUS: Full code. DISPOSITION: Closely monitor in the tele floor, PT/OT prior to discharge. Social service to help with discharge planning. Expect to discharge home and follow with her family doctor and cardiology and heme/onco. Job ID: [id number] [facility]ITAL[facility]isa
[2022-10-26] MEDS: LEVOTHYROXINE SODIUM 50 MCG TABLET PO SCH (05:40)
[2022-10-26 06:57] LABS: Basophils # (auto) 0.03 K/uL (0-0.2); Basophils % (auto) 0.6 %; Eosinophils # (auto) 0.12 K/uL (0-0.50); Eosinophils % (auto) 2.6 %; Hematocrit (blood only) 27.8 % (34.1-44.9); Hemoglobin 8.6 g/dl (12.0-16.0); Immature Granulocytes # (auto) 0.01 K/uL (0.00-0.02); Immature Granulocytes % (auto) 0.2 %; Lymphocytes # (auto) 0.54 K/uL (1.2-3.4); Lymphocytes % (auto) 11.6 %; Mean Corpuscular Hemoglobin 27.2 pg (25.0-34.0); Mean Corpuscular Hgb Conc 30.9 g/dL (32.0-36.0); Mean Platelet Volume 9.9 fL (9.4-12.3); Monocytes # (auto) 0.64 K/uL (0.24-0.82); Monocytes % (auto) 13.7 %; Neutrophils # (auto) 3.32 K/uL (1.4-6.5); Neutrophils % (auto) 71.3 %; Platelet Count 237 K/uL (130-400); RDW Coefficient of Variation 16.2 % (11.5-14.5); RDW Standard Deviation 52.4 fL (36.4-46.3); Red Blood Count 3.16 M/uL (3.93-5.22); White Blood Count 4.66 K/ul (4.8-10.8)
--- NOTE | 2022-10-26 07:06 | CT Scan Report ---
CT SCAN OF THE CHEST WITHOUT IV CONTRAST CLINICAL HISTORY: Cough. COMPARISON STUDY: Chest x-ray dated 10/25/2022. Chest CT dated 02/05/2015. TECHNIQUE: CT scan of the thorax was performed from the thoracic inlet to the upper abdomen. Images are reviewed in the axial, sagittal, and coronal planes. IV contrast was not administered for this ex amination as per the referring clinician. A dose lowering technique was utilized adhering to the natacha nciples of ALARA. CT DOSE: 361.85 mGy.cm FINDINGS: Thyroid: Imaged portions of the thyroid gland are normal in size and attenuation. Thoracic aorta: The thoracic aorta is normal in caliber and demonstrates standard 3-vessel arch anato my. Heart: A right subclavian central venous infusion port is in place. A cardiac pacemaker is present in the left chest wall. The heart is enlarged noting trace pericardial effusion. The coronary arteries are densely calcified. Lungs and pleural spaces: There are ktyth-rx-ontbottt pleural effusions, right larger than left with dependent consolidation. The trachea and central airways are clear. Intralobular septal thickening is noted throughout both lungs. There are faint groundglass opacities scattered throughout both lungs. Mediastinum: There is no mediastinal lymphadenopathy. Tatiana: Not well assessed without IV contrast. Axillae: There is no axillary lymphadenopathy. Upper abdomen: Cholecystectomy clips are noted. There are at least 3 hepatic mass lesions which measu re up to 5 cm. These are unchanged from 2015 and showed typical enhancement for hemangioma on the natacha or examination. Skeletal structures: The skeletal structures are osteopenic. No lytic or blastic bony lesions are see n. Degenerative change is noted in the thoracic spine. Soft tissues: Postsurgical changes noted in the left breast. IMPRESSION: 1. Cardiomegaly and cardiac pacemaker without evidence of congestive failure. 2. Bilateral groundglass opacities likely represent mild pulmonary edema. Correlate clinically for th e presence of a superimposed infectious/inflammatory pneumonitis. Radiographic follow-up to resolutio n is recommended. 3. Small to moderate pleural effusions with dependent consolidation. 4. Additional findings as above. ACT 112: Negative or not required by law. Electronically signed by: Gilberto Wheeler M.D. 10/26/2022 7:04 AM
[2022-10-26 07:23] LABS: Anion Gap 7 (3-11); Blood Urea Nitrogen 17 mg/dl (6-23); Calcium 8.9 mg/dl (8.5-10.1); Carbon Dioxide 24 mmol/L (21-32); Chloride 110 mmol/L (98-107); Est GFR (Non-African American) 39.7 ml/min; Glucose 76 mg/dl (70-99(Fasting)); Magnesium 1.6 mg/dl (1.7-2.4); Potassium 3.4 mmol/L (3.5-5.1); Sodium 141 mmol/L (136-145)
[2022-10-26 07:28] LABS: Troponin I High Sensitivity 6.4 pg/ml (0-14)
[2022-10-26 07:42] LABS: INR 4.8 (0.9-1.1); Prothrombin Time 46.5 Seconds (9.0-12.0)
[2022-10-26] MEDS: INSULIN ASPART PER UNIT SC SCH ×4 (07:50→20:39)
[2022-10-26] MEDS: LORATADINE 10 MG TAB PO SCH (08:20)
[2022-10-26] MEDS: AMIODARONE 200 MG TAB PO SCH (08:20)
[2022-10-26] MEDS: VALSARTAN/SACUBITRIL 26/24MG TAB PO SCH ×2 (08:20→20:43)
[2022-10-26] MEDS: SPIRONOLACTONE 12.5 MG TAB PO SCH (08:20)
[2022-10-26] MEDS: PANTOprazole 40 MG TAB PO SCH (08:20)
--- NOTE | 2022-10-26 08:36 | XRay Report ---
SINGLE VIEW CHEST CLINICAL HISTORY: Dyspnea. FINDINGS: An AP, portable, upright chest radiograph is compared to study dated 10/15/2022 and correla allen with chest CT dated 02/05/2015. A single lead cardiac GI series the is unchanged in position and p artially obscures the left lower chest. A right subclavian central venous infusion port is in place. The heart is enlarged with atherosclerotic calcification of the thoracic aorta. There is pulmonary va scular congestion. Bilateral airspace opacities likely represent pulmonary edema. There are layering pleural effusions with bibasilar consolidation. No pneumothorax is seen. The skeletal structures are osteopenic. The bony thorax is grossly intact. IMPRESSION: 1. Cardiomegaly and AICD without evidence of congestive failure. 2. Bilateral airspace opacities likely represent pulmonary edema. Clinical correlation will be requir ed. 3. Layering pleural effusions with dependent consolidation. ACT 112: Negative or not required by law. Electronically signed by: Gilberto Wheeler M.D. 10/26/2022 8:34 AM
[2022-10-26] MEDS ORDERED: FUROSEMIDE 40 MG/4 ML VIAL IV SCH ×2 (09:00→17:00)
[2022-10-26] MEDS ORDERED: carvediloL 3.125 MG TAB PO SCH (09:00)
[2022-10-26] MEDS ORDERED: LOSARTAN POTASSIUM 25 MG TAB PO SCH (09:00)
--- NOTE | 2022-10-26 09:07 | Cardiology Consultation ---
Date of Consultation October 26, 2022 Assessment & Plan (1) HFrEF (heart failure with reduced ejection fraction): (2) Nonischemic congestive cardiomyopathy: (3) Persistent atrial fibrillation: (4) Anemia: (5) Breast cancer: Plan Medically complex 77 year old female with NICM. Recent admission due to acute on chronic CHF. Multiple med changes that admission- patient represented due to worsening shortness of breath, leg edema, and cough. Tachycardiac rates- AFIB/flutter with rates in the upper 90s and tachy-palpitations. NYHA class 3. -Volume status improving, CXR with pulmonary edema. Increase Lasix to 40 mg IV BID for further diuresis. -Trend BMP, replace electrolytes as necessary for a potassium goal of 4.0 and mag goal of 2.0. Supplementation given this am. -Tachycardiac rates with palpitations, Afib/flutter- stop Coreg, this will give more room for BP. Start metoprolol tartrate 25 mg TID with hold parameters. -Continue Amiodarone 200 mg daily. -Coumadin held due to supratherapeutic INR. Will consider transitioning to Eliquis once INR is within range. -Can consider possible cardioversion once patient is clinically stable from a heart failure standpoint. -Continue GDMT with Entresto and Aldactone -Anemia likely secondary to chronic illness/ breast cancer/chemo- will defer to primary team for monitoring. Ideally hgb of >10 recommended given HFrEF. Case discussed with Dr. Fitzgerald. We will follow. Supervising Physician Co-Signing Physician Notes Patient seen examined the bedside. Reports progressive dyspnea on exertion and palpitations prompting presentation to the ER. Mild improvement with IV diuresis. Telemetry reveals borderline rate controlled atrial fibrillation. Chronically treated with carvedilol and amiodarone. PE: VSS, Gen: NAD, AAOx3. Heart: Irregular rhythm: Normal S1-S2. No murmur. Lungs: Crackles at the bases bilateral. No wheeze. Extremities: Trace bilateral pedal edema. A/P: Agree with above CV TECH history, physical exam, assessment and plan. Transition carvedilol to metoprolol to improve rate control particularly with activity/exertion. Also recommend continuing amiodarone with plans for external direct-current cardioversion after patient is adequately anticoagulated for 4 weeks. Labile INR is noted. Transition to Eliquis when INR is below 2.0. Continue IV diuretic therapy. Follow daily weight, fluid balance, electrolytes, and GFR. History of Present Illness Reason for Consultation: Acute on chronic systolic CHF Requesting Physician: Jaime hospitalist Attending Physician: Jerrell Randolph MD History of Present Illness Medically complex 77-year-old female who presented to the [facility] emergency department due to shortness of breath and tachy-palpitations. Patient was recently admitted from 10/15-10/18 with acute on chronic systolic CHF and was treated with IV Lasix, discharged home on Lasix 20 mg daily with spironolactone. Metoprolol was transitioned to carvedilol and she was also started on Entresto. Amiodarone was increased to 200 mg daily. Completed a course of Augmentin for bronchitis on 10/24. In the emergency department patient was given 20 mg of IV Lasix. Currently on 40 mg of IV Lasix daily plus spironolactone. Heart rates were elevated, patient in rapid A. fib. Patient symptomatic with tachy-palpitations with higher heart rates. INR supratherapeutic at 4.9, Coumadin held. Respiratory panel negative. Patient has known chronic anemia secondary to malignancy and chemotherapy. She has a history of breast cancer, left breast invasive ductal carcinoma, triple negative, status post lumpectomy. Was started on chemotherapy with Taxotere and cyclophosphamide. Last treatment was on 09/23/2022. Labs: Renal function stable, creatinine 1.3. Mild hypokalemia 3.4. Magnesium low at 1.6. BNP elevated to 233. Chest x-ray 10/25: Bilateral air space opacities likely represent pulmonary edema, layering pleural effusions with dependent consolidation. CT of the chest 10/26: Bilateral ground-glass opacities, mild pulmonary edema. Small to moderate pleural effusions with dependent consolidation. Patient seen and examined at bedside. Chart telemetry reviewed. Telemetry: Afib/flutter 70-90s I&O: -180 mL Weight: 92.6 >>89.9 kg Upon entrance into the room patient resting in bed. Very fatigue and shortness of breath with minimal activity. Notes depression due to inability to perform ADLS without getting tachy-palpitations and worsening shortness of breath. Upon admission legs were very swollen- patient believes they are significantly improved this morning. Ongoing wheezing productive cough x2 weeks. Unable to take a deep breath without coughing. PAST MEDICAL HISTORY: Nonischemic idiopathic cardiomyopathy with ejection fraction 20% when initially diagnosed in 1986, NYHA Class III CHF Status post single-chamber [employer] ICD implantation with generator exchange last on April 02, 2015 Cardiac catheterizations in 1986 and again on April 27, 2006 with angiographically normal coronary arteries. 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 Stage III chronic kidney disease Recent diagnosis of left breast invasive ductal carcinoma, triple negative, status postlumpectomy, initiation of chemotherapy in July 2022 Status post A port placement Type 2 diabetes mellitus Hypertension Dyslipidemia Hypothyroidism Asthma COVID in October 2021 GERD Osteoarthritis Degenerative joint disease Status post cervical spine fusion Allergies Allergy/AdvReac Type Severity Reaction Status Date / Time [id number] Reductase Allergy Intermediate Muscle Pain Verified 08/19/22 02:14 Inhibitor [Vyqzvoj-Mor-Usf Reductase Inhibitor] ketorolac Allergy Mild RASH Verified 08/19/22 02:14 Sulfa (Sulfonamide Allergy Unknown HIVES Verified 08/19/22 02:14 Antibiotics) tramadol AdvReac Intermediate VERY SICK Verified 08/19/22 02:14 TO STOMACH hydrocodone AdvReac Mild NAUSEA AND Verified 08/19/22 02:14 VOMITING Home Medications Medication Instructions Recorded Confirmed Type acetaminophen 500 mg tablet 500 mg PO UD PRN Pain 05/15/19 10/15/22 History (Tylenol Extra Strength) insulin glargine 100 unit/mL (3 24 - 26 unit subcut HS 05/15/19 10/15/22 History mL) subcutaneous pen (Lantus Solostar U-100 Insulin) levothyroxine 50 mcg tablet 50 mcg PO QAM 05/15/19 10/15/22 History metformin 500 mg tablet 500 mg PO BIDM 05/15/19 10/15/22 History omeprazole 20 mg capsule,delayed 20 mg PO QAM 05/15/19 10/15/22 History release warfarin 5 mg tablet 2.5 mg PO WK 05/15/19 10/15/22 History warfarin 5 mg tablet 5 mg PO 6XWK 05/15/19 10/15/22 History polyethylene glycol 3350 17 17 g PO DAILY PRN Constipation 08/27/21 10/15/22 H istory gram/dose oral powder (Miralax) dexamethasone 4 mg tablet 4 mg PO DIRECTED 08/19/22 10/15/22 History lidocaine-prilocaine 2.5 %-2.5 % 1 applic topical DIRECTED 08/19/22 10/15/22 History topical cream ondansetron HCl 8 mg tablet 8 mg PO Q8 PRN Nausea 08/19/22 10/15/22 History prochlorperazine maleate 10 mg 10 mg PO Q6 PRN Nausea 08/19/22 10/15/22 History tablet albuterol sulfate 90 mcg/actuation 2 puff inhalation Q4 PRN Wheezing 10/15/22 10/15/22 History aerosol inhaler amoxicillin 875 mg-potassium 1 tab PO BID 10/15/22 10/15/22 History clavulanate 125 mg tablet loratadine 10 mg tablet 10 mg PO DAILY 10/15/22 10/15/22 History losartan 25 mg tablet 25 mg PO QAM 10/15/22 10/15/22 History omega-3s 300 qs-ios-lwu-other 1 cap PO DAILY 10/15/22 10/15/22 History [id number] oil 1,000 mg capsule ([place]-3 Fish Oil) amiodarone 100 mg tablet 200 mg PO QAM #60 tabs 10/18/22 Rx carvedilol 3.125 mg tablet 3.125 mg PO BID #60 tabs 10/18/22 Rx furosemide 20 mg tablet 20 mg PO QAM #30 tabs 10/18/22 Rx sacubitril 24 mg-valsartan 26 mg 1 tab PO BID #60 tabs 10/18/22 Rx tablet (Entresto) spironolactone 25 mg tablet 12.5 mg PO QAM #30 tabs 10/18/22 10/15/22 Rx Patient History Medical History Anemia Breast cancer left breast invasive ductal carcinoma, s/p lumpectomy Chronic systolic heart failure CKD (chronic kidney disease), stage III Diabetes mellitus, type II Diabetic neuropathy GERD (gastroesophageal reflux disease) Hemorrhoids History of kidney cancer History of kidney stones History of skin cancer ON NOSE HTN (hypertension) Hx of blood clots IN HEART (TREATED WITH INCEASED BLOOD THINNERS) Hypothyroidism ICD (implantable cardioverter-defibrillator) in place Idiopathic cardiomyopathy Nocturnal hypoxia PT DENIES Nonischemic cardiomyopathy Paroxysmal atrial fibrillation Surgical History H/O breast biopsy H/O cervical spine surgery X 2 (GOOD ROM) H/O knee surgery LEFT H/O partial nephrectomy LEFT "CANCEROUS TUMOR REMOVED" H/O: hysterectomy History of anesthesia reaction N/V AND AGITATED WITH ANESTHESIA History of appendectomy History of bladder surgery History of cardiac cath X 4 (NO STENTS) History of cataract surgery RT/LEFT History of cholecystectomy History of colonoscopy History of cystoscopy History of esophagogastroduodenoscopy (EGD) History of partial nephrectomy Left, [facility] in 2018 History of tonsillectomy History of tooth extraction S/P ICD (internal cardiac defibrillator) procedure IMPLANTED PACEMAKER/DEFIB ? 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 Beliefs That Will Affect Care: None marital status: / Current Living Situation: Alone Feels Safe at Home: Yes Safety Concerns: Feels Safe At This Time Assistive Devices: Cane Review of Systems Review of Systems: All systems reviewed & are unremarkable except as noted in HPI & below Physical Exam Constitutional: WD/WN, vitals as above + ill appearing; no acute distress Neck: normal visual inspection and trachea midline Respiratory: normal respiratory effort and + cough; no respiratory distress Auscultation: + rales, + rhonchi and + wheezes Cardiovascular: Rate/Rhythm: + tachycardic and + irregularly irregular Heart Sounds: normal S1, normal S2 and + murmur (+systolic murmur) Vessels: no JVD Extremities: + pedal edema (trace ) Gastrointestinal (Abdomen): normal bowel sounds, soft, nontender, no hepatosplenomegaly Skin: no rashes, warm and dry Psychiatric: A+Ox3, euthymic affect Affect: + depressed affect Results & Data ([facility]) Vital Signs (Past 12 Hours) Vital Signs Temp Pulse Pulse Resp BP BP Pulse Ox 10/26/22 08:00 36.8 C 84 18 96/62 L 95 10/26/22 05:04 82 10/26/22 04:55 10/26/22 04:36 36.6 C 104 H 18 111/87 95 10/26/22 03:00 71 20 129/70 96 10/26/22 03:25 71 20 96 10/26/22 01:00 85 19 120/69 96 10/26/22 00:06 91 H 15 107/60 95 10/25/22 23:28 10/25/22 23:28 36.7 C 101 H 24 138/76 96 O2 Del Method 10/26/22 08:00 Room Air 10/26/22 05:04 10/26/22 04:55 Room Air 10/26/22 04:36 Room Air 10/26/22 03:00 Room Air 10/26/22 03:25 Room Air 10/26/22 01:00 10/26/22 00:06 Room Air 10/25/22 23:28 Room Air 10/25/22 23:28 Room Air Laboratory Results Cardiac Enzymes 10/25/22 10/25/22 10/26/22 Range/Units 23:55 23:56 06:44 AST 12 L (13-39) U/L Troponin I High Sens 6.9 6.4 (0-14) pg/ml B-Natriuretic Peptide 233 H (0-100) pg/ml Coagulation 10/25/22 10/25/22 10/26/22 Range/Units 23:55 23:56 06:44 PT 47.8 H 46.5 H (9.0-12.0) Seconds B-Natriuretic Peptide 233 H (0-100) pg/ml CBC 10/25/22 10/26/22 Range/Units 23:55 06:44 WBC 6.43 4.66 L (4.8-10.8) K/ul RBC 3.27 L 3.16 L (3.93-5.22) M/uL Hgb 8.8 L 8.6 L (12.0-16.0) g/dl Hct 28.1 L 27.8 L (34.1-44.9) % Plt Count 287 237 (130-400) K/uL Neut # (Auto) 5.07 3.32 (1.4-6.5) K/uL Lymph # (Auto) 0.53 L 0.54 L (1.2-3.4) K/uL [place] # (Auto) 0.64 0.64 (0.24-0.82) K/uL Eos # (Auto) 0.13 0.12 (0-0.50) K/uL Baso # (Auto) 0.05 0.03 (0-0.2) K/uL Comprehensive Metabolic Panel 10/25/22 10/26/22 Range/Units 23:56 06:44 Sodium 139 141 (136-145) mmol/L Potassium 3.6 3.4 L (3.5-5.1) mmol/L Chloride 109 H 110 H (98-107) mmol/L Carbon Dioxide 21 24 (21-32) mmol/L BUN 18 17 (6-23) mg/dl Creatinine 1.28 H 1.31 H (0.6-1.2) mg/dl Glucose 143 H 76 (70-99(Fasting)) mg/dl Calcium 9.1 8.9 (8.5-10.1) mg/dl AST 12 L (13-39) U/L ALT 11 (7-52) U/L Alkaline Phosphatase 61 (34-104) U/L Total Protein 5.9 L (6.0-8.3) gm/dl Albumin 3.8 (3.4-5.0) gm/dl Intake and Output 10/25/22 10/26/22 10/26/22 22:59 06:59 14:59 Intake Total 120 / 120 338 / 338 Output Total 300 / 300 1250 / 1250 Balance -180 / -180 -912 / -912 Intake: Oral 120 / 120 338 / 338 Output: Urine 300 / 300 1250 / 1250 Other: # Unmeasured Voids 1 Weight 89.9 kg Weight Measurement Method Standing Scale
[2022-10-26] MEDS ORDERED: MAGNESIUM OXIDE 400 MG TAB PO ONE (09:18)
[2022-10-26] MEDS ORDERED: POTASSIUM CHLORIDE CRTAB 20 MEQ TABCR PO STA (09:18)
--- NOTE | 2022-10-26 09:18 | Electrocardiogram Report ---
Test Reason : Blood Pressure : / mmHG Vent. Rate : 101 BPM Atrial Rate : 098 BPM P-R Int : 000 ms QRS Dur : 146 ms QT Int : 400 ms P-R-T Axes : 000 -79 066 degrees QTc Int : 518 ms Atrial fibrillation with rapid ventricular response Left axis deviation Non-specific intra-ventricular conduction block Possible Lateral infarct , age undetermined Inferior infarct , age undetermined Low voltage QRS Abnormal ECG When compared with ECG of 15-OCT-2022 13:22, Non-specific intra-ventricular conduction block has replaced Left bundle branch block Confirmed by Aaron Chaparro ([id number]) on 10/26/2022 9:18:12 AM Referred By: REFERRED SELF Confirmed By:Mateus Chaparro
[2022-10-26] MEDS ORDERED: GLUCAGON FOR INJ 1 MG VIAL IM PRN (12:00)
[2022-10-26] MEDS ORDERED: GLUCOSE 10 TAB/TUBE PO PRN (12:00)
[2022-10-26] MEDS ORDERED: CARBOHYDRATES FOR HYPOGLYCEMIA PO PRN (12:00)
[2022-10-26] MEDS ORDERED: DEXTROSE 50% 50 ML SYRINGE IV PRN (12:00)
[2022-10-26] MEDS ORDERED: GLUCOSE 40% GEL 15 GM TUBE PO PRN (12:00)
[2022-10-26] MEDS: SODIUM CHLOR 7% 4 ML NEB NEB SCH ×2 (12:13→18:03)
[2022-10-26] MEDS ORDERED: Nursing to Pharmacy Communication SCH (12:15)
[2022-10-26] MEDS: METOPROLOL TARTRATE 25 MG TAB PO SCH ×2 (13:13→20:43)
[2022-10-26] MEDS: guaiFENesin 200 MG TAB PO SCH ×3 (13:13→23:49)
[2022-10-26] MEDS ORDERED: LOPERAMIDE HCL 2 MG CAP PO PRN (13:24)
[2022-10-26] MEDS: FUROSEMIDE 40 MG/4 ML VIAL IV SCH (16:00)
[2022-10-26] MEDS ORDERED: LANTUS PER UNIT CHARGE SQ SCH (21:00)
--- NOTE | 2022-10-26 22:17 | Communication Note ---
Date of Service: October 26, 2022 Patient was seen and evaluated for follow-up of shortness of breath Lying in bed with no acute distress Patient said she does have shortness of breath with minimal exertion Denies any chest pain, palpitation, dizziness, and fever. Exam General- No acute distress Head- atraumatic Eyes- PERRL, EOMI, ENT- oropharynx clear Neck- supple, no JVD Lungs- +crackles Heart- irregular rhythm; no murmur Abdomen- normal bowel sounds, soft, nontender Extremities- no calf tenderness, +edema Neuro- alert, oriented x 3; PERRL, EOMI; no facial palsy; no dysarthria Skin- warm & dry A/P HFrEF (heart failure with reduced ejection fraction): Present admission with worsening shortness of breath CXR showed Cardiomegaly and AICD without evidence of congestive failure. Bilateral airspace opacities likely represent pulmonary edema. CT chest showed Bilateral groundglass opacities likely represent mild pulmonary edema. BNP elevated at 233 Received IV Lasix 20 mg IV x1 Cardiology on board recommend to continue Lasix 40 mg twice daily Continue monitor I&O Continue monitor BMP while on IV Lasix Paroxysmal A. fib rate control With amiodarone and beta-tammi Coumadin on hold due to elevated INR Continue monitor Supratherapeutic INR INR today 4.8 Coumadin on hold Continue monitor PT/INR Electrolyte imbalance Magnesium 1.6 today Mag replaced Continue monitor electrolyte DVT prophylaxis on Coumadin that is on hold due to elevate INR Code status Full code
[2022-10-27] MEDS: LEVOTHYROXINE SODIUM 50 MCG TABLET PO SCH (05:39)
[2022-10-27] MEDS: guaiFENesin 200 MG TAB PO SCH ×3 (05:39→17:15)
[2022-10-27 06:25] LABS: Hematocrit (blood only) 27.9 % (34.1-44.9); Hemoglobin 8.6 g/dl (12.0-16.0); Mean Corpuscular Hemoglobin 26.6 pg (25.0-34.0); Mean Corpuscular Hgb Conc 30.8 g/dL (32.0-36.0); Mean Corpuscular Volume 86.4 fL (80.0-100.0); Mean Platelet Volume 9.9 fL (9.4-12.3); Platelet Count 249 K/uL (130-400); RDW Coefficient of Variation 16.3 % (11.5-14.5); RDW Standard Deviation 51.5 fL (36.4-46.3); Red Blood Count 3.23 M/uL (3.93-5.22); White Blood Count 4.51 K/ul (4.8-10.8)
[2022-10-27] MEDS: SODIUM CHLOR 7% 4 ML NEB NEB SCH ×2 (07:07→19:19)
[2022-10-27 07:13] LABS: BUN Creatinine Ratio 15.4 (10-20); Calcium 8.7 mg/dl (8.5-10.1); Creatinine Clr Calc Pharmacy 48.4 ml/min; Est GFR (African American) 46.5 ml/min; Est GFR (Non-African American) 40.1 ml/min; Magnesium 1.7 mg/dl (1.7-2.4); Potassium 3.4 mmol/L (3.5-5.1)
[2022-10-27 07:15] LABS: INR 3.2 (0.9-1.1); Prothrombin Time 31.8 Seconds (9.0-12.0)
[2022-10-27] MEDS: INSULIN ASPART PER UNIT SC SCH ×4 (08:12→21:21)
[2022-10-27] MEDS: PANTOprazole 40 MG TAB PO SCH (09:03)
[2022-10-27] MEDS: LORATADINE 10 MG TAB PO SCH (09:03)
[2022-10-27] MEDS: AMIODARONE 200 MG TAB PO SCH (09:04)
[2022-10-27] MEDS: VALSARTAN/SACUBITRIL 26/24MG TAB PO SCH ×2 (09:04→21:23)
[2022-10-27] MEDS: SPIRONOLACTONE 12.5 MG TAB PO SCH (09:04)
[2022-10-27] MEDS: FUROSEMIDE 40 MG/4 ML VIAL IV SCH ×2 (09:09→17:15)
[2022-10-27] MEDS: METOPROLOL TARTRATE 25 MG TAB PO SCH ×3 (10:34→21:23)
[2022-10-27] MEDS: POTASSIUM CHLORIDE CRTAB 20 MEQ TABCR PO SCH (10:44)
--- NOTE | 2022-10-27 11:37 | Cardiology Progress Note ---
Date of Service October 27, 2022 Assessment & Plan (1) HFrEF (heart failure with reduced ejection fraction): (2) Nonischemic congestive cardiomyopathy: (3) Persistent atrial fibrillation: (4) Anemia: (5) Breast cancer: Plan Medically complex 77 year old female with NICM. Recent admission due to acute on chronic CHF and afib with elevated rates -Volume status improving, CXR with pulmonary edema. Continue lasix to 40 mg IV BID for further diuresis. -Replace potassium. Monitor BMP Afib/flutter, rates improving with transitioning to metoprolol. -Continue Amiodarone 200 mg daily. -Coumadin held due to supratherapeutic INR. Will consider transitioning to Eliquis once INR is <2. -Can consider possible cardioversion once patient is clinically stable from a heart failure standpoint. -Continue GDMT with Entresto and Aldactone -Anemia likely secondary to chronic illness/ breast cancer/chemo- will defer to primary team for monitoring. Ideally hgb of >10 recommended given HFrEF. Case discussed with Dr. Fitzgerald. We will follow. Admission and Anticipated Discharge Date Admission Date: October 26, 2022 Supervising Physician Co-Signing Physician Notes Patient seen examined the bedside. Clinically improved with IV diuresis. CKD stable this AM. Mild hypokalemia noted. INR remains supratherapeutic, 3.2. Heart rate borderline elevated, however, patient did not receive her a.m. dose of metoprolol due to parameters. Carvedilol discontinued in favor of metoprolol yesterday. Telemetry reveals rate controlled atrial fibrillation heart rate ranging from 60-80s. PE: VSS, Gen: NAD, AAOx3. Heart: Irregular rhythm: Normal S1-S2. No murmur. Lungs: Crackles at the bases bilateral. No wheeze. Extremities: Trace bilateral pedal edema. A/P: Agree with above AP history, physical exam, assessment and plan. Continue metoprolol, amiodarone, and IV diuresis. I will adjust metoprolol hold parameters as patient's systolic blood pressure often near or below 100 mmHg without associated symptoms. Transition to Eliquis when INR below 2.0. Subtherapeutic INR 10/18/22. Consider external direct-current cardioversion after 4 weeks of adequate anticoagulation. Continue IV diuretic therapy. Follow daily weight, fluid balance, electrolytes, and GFR. Subjective Patient resting in bed comfortably. reports her SOB has improved from admission but still very dyspneic with minimal exertion in room. worsening cough today with sputum production noted. Edema improved. Diuresing overnight with good outputs. No chest pain. Tolerating meds. Review of Systems Review of Systems: All systems reviewed & are unremarkable except as noted in HPI & below Physical Exam Constitutional: WD/WN, vitals as above no acute distress Neck: normal visual inspection and trachea midline Respiratory: normal respiratory effort and + cough; no respiratory distress Auscultation: + rales, + rhonchi and + wheezes Cardiovascular: Rate/Rhythm: + irregularly irregular Heart Sounds: normal S1, normal S2 and + murmur (+systolic murmur) Vessels: no JVD Gastrointestinal (Abdomen): normal bowel sounds, soft, nontender, no hepatosplenomegaly Skin: no rashes, warm and dry Psychiatric: A+Ox3, euthymic affect Affect: + depressed affect Results & Data ([facility]) Vital Signs (Past 12 Hours) Vital Signs Temp Pulse Resp BP Pulse Ox O2 Del Method 10/27/22 08:00 Room Air 10/27/22 08:00 36.9 C 77 16 93/58 L 97 Room Air 10/27/22 07:09 60 16 96 Room Air 10/27/22 03:21 36.7 C 62 18 97/56 L 95 Room Air 10/27/22 00:00 Room Air Laboratory Results Cardiac Enzymes 10/26/22 Range/Units 12:51 Troponin I High Sens 6.3 (0-14) pg/ml Coagulation 10/27/22 Range/Units 06:04 PT 31.8 H (9.0-12.0) Seconds CBC 10/27/22 Range/Units 06:04 WBC 4.51 L (4.8-10.8) K/ul RBC 3.23 L (3.93-5.22) M/uL Hgb 8.6 L (12.0-16.0) g/dl Hct 27.9 L (34.1-44.9) % Plt Count 249 (130-400) K/uL Comprehensive Metabolic Panel 10/27/22 Range/Units 06:04 Sodium 141 (136-145) mmol/L Potassium 3.4 L (3.5-5.1) mmol/L Chloride 109 H (98-107) mmol/L Carbon Dioxide 24 (21-32) mmol/L BUN 20 (6-23) mg/dl Creatinine 1.30 H (0.6-1.2) mg/dl Glucose 56 L (70-99(Fasting)) mg/dl Calcium 8.7 (8.5-10.1) mg/dl Intake and Output 10/26/22 10/27/22 10/27/22 22:59 06:59 14:59 Intake Total 336 / 914 Output Total 900 / 2850 250 / 2850 Balance -564 / -1936 -250 / -1936 Intake: Oral 336 / 914 Output: Urine 900 / 2850 250 / 2850 Other: Weight 95.2 kg Weight Measurement Method Built in [facility] Diagnostic Findings Telemetry reviewed - Afib, rates now controlled. Medications Administered Current Inpatient Medications Acetaminophen (Acetaminophen 325 Mg Tab) 650 mg PO Q4H PRN PRN Reason: Pain or Fever Stop: 11/25/22 04:54 Albuterol (Albuterol Hfa 8 Gm Inhaler) 2 puffs INH Q4 PRN PRN Reason: Wheezing Stop: 11/25/22 04:54 Amiodarone HCl (Amiodarone 200 Mg Tab) 200 mg PO QAM [facility] Stop: 11/25/22 08:59 Last Admin: 10/27/22 09:04 Dose: 200 mg Dextrose (Dextrose 50% 50 Ml Syringe) 25 - 50 ml IV UD PRN; Protocol PRN Reason: Hypoglycemia Protocol Stop: 11/25/22 11:59 Furosemide (Furosemide 40 Mg/4 Ml Vial) 40 mg IV BID@0900,1600 [facility] Stop: 11/25/22 15:59 Last Admin: 10/27/22 09:09 Dose: 40 mg Glucagon (Glucagon For Inj 1 Mg Vial) 1 mg IM UD PRN; Protocol PRN Reason: Hypoglycemia Protocol Stop: 11/25/22 11:59 Glucose (Glucose 40% Gel 15 Gm Tube) 15 - 30 gm PO UD PRN; Protocol PRN Reason: Hypoglycemia Protocol Stop: 11/25/22 11:59 Glucose (Glucose 10 Tab/Tube) 4 - 8 tab PO UD PRN; Protocol PRN Reason: Hypoglycemia Protocol Stop: 11/25/22 11:59 Guaifenesin (Guaifenesin 200 Mg Tab) 200 mg PO Q6H JULIA Stop: 11/25/22 11:59 Last Admin: 10/27/22 05:39 Dose: 200 mg Insulin Aspart (Insulin Aspart Per Unit) 0 units SC ACHS [facility] Stop: 11/25/22 07:29 Last Admin: 10/27/22 08:12 Dose: Not Given Insulin Glargine (Lantus Per Unit Charge) 24 units SQ HS [facility] Stop: 11/25/22 20:59 Last Admin: 10/26/22 20:40 Dose: 24 units Levothyroxine Sodium (Levothyroxine Sodium 50 Mcg Tablet) 50 mcg PO DAILYBB [facility] Stop: 11/25/22 06:29 Last Admin: 10/27/22 05:39 Dose: 50 mcg Lidocaine/Prilocaine (Lidocaine/Prilocaine 2.5% Ea Crm) 1 each EXT . DIRECTED PRN PRN Reason: for medi-port access Stop: 11/25/22 04:54 Loperamide HCl (Loperamide Hcl 2 Mg Cap) 2 mg PO Q6H PRN PRN Reason: other Stop: 11/25/22 13:23 Last Admin: 10/26/22 13:43 Dose: 2 mg Loratadine (Loratadine 10 Mg Tab) 10 mg PO DAILY [facility] Stop: 11/25/22 08:59 Last Admin: 10/27/22 09:03 Dose: 10 mg Metoprolol Tartrate (Metoprolol Tartrate 25 Mg Tab) 25 mg PO TID [facility] Stop: 11/25/22 13:59 Last Admin: 10/27/22 10:34 Dose: Not Given Miscellaneous (Carbohydrates For Hypoglycemia ) 15 - 30 gm PO UD PRN PRN Reason: Hypoglycemia Treatment Stop: 11/25/22 11:59 Nitroglycerin (Nitroglycerin Sl 0.4 Mg/Tab Tab) 0.4 mg SL Q5M PRN PRN Reason: Chest Pain Stop: 11/25/22 04:54 Pantoprazole Sodium (Pantoprazole 40 Mg Tab) 40 mg PO QAM [facility] Stop: 11/25/22 08:59 Last Admin: 10/27/22 09:03 Dose: 40 mg Polyethylene Glycol (Polyethylene (Miralax) 17 Gm Pack) 17 gm PO DAILY PRN PRN Reason: Constipation Stop: 11/25/22 04:54 Potassium Chloride (Potassium Chloride Crtab 20 Meq Tabcr) 20 meq PO QAM [facility] Stop: 11/26/22 10:14 Last Admin: 10/27/22 10:44 Dose: 20 meq Sacubitril/Valsartan (Valsartan/Sacubitril 26/24mg Tab) 1 tab PO BID [facility] Stop: 11/25/22 08:59 Last Admin: 10/27/22 09:04 Dose: 1 tab Sodium Chloride (Sodium Chlor 7% 4 Ml Neb) 4 ml NEB BIDR [facility] Stop: 11/25/22 11:39 Last Admin: 10/27/22 07:07 Dose: 4 ml Spironolactone (Spironolactone 12.5 Mg Tab) 12.5 mg PO QAM [facility] Stop: 11/25/22 08:59 Last Admin: 10/27/22 09:04 Dose: 12.5 mg
[2022-10-27] MEDS ORDERED: WARFARIN SOD 5 MG TAB PO ONE (16:36)
[2022-10-27 17:00] LABS: Appearance Urine Clear (Clear); Bacteria Urine Automated Negative (Negative); Bilirubin Urine Negative (Negative); Blood Urine Negative (Negative); Color Urine Yellow; Epithelial Cell Urine Auto >30 /lpf (0-5); Glucose Urine UA Negative (Negative); Ketones Urine Negative (Negative); Leukocyte Esterase Urine 2+ (Negative); Nitrite Urine Negative (Negative); Protein Urine Negative (Negative); RBC Urine Automated 0-4 /hpf (0-4); Urobilinogen Urine Negative (Negative)
--- NOTE | 2022-10-27 21:08 | Hospitalist Progress Note ---
Date of Service October 27, 2022 Assessment & Plan (1) HFrEF (heart failure with reduced ejection fraction): (2) Acute dyspnea: (3) Acute on chronic systolic CHF (congestive heart failure): Plan: Present admission with worsening shortness of breath CXR showedCardiomegaly and AICD without evidence of congestive failure. Bilateral airspace opacities likely represent pulmonary edema. CT chest showed Bilateral groundglass opacities likely represent mild pulmonary edema. BNP elevated at 233 Received IV Lasix 20 mg IV x1 Cardiology on board recommend to continue Lasix 40 mg twice daily Continue spironolactone and Entresto Continue monitor I&O Continue monitor BMP while on IV Lasix Clinically improved Paroxysmal A. fib Rate control with amiodarone and beta-tammi Coumadin on hold due to elevated INR Plan to transition to Eliquis when INR below 2, continue to hold coumadin Continue monitor Supratherapeutic INR INR today 3.2 today Today dose coumadin already given Plan to transition to Eliquis when INR below 2, continue to hold coumadin Continue monitor PT/INR Electrolyte imbalance Magnesium 1.7 today Potassium 3.4 K replaced Continue monitor electrolyte Abnormal UA UA positive for Leukocytes Urine cx pending Continue monitor Diabetes She has been having hypoglycemic episode Most recent Hba1c 7.9 on 08/19/22 Continue insulin sliding scale and lantus decreased to 18 units during hospital course Continue monitor BS DVT prophylaxis on Coumadin, INR 3.2 Code status Full code Admission and Anticipated Discharge Date Admission Date: October 26, 2022 Subjective Patient was seen and evaluated for follow-up of shortness of breath Lying in bed with no acute distress She said that she started to bring phlegm out She said that she slept good last night She feels a little better today and diuresis well Denies any chest pain, palpitation, dizziness, and fever. Review of Systems Review of Systems: All systems reviewed & are unremarkable except as noted in Subjective Physical Exam Physical Exam: General- No acute distress Head- atraumatic Eyes- PERRL, EOMI, ENT- oropharynx clear Neck- supple, no JVD Lungs- +coarse BS Heart- irregular rhythm; no murmur Abdomen- normal bowel sounds, soft, nontender Extremities- no calf tenderness, +edema Neuro- alert, oriented x 3; PERRL, EOMI; no facial palsy; no dysarthria Skin- warm & dry Results & Data Results & Data ([facility]) Vital Signs (Past 12 Hours) Vital Signs Temp Pulse Pulse Resp BP Pulse Ox O2 Del Method 10/27/22 19:44 36.9 C 76 20 114/72 95 Room Air 10/27/22 19:19 67 18 95 Room Air 10/27/22 17:00 36.6 C 69 18 101/59 L 96 Room Air 10/27/22 15:57 84 10/27/22 13:52 85 110/56 L 10/27/22 12:00 36.8 C 63 16 101/69 97 Room Air
[2022-10-27] MEDS: LANTUS PER UNIT CHARGE SQ SCH (21:22)
[2022-10-28] MEDS: guaiFENesin 200 MG TAB PO SCH ×5 (00:09→23:34)
[2022-10-28] MEDS: LEVOTHYROXINE SODIUM 50 MCG TABLET PO SCH (05:57)
[2022-10-28] MEDS: SODIUM CHLOR 7% 4 ML NEB NEB SCH (07:20)
[2022-10-28 07:51] LABS: Hematocrit (blood only) 28.8 % (34.1-44.9); Hemoglobin 8.9 g/dl (12.0-16.0); Mean Corpuscular Hemoglobin 26.9 pg (25.0-34.0); Mean Corpuscular Hgb Conc 30.9 g/dL (32.0-36.0); Mean Platelet Volume 10.8 fL (9.4-12.3); Platelet Count 223 K/uL (130-400); RDW Coefficient of Variation 16.2 % (11.5-14.5); RDW Standard Deviation 51.6 fL (36.4-46.3); Red Blood Count 3.31 M/uL (3.93-5.22); White Blood Count 3.66 K/ul (4.8-10.8)
[2022-10-28 08:01] LABS: INR 2.7 (0.9-1.1); Prothrombin Time 27.7 Seconds (9.0-12.0)
[2022-10-28 08:25] LABS: BUN Creatinine Ratio 16.4 (10-20); Calcium 8.8 mg/dl (8.5-10.1); Creatinine Clr Calc Pharmacy 43.2 ml/min; Est GFR (African American) 40.4 ml/min; Est GFR (Non-African American) 34.8 ml/min; Magnesium 1.7 mg/dl (1.7-2.4); Potassium 3.7 mmol/L (3.5-5.1)
[2022-10-28] MEDS: INSULIN ASPART PER UNIT SC SCH ×5 (09:04→23:41)
[2022-10-28] MEDS: FUROSEMIDE 40 MG/4 ML VIAL IV SCH ×3 (09:06→15:03)
[2022-10-28] MEDS: PANTOprazole 40 MG TAB PO SCH (09:06)
[2022-10-28] MEDS: METOPROLOL TARTRATE 25 MG TAB PO SCH ×3 (09:06→21:37)
[2022-10-28] MEDS: VALSARTAN/SACUBITRIL 26/24MG TAB PO SCH ×2 (09:06→21:37)
[2022-10-28] MEDS: SPIRONOLACTONE 12.5 MG TAB PO SCH (09:06)
[2022-10-28] MEDS: AMIODARONE 200 MG TAB PO SCH (09:07)
[2022-10-28] MEDS: LORATADINE 10 MG TAB PO SCH (09:07)
[2022-10-28] MEDS: POTASSIUM CHLORIDE CRTAB 20 MEQ TABCR PO SCH (09:08)
[2022-10-28] MEDS ORDERED: predniSONE 20 MG TAB PO ONE (09:28)
--- NOTE | 2022-10-28 09:59 | XRay Report ---
XR chest 1V portable HISTORY: increased cough, wheezing COMPARISON: Chest 10/25/2022. FINDINGS: No pneumothorax. The pulmonary vascular congestion has slightly improved. Small bilateral p leural effusions and left basilar densities persist. The heart remains enlarged. There is a left-side d pacemaker/defibrillator and a right subclavian Port-A-Cath. These remain unchanged in position. IMPRESSION: 1. Interval improvement in the pulmonary vascular congestion. 2. Small bilateral pleural effusions and left basilar densities persist. ACT 112: Negative or not required by law. Electronically signed by: Bebeto Ford M.D. 10/28/2022 9:57 AM
[2022-10-28] MEDS ORDERED: DOXYCYCLINE HYCLATE 100 MG CAP PO SCH (10:45)
--- NOTE | 2022-10-28 10:56 | Cardiology Progress Note ---
Date of Service October 28, 2022 Assessment & Plan (1) HFrEF (heart failure with reduced ejection fraction): (2) Nonischemic congestive cardiomyopathy: (3) Persistent atrial fibrillation: (4) Anemia: (5) Breast cancer: Plan Medically complex 77 year old female with NICM. Recent admission due to acute on chronic CHF and afib with elevated rates -Volume status improved. Chest xray with improved pulm edema. Only small b/l pleural effusions. Her persistent cough/wheeze likely pneumonitis/bronchitis. Message sent to hospitalist. Consider steroid vs antbiotic therapy. -will continue IV lasix today with potassium and magnesium supplement. -monitor I+O's. -Monitor creatinine. May need to hold AM dose until labs are reviewed. -Afib/flutter, rates improved with transitioning to metoprolol. -Continue Amiodarone 200 mg daily. -Continue metoprolol 25 mg TID. -Hold Coumadin. INR 2.7. Given labile readings, will transition to Eliquis once INR is <2. -After 4 weeks of appropriate anticoagulation, consider DCCV. -Continue GDMT with Entresto and Aldactone -Anemia likely secondary to chronic illness/ breast cancer/chemo- will defer to primary team for monitoring. Ideally hgb of >10 recommended given HFrEF. Case discussed with Dr. Fitzgerald. We will follow. Admission and Anticipated Discharge Date Admission Date: October 26, 2022 Supervising Physician Co-Signing Physician Notes Patient seen examined the bedside. Wheezing unchanged. Denies chest pain or palpitations. Rate controlled atrial fibrillation noted on telemetry. INR continues to trend downward, however, remains therapeutic at 2.4. PE: VSS, Gen: NAD, AAOx3. Heart: Irregular rhythm: Normal S1-S2. No murmur. Lungs: Crackles at the bases bilateral. +wheeze. Extremities: Trace bilateral pedal edema. A/P: Agree with above AP history, physical exam, assessment and plan. Continue metoprolol, and amiodarone. Transition to oral furosemide. Transition to Eliquis when INR below 2.0 (coordinate with the outpatient [facility] anticoagulation clinic). Subtherapeutic INR 10/18/22. Consider external direct-current cardioversion after 4 weeks of adequate anticoagulation. Subjective Patient resting in bed with ongoing complaints of SOB and cough with wheeze. cough is no longer productive. Feels "tight" in her chest. No orthopnea or PND. Edema improved. No chest pain. No palpitations. HR's improved on telemetry. Persistent afib noted Review of Systems Review of Systems: All systems reviewed & are unremarkable except as noted in HPI & below Physical Exam Constitutional: WD/WN, vitals as above no acute distress Neck: normal visual inspection and trachea midline Respiratory: normal respiratory effort and + cough; no respiratory distress Auscultation: + wheezes (diffuse, expiratory) Cardiovascular: Rate/Rhythm: + irregularly irregular Heart Sounds: normal S1, normal S2 and + murmur (+systolic murmur) Vessels: no JVD Gastrointestinal (Abdomen): normal bowel sounds, soft, nontender, no hepatosplenomegaly Skin: no rashes, warm and dry Psychiatric: A+Ox3, euthymic affect Affect: + depressed affect Results & Data ([facility]) Vital Signs (Past 12 Hours) Vital Signs Temp Pulse Resp BP Pulse Ox O2 Del Method 10/28/22 07:51 36.7 C 85 20 108/64 98 Room Air 10/28/22 03:13 36.7 C 69 20 110/56 L 96 Room Air 10/28/22 02:52 76 21 Room Air Laboratory Results Coagulation 10/28/22 Range/Units 07:17 PT 27.7 H (9.0-12.0) Seconds CBC 10/28/22 Range/Units 07:17 WBC 3.66 L (4.8-10.8) K/ul RBC 3.31 L (3.93-5.22) M/uL Hgb 8.9 L (12.0-16.0) g/dl Hct 28.8 L (34.1-44.9) % Plt Count 223 (130-400) K/uL Comprehensive Metabolic Panel 10/28/22 Range/Units 07:17 Sodium 141 (136-145) mmol/L Potassium 3.7 (3.5-5.1) mmol/L Chloride 107 (98-107) mmol/L Carbon Dioxide 26 (21-32) mmol/L BUN 24 H (6-23) mg/dl Creatinine 1.46 H (0.6-1.2) mg/dl Glucose 129 H (70-99(Fasting)) mg/dl Calcium 8.8 (8.5-10.1) mg/dl Intake and Output 10/27/22 10/28/22 10/28/22 22:59 06:59 14:59 Intake Total 60 / 60 Output Total 650 / 850 100 / 850 Balance -650 / -790 -40 / -790 Intake: Oral 60 / 60 Output: Urine 650 / 850 100 / 850 Other: Weight 96 kg Weight Measurement Method Built in [facility] Diagnostic Findings Telemetry reviewed: Persistent afib with HR's ranging 60-70 bpm. Repeat chest xray this morning reviewed and per report: IMPRESSION: 1. Interval improvement in the pulmonary vascular congestion. 2. Small bilateral pleural effusions and left basilar densities persist. Medications Administered Current Inpatient Medications Acetaminophen (Acetaminophen 325 Mg Tab) 650 mg PO Q4H PRN PRN Reason: Pain or Fever Stop: 11/25/22 04:54 Last Admin: 10/28/22 00:08 Dose: 650 mg Albuterol (Albuterol Hfa 8 Gm Inhaler) 2 puffs INH Q4 PRN PRN Reason: Wheezing Stop: 11/25/22 04:54 Last Admin: 10/28/22 02:52 Dose: 2 puffs Amiodarone HCl (Amiodarone 200 Mg Tab) 200 mg PO QAM [facility] Stop: 11/25/22 08:59 Last Admin: 10/28/22 09:07 Dose: 200 mg Dextrose (Dextrose 50% 50 Ml Syringe) 25 - 50 ml IV UD PRN; Protocol PRN Reason: Hypoglycemia Protocol Stop: 11/25/22 11:59 Furosemide (Furosemide 40 Mg/4 Ml Vial) 40 mg IV BID@0900,1600 [facility] Stop: 11/25/22 15:59 Last Admin: 10/28/22 09:06 Dose: 40 mg Glucagon (Glucagon For Inj 1 Mg Vial) 1 mg IM UD PRN; Protocol PRN Reason: Hypoglycemia Protocol Stop: 11/25/22 11:59 Glucose (Glucose 40% Gel 15 Gm Tube) 15 - 30 gm PO UD PRN; Protocol PRN Reason: Hypoglycemia Protocol Stop: 11/25/22 11:59 Glucose (Glucose 10 Tab/Tube) 4 - 8 tab PO UD PRN; Protocol PRN Reason: Hypoglycemia Protocol Stop: 11/25/22 11:59 Guaifenesin (Guaifenesin 200 Mg Tab) 200 mg PO Q6H [facility] Stop: 11/25/22 11:59 Last Admin: 10/28/22 05:57 Dose: 200 mg Insulin Aspart (Insulin Aspart Per Unit) 0 units SC ACHS [facility] Stop: 11/25/22 07:29 Last Admin: 10/28/22 09:04 Dose: 2 units Insulin Glargine (Lantus Per Unit Charge) 18 units SQ HS [facility] Stop: 11/26/22 20:59 Last Admin: 10/27/22 21:22 Dose: 18 units Levothyroxine Sodium (Levothyroxine Sodium 50 Mcg Tablet) 50 mcg PO DAILYBB [facility] Stop: 11/25/22 06:29 Last Admin: 10/28/22 05:57 Dose: 50 mcg Lidocaine/Prilocaine (Lidocaine/Prilocaine 2.5% Ea Crm) 1 each EXT . DIRECTED PRN PRN Reason: for medi-port access Stop: 11/25/22 04:54 Loperamide HCl (Loperamide Hcl 2 Mg Cap) 2 mg PO Q6H PRN PRN Reason: other Stop: 11/25/22 13:23 Last Admin: 10/26/22 13:43 Dose: 2 mg Loratadine (Loratadine 10 Mg Tab) 10 mg PO DAILY [facility] Stop: 11/25/22 08:59 Last Admin: 10/28/22 09:07 Dose: 10 mg Magnesium Oxide (Magnesium Oxide 400 Mg Tab) 400 mg PO DAILY@1100 [facility] Stop: 11/27/22 10:59 Metoprolol Tartrate (Metoprolol Tartrate 25 Mg Tab) 25 mg PO TID [facility] Stop: 11/25/22 13:59 Last Admin: 10/28/22 09:06 Dose: 25 mg Miscellaneous (Carbohydrates For Hypoglycemia ) 15 - 30 gm PO UD PRN PRN Reason: Hypoglycemia Treatment Stop: 11/25/22 11:59 Nitroglycerin (Nitroglycerin Sl 0.4 Mg/Tab Tab) 0.4 mg SL Q5M PRN PRN Reason: Chest Pain Stop: 11/25/22 04:54 Pantoprazole Sodium (Pantoprazole 40 Mg Tab) 40 mg PO QAM [facility] Stop: 11/25/22 08:59 Last Admin: 10/28/22 09:06 Dose: 40 mg Polyethylene Glycol (Polyethylene (Miralax) 17 Gm Pack) 17 gm PO DAILY PRN PRN Reason: Constipation Stop: 11/25/22 04:54 Potassium Chloride (Potassium Chloride Crtab 20 Meq Tabcr) 20 meq PO QAM [facility] Stop: 11/26/22 10:14 Last Admin: 10/28/22 09:08 Dose: 20 meq Sacubitril/Valsartan (Valsartan/Sacubitril 26/24mg Tab) 1 tab PO BID [facility] Stop: 11/25/22 08:59 Last Admin: 10/28/22 09:06 Dose: 1 tab Sodium Chloride (Sodium Chlor 7% 4 Ml Neb) 4 ml NEB BIDR [facility] Stop: 11/25/22 11:39 Last Admin: 10/28/22 07:20 Dose: Not Given Spironolactone (Spironolactone 12.5 Mg Tab) 12.5 mg PO QAM [facility] Stop: 11/25/22 08:59 Last Admin: 10/28/22 09:06 Dose: 12.5 mg
[2022-10-28] MEDS: MAGNESIUM OXIDE 400 MG TAB PO SCH (11:01)
--- NOTE | 2022-10-28 15:47 | Hospitalist Progress Note ---
Date of Service October 28, 2022 Assessment & Plan (1) HFrEF (heart failure with reduced ejection fraction): (2) Acute dyspnea: (3) Acute on chronic systolic CHF (congestive heart failure): Plan: Present admission with worsening shortness of breath CXR showedCardiomegaly and AICD without evidence of congestive failure. Bilateral airspace opacities likely represent pulmonary edema. CT chest showed Bilateral groundglass opacities likely represent mild pulmonary edema. BNP elevated at 233 Cardiology on board recommend to continue Lasix 40 mg twice daily Continue spironolactone and Entresto Continue monitor I&O Creatinine bumped to ~1.5 today, will hold afternoon dose lasix Clinically improved Paroxysmal A. fib Rate control with amiodarone and beta-tammi Coumadin on hold due to elevated INR Plan to transition to Eliquis when INR below 2, continue to hold coumadin INR 2.7 today Supratherapeutic INR INR today 2.7 today Plan to transition to Eliquis when INR below 2, continue to hold coumadin Continue monitor PT/INR Electrolyte imbalance Magnesium 1.7 today Potassium 3.7 Continue potassium supplement Continue monitor electrolyte Bronchitis CXR showed interval improvement in the pulmonary vascular congestion. Will start prednisone Continue flutter valve and guaifenesin Will give a try of mucomyst Abnormal UA UA positive for Leukocytes Urine cx grew pinpoint continue to hold on abx Continue monitor Diabetes She has been having hypoglycemic episode Most recent Hba1c 7.9 on 08/19/22 Continue insulin sliding scale and lantus decreased to 18 units during hospital course Continue monitor BS DVT prophylaxis on Coumadin, INR 2.7 Code status Full code Admission and Anticipated Discharge Date Admission Date: October 26, 2022 Subjective Patient was seen and evaluated for follow-up of shortness of breath Lying in bed with no acute distress She said that she continued to have a hard time to bring the phlegm Denies any chest pain, palpitation, dizziness, and fever. Review of Systems Review of Systems: All systems reviewed & are unremarkable except as noted in Subjective Physical Exam Physical Exam: General- No acute distress Head- atraumatic Eyes- PERRL, EOMI, ENT- oropharynx clear Neck- supple, no JVD Lungs- +coarse BS Heart- irregular rhythm; no murmur Abdomen- normal bowel sounds, soft, nontender Extremities- no calf tenderness, +edema Neuro- alert, oriented x 3; PERRL, EOMI; no facial palsy; no dysarthria Skin- warm & dry Results & Data Results & Data ([facility]) Vital Signs (Past 12 Hours) Vital Signs Temp Pulse Pulse Resp BP Pulse Ox O2 Del Method 10/28/22 14:00 68 10/28/22 15:00 36.5 C 87 18 111/80 94 Room Air 10/28/22 05:59 67 10/28/22 08:00 Room Air 10/28/22 11:03 36.6 C 76 18 112/67 98 Room Air 10/28/22 07:51 36.7 C 85 20 108/64 98 Room Air
[2022-10-28] MEDS ORDERED: ALBUT/IPRATROP 3MG/0.5MG NEB 3 ML VIAL NEB PRN (16:03)
[2022-10-28] MEDS: ACETYLCYSTEINE 10% INHAL SOLN 4 ML **DISPENSED BY RESP. INH SCH (18:06)
[2022-10-28] MEDS: LANTUS PER UNIT CHARGE SQ SCH (20:56)
[2022-10-28] MEDS ORDERED: LANTUS PER UNIT CHARGE SQ STA (21:01)
[2022-10-29] MEDS ORDERED: LANTUS PER UNIT CHARGE SQ STA (01:00)
[2022-10-29] MEDS: guaiFENesin 200 MG TAB PO SCH ×3 (06:13→16:59)
[2022-10-29] MEDS: LEVOTHYROXINE SODIUM 50 MCG TABLET PO SCH (06:13)
[2022-10-29] MEDS: ACETYLCYSTEINE 10% INHAL SOLN 4 ML **DISPENSED BY RESP. INH SCH (07:22)
[2022-10-29 07:56] LABS: INR 2.4 (0.9-1.1)
[2022-10-29 08:08] LABS: BUN Creatinine Ratio 24.1 (10-20); Calcium 9.2 mg/dl (8.5-10.1); Creatinine Clr Calc Pharmacy 47.9 ml/min; Est GFR (African American) 45.2 ml/min; Potassium 3.7 mmol/L (3.5-5.1)
[2022-10-29] MEDS: INSULIN ASPART PER UNIT SC SCH ×4 (08:13→21:42)
[2022-10-29] MEDS: POTASSIUM CHLORIDE CRTAB 20 MEQ TABCR PO SCH (08:13)
[2022-10-29] MEDS: LORATADINE 10 MG TAB PO SCH (08:13)
[2022-10-29] MEDS: METOPROLOL TARTRATE 25 MG TAB PO SCH ×3 (08:14→20:10)
[2022-10-29] MEDS: AMIODARONE 200 MG TAB PO SCH (08:14)
[2022-10-29] MEDS: SPIRONOLACTONE 12.5 MG TAB PO SCH (08:14)
[2022-10-29] MEDS: VALSARTAN/SACUBITRIL 26/24MG TAB PO SCH ×2 (08:14→20:11)
[2022-10-29] MEDS: PANTOprazole 40 MG TAB PO SCH (08:14)
--- NOTE | 2022-10-29 11:28 | Cardiology Progress Note ---
Date of Service October 29, 2022 Assessment & Plan (1) HFrEF (heart failure with reduced ejection fraction): (2) Nonischemic congestive cardiomyopathy: (3) Persistent atrial fibrillation: (4) Anemia: (5) Breast cancer: Plan Medically complex 77 year old female with NICM. Recent admission due to acute on chronic CHF and afib with elevated rates -Volume status improved. Chest xray with improved pulm edema. Only small b/l pleural effusions. -transition to oral furosemide. Home dose was 20 mg daily per patient. Will increase to 20 mg in morning and 20 mg in afternoon, starting today -continue supplemental potassium and magnesium supplement. -monitor I+O's. -Afib/flutter, rates improved with transitioning to metoprolol. -Continue Amiodarone 200 mg daily. -Continue metoprolol 25 mg TID. -Hold Coumadin. INR trending down. Given labile readings, will transition to Eliquis once INR is <2. -Recommend INR with [facility] clinic on Tuesday. If < 2.0, start Eliquis. Will send message to [facility] clinic -After 4 weeks of appropriate anticoagulation, consider DCCV. -Continue GDMT with Entresto and Aldactone -Anemia likely secondary to chronic illness/ breast cancer/chemo- will defer to primary team for monitoring. Ideally hgb of >10 recommended given HFrEF. Further treatment for bronchitis per hospitalist. stable cardiac symptoms for discharge. Will sign off. Case discussed with Dr. Fitzgerald. Admission and Anticipated Discharge Date Admission Date: October 26, 2022 Supervising Physician Co-Signing Physician Notes Patient seen examined the bedside. Wheezing unchanged. Denies chest pain or palpitations. Rate controlled atrial fibrillation noted on telemetry. INR continues to trend downward, however, remains therapeutic at 2.4. PE: VSS, Gen: NAD, AAOx3. Heart: Irregular rhythm: Normal S1-S2. No murmur. Lungs: Crackles at the bases bilateral. +wheeze. Extremities: Trace bilateral pedal edema. A/P: Agree with above AP history, physical exam, assessment and plan. Continue metoprolol, and amiodarone. Transition to Eliquis when INR below 2.0 (coordinate with the outpatient [facility] anticoagulation clinic). Subtherapeutic INR 10/18/22. Consider external direct-current cardioversion after 4 weeks of adequate anticoagulation. Subjective Patient resting in bed. Feeling better than yesterday but still with cough/wheezing. SOB improved with ambulation in her room. No chest pain. Tolerating meds. Review of Systems Review of Systems: All systems reviewed & are unremarkable except as noted in HPI & below Physical Exam Constitutional: WD/WN, vitals as above no acute distress Neck: normal visual inspection and trachea midline Respiratory: normal respiratory effort and + cough; no respiratory distress Auscultation: + rhonchi and + wheezes Cardiovascular: Rate/Rhythm: + irregularly irregular Heart Sounds: normal S1, normal S2 and + murmur (+systolic murmur) Vessels: no JVD Gastrointestinal (Abdomen): normal bowel sounds, soft, nontender, no hepatosplenomegaly Skin: no rashes, warm and dry Psychiatric: A+Ox3, euthymic affect Affect: + depressed affect Results & Data ([facility]) Vital Signs (Past 12 Hours) Vital Signs Temp Pulse Pulse Resp BP Pulse Ox O2 Del Method 10/29/22 08:00 60 10/29/22 06:41 36.6 C 78 24 128/72 97 Room Air 10/29/22 03:14 36.9 C 62 16 103/59 L 98 Room Air 10/29/22 00:00 101 H Laboratory Results Coagulation 10/29/22 Range/Units 06:44 PT 24.0 H (9.0-12.0) Seconds Comprehensive Metabolic Panel 10/29/22 Range/Units 06:44 Sodium 140 (136-145) mmol/L Potassium 3.7 (3.5-5.1) mmol/L Chloride 106 (98-107) mmol/L Carbon Dioxide 26 (21-32) mmol/L BUN 32 H (6-23) mg/dl Creatinine 1.33 H (0.6-1.2) mg/dl Glucose 163 H (70-99(Fasting)) mg/dl Calcium 9.2 (8.5-10.1) mg/dl Intake and Output 10/28/22 10/29/22 10/29/22 22:59 06:59 14:59 Intake Total 150 / 750 100 / 750 Output Total 250 / 250 Balance -100 / 500 100 / 500 Intake: Oral 150 / 750 100 / 750 Output: Urine 250 / 250 Other: Weight 98 kg Weight Measurement Method Built in [facility] Diagnostic Findings Telemetry reviewed - persistent afib, controlled rates. Medications Administered Current Inpatient Medications Acetaminophen (Acetaminophen 325 Mg Tab) 650 mg PO Q4H PRN PRN Reason: Pain or Fever Stop: 11/25/22 04:54 Last Admin: 10/28/22 00:08 Dose: 650 mg Albuterol (Albuterol Hfa 8 Gm Inhaler) 2 puffs INH Q4 PRN PRN Reason: Wheezing Stop: 11/25/22 04:54 Last Admin: 10/28/22 02:52 Dose: 2 puffs Albuterol (Albut/Ipratrop 3mg/0.5mg Neb 3 Ml Vial) 3 ml NEB Q4R PRN; Protocol PRN Reason: SOB/Wheezing Stop: 11/27/22 18:59 Amiodarone HCl (Amiodarone 200 Mg Tab) 200 mg PO QAM [facility] Stop: 11/25/22 08:59 Last Admin: 10/29/22 08:14 Dose: 200 mg Dextrose (Dextrose 50% 50 Ml Syringe) 25 - 50 ml IV UD PRN; Protocol PRN Reason: Hypoglycemia Protocol Stop: 11/25/22 11:59 Furosemide (Furosemide 20 Mg Tab) 20 mg PO BID@0900,1600 [facility] Stop: 11/28/22 11:29 Last Admin: 10/29/22 11:58 Dose: 20 mg Glucagon (Glucagon For Inj 1 Mg Vial) 1 mg IM UD PRN; Protocol PRN Reason: Hypoglycemia Protocol Stop: 11/25/22 11:59 Glucose (Glucose 40% Gel 15 Gm Tube) 15 - 30 gm PO UD PRN; Protocol PRN Reason: Hypoglycemia Protocol Stop: 11/25/22 11:59 Glucose (Glucose 10 Tab/Tube) 4 - 8 tab PO UD PRN; Protocol PRN Reason: Hypoglycemia Protocol Stop: 11/25/22 11:59 Guaifenesin (Guaifenesin 200 Mg Tab) 200 mg PO Q6H [facility]UL[facility] Stop: 11/25/22 11:59 Last Admin: 10/29/22 11:54 Dose: 200 mg Insulin Aspart (Insulin Aspart Per Unit) 0 units SC ACHS JULIA Stop: 11/28/22 00:00 Last Admin: 10/29/22 11:58 Dose: 3 units Insulin Glargine (Lantus Per Unit Charge) 30 units SQ HS JULIA Stop: 11/28/22 20:59 Levothyroxine Sodium (Levothyroxine Sodium 50 Mcg Tablet) 50 mcg PO DAILYBB [facility] Stop: 11/25/22 06:29 Last Admin: 10/29/22 06:13 Dose: 50 mcg Lidocaine/Prilocaine (Lidocaine/Prilocaine 2.5% Ea Crm) 1 each EXT . DIRECTED PRN PRN Reason: for medi-port access Stop: 11/25/22 04:54 Loperamide HCl (Loperamide Hcl 2 Mg Cap) 2 mg PO Q6H PRN PRN Reason: other Stop: 11/25/22 13:23 Last Admin: 10/26/22 13:43 Dose: 2 mg Loratadine (Loratadine 10 Mg Tab) 10 mg PO DAILY [facility] Stop: 11/25/22 08:59 Last Admin: 10/29/22 08:13 Dose: 10 mg Magnesium Oxide (Magnesium Oxide 400 Mg Tab) 400 mg PO DAILY@1100 [facility] Stop: 11/27/22 10:59 Last Admin: 10/29/22 11:54 Dose: 400 mg Metoprolol Tartrate (Metoprolol Tartrate 25 Mg Tab) 25 mg PO TID [facility] Stop: 11/25/22 13:59 Last Admin: 10/29/22 08:14 Dose: 25 mg Miscellaneous (Carbohydrates For Hypoglycemia ) 15 - 30 gm PO UD PRN PRN Reason: Hypoglycemia Treatment Stop: 11/25/22 11:59 Nitroglycerin (Nitroglycerin Sl 0.4 Mg/Tab Tab) 0.4 mg SL Q5M PRN PRN Reason: Chest Pain Stop: 11/25/22 04:54 Pantoprazole Sodium (Pantoprazole 40 Mg Tab) 40 mg PO QAM [facility] Stop: 11/25/22 08:59 Last Admin: 10/29/22 08:14 Dose: 40 mg Polyethylene Glycol (Polyethylene (Miralax) 17 Gm Pack) 17 gm PO DAILY PRN PRN Reason: Constipation Stop: 11/25/22 04:54 Potassium Chloride (Potassium Chloride Crtab 20 Meq Tabcr) 20 meq PO QAM [facility] Stop: 11/26/22 10:14 Last Admin: 10/29/22 08:13 Dose: 20 meq Sacubitril/Valsartan (Valsartan/Sacubitril 26/24mg Tab) 1 tab PO BID [facility] Stop: 11/25/22 08:59 Last Admin: 10/29/22 08:14 Dose: 1 tab Spironolactone (Spironolactone 12.5 Mg Tab) [facility] [place] Stop: 11/25/22 08:59 Last Admin: 10/29/22 08:14 Dose: 12.5 mg
[2022-10-29] MEDS: MAGNESIUM OXIDE 400 MG TAB PO SCH (11:54)
[2022-10-29] MEDS: FUROSEMIDE 20 MG TAB PO SCH ×2 (11:58→16:25)
[2022-10-29] MEDS: ALBUT/IPRATROP 3MG/0.5MG NEB 3 ML VIAL NEB SCH ×3 (14:44→23:23)
--- NOTE | 2022-10-29 15:56 | Hospitalist Progress Note ---
Date of Service October 29, 2022 Assessment & Plan (1) HFrEF (heart failure with reduced ejection fraction): (2) Acute dyspnea: (3) Acute on chronic systolic CHF (congestive heart failure): Plan: Present admission with worsening shortness of breath CXR showedCardiomegaly and AICD without evidence of congestive failure. Bilateral airspace opacities likely represent pulmonary edema. CT chest showed Bilateral groundglass opacities likely represent mild pulmonary edema. BNP elevated at 233 Repeat chest x-ray showed improvement in vascular congestion Switch to oral Lasix 20 twice daily today by cardiology Monitor input and output. Paroxysmal A. fib Rate control with amiodarone and beta-tammi Coumadin on hold due to elevated INR Plan to transition to Eliquis when INR below 2, INR is 2.4 today. Supratherapeutic INR INR today 2.7 today Plan to transition to Eliquis when INR below 2, continue to hold coumadin Continue monitor PT/INR Bronchitis CXR showed interval improvement in the pulmonary vascular congestion. Started on duo nebs Currently on prednisone and doxycycline. Abnormal UA UA positive for Leukocytes Urine cx grew pinpoint continue to hold on abx Continue monitor Diabetes She has been having hypoglycemic episode Most recent Hba1c 7.9 on 08/19/22 Continue insulin sliding scale and lantus decreased to 18 units during hospital course Continue monitor BS DVT prophylaxis on Coumadin, Code status Full code Dispositionlikely discharge in a.m. depending on respiratory status. Admission and Anticipated Discharge Date Admission Date: October 26, 2022 Subjective Patient seen and examined at bedside. She reports her shortness of breath is slightly better today. Continues to have dry cough Review of Systems Review of Systems: All systems reviewed & are unremarkable except as noted in Subjective Physical Exam Physical Exam: General- No acute distress Head- atraumatic Eyes- PERRL, EOMI, ENT- oropharynx clear Neck- supple, no JVD Lungs- +coarse BS bilaterally. Minimal crackles Heart- irregular rhythm; no murmur Abdomen- normal bowel sounds, soft, nontender Extremities- no calf tenderness, +edema Neuro- alert, oriented x 3; PERRL, EOMI; no facial palsy; no dysarthria Skin- warm & dry Results & Data Results & Data ([facility]) Vital Signs (Past 12 Hours) Vital Signs Temp Pulse Pulse Resp BP Pulse Ox O2 Del Method 10/29/22 15:50 36.7 C 79 21 108/59 L 93 Room Air 10/29/22 14:44 80 18 98 Room Air 10/29/22 11:37 36.7 C 65 18 102/55 L 94 Room Air 10/29/22 11:22 Room Air 10/29/22 08:00 60 10/29/22 06:41 36.6 C 78 24 128/72 97 Room Air Laboratory Results Laboratory Results WBC 3.66 K/ul (4.8-10.8) L 10/28/22 07:17 RBC 3.31 M/uL (3.93-5.22) L 10/28/22 07:17 Hgb 8.9 g/dl (12.0-16.0) L 10/28/22 07:17 Hct 28.8 % (34.1-44.9) L 10/28/22 07:17 MCV 87.0 fL (80.0-100.0) 10/28/22 07:17 MCH 26.9 pg (25.0-34.0) 10/28/22 07:17 MCHC 30.9 g/dL (32.0-36.0) L 10/28/22 07:17 RDW Std Deviation 51.6 fL (36.4-46.3) H 10/28/22 07:17 RDW Coeff of Edilma 16.2 % (11.5-14.5) H 10/28/22 07:17 Plt Count 223 K/uL (130-400) 10/28/22 07:17 MPV 10.8 fL (9.4-12.3) 10/28/22 07:17 Immature Gran % (Auto) 0.2 % 10/26/22 06:44 Neut % (Auto) 71.3 % 10/26/22 06:44 Lymph % (Auto) 11.6 % 10/26/22 06:44 [place] % (Auto) 13.7 % 10/26/22 06:44 Eos % (Auto) 2.6 % 10/26/22 06:44 Baso % (Auto) 0.6 % 10/26/22 06:44 Neut # (Auto) 3.32 K/uL (1.4-6.5) 10/26/22 06:44 Lymph # (Auto) 0.54 K/uL (1.2-3.4) L 10/26/22 06:44 [place] # (Auto) 0.64 K/uL (0.24-0.82) 10/26/22 06:44 Eos # (Auto) 0.12 K/uL (0-0.50) 10/26/22 06:44 Baso # (Auto) 0.03 K/uL (0-0.2) 10/26/22 06:44 Immature Gran # (Auto) 0.01 K/uL (0.00-0.02) 10/26/22 06:44 PT 24.0 Seconds (9.0-12.0) H 10/29/22 06:44 INR 2.4 (0.9-1.1) H 10/29/22 06:44 VBG pH 7.40 (7.36-7.41) 10/25/22 23:55 VBG pCO2 37 mmHg (38-50) L 10/25/22 23:55 VBG pO2 34 mmHg 10/25/22 23:55 VBG HCO3 23 mmol/L 10/25/22 23:55 VBG O2 Saturation < 60.0 % 10/25/22 23:55 VBG Base Excess -1.5 mEq/L 10/25/22 23:55 Sodium 140 mmol/L (136-145) 10/29/22 06:44 Potassium 3.7 mmol/L (3.5-5.1) 10/29/22 06:44 Chloride 106 mmol/L (98-107) 10/29/22 06:44 Carbon Dioxide 26 mmol/L (21-32) 10/29/22 06:44 Anion Gap 8 (3-11) 10/29/22 06:44 BUN 32 mg/dl (6-23) H 10/29/22 06:44 Creatinine 1.33 mg/dl (0.6-1.2) H 10/29/22 06:44 Est Cr Clr Drug Dosing 47.9 ml/min 10/29/22 06:44 Est GFR ( Amer) 45.2 ml/min 10/29/22 06:44 Est GFR (Non-Af Amer) 39.0 ml/min 10/29/22 06:44 BUN/Creatinine Ratio 24.1 (10-20) H 10/29/22 06:44 Glucose 163 mg/dl (70-99(Fasting)) H 10/29/22 06:44 POC Glucose 102 mg/dl (70-99) H 10/29/22 11:34 Calcium 9.2 mg/dl (8.5-10.1) 10/29/22 06:44 Magnesium 1.7 mg/dl (1.7-2.4) 10/28/22 07:17 Total Bilirubin 0.6 mg/dl (0.2-1.0) 10/25/22 23:56 AST 12 U/L (13-39) L 10/25/22 23:56 ALT 11 U/L (7-52) 10/25/22 23:56 Alkaline Phosphatase 61 U/L (34-104) 10/25/22 23:56 Troponin I High Sens 6.3 pg/ml (0-14) 10/26/22 12:51 B-Natriuretic Peptide 233 pg/ml (0-100) H 10/25/22 23:55 Total Protein 5.9 gm/dl (6.0-8.3) L 10/25/22 23:56 Albumin 3.8 gm/dl (3.4-5.0) 10/25/22 23:56 Globulin 2.1 gm/dl (2.5-4.0) L 10/25/22 23:56 Albumin/Globulin Ratio 1.8 (0.9-2) 10/25/22 23:56 Urine Color Yellow 10/27/22 16:30 Urine Appearance Clear (Clear) 10/27/22 16:30 Urine pH 5.0 (4.5-7.5) 10/27/22 16:30 Ur Specific [place] 1.010 (1.000-1.030) 10/27/22 16:30 Urine Protein Negative (Negative) 10/27/22 16:30 Urine Glucose (UA) Negative (Negative) 10/27/22 16:30 Urine Ketones Negative (Negative) 10/27/22 16:30 Urine Blood Negative (Negative) 10/27/22 16:30 Urine Nitrite Negative (Negative) 10/27/22 16:30 Urine Bilirubin Negative (Negative) 10/27/22 16:30 Urine Urobilinogen Negative (Negative) 10/27/22 16:30 Ur Leukocyte Esterase 2+ (Negative) H 10/27/22 16:30 Urine WBC (Auto) 10-30 /hpf (0-5) H 10/27/22 16:30 Urine RBC (Auto) 0-4 /hpf (0-4) 10/27/22 16:30 U Hyaline Cast (Auto) 1-5 /lpf (0-5) 10/27/22 16:30 U Epithel Cells (Auto) >30 /lpf (0-5) H 10/27/22 16:30 Urine Bacteria (Auto) Negative (Negative) 10/27/22 16:30 SARS-CoV-2 (PCR) NEGATIVE (Negative) 10/26/22 00:00 Influenza Type A (PCR) Negative (Neg) 10/26/22 00:00 Influenza Type B (PCR) Negative (Neg) 10/26/22 00:00 RSV (RT-PCR) Negative (Neg) 10/26/22 00:[address] 10/26/22 02:56 CT SCAN OF THE CHEST WITHOUT IV CONTRAST CLINICAL HISTORY: Cough. COMPARISON STUDY: Chest x-ray dated 10/25/2022. Chest CT dated 02/05/2015. TECHNIQUE: CT scan of the thorax was performed from the thoracic inlet to the upper abdomen. Images are reviewed in the axial, sagittal, and coronal planes. IV contrast was not administered for this examination as per the referring clinician. A dose lowering technique was utilized adhering to the principles of ALARA. CT DOSE: 361.85 mGy.cm FINDINGS: Thyroid: Imaged portions of the thyroid gland are normal in size and attenuation. Thoracic aorta: The thoracic aorta is normal in caliber and demonstrates standard 3-vessel arch anatomy. Heart: A right subclavian central venous infusion port is in place. A cardiac pacemaker is present in the left chest wall. The heart is enlarged noting trace pericardial effusion. The coronary arteries are densely calcified. Lungs and pleural spaces: There are [id number] pleural effusions, right larger than left with dependent consolidation. The trachea and central airways are clear. Intralobular septal thickening is noted throughout both lungs. There are faint groundglass opacities scattered throughout both lungs. Mediastinum: There is no mediastinal lymphadenopathy. Tatiana: Not well assessed without IV contrast. Axillae: There is no axillary lymphadenopathy. Upper abdomen: Cholecystectomy clips are noted. There are at least 3 hepatic mass lesions which measure up to 5 cm. These are unchanged from 2014 and showed typical enhancement for hemangioma on the prior examination. Skeletal structures: The skeletal structures are osteopenic. No lytic or blastic bony lesions are seen. Degenerative change is noted in the thoracic spine. Soft tissues: Postsurgical changes noted in the left breast. IMPRESSION: 1. Cardiomegaly and cardiac pacemaker without evidence of congestive failure. 2. Bilateral groundglass opacities likely represent mild pulmonary edema. Correlate clinically for the presence of a superimposed infectious/inflammatory pneumonitis. Radiographic follow-up to resolution is recommended. 3. Small to moderate pleural effusions with dependent consolidation. 4. Additional findings as above. ACT 112: Negative or not required by law. Electronically signed by: Gilberto Wheeler M.D. 10/26/2022 7:04 AM Chest X-Ray 10/28/22 09:17 XR chest 1V portable HISTORY: increased cough, wheezing COMPARISON: Chest 10/25/2022. FINDINGS: No pneumothorax. The pulmonary vascular congestion has slightly improved. Small bilateral pleural effusions and left basilar densities persist. The heart remains enlarged. There is a left-sided pacemaker/defibrillator and a right subclavian Port-A-Cath. These remain unchanged in position. IMPRESSION: 1. Interval improvement in the pulmonary vascular congestion. 2. Small bilateral pleural effusions and left basilar densities persist. ACT 112: Negative or not required by law. Electronically signed by: Bebeto Ford M.D. 10/28/2022 9:57 AM
[2022-10-29] MEDS: DOXYCYCLINE HYCLATE 100 MG CAP PO SCH (20:09)
[2022-10-29] MEDS ORDERED: LANTUS PER UNIT CHARGE SQ SCH ×2 (21:00)
[2022-10-30] MEDS: guaiFENesin 200 MG TAB PO SCH ×2 (00:10→05:37)
[2022-10-30] MEDS: ALBUT/IPRATROP 3MG/0.5MG NEB 3 ML VIAL NEB SCH ×3 (01:59→11:02)
[2022-10-30] MEDS: LEVOTHYROXINE SODIUM 50 MCG TABLET PO SCH (05:37)
[2022-10-30 06:34] LABS: Basophils # (auto) 0.04 K/uL (0-0.2); Eosinophils # (auto) 0.09 K/uL (0-0.50); Eosinophils % (auto) 2.1 %; Hematocrit (blood only) 29.1 % (34.1-44.9); Hemoglobin 9.2 g/dl (12.0-16.0); Immature Granulocytes # (auto) 0.01 K/uL (0.00-0.02); Immature Granulocytes % (auto) 0.2 %; Lymphocytes # (auto) 0.66 K/uL (1.2-3.4); Lymphocytes % (auto) 15.7 %; Mean Corpuscular Hemoglobin 27.3 pg (25.0-34.0); Mean Corpuscular Hgb Conc 31.6 g/dL (32.0-36.0); Mean Corpuscular Volume 86.4 fL (80.0-100.0); Mean Platelet Volume 10.3 fL (9.4-12.3); Monocytes # (auto) 0.46 K/uL (0.24-0.82); Monocytes % (auto) 10.9 %; Neutrophils # (auto) 2.95 K/uL (1.4-6.5); Neutrophils % (auto) 70.1 %; Platelet Count 189 K/uL (130-400); RDW Coefficient of Variation 16.3 % (11.5-14.5); RDW Standard Deviation 51.2 fL (36.4-46.3); Red Blood Count 3.37 M/uL (3.93-5.22); White Blood Count 4.21 K/ul (4.8-10.8)
[2022-10-30 06:51] LABS: INR 2.3 (0.9-1.1); Prothrombin Time 23.8 Seconds (9.0-12.0)
[2022-10-30 07:06] LABS: BUN Creatinine Ratio 21.6 (10-20); Calcium 8.9 mg/dl (8.5-10.1); Creatinine Clr Calc Pharmacy 42.6 ml/min; Est GFR (African American) 39.7 ml/min; Est GFR (Non-African American) 34.3 ml/min; Potassium 3.8 mmol/L (3.5-5.1)
[2022-10-30] MEDS: INSULIN ASPART PER UNIT SC SCH ×2 (08:02→11:50)
[2022-10-30] MEDS: FUROSEMIDE 20 MG TAB PO SCH (08:04)
[2022-10-30] MEDS: METOPROLOL TARTRATE 25 MG TAB PO SCH (08:04)
[2022-10-30] MEDS: AMIODARONE 200 MG TAB PO SCH (08:05)
[2022-10-30] MEDS: VALSARTAN/SACUBITRIL 26/24MG TAB PO SCH (08:05)
[2022-10-30] MEDS: PANTOprazole 40 MG TAB PO SCH (08:05)
[2022-10-30] MEDS: POTASSIUM CHLORIDE CRTAB 20 MEQ TABCR PO SCH (08:05)
[2022-10-30] MEDS: SPIRONOLACTONE 12.5 MG TAB PO SCH (08:05)
[2022-10-30] MEDS: DOXYCYCLINE HYCLATE 100 MG CAP PO SCH (08:05)
[2022-10-30] MEDS: LORATADINE 10 MG TAB PO SCH (08:06)
[2022-10-30] MEDS ORDERED: guaiFENesin/DEXTROM SYRUP 100MG/10MG 5ML UDC PO PRN (10:55)
[2022-10-30] MEDS: MAGNESIUM OXIDE 400 MG TAB PO SCH (11:01)
--- NOTE | 2022-10-30 11:23 | Discharge Summary ---
Date of Service October 30, 2022 Admission HPI Per Admitting Provider This is a 77-year-old female with past medical history significant for type 2 diabetes, hypothyroidism, idiopathic cardiomyopathy, status post ICD, recent echo on 10/15/2022 showed an EF of 30% and batyzakw-ke-feawvy mitral regurgitation, history of paroxysmal atrial fibrillation, on Coumadin and on amiodarone, history of hypertension, chronic kidney disease stage III, history of primary renal papillary carcinoma, status post left nephrectomy, history of invasive ductal carcinoma of left breast diagnosed in July 2022, triple negative breast cancer, status post lumpectomy. Had three cycles of chemotherapy, could not tolerate it, last dose was in end of August. As per the patient, currently chemo is stopped and plan for radiation therapy. History of hypothyroidism, intermittent asthma, GERD, history of COVID last year, presents with shortness of breath. The patient was recently in the hospital. He was in the hospital from 10/15/2022 to 10/18/2022 with ysfge-le-fmorkya systolic CHF, was treated with IV Lasix and discharged on Lasix 20 mg daily and spironolactone 12.5 mg p.o. daily, metoprolol changed to Coreg 3.125 mg daily, and also started on Entresto. The patient says that she was also on losartan dose, decreased to 25 mg daily, and amiodarone was increased to 200 mg daily and the patient says she was not getting better. She also was on antibiotics for bronchitis, she was discharged on Augmentin 10-day course, completed on 10/24/2022. The patient says before that, she was on doxycycline, but she is still having a lot of cough, not able to bring phlegm, before she used bring greenish phlegm, now she thinks she is phlegm inside but is not coming out. When she is resting, she is okay, but minimal exertion is making her heart rate to go to 120s and feeling huffing and puffing and could not do anything. Says she is not doing much activity because of these ongoing symptoms. She says the chemo has upset her body and if the heart rates and shortness of breath are controlled, then she can do some activity. She has some chest discomfort when the heart rate goes into 120, otherwise there is no chest pain. Currently, no nausea or vomiting. Appetite is very down. No difficulty swallowing. Has some abdominal pain from coughing. Once in a while, she gets diarrhea and she uses Imodium. She says she is not micturating much since the Lasix dose was decreased to 20 mg. Has some swelling in the legs. Denies any headache. No blurred visions, somewhat hard of hearing, no runny nose, no sore throat. Afebrile. Resting comfortably and able to give her history and daughter is in the room. Daughter lives across the street. The patient lives alone at home. At home, she does not use any support for ambulation, but when she goes out she uses a cane. Admission Exam Per Admitting Provider GENERAL: The patient is of moderate build, not in acute distress. VITAL SIGNS: Temperature 36.7, pulse 85, respiratory rate 19, blood pressure 120/69, oxygen 96% on room air. HEENT: Pupils equal, round and reactive to light. Oral mucosa moist. NECK: No JVD or neck masses. CARDIOVASCULAR: S1 and S2 heard. Irregular rhythm. No obvious murmur. RESPIRATORY SYSTEM: Normal AP diameter. No accessory muscle use. Bilateral mild wheezing heard. No bibasilar crackles. ABDOMEN: Soft, bowel sounds present, nontender, no distention. CENTRAL NERVOUS SYSTEM: Cranial nerves II through XII grossly intact, nonfocal. EXTREMITIES: Bilateral pedal edema present, no erythema seen. Principal Diagnosis (1) HFrEF (heart failure with reduced ejection fraction): (2) Acute dyspnea: (3) Acute on chronic systolic CHF (congestive heart failure): (4) Paroxysmal A.fib Discharge Exam General- No acute distress Head- atraumatic Eyes- PERRL, EOMI, ENT- oropharynx clear Neck- supple, no JVD Lungs- occasional crrackles. improved Heart- irregular rhythm; no murmur Abdomen- normal bowel sounds, soft, nontender Extremities- no calf tenderness, edema resolved Neuro- alert, oriented x 3; PERRL, EOMI; no facial palsy; no dysarthria Skin- warm & dry Discharge Data Allergies Allergy/AdvReac Type Severity Reaction Status Date / Time [id number]-[id number] Reductase Allergy Intermediate Muscle Pain Verified 08/19/22 02:14 Inhibitor [Fzhiwjv-Hku-Gou Reductase Inhibitor] ketorolac Allergy Mild RASH Verified 08/19/22 02:14 Sulfa (Sulfonamide Allergy Unknown HIVES Verified 08/19/22 02:14 Antibiotics) tramadol AdvReac Intermediate VERY SICK Verified 08/19/22 02:14 TO STOMACH hydrocodone AdvReac Mild NAUSEA AND Verified 08/19/22 02:14 VOMITING Consultations 10/26/22 01:51 ED Decision to Admit Stat 10/26/22 08:00 Consult Cardiology Routine Ordered Studies 10/26/22 02:56 CT chest diagnostic wo con Stat Hospital Course (1) HFrEF (heart failure with reduced ejection fraction): (2) Acute dyspnea: (3) Acute on chronic systolic CHF (congestive heart failure): Present admission with worsening shortness of breath CXR showedCardiomegaly and AICD without evidence of congestive failure. Bilateral airspace opacities likely represent pulmonary edema. CT chest showed Bilateral groundglass opacities likely represent mild pulmonary edema. BNP elevated at 233 Repeat chest x-ray showed improvement in vascular congestion Plan: Discharged on Lasix 20 mg twice daily; increased from once daily. Instruction provided regarding daily weights and adjusting dose of Lasix. Paroxysmal A. fib Supratherapeutic INR Rate control with amiodarone and beta-tammi Coumadin on hold due to elevated INR Plan: Patient's Coreg was discontinued and she was started on metoprolol 25 mg 3 times daily. Prescription for metoprolol was sent to her pharmacy. Cardiology recommended patient to be started on Eliquis after INR is less than 2. As per cardiology, patient to have PT/INR checked on Tuesday; if INR is less than 2. Patient to be provided with Eliquis prescription. Patient is planned for cardioversion as outpatient in 4 weeks as per cardiology. Bronchitis -Treated with duo nebs and antibiotic during the hospitalization -Discharged on doxycycline for 4 more days. Total Time Total Time Spent Total Time Spent (In Minutes): 35 Total Time Includes: Examination of the Patient, Discharge Planning, Medication Reconciliation, Communication With Other Providers and Other Discharge Plan Discharge Items Patient Disposition: Hospice - Home Reason For Visit: SOB Discharge Diagnosis: (1) HFrEF (heart failure with reduced ejection fraction): (2) Acute dyspnea: (3) Acute on chronic systolic CHF (congestive heart failure) (4) Paroxysmal A.fib (5) Supratherapeutic INR Activity: Resume your previous activity Non-emergency contact: Primary Care Provider Call non-emergency contact if: you have any medication questions and your symptoms worsen Follow-up/Referrals: Irwin Lott MD [Primary Care Provider] - 11/04/22 10:40 am (Date & Time 11/04/2022 10:40 AM Provider Irwin Lott MD Department Family [facility] ) Diet: Regular Addtl Attending Provider Instructions: You were admitted to the hospital with heart failure. The following changes have been made to your medication regimen: 1) Stop taking warfarin. Please have PT/INR checked on Tuesday with [facility] anticoagulation clinic. If your INR is less than 2, you will be started on Eliquis. Cardiology is coordinating with [facility] anticoagulation clinic. 2) Your Lasix is increased from 20 mg once daily to 20 mg twice daily. Please do daily weights at home. The best time to check your weight is in the morning after you go to the bathroom. Weigh yourself before breakfast. If you gain 3 or more pounds in 2 to 3 days, take extra Lasix of 20 mg in the morning. Also contact your primary care doctor. Limit your sodium intake to less than 2 g/day 3) Stop Coreg. A prescription for metoprolol 25 mg is sent to your pharmacy. Please take it 3 times a day. 4) a prescription of doxycycline 100 mg twice daily for 4 days is also sent to your pharmacy. You will have follow-up with your primary care doctor on 04 November at 10:40 AM. Pending Studies at Discharge: No Stand-Alone Forms: My [facility] [employer] Medications and DC Order Prescriptions: New doxycycline hyclate 100 mg Capsule 100 mg PO BID 4 Days Qty: 8 0RF metoprolol tartrate 25 mg Tablet 25 mg PO TID Qty: 90 0RF magnesium oxide 400 mg (241.3 mg magnesium) Tablet 400 mg PO DAILY@1100 Qty: 30 0RF Continued metformin 500 mg tablet 500 mg PO BIDM levothyroxine 50 mcg tablet 50 mcg PO QAM omeprazole 20 mg capsule,delayed release(DR/EC) 20 mg PO QAM insulin glargine [Lantus Solostar U-100 Insulin] 100 unit/mL (3 mL) insulin pen 24 - 26 unit subcut HS Label Comments: WILL ADJUST DOSE BASED ON BSG acetaminophen [Tylenol Extra Strength] 500 mg Tablet 500 mg PO UD PRN (Reason: Pain) ondansetron HCl 8 mg tablet 8 mg PO Q8 PRN (Reason: Nausea) prochlorperazine maleate 10 mg tablet 10 mg PO Q6 PRN (Reason: Nausea) lidocaine-prilocaine 2.5-2.5 % cream 1 applic topical DIRECTED Rx Instructions: apply to skin over mediport & cover 1 hour prior to accessing dexamethasone 4 mg tablet 4 mg PO DIRECTED Rx Instructions: take 2 tablets twice a day,starting on the previous day of the the treatment for a total 3 dayas and repeat with each chemo cycle. PT TAKING 2 TABLETS A DAY polyethylene glycol 3350 [Miralax] 17 gram/dose Powder 17 g PO DAILY PRN (Reason: Constipation) albuterol sulfate 90 mcg/actuation HFA aerosol inhaler 2 puff INHALATION Q4 PRN (Reason: Wheezing) [place]-3 Fish Oil 300-1,000 mg Capsule 1 cap PO DAILY loratadine 10 mg Tablet 10 mg PO DAILY Entresto 24-26 mg Tablet 1 tab PO BID Qty: 60 1RF spironolactone 25 mg tablet 12.5 mg PO QAM Qty: 30 0RF amiodarone 100 mg tablet 200 mg PO QAM Qty: 60 0RF Changed furosemide 20 mg Tablet 20 mg PO BID Qty: 60 1RF Discontinued warfarin 5 mg tablet 2.5 mg PO WK Rx Instructions: 2.5 MG ON TUE warfarin 5 mg tablet 5 mg PO [id number] Rx Instructions: Tuesday, Tuesday, Tuesday, Tuesday, , Sat amoxicillin-pot clavulanate 875-125 mg tablet 1 tab PO BID Rx Instructions: take for 10 days ordered 10/13/22 end 10/23/22 losartan 25 mg tablet 25 mg PO QAM carvedilol 3.125 mg Tablet 3.125 mg PO BID Qty: 60 1RF Discharge Orders: Discharge Order (Routine); Ordered 10/30/22 Ordered By: Kristofer Navarro Admission Data Admit Date/Time: 10/26/22 02:56 Attending Provider: Kristofer Navarro Admit Provider: Ignacio Karimi Primary Care Provider: Irwin Lott Other Providers: Ignacio Karimi ; Aman Matthews ; Sami Hayden ; Len Booth ; Bony Fitzgerald ; Presley Hammond. ; Jamey Carbajal ; Reba Quezada ; Unique Sanchez ; Haylee Rivera. ; Jeffery Coelho Other Interventions: Discharge Summary Assessment (RN) Last Done: 10/30/22 10:54
== END 2022-10-30 13:10 | disposition hospice, home (50) | DRG 291 ==
LOC: ED 23:19 → SUATTDRO 10-26 02:56 → 2E 10-26 02:56

== ENCOUNTER 2024-04-09 18:59 | Inpatient (IN) ==
[2024-04-09 19:53] LABS: Basophils # (auto) 0.02 K/uL (0.00-0.20); Basophils % (auto) 0.4 %; Eosinophils # (auto) 0.08 K/uL (0.00-0.50); Eosinophils % (auto) 1.7 %; Hematocrit (blood only) 37.5 % (37.0-47.0); Hemoglobin 12.7 g/dl (12.0-16.0); Immature Granulocytes # (auto) 0.03 K/uL (0.01-0.20); Immature Granulocytes % (auto) 0.6 %; Lymphocytes # (auto) 0.64 K/uL (1.20-3.40); Lymphocytes % (auto) 13.5 %; Mean Corpuscular Hemoglobin 30.4 pg (25.0-34.0); Mean Corpuscular Hgb Conc 33.9 g/dL (32.0-36.0); Mean Corpuscular Volume 89.7 fL (80.0-100.0); Mean Platelet Volume 10.5 fL (9.4-12.4); Monocytes % (auto) 8.4 %; Neutrophils # (auto) 3.57 K/uL (1.40-6.50); Neutrophils % (auto) 75.4 %; Platelet Count 186 K/uL (130-400); RDW Coefficient of Variation 13.1 % (11.5-14.5); RDW Standard Deviation 43.1 fL (36.4-46.3); Red Blood Count 4.18 M/uL (4.20-5.40); White Blood Count 4.74 K/ul (4.8-10.8)
[2024-04-09 20:27] LABS: Troponin I High Sensitivity 7.5 pg/ml (0-14)
[2024-04-09 20:38] LABS: Prothrombin Time 10.7 Seconds (9.0-12.0)
[2024-04-09] MEDS: SODIUM CHLORIDE 0.9% 500 ML IV ONE (21:06)
[2024-04-09] MEDS: ONDANSETRON INJ 2 MG/ML 2 ML VIAL IV STA (21:08)
[2024-04-09] MEDS: FAMOTIDINE 20MG IV PUSH 20 MG/5 ML SYR IV STA (21:09)
--- NOTE | 2024-04-09 21:13 | Emergency Department Note ---
Impression & Plan Acute UTI, Weakness, RITESH (acute kidney injury) ED Provider Note NAME: SHWETA ALVARADO AGE: 78 SEX: F : 1945 ARRIVES VIA: Ambulance INFORMANT: Patient ED PROVIDER(S): Carlton Reis MD CHIEF COMPLAINT: Weakness, headache, neck pain PLAN: Disposition: Admit MEDICAL DECISION MAKING: The patient is a pleasant 78-year-old woman with a past medical history of atrial fibrillation on Eliquis, history of idiopathic heart myopathy, status post ICD, type 2 diabetes, history of Lyme and anaplasmosis, Left breast ductal carcinoma s/p lumpectomy, chemotherapy and radiation therapy who presents to the emergency department via EMS and then accompanied by her daughter for evaluation of several weeks of generalized malaise/fatigue with ongoing right shoulder, neck and head pain and associated dizziness as well as generalized bodyaches and fatigue. She correlates that her symptoms began after her right shoulder laparoscopic surgery. Patient reports that she did not want to seek medical attention for her symptoms as she has had so many medical problems recently already. However they did see her outpatient provider per their report and was treated with an anti-inflammatory shot but felt no improvement. They deny any object of fevers. Patient denies any diarrhea or urinary symptoms. On my evaluation the patient is fatigued appearing but no distress, afebrile stable vital signs. She appears clinically dry. She has no focal neurologic deficits. She has no joint edema, warmth or tenderness. EKG without overt acute ischemia. CXR negative for acute cardiopulmonary process per my personal preliminary review/interpretation. WBC 4.7K, nonspecific with lymphopenia that is similar to prior. H/H and platelets within normal limits. Chemistry without metabolic acidosis. Creatinine 1.8, slightly increased from recent baseline values in setting of CKD. Lactic acid 0.9, within normal limits. Electrolytes and LFTs are otherwise unremarkable. High-sensitivity troponin 7.5, within normal limits. Lipase is normal. Procalcitonin is not elevated. UA is suspicious for infection with WBCs and 4+ bacteria. Tickborne illness testing was negative including negative Lyme screen and Anaplasma Babesia smear. DNA testing is pending. CT of the head and C-spine negative for acute abnormalities. CT of the abdomen pelvis performed and also does not demonstrate acute intra-abdominal findings. Given the patient's severity of symptoms where she has been unable to function at her baseline per their report they agree with plan for admission for further management. Blood cultures were obtained and empiric treatment initiated with IV ceftriaxone. [facility] who will evaluate the patient for admission. Further management per admitting team. Triage Nursing notes reviewed and agree them. Prior/external medical records reviewed Vital Signs: reviewed Differential diagnosis: Infection, dehydration, metabolic abnormality, hypo/hyperglycemia, electrolyte disturbance, anemia, hypoxia, cardiac sources, intracerebral event, toxicologic, neurologic, as well as other pathologies. ER treatment provided: See below. Diagnostics interpreted by me: ECG: Normal sinus rhythm, 69 bpm, no ectopy, none specific intraventricular conduction block, LVH, no overt ST elevation or depression, QTc 501, QRS 144. Cardiac Monitoring: An order for continuous cardiac monitoring was placed and demonstrated Normal sinus rhythm, 69 bpm, no ectopy. Laboratory studies: See below Imaging studies: See below Consultation(s): [facility] who will evaluate the patient for admission. HPI: The patient is a pleasant 78-year-old woman with a past medical history of atrial fibrillation on Eliquis, history of idiopathic heart myopathy, status post ICD, type 2 diabetes, history of Lyme and anaplasmosis, Left breast ductal carcinoma s/p lumpectomy, chemotherapy and radiation therapy who presents to the emergency department via EMS and then accompanied by her daughter for evaluation of several weeks of generalized malaise/fatigue with ongoing right shoulder, neck and head pain and associated dizziness as well as generalized bodyaches and fatigue. She correlates that her symptoms began after her right shoulder laparoscopic surgery. Patient reports that she did not want to seek medical attention for her symptoms as she has had so many medical problems recently already. However they did see her outpatient provider per their report and was treated with an anti-inflammatory shot but felt no improvement. They deny any object of fevers. Patient denies any diarrhea or urinary symptoms. ROS: See above HPI for pertinent positives & negatives. A total of 10 systems reviewed and were otherwise negative. VITALS:See Below PHYSICAL EXAMINATION: GENERAL: Awake, alert, fatigued-appearing, in no distress, BMI 24.3. HENT: Normocephalic, atraumatic. Oropharynx with dry mucous membranes and otherwise unremarkable. EYES: Normal conjunctiva. Sclera non-icteric. NECK: Supple. No nuchal rigidity. FROM. No JVD. RESPIRATORY: Clear to auscultation. CARDIAC: Regular rate, normal rhythm. Extremities warm and well perfused. Pulses equal. ABDOMEN: Soft, non-distended. No tenderness to palpation. No rebound or guarding. No masses. MUSCULOSKELETAL: Chest examination reveals no tenderness. The back is symmetrical on inspection without obvious abnormality. There is no CVA tenderness to palpation. No joint edema. LOWER EXTREMITIES: Calves are equal size bilaterally and non-tender. No edema. No discoloration. NEURO: Normal sensorium. No sensory or motor deficits noted. 5/5 strength and SILT x 4 extremities. Intact [id number]. DTRs wnl. SKIN: No rash or jaundice noted. Carlton Reis MD Past Med/Surg History Problem List RITESH (acute kidney injury) (Acute) Weakness (Acute) Acute UTI (Acute) Osteoarthritis of right shoulder region Malignant neoplasm of upper-outer quadrant of left breast in female, estrogen receptor negative (06/02/22) Anticoagulation adequate Atrial fibrillation Port-A-Cath in place implanted- 07/16/22- Breast cancer Anemia Persistent atrial fibrillation Nonischemic congestive cardiomyopathy HFrEF (heart failure with reduced ejection fraction) Acute dyspnea (Acute) Bronchitis Acute on chronic systolic CHF (congestive heart failure) ICD (implantable cardioverter-defibrillator) in place Hypokalemia (Acute) Anemia (Acute) Pancytopenia Mobitz (type) I (Wenckebach's) atrioventricular block History of hysterectomy (Chronic) Status post left breast lumpectomy Left partial mastectomy with SLN biopsy on 07/16/22 Nonischemic cardiomyopathy Paroxysmal atrial fibrillation follows w/ Dr Hammond CKD (chronic kidney disease), stage III (Chronic) HTN (hypertension) (Chronic) controlled, stable per pt Nocturnal hypoxia (Chronic) pt denies S/P ICD (internal cardiac defibrillator) procedure (Chronic) replaced 2022 GRETCHEN Almaraz - follows w/ Dr Larson IMPLANTED PACEMAKER/DEFIB ([facility]) Idiopathic cardiomyopathy (Chronic) Chronic systolic heart failure (Chronic) Diabetes mellitus, type II (Chronic) IDDM History of cholecystectomy (Chronic) History of appendectomy (Chronic) History of partial nephrectomy (Chronic) Left, [facility] in 2018 Medical History History of blood transfusion 1970s Hard of hearing Limb alert care 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 History of COVID-19 10/2021 and 2021- hosp @ [facility] w/ covid- resolved Basal cell carcinoma HX--Nose;Mohs Presence of combination internal cardiac defibrillator (ICD) and pacemaker medtronic--checked remotely from home nightly Hyperlipidemia Hemorrhoids History of kidney cancer 02/21/24 states has another renal tumor presently; just monitoring at this time hx-Left renal papillary carcinoma History of kidney stones one remaining in place-monitoring per pt GERD (gastroesophageal reflux disease) controlled, stable per pt Hypothyroidism Hx of blood clots in heart per pt-no notation by [facility] cardiology on most recent office note Diabetic neuropathy feet Surgical History History of surgery T&A Hx of partial mastectomy 2021--left History of removal of Port-a-Cath Status post Mohs surgery History of anesthesia reaction N/V AND AGITATED WITH ANESTHESIA H/O cervical spine surgery X 2 (GOOD ROM) History of cystoscopy H/O partial nephrectomy LEFT "CANCEROUS TUMOR REMOVED" 03/28/2018 Dr. Tellez at [facility] H/O knee surgery LEFT H/O: hysterectomy Uterine leiomyoma H/O breast biopsy History of esophagogastroduodenoscopy (EGD) History of colonoscopy History of tooth extraction History of tonsillectomy History of cataract surgery RT/LEFT History of cardiac cath X 4 (NO STENTS) Family History Mother , in her 50s Colorectal cancer Brother COVID Sister Colorectal cancer Lymphoma Father , 60yo Stroke Pneumonia Hypertension Brother Myocardial infarction Brother Primary cancer of bone marrow Pneumonia Brother Cancer "Tumors in brain and lungs" Sister Lung cancer Sister Heart disease Daughter Diabetes Psoriatic arthritis Son Diabetes Psoriatic arthritis Other No family history of adverse response to anesthesia Social History Smoking Status: Never smoker Second Hand Exposure: No; Do You Dip or Chew Tobacco: No; Hx Alcohol Use: No Hx Substance Use: No Preferred Language: Greenlandic Communication Ability: Effective Visual Impairment: No Limitations Hearing Ability: Normal Senior Benefits Manager Required: No Beliefs That Will Affect Care: None marital status: / Current Living Situation: Alone current occupational status: retired 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 How many Children do You have: 2 Feels Safe at Home: Yes Diet: regular caffeine: Yes (2 cups/day) Assistive Devices: Cane, Denture - Upper and Glasses Allergies Allergies Allergy/AdvReac Type Severity Reaction Status Date / Time Sulfa (Sulfonamide Allergy Intermediate HIVES Verified 04/09/24 21:54 Antibiotics) codeine AdvReac Intermediate Vomiting Verified 04/09/24 21:54 hydrocodone AdvReac Intermediate NAUSEA AND Verified 04/09/24 21:54 VOMITING meloxicam AdvReac Intermediate Vomiting Verified 04/09/24 21:54 oxycodone AdvReac Intermediate Vomiting Verified 04/09/24 21:54 Utvaxvz-TEL-[id number] Reductase AdvReac Intermediate Muscle Pain Verified 04/09/24 21:54 Inhibitor [Ledldcn-Mib-Jcm Reductase Inhibitor] tramadol AdvReac Intermediate VERY SICK Verified 04/09/24 21:54 TO STOMACH Home Meds Home Medications Medication Instructions Recorded Confirmed levothyroxine 50 mcg tablet 50 mcg PO QAM 05/15/19 04/09/24 metformin 500 mg tablet 500 mg PO BIDM 05/15/19 04/09/24 omeprazole 20 mg capsule,delayed 20 mg PO QAM 05/15/19 04/09/24 release polyethylene glycol 3350 17 17 g PO DAILY PRN Constipation 08/27/21 04/09/24 gram/dose oral powder (Miralax) ondansetron HCl 8 mg tablet 8 mg PO Q8 PRN Nausea 08/19/22 04/09/24 omega-3s 300 og-mmu-vco-other 1 cap PO DAILY 10/15/22 04/09/24 [id number] oil 1,000 mg capsule ([place]-3 Fish Oil) apixaban 5 mg tablet 5 mg PO BID 11/25/22 04/09/24 spironolactone 25 mg tablet 25 mg PO Q OTHER DAY 11/25/22 04/09/24 bumetanide 2 mg tablet 2 mg PO DAILY 02/09/23 04/10/24 insulin glargine 100 unit/mL (3 14 - 16 unit subcut HS 02/09/23 04/09/24 mL) subcutaneous pen (Lantus Solostar U-100 Insulin) loratadine 10 mg tablet 10 mg PO DAILY PRN allergy symptoms 02/09/23 04/09/24 cholecalciferol (vitamin D3) 50 50 mcg PO DAILY 02/21/24 04/09/24 mcg (2,000 unit) tablet (Vitamin D3) metoprolol succinate 50 mg 75 mg PO DAILY 04/10/24 04/10/24 tablet,extended release 24 hr Previous Rx's Medication Instructions Recorded amiodarone 100 mg tablet 200 mg (2 x 100 mg) PO QAM #60 tabs 10/18/22 sacubitril 24 mg-valsartan 26 mg 1 tab PO BID #60 tabs 10/18/22 tablet (Entresto) Results & Data (ED) Vital Signs Vital Signs - 24 hr 04/09/24 18:59 04/09/24 19:10 04/09/24 19:12 Temperature 36.6 C Temperature Source Oral Pulse Rate 78 70 Pulse Rate from SpO2 Sensor 72 Pulse Rhythm Regular Pulse Strength Normal Respiratory Rate 20 15 Respiratory Effort / Characteristics Non-Labored Respiratory Depth Normal Respiratory Pattern Regular Blood Pressure 147/73 H 147/73 H Blood Pressure Mean 97 123 Pulse Oximetry 98 99 Oxygen Delivery Method Room Air Sepsis Recent Fever Within 48 Hours No Sepsis New/Unexplained Change in Mental Status N/A Sepsis Action Taken by Nursing No Action Required 04/09/24 19:12 04/09/24 19:13 04/09/24 19:14 Temperature Temperature Source Pulse Rate 73 72 Pulse Rate from SpO2 Sensor 72 Pulse Rhythm Pulse Strength Respiratory Rate 17 Respiratory Effort / Characteristics Respiratory Depth Respiratory Pattern Blood Pressure Blood Pressure Mean Pulse Oximetry 99 98 Oxygen Delivery Method Room Air Sepsis Recent Fever Within 48 Hours Sepsis New/Unexplained Change in Mental Status Sepsis Action Taken by Nursing 04/09/24 19:19 04/09/24 19:19 04/09/24 19:30 Temperature Temperature Source Pulse Rate 71 Pulse Rate from SpO2 Sensor 69 Pulse Rhythm Pulse Strength Respiratory Rate 14 Respiratory Effort / Characteristics Respiratory Depth Respiratory Pattern Blood Pressure 140/71 143/77 H Blood Pressure Mean 108 110 Pulse Oximetry 98 Oxygen Delivery Method Sepsis Recent Fever Within 48 Hours Sepsis New/Unexplained Change in Mental Status Sepsis Action Taken by Nursing 04/09/24 19:30 04/09/24 20:00 04/09/24 20:00 Temperature Temperature Source Pulse Rate 71 70 Pulse Rate from SpO2 Sensor 73 70 Pulse Rhythm Pulse Strength Respiratory Rate 14 17 Respiratory Effort / Characteristics Respiratory Depth Respiratory Pattern Blood Pressure 126/88 Blood Pressure Mean 109 Pulse Oximetry 98 97 Oxygen Delivery Method Sepsis Recent Fever Within 48 Hours Sepsis New/Unexplained Change in Mental Status Sepsis Action Taken by Nursing 04/09/24 20:30 04/09/24 21:06 04/09/24 21:17 Temperature Temperature Source Pulse Rate 65 68 62 Pulse Rate from SpO2 Sensor 64 63 Pulse Rhythm Pulse Strength Respiratory Rate 16 14 14 Respiratory Effort / Characteristics Respiratory Depth Respiratory Pattern Blood Pressure 143/77 H 139/77 Blood Pressure Mean 99 97 Pulse Oximetry 96 100 Oxygen Delivery Method Room Air Room Air Sepsis Recent Fever Within 48 Hours Sepsis New/Unexplained Change in Mental Status Sepsis Action Taken by Nursing 04/09/24 21:30 04/09/24 22:00 04/09/24 22:30 Temperature Temperature Source Pulse Rate 62 61 61 Pulse Rate from SpO2 Sensor 61 61 61 Pulse Rhythm Pulse Strength Respiratory Rate 15 14 Respiratory Effort / Characteristics Respiratory Depth Respiratory Pattern Blood Pressure 115/66 115/58 L 116/59 L Blood Pressure Mean 82 77 78 Pulse Oximetry 99 99 97 Oxygen Delivery Method Room Air Room Air Room Air Sepsis Recent Fever Within 48 Hours Sepsis New/Unexplained Change in Mental Status Sepsis Action Taken by Nursing 04/09/24 23:00 04/09/24 23:06 04/09/24 23:30 Temperature Temperature Source Pulse Rate 59 L 60 61 Pulse Rate from SpO2 Sensor 60 60 Pulse Rhythm Pulse Strength Respiratory Rate 13 19 Respiratory Effort / Characteristics Respiratory Depth Respiratory Pattern Blood Pressure 113/55 L 93/49 L Blood Pressure Mean 74 63 Pulse Oximetry 94 93 Oxygen Delivery Method Room Air Room Air Sepsis Recent Fever Within 48 Hours Sepsis New/Unexplained Change in Mental Status Sepsis Action Taken by Nursing 04/10/24 00:00 04/10/24 00:30 04/10/24 00:59 Temperature Temperature Source Pulse Rate 57 L 57 L 59 L Pulse Rate from SpO2 Sensor 58 L 56 L 58 L Pulse Rhythm Pulse Strength Respiratory Rate 15 13 14 Respiratory Effort / Characteristics Respiratory Depth Respiratory Pattern Blood Pressure 109/57 L 131/68 122/65 Blood Pressure Mean 74 89 84 Pulse Oximetry 95 97 97 Oxygen Delivery Method Room Air Room Air Room Air Sepsis Recent Fever Within 48 Hours Sepsis New/Unexplained Change in Mental Status Sepsis Action Taken by Nursing 04/10/24:01 04/10/24 01:30 04/10/24 02:00 Temperature Temperature Source Pulse Rate 58 L 58 L 59 L Pulse Rate from SpO2 Sensor 58 L 57 L 59 L Pulse Rhythm Pulse Strength Respiratory Rate 12 13 17 Respiratory Effort / Characteristics Respiratory Depth Respiratory Pattern Blood Pressure 112/59 L 134/66 Blood Pressure Mean 76 88 Pulse Oximetry 96 94 96 Oxygen Delivery Method Room Air Room Air Sepsis Recent Fever Within 48 Hours Sepsis New/Unexplained Change in Mental Status Sepsis Action Taken by Nursing 04/10/24 02:30 04/10/24 02:56 04/10/24 03:00 Temperature Temperature Source Pulse Rate 58 L 58 L 58 L Pulse Rate from SpO2 Sensor 59 L 59 L Pulse Rhythm Pulse Strength Respiratory Rate 15 15 Respiratory Effort / Characteristics Respiratory Depth Respiratory Pattern Blood Pressure 124/70 99/55 L Blood Pressure Mean 88 69 Pulse Oximetry 98 95 Oxygen Delivery Method Room Air Room Air Sepsis Recent Fever Within 48 Hours Sepsis New/Unexplained Change in Mental Status Sepsis Action Taken by Nursing 04/10/24 03:30 04/10/24 04:00 04/10/24 04:30 Temperature Temperature Source Pulse Rate 59 L 61 61 Pulse Rate from SpO2 Sensor 59 L 61 61 Pulse Rhythm Pulse Strength Respiratory Rate 16 12 12 Respiratory Effort / Characteristics Respiratory Depth Respiratory Pattern Blood Pressure 109/61 137/84 135/72 Blood Pressure Mean 77 101 93 Pulse Oximetry 97 99 98 Oxygen Delivery Method Room Air Room Air Room Air Sepsis Recent Fever Within 48 Hours Sepsis New/Unexplained Change in Mental Status Sepsis Action Taken by Nursing Laboratory Data Attestation: I reviewed the patient's lab results. 04/09/24 19:20 04/09/24 19:20 Lab Results 04/09/24 04/09/24 04/10/24 Range/Units 19:20 23:30 00:50 WBC 4.74 L (4.8-10.8) K/ul RBC 4.18 L (4.20-5.40) M/uL Hgb 12.7 (12.0-16.0) g/dl Hct 37.5 (37.0-47.0) % MCV 89.7 (80.0-100.0) fL MCH 30.4 (25.0-34.0) pg MCHC 33.9 (32.0-36.0) g/dL RDW Std Deviation 43.1 (36.4-46.3) fL RDW Coeff of Edimla 13.1 (11.5-14.5) % Plt Count 186 (130-400) K/uL MPV 10.5 (9.4-12.4) fL Immature Gran % (Auto) 0.6 % Neut % (Auto) 75.4 % Lymph % (Auto) 13.5 % [place] % (Auto) 8.4 % Eos % (Auto) 1.7 % Baso % (Auto) 0.4 % Neut # (Auto) 3.57 (1.40-6.50) K/uL Lymph # (Auto) 0.64 L (1.20-3.40) K/uL [place] # (Auto) 0.40 (0.11-0.59) K/uL Eos # (Auto) 0.08 (0.00-0.50) K/uL Baso # (Auto) 0.02 (0.00-0.20) K/uL Immature Gran # (Auto) 0.03 (0.01-0.20) K/uL PT 10.7 (9.0-12.0) Seconds INR 1.0 (0.9-1.1) Sodium 139 (136-145) mmol/L Potassium 4.5 (3.5-5.1) mmol/L Chloride 104 (98-107) mmol/L Carbon Dioxide 24 (21-32) mmol/L Anion Gap 11 (3-11) BUN 33 H (6-23) mg/dl Creatinine 1.87 H (0.6-1.2) mg/dl Est Cr Clr Drug Dosing 29.5 ml/min Est GFR ( Amer) 29.7 ml/min Est GFR (Non-Af Amer) 25.7 ml/min BUN/Creatinine Ratio 17.6 (10-20) Glucose 196 H (70-99(Fasting)) mg/dl Lactate (0.4-2.0) mmol/L Calcium 9.3 (8.6-10.3) mg/dl Magnesium 2.0 (1.7-2.4) mg/dl Total Bilirubin 0.6 (0.2-1.0) mg/dl Direct Bilirubin 0.1 (0-0.2) mg/dl AST 18 (13-39) U/L ALT 14 (7-52) U/L Alkaline Phosphatase 54 (34-104) U/L Troponin I High Sens 7.5 (0-14) pg/ml Total Protein 6.5 (6.0-8.3) gm/dl Albumin 4.2 (3.4-5.0) gm/dl Globulin 2.3 L (2.5-4.0) gm/dl Albumin/Globulin Ratio 1.8 (0.9-2) Lipase 55 (11-82) U/L Procalcitonin 0.03 (0-0.5) ng/ml Urine Color Yellow Urine Appearance Cloudy A (Clear) Urine pH 5.0 (4.5-7.5) Ur Specific [place] 1.020 (1.000-1.030) Urine Protein Negative (Negative) Urine Glucose (UA) Negative (Negative) Urine Ketones Trace H (Negative) Urine Blood Negative (Negative) Urine Nitrite Negative (Negative) Urine Bilirubin Negative (Negative) Urine Urobilinogen Negative (Negative) Ur Leukocyte Esterase 2+ H (Negative) Urine WBC (Auto) >50 H (0-5) /hpf Urine RBC (Auto) 0-2 (0-2) /hpf U Hyaline Cast (Auto) 0-2 (0-2) /lpf U Epithel Cells (Auto) 0-2 (0-2) /hpf Urine Bacteria (Auto) 4+ H (None Seen) Anaplasma Smear See Comment Babesia Smear See Comment Lyme Disease Screen Negative (Negative) Q Fever Phase I IgG Ab Cancelled Q Fever Phase I IgM Ab Cancelled Q Fever Phase II IgG Ab Cancelled Q Fever Phase II IgM Ab Cancelled Rickettsia IgG Ab Cancelled Rickettsia IgM Ab Cancelled Typhus Fever IgG Ab Cancelled Typhus Fever IgM Ab Cancelled 04/10/24 Range/Units 01:49 WBC (4.8-10.8) K/ul RBC (4.20-5.40) M/uL Hgb (12.0-16.0) g/dl Hct (37.0-47.0) % MCV (80.0-100.0) fL MCH (25.0-34.0) pg MCHC (32.0-36.0) g/dL RDW Std Deviation (36.4-46.3) fL RDW Coeff of Edilma (11.5-14.5) % Plt Count (130-400) K/uL MPV (9.4-12.4) fL Immature Gran % (Auto) % Neut % (Auto) % Lymph % (Auto) % [place] % (Auto) % Eos % (Auto) % Baso % (Auto) % Neut # (Auto) (1.40-6.50) K/uL Lymph # (Auto) (1.20-3.40) K/uL [place] # (Auto) (0.11-0.59) K/uL Eos # (Auto) (0.00-0.50) K/uL Baso # (Auto) (0.00-0.20) K/uL Immature Gran # (Auto) (0.01-0.20) K/uL PT (9.0-12.0) Seconds INR (0.9-1.1) Sodium (136-145) mmol/L Potassium (3.5-5.1) mmol/L Chloride (98-107) mmol/L Carbon Dioxide (21-32) mmol/L Anion Gap (3-11) BUN (6-23) mg/dl Creatinine (0.6-1.2) mg/dl Est Cr Clr Drug Dosing ml/min Est GFR ( Amer) ml/min Est GFR (Non-Af Amer) ml/min BUN/Creatinine Ratio (10-20) Glucose (70-99(Fasting)) mg/dl Lactate 0.9 (0.4-2.0) mmol/L Calcium (8.6-10.3) mg/dl Magnesium (1.7-2.4) mg/dl Total Bilirubin (0.2-1.0) mg/dl Direct Bilirubin (0-0.2) mg/dl AST (13-39) U/L ALT (7-52) U/L Alkaline Phosphatase (34-104) U/L Troponin I High Sens (0-14) pg/ml Total Protein (6.0-8.3) gm/dl Albumin (3.4-5.0) gm/dl Globulin (2.5-4.0) gm/dl Albumin/Globulin Ratio (0.9-2) Lipase (11-82) U/L Procalcitonin (0-0.5) ng/ml Urine Color Urine Appearance (Clear) Urine pH (4.5-7.5) Ur Specific [place] (1.000-1.030) Urine Protein (Negative) Urine Glucose (UA) (Negative) Urine Ketones (Negative) Urine Blood (Negative) Urine Nitrite (Negative) Urine Bilirubin (Negative) Urine Urobilinogen (Negative) Ur Leukocyte Esterase (Negative) Urine WBC (Auto) (0-5) /hpf Urine RBC (Auto) (0-2) /hpf U Hyaline Cast (Auto) (0-2) /lpf U Epithel Cells (Auto) (0-2) /hpf Urine Bacteria (Auto) (None Seen) Anaplasma Smear Babesia Smear Lyme Disease Screen (Negative) Q Fever Phase I IgG Ab Q Fever Phase I IgM Ab Q Fever Phase II IgG Ab Q Fever Phase II IgM Ab Rickettsia IgG Ab Rickettsia IgM Ab Typhus Fever IgG Ab Typhus Fever IgM Ab Administered Medications Discontinued Medications Ceftriaxone Sodium (Ceftriaxone Sodium 2000mg/50ml D5w) Confirm Administered Dose 2,000 mg IV .ST-MED ONE Stop: 04/10/24 04:53 Last Admin: 04/10/24 04:54 Dose: Not Given Documented By: LISA Hydromorphone HCl (Hydromorphone Inj 0.5 Mg/0.5 Ml Syr) 0.5 mg IV NOW STA Stop: 04/10/24 04:58 Last Admin: 04/10/24 05:37 Dose: 0.5 mg Documented By: LISA Famotidine (Pepcid 20mg Iv Push) 20 mg in 5 mls @ 2.5 mls/min IV NOW STA Stop: 04/09/24 20:39 Last Admin: 04/09/24 21:09 Dose: 2.5 mls/min Documented By: LISA Acetaminophen (Ofirmev) 1,000 mg in 100 mls @ 400 mls/hr IV NOW STA Stop: 04/09/24 20:52 Last Infusion: 04/09/24 22:15 Dose: Infused Documented By: Admin: 04/09/24 21:17 Dose: 400 mls/hr Documented By: LISA Sodium Chloride (Nss) 500 mls @ 999 mls/hr IV .Q31M ONE Stop: 04/09/24 21:10 Last Infusion: 04/09/24 22:15 Dose: Infused Documented By: Admin: 04/09/24 21:06 Dose: 999 mls/hr Documented By: LISA Ceftriaxone Sodium (Rocephin) 2,000 mg in 50 mls @ 100 mls/hr IV NOW STA Stop: 04/10/24 02:07 Last Infusion: 04/10/24 05:35 Dose: Infused Documented By: Admin: 04/10/24 04:54 Dose: 100 mls/hr Documented By: LISA Ondansetron HCl (Ondansetron Inj 2 Mg/Ml 2 Ml Vial) 4 mg IV NOW STA Stop: 04/09/24 20:40 Last Admin: 04/09/24 21:08 Dose: 4 mg Documented By: LISA Ondansetron HCl (Ondansetron Inj 2 Mg/Ml 2 Ml Vial) 4 mg IV NOW STA Stop: 04/10/24 04:58 Last Admin: 04/10/24 05:38 Dose: 4 mg Documented By: LISA Imaging Data Radiologist's Impression: Abdomen/Pelvis CT 04/09/24 20:38 Exam(s): CT ABDOMEN + PELVIS Without Contrast EXAM: CT Abdomen and Pelvis Without Intravenous Contrast CLINICAL HISTORY: Reason for exam: n/v. TECHNIQUE: Axial computed tomography images of the abdomen and pelvis without intravenous contrast. CTDI is 27.92 mGy and DLP is 1418.3 mGy-cm. Automated exposure control was utilized for the study. A dose lowering technique was utilized adhering to the principles of ALARA. COMPARISON: No relevant prior studies available. FINDINGS: Lung bases: Unremarkable. No mass. No consolidation. Pleural space: Trace LEFT pleural effusion. ABDOMEN: Liver: Multiple low-attenuation hepatic lesions, which are indeterminate. Consider hepatic MRI for further evaluation. Gallbladder and bile ducts: Cholecystectomy. No ductal dilation. Pancreas: Unremarkable. No ductal dilation. Spleen: Unremarkable. No splenomegaly. Adrenals: Unremarkable. No mass. Kidneys and ureters: No hydronephrosis. Bilateral renal cysts, of which many are hyperdense and may contain hemorrhagic or proteinaceous components. Stomach and bowel: Diverticulosis, without acute diverticulitis. No small bowel obstruction. No free intraperitoneal air. PELVIS: Appendix: No findings to suggest acute appendicitis. Bladder: Unremarkable. No stones. Reproductive: Unremarkable as visualized. ABDOMEN and PELVIS: Intraperitoneal space: Unremarkable. No free air. No significant fluid collection. Bones/joints: Degenerative changes of the spine. No acute fracture. No dislocation. Soft tissues: Unremarkable. Vasculature: Atherosclerotic changes of the aorta. No abdominal aortic aneurysm. Lymph nodes: Unremarkable. No enlarged lymph nodes. IMPRESSION: 1. No hydronephrosis. Bilateral renal cysts, of which many are hyperdense and may contain hemorrhagic or proteinaceous components. 2. Multiple low-attenuation hepatic lesions, which are indeterminate. Consider hepatic MRI for further evaluation. 3. Trace LEFT pleural effusion. 4. Cholecystectomy. 5. Diverticulosis, without acute diverticulitis. No small bowel obstruction. No free intraperitoneal air. Electronically signed by: Ned Leahy MD 04/09/24 21:[address] 04/09/24 20:38 Exam(s): CT HEAD Without Contrast EXAM: CT Head Without Intravenous Contrast CLINICAL HISTORY: Reason for exam: headache n/v. TECHNIQUE: Axial computed tomography images of the head/brain without intravenous contrast. CTDI is 37.32 mGy and DLP is 624.41 mGy-cm. Automated exposure control was utilized for the study. A dose lowering technique was utilized adhering to the principles of ALARA. COMPARISON: No relevant prior studies available. FINDINGS: No acute intracranial hemorrhage. No midline shift or mass effect. The territorial manley-white matter differentiation is maintained throughout. Age-related cerebral volume loss. Periventricular and subcortical white matter hypoattenuation, consistent with chronic microangiopathy. The visualized orbits appear grossly unremarkable. The calvarium is intact. The visualized paranasal sinuses and mastoid air cells are grossly clear. IMPRESSION: No acute intracranial hemorrhage, midline shift, or mass effect. Electronically signed by: Ned Leahy MD 04/09/24 21:[address] 04/09/24 20:40 Exam(s): CT C SPINE EXAM: CT Cervical Spine Without Intravenous Contrast CLINICAL HISTORY: Reason for exam: neck/head pain. TECHNIQUE: Axial computed tomography images of the cervical spine without intravenous contrast. CTDI is 22.2 mGy and DLP is 441.39 mGy-cm. Automated exposure control was utilized for the study. A dose lowering technique was utilized adhering to the principles of ALARA. COMPARISON: No relevant prior studies available. FINDINGS: The vertebral body heights are maintained. The craniocervical junction is intact. The atlanto-dens interval is maintained. The dens is intact. There is no spondylolisthesis. Multilevel cervical spondylosis and degenerative disc disease. Straightening of the cervical lordosis. IMPRESSION: No acute fracture or subluxation of the cervical spine. Electronically signed by: Ned Leahy MD 04/09/24 21:34 PM Discharge Plan Visit Data Chief Complaint: Vomiting Stated Complaint: VOMITING ED Provider: Carlton Reis Discharge Problem: Acute UTI, Weakness, RITESH (acute kidney injury) Discharge Instructions Interventions: ED Discharge Assessment Last Done: 04/10/24 05:41
[2024-04-09 21:15] LABS: Albumin Globulin Ratio 1.8 (0.9-2); Albumin Level 4.2 gm/dl (3.4-5.0); BUN Creatinine Ratio 17.6 (10-20); Bilirubin,Total 0.6 mg/dl (0.2-1.0); Calcium 9.3 mg/dl (8.6-10.3); Creatinine Clr Calc Pharmacy 29.5 ml/min; Est GFR (African American) 29.7 ml/min; Est GFR (Non-African American) 25.7 ml/min; Globulin 2.3 gm/dl (2.5-4.0); Potassium 4.5 mmol/L (3.5-5.1); Total Protein 6.5 gm/dl (6.0-8.3)
[2024-04-09] MEDS: ACETAMINOPHEN 1,000 MG/100 ML VIAL IV STA (21:17)
[2024-04-09 21:25] LABS: Bilirubin Direct 0.1 mg/dl (0-0.2)
--- NOTE | 2024-04-09 21:35 | CT Scan Report ---
Exam(s): CT C SPINE EXAM: CT Cervical Spine Without Intravenous Contrast CLINICAL HISTORY: Reason for exam: neck/head pain. TECHNIQUE: Axial computed tomography images of the cervical spine without intravenous contrast. CTDI is 22.2 mGy and DLP is 441.39 mGy-cm. Automated exposure control was utilized for the study. A dose lowering technique was utilized adhering to the principles of ALARA. COMPARISON: No relevant prior studies available. FINDINGS: The vertebral body heights are maintained. The craniocervical junction is intact. The atlanto-dens interval is maintained. The dens is intact. There is no spondylolisthesis. Multilevel cervical spondylosis and degenerative disc disease. Straightening of the cervical lordosis. IMPRESSION: No acute fracture or subluxation of the cervical spine. Electronically signed by: Ned Leahy MD 04/09/24 21:34 PM
--- NOTE | 2024-04-09 21:36 | CT Scan Report ---
Exam(s): CT HEAD Without Contrast EXAM: CT Head Without Intravenous Contrast CLINICAL HISTORY: Reason for exam: headache n/v. TECHNIQUE: Axial computed tomography images of the head/brain without intravenous contrast. CTDI is 37.32 mGy and DLP is 624.41 mGy-cm. Automated exposure control was utilized for the study. A dose lowering technique was utilized adhering to the principles of ALARA. COMPARISON: No relevant prior studies available. FINDINGS: No acute intracranial hemorrhage. No midline shift or mass effect. The territorial manley-white matter differentiation is maintained throughout. Age-related cerebral volume loss. Periventricular and subcortical white matter hypoattenuation, consistent with chronic microangiopathy. The visualized orbits appear grossly unremarkable. The calvarium is intact. The visualized paranasal sinuses and mastoid air cells are grossly clear. IMPRESSION: No acute intracranial hemorrhage, midline shift, or mass effect. Electronically signed by: Ned Leahy MD 04/09/24 21:35 PM
[2024-04-09 21:53] LABS: Lyme Screen Rflx Confirmation Negative (Negative)
--- NOTE | 2024-04-09 21:59 | CT Scan Report ---
Exam(s): CT ABDOMEN + PELVIS Without Contrast EXAM: CT Abdomen and Pelvis Without Intravenous Contrast CLINICAL HISTORY: Reason for exam: n/v. TECHNIQUE: Axial computed tomography images of the abdomen and pelvis without intravenous contrast. CTDI is 27.92 mGy and DLP is 1418.3 mGy-cm. Automated exposure control was utilized for the study. A dose lowering technique was utilized adhering to the principles of ALARA. COMPARISON: No relevant prior studies available. FINDINGS: Lung bases: Unremarkable. No mass. No consolidation. Pleural space: Trace LEFT pleural effusion. ABDOMEN: Liver: Multiple low-attenuation hepatic lesions, which are indeterminate. Consider hepatic MRI for further evaluation. Gallbladder and bile ducts: Cholecystectomy. No ductal dilation. Pancreas: Unremarkable. No ductal dilation. Spleen: Unremarkable. No splenomegaly. Adrenals: Unremarkable. No mass. Kidneys and ureters: No hydronephrosis. Bilateral renal cysts, of which many are hyperdense and may contain hemorrhagic or proteinaceous components. Stomach and bowel: Diverticulosis, without acute diverticulitis. No small bowel obstruction. No free intraperitoneal air. PELVIS: Appendix: No findings to suggest acute appendicitis. Bladder: Unremarkable. No stones. Reproductive: Unremarkable as visualized. ABDOMEN and PELVIS: Intraperitoneal space: Unremarkable. No free air. No significant fluid collection. Bones/joints: Degenerative changes of the spine. No acute fracture. No dislocation. Soft tissues: Unremarkable. Vasculature: Atherosclerotic changes of the aorta. No abdominal aortic aneurysm. Lymph nodes: Unremarkable. No enlarged lymph nodes. IMPRESSION: 1. No hydronephrosis. Bilateral renal cysts, of which many are hyperdense and may contain hemorrhagic or proteinaceous components. 2. Multiple low-attenuation hepatic lesions, which are indeterminate. Consider hepatic MRI for further evaluation. 3. Trace LEFT pleural effusion. 4. Cholecystectomy. 5. Diverticulosis, without acute diverticulitis. No small bowel obstruction. No free intraperitoneal air. Electronically signed by: Ned Leahy MD 04/09/24 21:58 PM
[2024-04-09 22:18] LABS: Procalcitonin 0.03 ng/ml (0-0.5)
[2024-04-10 00:12] LABS: Appearance Urine Cloudy (Clear); Bacteria Urine Automated 4+ (None Seen); Bilirubin Urine Negative (Negative); Blood Urine Negative (Negative); Cast Urine Automated 0-2 /lpf (0-2); Color Urine Yellow; Epithelial Cell Urine Auto 0-2 /hpf (0-2); Glucose Urine UA Negative (Negative); Ketones Urine Trace (Negative); Leukocyte Esterase Urine 2+ (Negative); Nitrite Urine Negative (Negative); Protein Urine Negative (Negative); RBC Urine Automated 0-2 /hpf (0-2); Urobilinogen Urine Negative (Negative); WBC Urine Automated >50 /hpf (0-5)
[2024-04-10] MEDS: cefTRIAXone SODIUM 2000MG/50ML D5W IV ONE (04:54)
[2024-04-10] MEDS: cefTRIAXone SODIUM 2,000 MG/50 ML BAG IV STA (04:54)
--- NOTE | 2024-04-10 05:34 | History & Physical Report ---
Date of Service April 10, 2024 Assessment & Plan (1) Acute UTI: Plan: 78-year-old female with past medical history significant for type 2 diabetes, CKD stage III, hyperlipidemia, hypothyroidism, diabetic polyneuropathy, mild intermittent asthma, multiple lung nodules, chronic systolic CHF due to idiopathic cardiomyopathy, s/p ICD, paroxysmal atrial fibrillation, hypertension, GERD, vitamin B12 deficiency, iron deficiency anemia, depression, history of breast cancer s/p chemoradiation, history of left renal cell cancers s/p partial nephrectomy, currently living alone and daughter lives close by comes because of ongoing illness for several days but last 2 days having lot of nausea and pain in the back of the head not feeling well and came to the ER and found to UTI. Patient had a history of Lyme disease and anaplasmosis in the past. She states she had a tick bite about 3 weeks ago on her calf. Lyme screen is negative in the ER. Denies any fevers. No chest pain. States she always is short of breath because of heart disease. Occasional cough. Appetite is okay. No difficulty swallowing. Has some abdominal discomfort. Somewhat constipated. Denies any blood in the stools. Normal bladder movements. Hemodynamics are okay. Patient recently on March 21, 2024 had right shoulder arthroscopy with distal clavicle excision and subacromial decompression and debridement of glenohumeral joint synovitic tissue and subacromial bursa. Has some pain at the surgical site. 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 Follow-up Anaplasma and Babesia PCR RITESH in CKD stage III Baseline creatinine around 1.5 Creatinine 1.8 today Follow repeat labs If worsening will hold Entresto and diuretics Close monitor GERD On omeprazole Depression Seems not on medications Somewhat tearful but does not want to be counselled currently. DVT prophylaxis On Eliquis Disposition Med/telemetry Full code History of Present Illness Chief Complaint: Nausea, headache and neck pain and not feeling well Primary Care Provider: Irwin Lott MD 78-year-old female with past medical history significant for type 2 diabetes, C KD stage III, hyperlipidemia, hypothyroidism, diabetic polyneuropathy, mild intermittent asthma, multiple lung nodules, chronic systolic CHF due to idiopathic cardiomyopathy, s/p ICD, paroxysmal atrial fibrillation, hypertension, GERD, vitamin B12 deficiency, iron deficiency anemia, depression, history of breast cancer s/p chemoradiation, history of left renal cell cancers s/p partial nephrectomy, currently living alone and daughter lives close by comes because of ongoing illness for several days but last 2 days having lot of nausea and pain in the back of the head not feeling well and came to the ER and found to UTI. Patient had a history of Lyme disease and anaplasmosis in the past. She states she had a tick bite about 3 weeks ago on her calf. Lyme screen is negative in the ER. Denies any fevers. No chest pain. States she always is short of breath because of heart disease. Occasional cough. Appetite is okay. No difficulty swallowing. Has some abdominal discomfort. Somewhat constipated. Denies any blood in the stools. Normal bladder movements. Hemodynamics are okay. Patient recently on March 21, 2024 had right shoulder arthroscopy with distal clavicle excision and subacromial decompression and debridement of glenohumeral joint synovitic tissue and subacromial bursa. Has some pain at the surgical site. Past medical history. As mentioned above. Past surgical history. Breast biopsy. Colonoscopy. Excision of breast lesion. S/p ICD. Left knee arthroscopy. Left partial mastectomy. Neck spine fusion surgery. Partial hysterectomy. Left partial removal of kidney. Cataract surgery. Cholecystectomy. Tonsillectomy and adenoidectomy. Social history. . Quit smoking 1964. Smoked 0.3 packs a day for 2 years. No alcohol use. No drug use. Family history. Brother had cancer. Mother had colon cancer. Sister had non- Hodgkin's lymphoma. Brother had heart disorder of COVID in October 2020. Father had stroke. Allergies Allergy/AdvReac Type Severity Reaction Status Date / Time Sulfa (Sulfonamide Allergy Intermediate HIVES Verified 04/09/24 21:54 Antibiotics) codeine AdvReac Intermediate Vomiting Verified 04/09/24 21:54 hydrocodone AdvReac Intermediate NAUSEA AND Verified 04/09/24 21:54 VOMITING meloxicam AdvReac Intermediate Vomiting Verified 04/09/24 21:54 oxycodone AdvReac Intermediate Vomiting Verified 04/09/24 21:54 Juypzcy-RMD-HdL Reductase AdvReac Intermediate Muscle Pain Verified 04/09/24 21:54 Inhibitor [Gadusmg-Fwk-Gsx Reductase Inhibitor] tramadol AdvReac Intermediate VERY SICK Verified 04/09/24 21:54 TO STOMACH Home Medications Medication Instructions Recorded Confirmed Type levothyroxine 50 mcg tablet 50 mcg PO QAM 05/15/19 04/09/24 History metformin 500 mg tablet 500 mg PO BIDM 05/15/19 04/09/24 History omeprazole 20 mg capsule,delayed 20 mg PO QAM 05/15/19 04/09/24 History release polyethylene glycol 3350 17 17 g PO DAILY PRN Constipation 08/27/21 04/09/24 History gram/dose oral powder (Miralax) ondansetron HCl 8 mg tablet 8 mg PO Q8 PRN Nausea 08/19/22 04/09/24 History omega-3s 300 ls-brd-hap-other 1 cap PO DAILY 10/15/22 04/09/24 History tweoc1p-dica oil 1,000 mg capsule ([place]-3 Fish Oil) amiodarone 100 mg tablet 200 mg (2 x 100 mg) PO QAM #60 tabs 10/18/22 04/09/24 Rx sacubitril 24 mg-valsartan 26 mg 1 tab PO BID #60 tabs 10/18/22 04/09/24 Rx tablet (Entresto) apixaban 5 mg tablet 5 mg PO BID 11/25/22 04/09/24 History spironolactone 25 mg tablet 25 mg PO Q OTHER DAY 11/25/22 04/09/24 History bumetanide 2 mg tablet 2 mg PO DAILY 02/09/23 04/10/24 History insulin glargine 100 unit/mL (3 14 - 16 unit subcut HS 02/09/23 04/09/24 History mL) subcutaneous pen (Lantus Solostar U-100 Insulin) loratadine 10 mg tablet 10 mg PO DAILY PRN allergy symptoms 02/09/23 04/09/24 History cholecalciferol (vitamin D3) 50 50 mcg PO DAILY 02/21/24 04/09/24 History mcg (2,000 unit) tablet (Vitamin D3) metoprolol succinate 50 mg 75 mg PO DAILY 04/10/24 04/10/24 History tablet,extended release 24 hr Past Med/Surg History Problem List RITESH (acute kidney injury) (Acute) Weakness (Acute) Acute UTI (Acute) Osteoarthritis of right shoulder region Malignant neoplasm of upper-outer quadrant of left breast in female, estrogen receptor negative (06/02/22) Anticoagulation adequate Atrial fibrillation Port-A-Cath in place implanted- 07/16/22- Breast cancer Anemia Persistent atrial fibrillation Nonischemic congestive cardiomyopathy HFrEF (heart failure with reduced ejection fraction) Acute dyspnea (Acute) Bronchitis Acute on chronic systolic CHF (congestive heart failure) ICD (implantable cardioverter-defibrillator) in place Hypokalemia (Acute) Anemia (Acute) Pancytopenia Mobitz (type) I (Wenckebach's) atrioventricular block History of hysterectomy (Chronic) Status post left breast lumpectomy Left partial mastectomy with SLN biopsy on 07/16/22 Nonischemic cardiomyopathy Paroxysmal atrial fibrillation follows w/ Dr Hammond CKD (chronic kidney disease), stage III (Chronic) HTN (hypertension) (Chronic) controlled, stable per pt Nocturnal hypoxia (Chronic) pt denies S/P ICD (internal cardiac defibrillator) procedure (Chronic) replaced 2022 [facility] Sung - follows w/ Dr Larson IMPLANTED PACEMAKER/DEFIB ([facility]) Idiopathic cardiomyopathy (Chronic) Chronic systolic heart failure (Chronic) Diabetes mellitus, type II (Chronic) IDDM History of cholecystectomy (Chronic) History of appendectomy (Chronic) History of partial nephrectomy (Chronic) Left, [facility] in 2018 Medical History History of blood transfusion 1970s Hard of hearing Limb alert care status left arm-lymphedema senior living current use of anticoagulant History of COVID-19 10/2021 and 2021- hosp @ [facility] w/ covid- resolved Basal cell carcinoma HX--Nose;Mohs Presence of combination internal cardiac defibrillator (ICD) and pacemaker medtronic--checked remotely from home nightly Hyperlipidemia Hemorrhoids History of kidney cancer 02/21/24 states has another renal tumor presently; just monitoring at this time hx-Left renal papillary carcinoma History of kidney stones one remaining in place-monitoring per pt GERD (gastroesophageal reflux disease) controlled, stable per pt Hypothyroidism Hx of blood clots in heart per pt-no notation by [facility] cardiology on most recent office note Diabetic neuropathy feet Surgical History History of surgery T&A Hx of partial mastectomy 2021--left History of removal of Port-a-Cath Status post Mohs surgery History of anesthesia reaction N/V AND AGITATED WITH ANESTHESIA H/O cervical spine surgery X 2 (GOOD ROM) History of cystoscopy H/O partial nephrectomy LEFT "CANCEROUS TUMOR REMOVED" 03/28/2018 Dr. Tellez at [facility] H/O knee surgery LEFT H/O: hysterectomy Uterine leiomyoma H/O breast biopsy History of esophagogastroduodenoscopy (EGD) History of colonoscopy History of tooth extraction History of tonsillectomy History of cataract surgery RT/LEFT History of cardiac cath X 4 (NO STENTS) Family History Mother , in her 50s Colorectal cancer Brother COVID Sister Colorectal cancer Lymphoma Father , 60yo Stroke Pneumonia Hypertension Brother Myocardial infarction Brother Primary cancer of bone marrow Pneumonia Brother Cancer "Tumors in brain and lungs" Sister Lung cancer Sister Heart disease Daughter Diabetes Psoriatic arthritis Son Diabetes Psoriatic arthritis Other No family history of adverse response to anesthesia Social History Smoking Status: Former smoker Second Hand Exposure: No; Do You Dip or Chew Tobacco: No; Tobacco Cessation Education Requested by Patient: No Hx Alcohol Use: No Hx Substance Use: No Preferred Language: Pashto Communication Ability: Effective Visual Impairment: No Limitations Hearing Ability: Normal Fuel System Maintenance Supervisor Required: No Beliefs That Will Affect Care: None marital status: / Current Living Situation: Alone current occupational status: 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 ENT- oropharynx clear Neck- supple, no JVD. Lungs- clear to auscultation no wheezing or crackles. Heart- regular rhythm; no murmur, no gallop. Abdomen- normal bowel sounds, soft, nontender, no distension. Extremities- no pretibial edema, no erythema seen. Neuro- alert, oriented PERRL, EOMI; no facial palsy; no dysarthria; moves extremities. Results & Data Results & Data Vital Signs (Past 12 Hours) Vital Signs Temp Pulse Resp BP Pulse Ox O2 Del Method 04/10/24 04:30 61 12 135/72 98 Room Air 04/10/24 04:00 61 12 137/84 99 Room Air 04/10/24 03:30 59 L 16 109/61 97 Room Air 04/10/24 03:00 58 L 15 99/55 L 95 Room Air 04/10/24 02:56 58 L 04/10/24 02:30 58 L 15 124/70 98 Room Air 04/10/24 02:00 59 L 17 134/66 96 Room Air 04/10/24 01:30 58 L 13 112/59 L 94 Room Air 04/10/24 01:01 58 L 12 96 04/10/24 00:59 59 L 14 122/65 97 Room Air 04/10/24 00:30 57 L 13 131/68 97 Room Air 04/10/24 00:00 57 L 15 109/57 L 95 Room Air 04/09/24 23:30 61 19 93/49 L 93 Room Air 04/09/24 23:06 60 04/09/24 23:00 59 L 13 113/55 L 94 Room Air 04/09/24 22:30 61 14 116/59 L 97 Room Air 04/09/24 22:00 61 15 115/58 L 99 Room Air 04/09/24 21:30 62 115/66 99 Room Air 04/09/24 21:17 62 14 139/77 100 Room Air 04/09/24 21:06 68 14 04/09/24 20:30 65 16 143/77 H 96 Room Air 04/09/24 20:00 126/88 04/09/24 20:00 70 17 97 04/09/24 19:30 71 14 98 04/09/24 19:30 143/77 H 04/09/24 19:19 140/71 04/09/24 19:19 71 14 98 04/09/24 19:14 98 Room Air 04/09/24 19:13 72 04/09/24 19:12 73 17 99 04/09/24 19:12 147/73 H 04/09/24 19:10 70 15 99 04/09/24 18:59 36.6 C 78 20 147/73 H 98 Room Air Diagnostic Findings Laboratory Results WBC 4.74 K/ul (4.8-10.8) L 04/09/24 19:20 RBC 4.18 M/uL (4.20-5.40) L 04/09/24 19:20 Hgb 12.7 g/dl (12.0-16.0) 04/09/24 19:20 Hct 37.5 % (37.0-47.0) 04/09/24 19:20 MCV 89.7 fL (80.0-100.0) 04/09/24 19:20 MCH 30.4 pg (25.0-34.0) 04/09/24 19:20 MCHC 33.9 g/dL (32.0-36.0) 04/09/24 19:20 RDW Std Deviation 43.1 fL (36.4-46.3) 04/09/24 19:20 RDW Coeff of Edilma 13.1 % (11.5-14.5) 04/09/24 19:20 Plt Count 186 K/uL (130-400) 04/09/24 19:20 MPV 10.5 fL (9.4-12.4) 04/09/24 19:20 Immature Gran % (Auto) 0.6 % 04/09/24 19:20 Neut % (Auto) 75.4 % 04/09/24 19:20 Lymph % (Auto) 13.5 % 04/09/24 19:20 [place]ory % (Auto) 8.4 % 04/09/24 19:20 Eos % (Auto) 1.7 % 04/09/24 19:20 Baso % (Auto) 0.4 % 04/09/24 19:20 Neut # (Auto) 3.57 K/uL (1.40-6.50) 04/09/24 19:20 Lymph # (Auto) 0.64 K/uL (1.20-3.40) L 04/09/24 19:20 [place]ickory # (Auto) 0.40 K/uL (0.11-0.59) 04/09/24 19:20 Eos # (Auto) 0.08 K/uL (0.00-0.50) 04/09/24 19:20 Baso # (Auto) 0.02 K/uL (0.00-0.20) 04/09/24 19:20 Immature Gran # (Auto) 0.03 K/uL (0.01-0.20) 04/09/24 19:20 PT 10.7 Seconds (9.0-12.0) 04/09/24 19:20 INR 1.0 (0.9-1.1) 04/09/24 19:20 Sodium 139 mmol/L (136-145) 04/09/24 19:20 Potassium 4.5 mmol/L (3.5-5.1) 04/09/24 19:20 Chloride 104 mmol/L (98-107) 04/09/24 19:20 Carbon Dioxide 24 mmol/L (21-32) 04/09/24 19:20 Anion Gap 11 (3-11) 04/09/24 19:20 BUN 33 mg/dl (6-23) H 04/09/24 19:20 Creatinine 1.87 mg/dl (0.6-1.2) H 04/09/24 19:20 Est Cr Clr Drug Dosing 29.5 ml/min 04/09/24 19:20 Est GFR ( Amer) 29.7 ml/min 04/09/24 19:20 Est GFR (Non-Af Amer) 25.7 ml/min 04/09/24 19:20 BUN/Creatinine Ratio 17.6 (10-20) 04/09/24 19:20 Glucose 196 mg/dl (70-99(Fasting)) H 04/09/24 19:20 Lactate 0.9 mmol/L (0.4-2.0) 04/10/24 01:49 Calcium 9.3 mg/dl (8.6-10.3) 04/09/24 19:20 Magnesium 2.0 mg/dl (1.7-2.4) 04/09/24 19:20 Total Bilirubin 0.6 mg/dl (0.2-1.0) 04/09/24 19:20 Direct Bilirubin 0.1 mg/dl (0-0.2) 04/09/24 19:20 AST 18 U/L (13-39) 04/09/24 19:20 ALT 14 U/L (7-52) 04/09/24 19:20 Alkaline Phosphatase 54 U/L (34-104) 04/09/24 19:20 Troponin I High Sens 7.5 pg/ml (0-14) 04/09/24 19:20 Total Protein 6.5 gm/dl (6.0-8.3) 04/09/24 19:20 Albumin 4.2 gm/dl (3.4-5.0) 04/09/24 19:20 Globulin 2.3 gm/dl (2.5-4.0) L 04/09/24 19:20 Albumin/Globulin Ratio 1.8 (0.9-2) 04/09/24 19:20 Lipase 55 U/L (11-82) 04/09/24 19:20 Procalcitonin 0.03 ng/ml (0-0.5) 04/09/24 19:20 Urine Color Yellow 04/09/24 23:30 Urine Appearance Cloudy (Clear) A 04/09/24 23:30 Urine pH 5.0 (4.5-7.5) 04/09/24 23:30 Ur Specific Shirley 1.020 (1.000-1.030) 04/09/24 23:30 Urine Protein Negative (Negative) 04/09/24 23:30 Urine Glucose (UA) Negative (Negative) 04/09/24 23:30 Urine Ketones Trace (Negative) H 04/09/24 23:30 Urine Blood Negative (Negative) 04/09/24 23:30 Urine Nitrite Negative (Negative) 04/09/24 23:30 Urine Bilirubin Negative (Negative) 04/09/24 23:30 Urine Urobilinogen Negative (Negative) 04/09/24 23:30 Ur Leukocyte Esterase 2+ (Negative) H 04/09/24 23:30 Urine WBC (Auto) >50 /hpf (0-5) H 04/09/24 23:30 Urine RBC (Auto) 0-2 /hpf (0-2) 04/09/24 23:30 U Hyaline Cast (Auto) 0-2 /lpf (0-2) 04/09/24 23:30 U Epithel Cells (Auto) 0-2 /hpf (0-2) 04/09/24 23:30 Urine Bacteria (Auto) 4+ (None Seen) H 04/09/24 23:30 Anaplasma Smear See Comment 04/09/24 19:20 Babesia Smear See Comment 04/09/24 19:20 Lyme Disease Screen Negative (Negative) 04/09/24 19:20 Q Fever Phase I IgG Ab Cancelled 04/10/24 00:50 Q Fever Phase I IgM Ab Cancelled 04/10/24 00:50 Q Fever Phase II IgG Ab Cancelled 04/10/24 00:50 Q Fever Phase II IgM Ab Cancelled 04/10/24 00:50 Rickettsia IgG Ab Cancelled 04/10/24 00:50 Rickettsia IgM Ab Cancelled 04/10/24 00:50 Typhus Fever IgG Ab Cancelled 04/10/24 00:50 Typhus Fever IgM Ab Cancelled 04/10/24 00:50 Impressions Abdomen/Pelvis CT 04/09/24 20:38 Exam(s): CT ABDOMEN + PELVIS Without Contrast EXAM: CT Abdomen and Pelvis Without Intravenous Contrast CLINICAL HISTORY: Reason for exam: n/v. TECHNIQUE: Axial computed tomography images of the abdomen and pelvis without intravenous contrast. CTDI is 27.92 mGy and DLP is 1418.3 mGy-cm. Automated exposure control was utilized for the study. A dose lowering technique was utilized adhering to the principles of ALARA. COMPARISON: No relevant prior studies available. FINDINGS: Lung bases: Unremarkable. No mass. No consolidation. Pleural space: Trace LEFT pleural effusion. ABDOMEN: Liver: Multiple low-attenuation hepatic lesions, which are indeterminate. Consider hepatic MRI for further evaluation. Gallbladder and bile ducts: Cholecystectomy. No ductal dilation. Pancreas: Unremarkable. No ductal dilation. Spleen: Unremarkable. No splenomegaly. Adrenals: Unremarkable. No mass. Kidneys and ureters: No hydronephrosis. Bilateral renal cysts, of which many are hyperdense and may contain hemorrhagic or proteinaceous components. Stomach and bowel: Diverticulosis, without acute diverticulitis. No small bowel obstruction. No free intraperitoneal air. PELVIS: Appendix: No findings to suggest acute appendicitis. Bladder: Unremarkable. No stones. Reproductive: Unremarkable as visualized. ABDOMEN and PELVIS: Intraperitoneal space: Unremarkable. No free air. No significant fluid collection. Bones/joints: Degenerative changes of the spine. No acute fracture. No dislocation. Soft tissues: Unremarkable. Vasculature: Atherosclerotic changes of the aorta. No abdominal aortic aneurysm. Lymph nodes: Unremarkable. No enlarged lymph nodes. IMPRESSION: 1. No hydronephrosis. Bilateral renal cysts, of which many are hyperdense and may contain hemorrhagic or proteinaceous components. 2. Multiple low-attenuation hepatic lesions, which are indeterminate. Consider hepatic MRI for further evaluation. 3. Trace LEFT pleural effusion. 4. Cholecystectomy. 5. Diverticulosis, without acute diverticulitis. No small bowel obstruction. No free intraperitoneal air. Electronically signed by: Ned Leahy MD 04/09/24 21:[address] 04/09/24 20:38 Exam(s): CT HEAD Without Contrast EXAM: CT Head Without Intravenous Contrast CLINICAL HISTORY: Reason for exam: headache n/v. TECHNIQUE: Axial computed tomography images of the head/brain without intravenous contrast. CTDI is 37.32 mGy and DLP is 624.41 mGy-cm. Automated exposure control was utilized for the study. A dose lowering technique was utilized adhering to the principles of ALARA. COMPARISON: No relevant prior studies available. FINDINGS: No acute intracranial hemorrhage. No midline shift or mass effect. The territorial manley-white matter differentiation is maintained throughout. Age-related cerebral volume loss. Periventricular and subcortical white matter hypoattenuation, consistent with chronic microangiopathy. The visualized orbits appear grossly unremarkable. The calvarium is intact. The visualized paranasal sinuses and mastoid air cells are grossly clear. IMPRESSION: No acute intracranial hemorrhage, midline shift, or mass effect. Electronically signed by: Ned Leahy MD 04/09/24 21:[address] 04/09/24 20:40 Exam(s): CT C SPINE EXAM: CT Cervical Spine Without Intravenous Contrast CLINICAL HISTORY: Reason for exam: neck/head pain. TECHNIQUE: Axial computed tomography images of the cervical spine without intravenous contrast. CTDI is 22.2 mGy and DLP is 441.39 mGy-cm. Automated exposure control was utilized for the study. A dose lowering technique was utilized adhering to the principles of ALARA. COMPARISON: No relevant prior studies available. FINDINGS: The vertebral body heights are maintained. The craniocervical junction is intact. The atlanto-dens interval is maintained. The dens is intact. There is no spondylolisthesis. Multilevel cervical spondylosis and degenerative disc disease. Straightening of the cervical lordosis. IMPRESSION: No acute fracture or subluxation of the cervical spine. Electronically signed by: Ned Leahy MD 04/09/24 21:34 PM ECG Additional Comments: ECG. Normal sinus rhythm rate of 69. Left axis deviation. Nonspecific intraventricular conduction block. Nonspecific T wave abnormality in anterior leads. Code Status & VTE Plan VTE Prophylaxis Plan VTE Prophylaxis will be ordered: Yes
[2024-04-10] MEDS: HYDROmorphone INJ 0.5 MG/0.5 ML SYR IV STA ×2 (05:37→22:05)
[2024-04-10] MEDS: ONDANSETRON INJ 2 MG/ML 2 ML VIAL IV STA (05:38)
[2024-04-10] MEDS ORDERED: GLUCOSE 10 TAB/TUBE PO PRN (05:40)
[2024-04-10] MEDS ORDERED: CARBOHYDRATES FOR HYPOGLYCEMIA PO PRN (05:40)
[2024-04-10] MEDS ORDERED: POLYETHYLENE (MIRALAX) 17 GM PACK PO PRN (05:40)
[2024-04-10] MEDS ORDERED: GLUCOSE 40% GEL 15 GM TUBE PO PRN (05:40)
[2024-04-10] MEDS ORDERED: GLUCAGON FOR INJ 1 MG VIAL SQ PRN (05:40)
[2024-04-10] MEDS ORDERED: DEXTROSE 50% 50 ML SYRINGE IV PRN (05:40)
[2024-04-10] MEDS ORDERED: LORATADINE 10 MG TAB PO PRN (05:40)
[2024-04-10] MEDS ORDERED: NITROGLYCERIN SL 0.4 MG/TAB TAB SL PRN (05:40)
--- NOTE | 2024-04-10 06:51 | XRay Report ---
SINGLE VIEW CHEST CLINICAL HISTORY: Vomiting FINDINGS: 2 AP, portable, upright chest radiographs are compared to study dated 02/29/2024. Correlation is made with chest CT dated 10/26/2022. A single lead cardiac AICD is unchanged in position. The hea rt is enlarged. The pulmonary vasculature is noncongested. Chronic interstitial thickening is similar previous. The lungs and pleural spaces are clear. No pneumothorax is seen. The skeletal structures a re osteopenic. The bony thorax is grossly intact. Cholecystectomy clips are noted in the right upper quadrant. IMPRESSION: 1. Cardiomegaly and AICD without radiographic evidence of congestive failure. 2. No airspace consolidation or pleural effusion is identified. ACT 112: Negative or not required by law. Electronically signed by: Gilberto Wheeler M.D. 04/10/2024 6:50 AM
[2024-04-10 07:32] LABS: Basophils # (auto) 0.02 K/uL (0.00-0.20); Basophils % (auto) 0.6 %; Eosinophils % (auto) 2.9 %; Hematocrit (blood only) 35.1 % (37.0-47.0); Hemoglobin 11.6 g/dl (12.0-16.0); Immature Granulocytes # (auto) 0.01 K/uL (0.01-0.20); Immature Granulocytes % (auto) 0.3 %; Lymphocytes # (auto) 0.51 K/uL (1.20-3.40); Lymphocytes % (auto) 14.9 %; Mean Corpuscular Hemoglobin 29.9 pg (25.0-34.0); Mean Corpuscular Volume 90.5 fL (80.0-100.0); Monocytes # (auto) 0.33 K/uL (0.11-0.59); Monocytes % (auto) 9.6 %; Neutrophils # (auto) 2.45 K/uL (1.40-6.50); Neutrophils % (auto) 71.7 %; Platelet Count 162 K/uL (130-400); RDW Coefficient of Variation 13.2 % (11.5-14.5); RDW Standard Deviation 43.2 fL (36.4-46.3); Red Blood Count 3.88 M/uL (4.20-5.40); White Blood Count 3.42 K/ul (4.8-10.8)
[2024-04-10 07:49] LABS: BUN Creatinine Ratio 22.3 (10-20); Calcium 8.9 mg/dl (8.6-10.3); Creatinine Clr Calc Pharmacy 37.3 ml/min; Est GFR (African American) 39.5 ml/min; Potassium 4.3 mmol/L (3.5-5.1)
[2024-04-10] MEDS: LEVOTHYROXINE SODIUM 50 MCG TABLET PO SCH (08:30)
[2024-04-10 08:37] LABS: Estimated Average Glucose 151 mg/dl; Hemoglobin A1C 6.9 % (4.5-5.6)
--- NOTE | 2024-04-10 08:56 | Electrocardiogram Report ---
Test Reason : Blood Pressure : / mmHG Vent. Rate : 069 BPM Atrial Rate : 069 BPM P-R Int : 196 ms QRS Dur : 144 ms QT Int : 468 ms P-R-T Axes : 057 -77 078 degrees QTc Int : 501 ms Normal sinus rhythm Left axis deviation Non-specific intra-ventricular conduction block Minimal voltage criteria for LVH, may be normal variant Nonspecific T wave abnormality Abnormal ECG When compared with ECG of 29-FEB-2024 12:29, Nonspecific T wave abnormality now evident in Anterior leads Confirmed by Aaron Chaparro ([id number]) on 04/10/2024 8:56:02 AM Referred By: REFERRED SELF Confirmed By:Mateus Chaparro
[2024-04-10] MEDS ORDERED: METOPROLOL TARTRATE 25 MG TAB PO SCH (09:00)
[2024-04-10] MEDS ORDERED: BUMETANIDE 1 MG TAB PO SCH (09:00)
[2024-04-10] MEDS: INSULIN ASPART PER UNIT CHARGE SC SCH (09:24)
[2024-04-10] MEDS: PROMETHAZINE HCL 6.25 MG in SODIUM CHLORIDE 0.9% 50 ML IV PRN (12:00)
[2024-04-10] MEDS: BUMETANIDE 1 MG TAB PO SCH (12:01)
[2024-04-10] MEDS: METOPROLOL SUCC 25MG EXT REL TAB PO SCH (12:05)
[2024-04-10] MEDS: AMIODARONE 200 MG TAB PO SCH (12:06)
[2024-04-10] MEDS: CHOLECALCIFEROL 25 MCG (1000 UNITS) TAB PO SCH (12:06)
[2024-04-10] MEDS: APIXABAN 5 MG TABLET PO SCH (12:06)
[2024-04-10] MEDS: PANTOprazole 40 MG TAB PO SCH (12:07)
[2024-04-10] MEDS: VALSARTAN/SACUBITRIL 26/24MG TAB PO SCH (12:07)
[2024-04-10] MEDS: SPIRONOLACTONE 25 MG TAB PO SCH (12:07)
--- NOTE | 2024-04-10 15:03 | Communication Note ---
Date of Service: April 10, 2024 Patient seen and examined at bedside. She is lying in the bed comfortably; reports headache. No other complaints. Vital signs stable. On physical examination; Constitutional: Alert oriented x 3; not in distress. Respiratory: normal respiratory effort, lungs clear to auscultation, no wheeze, rales, rhonchi. Normal insp/exp effort, no accessory muscle use Cardiovascular: RRR, no murmur, no edema Vessels: no JVD or carotid bruit Chest: normal inspection of chest Abdomen: Soft, nontender. Bowel sound present Musculoskeletal: no cyanosis or clubbing, extremities motor strength 5/5 Skin: no rashes, warm and dry normal turgor Neurologic: PERRL, EOMI, accommodation nl, no face palsy, no dysarthria CN's II- XI intact bilaterally and moves all extremities Psychiatric: A+Ox3, euthymic affect Assessment/plan Acute UTI Patient presents with nausea, abdominal discomfort and fatigue Urinalysis to infection Lyme test negative CBC and Anaplasma smear negative Continue on antibiotics; will follow-up on urine culture and blood culture Hepatic lesions on CT abdomen/pelvis Patient had similar finding reported on her previous scans including CT abdomen in 2020 Follow-up as outpatient History of renal cell carcinoma S/p left partial nephrectomy Recurrence of slow-growing 1.3 cm left midpole renal lesion following with urology History of breast cancer Left breast invasive ductal carcinoma triple negative. 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% Status post ICD for primary prevention On Bumex, Entresto and spironolactone Will monitor Hypertension On metoprolol spironolactone and Entresto Will monitor History of paroxysmal atrial fibrillation And amiodarone, metoprolol and Eliquis Diabetes Continue home long-acting insulin Sliding scale Hold metformin Monitor Hypothyroidism On Synthyroid Tick bite 3 weeks ago History of Lyme disease and anaplasmosis Currently Lyme screen; smear for Anaplasma and Babesia screen came back negative Continue for now RITESH in CKD stage III Baseline creatinine around 1.5 Creatinine 1.8 today downtrended GERD On omeprazole I discussed current lab work, plan of care with patient's daughter and grandson at bedside.Answer questions/queries Please note the above document was generated using voice recognition software. It may contain grammatical, syntax or spelling errors. Any formal questions or concerns about the content, text or information contained within the body of this dictation should be directly addressed to the provider for clarification
[2024-04-10] MEDS: ACETAMINOPHEN 325 MG TAB PO PRN (17:56)
[2024-04-10] MEDS: LANTUS PER UNIT CHARGE SQ SCH (21:23)
[2024-04-10] MEDS: ACETAMINOPHEN 1,000 MG/100 ML VIAL IV STA (22:20)
[2024-04-11] MEDS: KETOROLAC TROMETHAMINE 15 MG/ML VIAL IV ONE (04:25)
[2024-04-11] MEDS: cefTRIAXone SODIUM 2,000 MG/50 ML BAG IV SCH (04:56)
[2024-04-11] MEDS: ACETAMINOPHEN 1,000 MG/100 ML VIAL IV STA (06:02)
[2024-04-11] MEDS: DOXYCYCLINE HYCLATE 100 MG in DEXTROSE 5% MINI-B 100 ML IV SCH (06:21)
[2024-04-11 06:24] LABS: Basophils # (auto) 0.01 K/uL (0.00-0.20); Basophils % (auto) 0.3 %; Eosinophils % (auto) 2.7 %; Hematocrit (blood only) 34.3 % (37.0-47.0); Hemoglobin 11.5 g/dl (12.0-16.0); Immature Granulocytes # (auto) 0.01 K/uL (0.01-0.20); Immature Granulocytes % (auto) 0.3 %; Lymphocytes # (auto) 0.71 K/uL (1.20-3.40); Lymphocytes % (auto) 19.5 %; Mean Corpuscular Hemoglobin 30.4 pg (25.0-34.0); Mean Corpuscular Hgb Conc 33.5 g/dL (32.0-36.0); Mean Corpuscular Volume 90.7 fL (80.0-100.0); Mean Platelet Volume 10.3 fL (9.4-12.4); Monocytes # (auto) 0.42 K/uL (0.11-0.59); Monocytes % (auto) 11.5 %; Neutrophils # (auto) 2.39 K/uL (1.40-6.50); Neutrophils % (auto) 65.7 %; Platelet Count 173 K/uL (130-400); RDW Coefficient of Variation 13.3 % (11.5-14.5); RDW Standard Deviation 43.8 fL (36.4-46.3); Red Blood Count 3.78 M/uL (4.20-5.40); White Blood Count 3.64 K/ul (4.8-10.8)
[2024-04-11 06:36] LABS: Albumin Level 3.7 gm/dl (3.4-5.0); BUN Creatinine Ratio 18.6 (10-20); Bilirubin Direct 0.1 mg/dl (0-0.2); Bilirubin,Total 0.5 mg/dl (0.2-1.0); Creatinine Clr Calc Pharmacy 35.4 ml/min; Est GFR (Non-African American) 31.9 ml/min; Potassium 3.8 mmol/L (3.5-5.1); Total Protein 5.7 gm/dl (6.0-8.3)
[2024-04-11] MEDS: MoRPHine SULFATE 2 MG/ML CARP IV PRN (09:45)
--- NOTE | 2024-04-11 16:00 | Neurology Consultation ---
Date of Consultation April 11, 2024 Assessment & Plan (1) Occipital neuralgia of right side: Plan Classical occipital neuralgia picture. Try a tapering dose of prednisone. Monitor blood glucose and give insulin accordingly. Gabapentin 300 mg 3 times daily. Can use baclofen 10 mg 3 times daily. The patient would benefit from occipital nerve block, I have sent a message to Dr. Unique Slade to try to accommodate her tomorrow this week for next of the wrist block, she can do it on Tuesday as per her report. Did need to send an urgent referral for the patient Telehealth Consultation Telehealth Information Telehealth Information: I performed this visit using a real-time telehealth connection between my location and the patients location ([facility]). After co nnecting through interactive tele-video, patient was identified by name and date of and/or wristband check.Patient (or authorized healthcare patient services representative) was informed that this was a telemedicine visit and it was being conducted confidentially over secure lines. My office door was closed and no one else was present in the room with me.Patient (or authorized healthcare patient services representative) provided consent to proceed with the visit, expressed an understanding of privacy and security of the telemedicine visit, and gave permission to have a hospital patient services representative in the room in order to assist with the visit and to conduct portions of the visit, as needed. I informed the patient (or authorized healthcare patient services representative) that I reviewed their record and presented the opportunity for them to ask any questions regarding the visit today. The patient agreed to participate. History of Present Illness Reason for Consultation: Headaches Requesting Physician: Mary Michael MD Attending Physician: Mary Michael MD History of Present Illness The patient is a 78-year-old female patient with an extensive past medical history mentioned below including DM, dilated cardiomyopathy EF 45%, A-fib, and all others, the patient has a recent arthroscopic surgery of her right shoulder last week, and she is now complaining of severe headache that started on Tuesday on 04/06 got severe on 04/07 and has been ongoing ever since. She describes initial tenderness and pain at the base of her skull on the right side that extends upwards to the whole right side of her head and face with severe tenderness and pain. She states that the pain was excruciating, went to the doctor and received tramadol which helped for a little bit but the pain would return in 2 hours. Yesterday the pain got so severe that she came to the hospital. She was found to have a UTI and has been treated with ceftriaxone . is also the patient has a history of spirochetal infections treated with doxycycline The patient was apprehensive and in distress during my interview. She reports no numbness or weakness no gait instability no other complaints. No visual changes or difficulties with speech Allergies Allergy/AdvReac Type Severity Reaction Status Date / Time Sulfa (Sulfonamide Allergy Intermediate HIVES Verified 04/09/24 21:54 Antibiotics) codeine AdvReac Intermediate Vomiting Verified 04/09/24 21:54 hydrocodone AdvReac Intermediate NAUSEA AND Verified 04/09/24 21:54 VOMITING meloxicam AdvReac Intermediate Vomiting Verified 04/09/24 21:54 oxycodone AdvReac Intermediate Vomiting Verified 04/09/24 21:54 Tjbipqk-XGE-PzI Reductase AdvReac Intermediate Muscle Pain Verified 04/09/24 21:54 Inhibitor [Lucjynh-Wxa-Dhv Reductase Inhibitor] tramadol AdvReac Intermediate VERY SICK Verified 04/09/24 21:54 TO STOMACH Home Medications Medication Instructions Recorded Confirmed Type levothyroxine 50 mcg tablet 50 mcg PO QAM 05/15/19 04/09/24 History metformin 500 mg tablet 500 mg PO BIDM 05/15/19 04/09/24 History omeprazole 20 mg capsule,delayed 20 mg PO QAM 05/15/19 04/09/24 History release polyethylene glycol 3350 17 17 g PO DAILY PRN Constipation 08/27/21 04/09/24 History gram/dose oral powder (Miralax) ondansetron HCl 8 mg tablet 8 mg PO Q8 PRN Nausea 08/19/22 04/09/24 History omega-3s 300 is-kwh-jxe-other 1 cap PO DAILY 10/15/22 04/09/24 History jsuop9o-klme oil 1,000 mg capsule ([place]-3 Fish Oil) amiodarone 100 mg tablet 200 mg (2 x 100 mg) PO QAM #60 tabs 10/18/22 04/09/24 Rx sacubitril 24 mg-valsartan 26 mg 1 tab PO BID #60 tabs 10/18/22 04/09/24 Rx tablet (Entresto) apixaban 5 mg tablet 5 mg PO BID 11/25/22 04/09/24 History spironolactone 25 mg tablet 25 mg PO Q OTHER DAY 11/25/22 04/09/24 History bumetanide 2 mg tablet 2 mg PO DAILY 02/09/23 04/10/24 History insulin glargine 100 unit/mL (3 14 - 16 unit subcut HS 02/09/23 04/09/24 History mL) subcutaneous pen (Lantus Solostar U-100 Insulin) loratadine 10 mg tablet 10 mg PO DAILY PRN allergy symptoms 02/09/23 04/09/24 History cholecalciferol (vitamin D3) 50 50 mcg PO DAILY 02/21/24 04/09/24 History mcg (2,000 unit) tablet (Vitamin D3) metoprolol succinate 50 mg 75 mg PO DAILY 04/10/24 04/10/24 History tablet,extended release 24 hr Patient History Medical History History of blood transfusion 1970s Hard of hearing Limb alert care status 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 History of COVID-19 10/2021 and 2021- hosp @ [facility] w/ covid- resolved Basal cell carcinoma HX--Nose;Mohs Presence of combination internal cardiac defibrillator (ICD) and pacemaker medtronic--checked remotely from home nightly Hyperlipidemia Hemorrhoids History of kidney cancer 02/21/24 states has another renal tumor presently; just monitoring at this time hx-Left renal papillary carcinoma History of kidney stones one remaining in place-monitoring per pt GERD (gastroesophageal reflux disease) controlled, stable per pt Hypothyroidism Hx of blood clots in heart per pt-no notation by [facility] cardiology on most recent office note Diabetic neuropathy feet Surgical History History of surgery T&A Hx of partial mastectomy 2021--left History of removal of Port-a-Cath Status post Mohs surgery History of anesthesia reaction N/V AND AGITATED WITH ANESTHESIA H/O cervical spine surgery X 2 (GOOD ROM) History of cystoscopy H/O partial nephrectomy LEFT "CANCEROUS TUMOR REMOVED" 03/28/2018 Dr. Tellez at [facility] H/O knee surgery LEFT H/O: hysterectomy Uterine leiomyoma H/O breast biopsy History of esophagogastroduodenoscopy (EGD) History of colonoscopy History of tooth extraction History of tonsillectomy History of cataract surgery RT/LEFT History of cardiac cath X 4 (NO STENTS) Family History Mother , in her 50s Colorectal cancer Brother COVID Sister Colorectal cancer Lymphoma Father , 60yo Stroke Pneumonia Hypertension Brother Myocardial infarction Brother Primary cancer of bone marrow Pneumonia Brother Cancer "Tumors in brain and lungs" Sister Lung cancer Sister Heart disease Daughter Diabetes Psoriatic arthritis Son Diabetes Psoriatic arthritis Other No family history of adverse response to anesthesia Social History Smoking Status: Former smoker Second Hand Exposure: No; Do You Dip or Chew Tobacco: No; Tobacco Cessation Education Requested by Patient: No Hx Alcohol Use: No Hx Substance Use: No Preferred Language: Swedish Communication Ability: Effective Visual Impairment: No Limitations Hearing Ability: Normal 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 Operator Required: No Beliefs That Will Affect Care: None marital status: / Current Living Situation: Alone 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 How many Children do You have: 2 Other Information That Helps Us Care for You: No Feels Safe at Home: Yes Safety Concerns: Feels Safe At This Time Diet: regular caffeine: Yes (2 cups/day) Assistive Devices: Cane Review of Systems Negative except for the points mentioned in HPI Physical Exam General Constitutional: Appearance normally developed Head and face: normocephalic and atraumatic Eyes: no ptosis, no anisocoria, and no dysconjugate gaze Respiratory: normal effort Cardiovascular: regular rhythm and regular rate Abdomen: non distended Skin: no rashes, lesions, or ulcers noted Psychiatric: normal judgement and insight, normal mood, and normal affect NEUROLOGIC EXAMINATION: Mental Status:alert, oriented to time, place, person, normal recent memory, normal remote memory, normal attention span, normal concentration, normal language and normal fund of knowledge Cranial Nerves: CN 2 - no visual defect on confrontation and pupils round, equal, reactive to light CN 3, 4, 6 - extra-ocular movements intact and no nystagmus CN 5 - facial sensation intact CN 7 - no facial asymmetry CN 8 - intact hearing CN 9, 10 - palate symmetric, normal gag CN 11 - good shoulder shrug CN 12 - tongue midline MOTOR: Strength was at least antigravity throughout, Pronator drift was absent and There were no abnormal movements SENSATION: intact and symmetric to pinprick, light touch, vibration and joint position GAIT: stable, no ataxia and can perform tandem walking COORDINATION: no ataxia with finger to nose testing and heel to hsieh testing REFLEXES: cannot assess over telemedicine Results & Data Vital Signs (Past 12 Hours) Vital Signs Temp Pulse Pulse Resp BP Pulse Ox O2 Del Method 04/11/24 15:20 36.7 C 66 14 123/74 99 Room Air 04/11/24 15:03 83 04/11/24 11:31 63 04/11/24 10:59 36.6 C 60 14 105/64 98 Room Air 04/11/24 07:27 36.5 C 63 14 135/79 99 Room Air Laboratory Results Laboratory Results - last 24 hr 04/10/24 04/10/24 04/11/24 16:48 20:18 05:47 WBC 3.64 L RBC 3.78 L Hgb 11.5 L Hct 34.3 L MCV 90.7 MCH 30.4 MCHC 33.5 RDW Std Deviation 43.8 RDW Coeff of Edilma 13.3 Plt Count 173 MPV 10.3 Immature Gran % (Auto) 0.3 Neut % (Auto) 65.7 Lymph % (Auto) 19.5 [place] % (Auto) 11.5 Eos % (Auto) 2.7 Baso % (Auto) 0.3 Neut # (Auto) 2.39 Lymph # (Auto) 0.71 L [place] # (Auto) 0.42 Eos # (Auto) 0.10 Baso # (Auto) 0.01 Immature Gran # (Auto) 0.01 ESR 12 Sodium 143 Potassium 3.8 Chloride 107 Carbon Dioxide 26 Anion Gap 10 BUN 29 H Creatinine 1.56 H Est Cr Clr Drug Dosing 35.4 Est GFR ( Amer) 37.0 Est GFR (Non-Af Amer) 31.9 BUN/Creatinine Ratio 18.6 Glucose 148 H POC Glucose 153 H 160 H Calcium 9.0 Total Bilirubin 0.5 Direct Bilirubin 0.1 AST 14 ALT 13 Alkaline Phosphatase 44 Total Protein 5.7 L Albumin 3.7 04/11/24 04/11/24 08:02 12:03 WBC RBC Hgb Hct MCV MCH MCHC RDW Std Deviation RDW Coeff of Edilma Plt Count MPV Immature Gran % (Auto) Neut % (Auto) Lymph % (Auto) [place] % (Auto) Eos % (Auto) Baso % (Auto) Neut # (Auto) Lymph # (Auto) [place] # (Auto) Eos # (Auto) Baso # (Auto) Immature Gran # (Auto) ESR Sodium Potassium Chloride Carbon Dioxide Anion Gap BUN Creatinine Est Cr Clr Drug Dosing Est GFR ( Amer) Est GFR (Non-Af Amer) BUN/Creatinine Ratio Glucose POC Glucose 157 H 126 H Calcium Total Bilirubin Direct Bilirubin AST ALT Alkaline Phosphatase Total Protein Albumin Diagnostic Findings Exam(s): CT HEAD Without Contrast EXAM: CT Head Without Intravenous Contrast CLINICAL HISTORY: Reason for exam: headache n/v. TECHNIQUE: Axial computed tomography images of the head/brain without intravenous contrast. CTDI is 37.32 mGy and DLP is 624.41 mGy-cm. Automated exposure control was utilized for the study. A dose lowering technique was utilized adhering to the principles of ALARA. COMPARISON: No relevant prior studies available. FINDINGS: No acute intracranial hemorrhage. No midline shift or mass effect. The territorial manley-white matter differentiation is maintained throughout. Age-related cerebral volume loss. Periventricular and subcortical white matter hypoattenuation, consistent with chronic microangiopathy. The visualized orbits appear grossly unremarkable. The calvarium is intact. The visualized paranasal sinuses and mastoid air cells are grossly clear. IMPRESSION: No acute intracranial hemorrhage, midline shift, or mass effect. [place], [place] [phone] CT Scan Report Patient: SHWETA ALVARADO I Admit Date: 04/09/24 MR#: [id number] Address1: [address] [place] [address] Acct ID:[id number] Address2: Date: 1945 [facility] Zip: [place] [address] Age: 78 Location: ED Sex: F Room/Bed: Att Phy: Diagnosis: VOMITTING Rosi Phy: Irwin Lott MD Service Date: 04/09/24 Fam Phy: Interpreting Phy: Ned Leahy MDAdmit Phy: Ordering Phy: Carlton Reis M.D. cc: ~ Exam(s): CT C SPINE EXAM: CT Cervical Spine Without Intravenous Contrast CLINICAL HISTORY: Reason for exam: neck/head pain. TECHNIQUE: Axial computed tomography images of the cervical spine without intravenous contrast. CTDI is 22.2 mGy and DLP is 441.39 mGy-cm. Automated exposure control was utilized for the study. A dose lowering technique was utilized adhering to the principles of ALARA. COMPARISON: No relevant prior studies available. FINDINGS: The vertebral body heights are maintained. The craniocervical junction is intact. The atlanto-dens interval is maintained. The dens is intact. There is no spondylolisthesis. Multilevel cervical spondylosis and degenerative disc disease. Straightening of the cervical lordosis. IMPRESSION: No acute fracture or subluxation of the cervical spine
[2024-04-11] MEDS ORDERED: LORazepam 0.5 MG TAB PO PRN (16:13)
[2024-04-11] MEDS: GABAPENTIN 300 MG CAP PO SCH (16:59)
[2024-04-11] MEDS: predniSONE 20 MG TAB PO SCH (17:29)
--- NOTE | 2024-04-11 18:09 | Hospitalist Progress Note ---
Date of Service April 11, 2024 Assessment & Plan (1) Acute UTI: Plan: Pt is a 78-year-old female with past medical history significant for type 2 diabetes, CKD stage III, hyperlipidemia, hypothyroidism, diabetic polyneuropathy, mild intermittent asthma, multiple lung nodules, chronic systolic CHF due to idiopathic cardiomyopathy, s/p ICD, paroxysmal atrial fibrillation, hypertension, GERD, vitamin B12 deficiency, iron deficiency anemia, depression, history of breast cancer s/p chemoradiation, history of left renal cell cancers s/p partial nephrectomy, presenting with 2 days of nausea, pain in the back of the head, found to have a UTI. Patient has a history of Lyme disease and anaplasmosis. She states she had a tick bite about 3 weeks ago on her calf. Lyme screen is negative in the ER. Denies any fevers. On March 21, 2024, pt had right shoulder arthroscopy with distal clavicle excision and subacromial decompression and debridement of the glenohumeral joint synovitic tissue and subacromial bursa. Has some pain at the surgical site. Acute UTI Illness with nausea and abdominal discomfort and not feeling well UA suggestive of infection Urine Cx growing gram negative bacilli Continue Rocephin Headache Occipital Neuralgia Has headache and neck pain and recently had a right shoulder arthroscopy CT head and cervical spine CT unremarkable Pt with pacemaker, MRI incompatible, MRI brain could not be obtained Neurology consulted, appreciate recs -likely occipital neuralgia with recent shoulder surgery -gabapentin 300mg TID -prednisone taper -consider baclofen -Neurology would like pt to have occipital nerve block done by Dr Cuellar at [facility] [place], reportedly can be done on 04/13. Pt is declining procedure but agreeable to thinking about things further overnight. Eliquis on hold as will need to be held at least 48 hours before procedure, in case pt changes her mind. 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 Follow-up Anaplasma and Babesia PCR On doxycycline and rocephin RITESH on CKD stage III Baseline creatinine around 1.5 Creatinine 1.8 on admission Follow repeat labs If worsening will hold Entresto and diuretics Closely monitor Improving GERD On omeprazole Mood Disorder Seems not on medications Somewhat tearful but does not want to be counselled currently. Ativan ordered for prn use DVT prophylaxis: On Eliquis Full code Admission and Anticipated Discharge Date Admission Date: April 10, 2024 Subjective Pt seen multiple times through out the day. Initially notified by nursing she had very severe headache and morphine worked for her. Neurology consulted by analytical data miner. Later per neurology, setting up occipital nerve block. per nursing, pt refusing meds and procedure. Discussed with pt, she is agreeable to holding Eliquis while she thinks about things overnight. Review of Systems Review of Systems: All systems reviewed & are unremarkable except as noted in Subjective Physical Exam Physical Exam: General: Alert, oriented. No acute distress Skin: No noted rashes or bruises Psych: Appropriate mood and affect HEENT: NC/AT CV: RRR Resp: Breath sounds clear bilaterally, no increased effort of breathing. Abdomen: Soft, nontender, nondistended. Extremities: No edema in lower extremities bilaterally. Results & Data Results & Data Vital Signs (Past 12 Hours) Vital Signs Temp Pulse Pulse Resp BP Pulse Ox O2 Del Method 04/11/24 07:27 36.5 C 63 14 135/79 99 Room Air 04/11/24 03:10 36.6 C 63 18 99/58 L 97 Room Air 04/10/24 23:04 36.7 C 68 18 129/77 100 Room Air 04/10/24 22:02 68
[2024-04-11] MEDS ORDERED: GABAPENTIN 300 MG CAP PO SCH (21:00)
[2024-04-12 06:35] LABS: Hemoglobin 11.2 g/dl (12.0-16.0); Immature Granulocytes # (auto) 0.01 K/uL (0.01-0.20); Immature Granulocytes % (auto) 0.2 %; Lymphocytes # (auto) 0.35 K/uL (1.20-3.40); Lymphocytes % (auto) 7.8 %; Mean Corpuscular Hemoglobin 30.5 pg (25.0-34.0); Mean Corpuscular Hgb Conc 33.9 g/dL (32.0-36.0); Mean Corpuscular Volume 89.9 fL (80.0-100.0); Mean Platelet Volume 10.3 fL (9.4-12.4); Monocytes % (auto) 4.5 %; Neutrophils # (auto) 3.92 K/uL (1.40-6.50); Neutrophils % (auto) 87.5 %; Platelet Count 173 K/uL (130-400); RDW Coefficient of Variation 13.1 % (11.5-14.5); Red Blood Count 3.67 M/uL (4.20-5.40); White Blood Count 4.48 K/ul (4.8-10.8)
[2024-04-12 07:00] LABS: Albumin Globulin Ratio 1.9 (0.9-2); Albumin Level 3.8 gm/dl (3.4-5.0); BUN Creatinine Ratio 21.4 (10-20); Bilirubin,Total 0.4 mg/dl (0.2-1.0); Calcium 9.1 mg/dl (8.6-10.3); Creatinine Clr Calc Pharmacy 31.9 ml/min; Est GFR (African American) 32.7 ml/min; Est GFR (Non-African American) 28.2 ml/min; Magnesium 1.9 mg/dl (1.7-2.4); Phosphorus 4.8 mg/dl (2.5-4.9); Potassium 4.3 mmol/L (3.5-5.1); Total Protein 5.8 gm/dl (6.0-8.3)
--- NOTE | 2024-04-12 13:31 | Discharge Summary ---
Discharge Summary Date of Service April 12, 2024 Notes For Next Care Provider Please ensure followup with Neurology for Occipital Neuralgia and consideration of occipital nerve block per neurology recommendations. CT abd/pelvis noted hepatic lesions- PCP followup for nonurgent MRI recommended by radiology for followup. Pt diabetic and prescribed prednisone taper for Occipital Neuralgia- close glucose monitoring recommended and medication adjustments as needed. Consider MTM followup as needed. Please closely monitor kidney function after discharge with repeat BMP in 3 days- consider holding home diuretics as needed if worsening kidney function noted Medication Changes From Visit Doxycycline 100mg BID x 9 more days for tick bite Cefdinir 300mg BID x 8 more days for UTI Per Neurology, Prednisone 40mg taper and gabapentin 300mg TID for occipital Neuralgia Admission HPI Per Admitting Provider 78-year-old female with past medical history significant for type 2 diabetes, CKD stage III, hyperlipidemia, hypothyroidism, diabetic polyneuropathy, mild intermittent asthma, multiple lung nodules, chronic systolic CHF due to idiopathic cardiomyopathy, s/p ICD, paroxysmal atrial fibrillation, hypertension, GERD, vitamin B12 deficiency, iron deficiency anemia, depression, history of breast cancer s/p chemoradiation, history of left renal cell cancers s/p partial nephrectomy, currently living alone and daughter lives close by comes because of ongoing illness for several days but last 2 days having lot of nausea and pain in the back of the head not feeling well and came to the ER and found to UTI. Patient had a history of Lyme disease and anaplasmosis in the past. She states she had a tick bite about 3 weeks ago on her calf. Lyme screen is negative in the ER. Denies any fevers. No chest pain. States she always is short of breath because of heart disease. Occasional cough. Appetite is okay. No difficulty swallowing. Has some abdominal discomfort. Somewhat constipated. Denies any blood in the stools. Normal bladder movements. Hemodynamics are okay. Patient recently on March 21, 2024 had right shoulder arthroscopy with distal clavicle excision and subacromial decompression and debridement of glenohumeral joint synovitic tissue and subacromial bursa. Has some pain at the surgical site. Past medical history. As mentioned above. Past surgical history. Breast biopsy. Colonoscopy. Excision of breast lesion. S/p ICD. Left knee arthroscopy. Left partial mastectomy. Neck spine fusion surgery. Partial hysterectomy. Left partial removal of kidney. Cataract surgery. Cholecystectomy. Tonsillectomy and adenoidectomy. Social history. . Quit smoking 1964. Smoked 0.3 packs a day for 2 years. No alcohol use. No drug use. Family history. Brother had cancer. Mother had colon cancer. Sister had non- Hodgkin's lymphoma. Brother had heart disorder of COVID in October 2020. Father had stroke. Admission Exam Per Admitting Provider General- Not in distress Head- atraumatic Eyes- PERRL. ENT- oropharynx clear Neck- supple, no JVD. Lungs- clear to auscultation no wheezing or crackles. Heart- regular rhythm; no murmur, no gallop. Abdomen- normal bowel sounds, soft, nontender, no distension. Extremities- no pretibial edema, no erythema seen. Neuro- alert, oriented PERRL, EOMI; no facial palsy; no dysarthria; moves extremities. Principal Dx & Hospital Course #1 = Principal Diagnosis (1) Acute UTI: Pt is a 78-year-old female with past medical history significant for type 2 diabetes, CKD stage III, hyperlipidemia, hypothyroidism, diabetic polyneuropathy, mild intermittent asthma, multiple lung nodules, chronic systolic CHF due to idiopathic cardiomyopathy, s/p ICD, paroxysmal atrial fibrillation, hypertension, GERD, vitamin B12 deficiency, iron deficiency anemia, depression, history of breast cancer s/p chemoradiation, history of left renal cell cancers s/p partial nephrectomy, presenting with 2 days of nausea, pain in the back of the head, found to have a UTI. Patient has a history of Lyme disease and anaplasmosis. She states she had a tick bite about 3 weeks ago on her calf. Lyme screen is negative in the ER. Denies any fevers. On March 21, 2024, pt had right shoulder arthroscopy with distal clavicle excision and subacromial decompression and debridement of the glenohumeral joint synovitic tissue and subacromial bursa. Had some pain at the surgical site. Acute UTI Illness with nausea and abdominal discomfort and not feeling well UA suggestive of infection Urine Cx grew E coli sensitive to Rocephin. Discharged with 8 more days of po cefdinir 300mg BID. Headache Occipital Neuralgia Has headache and neck pain and recently had a right shoulder arthroscopy CT head and cervical spine CT unremarkable Pt with pacemaker, MRI incompatible, MRI brain could not be obtained Neurology consulted, appreciate recs -likely occipital neuralgia with recent shoulder surgery -gabapentin 300mg TID, continue -prednisone taper- pt discharged with prednisone 40mg taper -consider baclofen for additional pain relief as needed -Neurology would like pt to have occipital nerve block done. Followup Neurology appointment scheduled with Dr Cuellar on 04/13 at 3 pm after dsicharge. Pt would like to discuss procedure further before actually having it done. Would like Eliquis resumed. Eliquis resumed on discharge. Pt noting significant improvement in her symptoms with gabapentin regimen and prednisone. Close PCP and Neurology followup after discharge. Hepatic lesions on the CT abdomen pelvis Bilateral renal Cysts Hepatic lesions noted on CT abd/pelvis Radiology advising MRI when more stable- PCP followup after discharge for ordering. 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 Diabetes Continue home long-acting insulin Continue home metformin Pt diabetic and prescribed prednisone taper for Occipital Neuralgia- close glucose monitoring recommended and medication adjustments as needed. Consider MTM followup as needed. Close PCP followup as above Hypothyroidism On Synthroid, continue Tick bite 3 weeks ago History of Lyme disease and anaplasmosis Currently Lyme screen Anaplasma and Babesia screen came back negative Platelets and LFTs unremarkable Afebrile. Anaplasma and Babesia PCR pending On doxycycline, continue for 9 more days after discharge (was started 1 day after rocephin) RITESH on CKD stage III Baseline creatinine around 1.5 Creatinine 1.8 on admission Please closely monitor kidney function after discharge with repeat BMP in 3 days- consider holding home diuretics as needed if worsening kidney function noted GERD On omeprazole, continue Mood Disorder Not on medications Somewhat tearful but does not want to be counselled currently. Ativan ordered for prn use Discharge Exam General: Alert, oriented. No acute distress Skin: No noted rashes or bruises Psych: Appropriate mood and affect neuro/MSK: tender to palpation over occipital area of head into right shoulder, sensation grossly intact bilaterally HEENT: NC/AT CV: RRR Resp: Breath sounds clear bilaterally, no increased effort of breathing. Abdomen: Soft, nontender, nondistended. Extremities: No edema in lower extremities bilaterally. Updated Medication List Medication Instructions Recorded Confirmed Type levothyroxine 50 mcg tablet 50 mcg PO QAM 05/15/19 04/09/24 History metformin 500 mg tablet 500 mg PO BIDM 05/15/19 04/09/24 History omeprazole 20 mg capsule,delayed 20 mg PO QAM 05/15/19 04/09/24 History release polyethylene glycol 3350 17 17 g PO DAILY PRN Constipation 08/27/21 04/09/24 History gram/dose oral powder (Miralax) ondansetron HCl 8 mg tablet 8 mg PO Q8 PRN Nausea 08/19/22 04/09/24 History omega-3s 300 os-ebi-slm-other 1 cap PO DAILY 10/15/22 04/09/24 History [id number] oil 1,000 mg capsule ([place]-3 Fish Oil) amiodarone 100 mg tablet 200 mg (2 x 100 mg) PO QAM #60 tabs 10/18/22 04/09/24 Rx sacubitril 24 mg-valsartan 26 mg 1 tab PO BID #60 tabs 10/18/22 04/09/24 Rx tablet (Entresto) apixaban 5 mg tablet 5 mg PO BID 11/25/22 04/09/24 History spironolactone 25 mg tablet 25 mg PO Q OTHER DAY 11/25/22 04/09/24 History bumetanide 2 mg tablet 2 mg PO DAILY 02/09/23 04/10/24 History insulin glargine 100 unit/mL (3 14 - 16 unit subcut HS 02/09/23 04/09/24 History mL) subcutaneous pen (Lantus Solostar U-100 Insulin) loratadine 10 mg tablet 10 mg PO DAILY PRN allergy symptoms 02/09/23 04/09/24 History cholecalciferol (vitamin D3) 50 50 mcg PO DAILY 02/21/24 04/09/24 History mcg (2,000 unit) tablet (Vitamin D3) metoprolol succinate 50 mg 75 mg PO DAILY 04/10/24 04/10/24 History tablet,extended release 24 hr cefdinir 300 mg capsule 300 mg PO BID #16 caps 04/12/24 Rx doxycycline hyclate 100 mg tablet 100 mg PO BID #18 tabs 04/12/24 Rx gabapentin 300 mg capsule 300 mg PO TID #90 caps 04/12/24 Rx prednisone 10 mg tablet 10 mg PO DIRECTED #38 tabs 04/12/24 Rx Hospital Stay Data Consultations 04/10/24 01:36 ED Decision to Admit Stat 04/11/24 08:00 Consult Neurology Routine Diagnostic Imagining Performed 04/09/24 20:38 CT abd pelvis wo con Stat CT head/brain wo con Stat 04/09/24 20:40 CT neck [CT cervical spine wo con] Stat Chest X-Ray 04/09/24 19:11 SINGLE VIEW CHEST CLINICAL HISTORY: Vomiting FINDINGS: 2 AP, portable, upright chest radiographs are compared to study dated 02/29/2024. Correlation is made with chest CT dated 10/26/2022. A single lead cardiac AICD is unchanged in position. The heart is enlarged. The pulmonary vasculature is noncongested. Chronic interstitial thickening is similar previous. The lungs and pleural spaces are clear. No pneumothorax is seen. The skeletal structures are osteopenic. The bony thorax is grossly intact. Cholecystectomy clips are noted in the right upper quadrant. IMPRESSION: 1. Cardiomegaly and AICD without radiographic evidence of congestive failure. 2. No airspace consolidation or pleural effusion is identified. ACT 112: Negative or not required by law. Electronically signed by: Gilberto Wheeler M.D. 04/10/2024 6:50 AM Abdomen/Pelvis CT 04/09/24 20:38 Exam(s): CT ABDOMEN + PELVIS Without Contrast EXAM: CT Abdomen and Pelvis Without Intravenous Contrast CLINICAL HISTORY: Reason for exam: n/v. TECHNIQUE: Axial computed tomography images of the abdomen and pelvis without intravenous contrast. CTDI is 27.92 mGy and DLP is 1418.3 mGy-cm. Automated exposure control was utilized for the study. A dose lowering technique was utilized adhering to the principles of ALARA. COMPARISON: No relevant prior studies available. FINDINGS: Lung bases: Unremarkable. No mass. No consolidation. Pleural space: Trace LEFT pleural effusion. ABDOMEN: Liver: Multiple low-attenuation hepatic lesions, which are indeterminate. Consider hepatic MRI for further evaluation. Gallbladder and bile ducts: Cholecystectomy. No ductal dilation. Pancreas: Unremarkable. No ductal dilation. Spleen: Unremarkable. No splenomegaly. Adrenals: Unremarkable. No mass. Kidneys and ureters: No hydronephrosis. Bilateral renal cysts, of which many are hyperdense and may contain hemorrhagic or proteinaceous components. Stomach and bowel: Diverticulosis, without acute diverticulitis. No small bowel obstruction. No free intraperitoneal air. PELVIS: Appendix: No findings to suggest acute appendicitis. Bladder: Unremarkable. No stones. Reproductive: Unremarkable as visualized. ABDOMEN and PELVIS: Intraperitoneal space: Unremarkable. No free air. No significant fluid collection. Bones/joints: Degenerative changes of the spine. No acute fracture. No dislocation. Soft tissues: Unremarkable. Vasculature: Atherosclerotic changes of the aorta. No abdominal aortic aneurysm. Lymph nodes: Unremarkable. No enlarged lymph nodes. IMPRESSION: 1. No hydronephrosis. Bilateral renal cysts, of which many are hyperdense and may contain hemorrhagic or proteinaceous components. 2. Multiple low-attenuation hepatic lesions, which are indeterminate. Consider hepatic MRI for further evaluation. 3. Trace LEFT pleural effusion. 4. Cholecystectomy. 5. Diverticulosis, without acute diverticulitis. No small bowel obstruction. No free intraperitoneal air. Electronically signed by: Ned Leahy MD 04/09/24 21:[address] 04/09/24 20:38 Exam(s): CT HEAD Without Contrast EXAM: CT Head Without Intravenous Contrast CLINICAL HISTORY: Reason for exam: headache n/v. TECHNIQUE: Axial computed tomography images of the head/brain without intravenous contrast. CTDI is 37.32 mGy and DLP is 624.41 mGy-cm. Automated exposure control was utilized for the study. A dose lowering technique was utilized adhering to the principles of ALARA. COMPARISON: No relevant prior studies available. FINDINGS: No acute intracranial hemorrhage. No midline shift or mass effect. The territorial manley-white matter differentiation is maintained throughout. Age-related cerebral volume loss. Periventricular and subcortical white matter hypoattenuation, consistent with chronic microangiopathy. The visualized orbits appear grossly unremarkable. The calvarium is intact. The visualized paranasal sinuses and mastoid air cells are grossly clear. IMPRESSION: No acute intracranial hemorrhage, midline shift, or mass effect. Electronically signed by: Ned Leahy MD 04/09/24 21:[address] 04/09/24 20:40 Exam(s): CT C SPINE EXAM: CT Cervical Spine Without Intravenous Contrast CLINICAL HISTORY: Reason for exam: neck/head pain. TECHNIQUE: Axial computed tomography images of the cervical spine without intravenous contrast. CTDI is 22.2 mGy and DLP is 441.39 mGy-cm. Automated exposure control was utilized for the study. A dose lowering technique was utilized adhering to the principles of ALARA. COMPARISON: No relevant prior studies available. FINDINGS: The vertebral body heights are maintained. The craniocervical junction is intact. The atlanto-dens interval is maintained. The dens is intact. There is no spondylolisthesis. Multilevel cervical spondylosis and degenerative disc disease. Straightening of the cervical lordosis. IMPRESSION: No acute fracture or subluxation of the cervical spine. Electronically signed by: Ned Leahy MD 04/09/24 21:34 PM Discharge Instructions Given to Patient (Per Discharging Provider) Erich Hutchinson were admitted and treated for a urinary tract infection, a tick bite, and a headache that was diagnosed by the neurologist as occipital neuralgia. We are discharging you home with 8 more days of treatment for your urinary tract infection with cefdinir 300mg BID. We are also discharging you home with 9 more days of the medication doxycycline for your tick bite. Per Neurology, we are discharging you home with gabapentin 300mg TID and a prednisone taper to help with your headache. You were scheduled for followup with Neurology, Dr Cuellar for tomorrow at 3pm. Please keep that appointment as scheduled for further discussion of the nerve block. Please note that your glucose levels can go high on the prednisone so it is recommended that you increase your nightly insulin to 16U and keep close followup with your pcp after discharge for continued monitoring. Again, please keep close follow up with your primary care provider and Neurology after discharge. Please do not hesitate to come back to the emergency room if your symptoms worsen or return. It was a pleasure taking care of you while you were here. Total Time Total Time Spent Total Time Spent (In Minutes): 75
[2024-04-12] MEDS: APIXABAN 5 MG TABLET PO STA (14:10)
[2024-04-12 15:32] LABS: Babesia microti DNA Not Detected (Not Detected)
[2024-04-13 14:09] LABS: Ehrlichia chaff DNA Bld Negative (Negative)
== END 2024-04-12 16:26 | disposition home or self-care (01) | DRG 690 ==
LOC: ED 18:59 → EDINP 04-10 05:02 → SUATTDRO 04-10 05:02 → 2N 04-10 05:41

== ENCOUNTER 2025-11-07 16:53 | Inpatient (IN) ==
--- NOTE | 2025-11-07 17:10 | Emergency Department Note ---
Impression & Plan Kidney stones, Fall ED Provider Note Diagnosis: Fall, kidney stone, hip pain Disposition: Admission CHIEF COMPLAINT: Fall HPI: Patient is a 80-year-old female coming from home status post fall. Patient states that she feels she fell because she has been sick for the past 2 to 3 days time. Patient states she has respiratory symptoms and has been started on leftover Augmentin that she had at home. Patient is on Eliquis at baseline and states she did hit her head on the way down. Patient denies loss consciousness. Patient [place] syncope or near syncope. Patient having pain throughout her back bilateral shoulders and left hip. Patient was brought in in cervical collar and longboard by EMS. Patient does not use oxygen at baseline and had room air oxygen saturation for EMS of 84%. Patient requiring 2 to 3 L nasal cannula support which is new for her currently. PAST MEDICAL HISTORY: See Below PAST SURGICAL HISTORY: See Below SOCIAL HISTORY: See Below HOME MEDICATIONS: See Below ALLERGIES: See Below VITALS: See Below Airway patent Breathing equal bilaterally Circulation 2+ radial pulses bilaterally GCS [address], cleared by physical exam and radiographic Secondary Survey: GENERAL: Well appearing, well nourished, NAD, non-toxic. EYE EXAM: Normal conjunctiva. OROPHARYNX: Moist mucus membranes. Grossly normal dentition. NECK: Supple, LUNGS: Clear to auscultation. Normal chest wall mechanics. HEART: NSR ABDOMEN: Abdomen soft, non-tender, normo-active bowel sounds, no masses, no rebound or guarding BACK: No CVA TTP. SKIN: No rashes and no bruising. UPPER EXTREMITIES: Upper extremities are grossly normal LOWER EXTREMITIES: Grossly normal, no edema. NEURO EXAM: A&O x3,, normal speech, moves all 4 extremities PSYCH: Cooperative MEDICAL DECISION MAKING: History obtained from: Patient ER Course: Patient 80-year-old female presenting with complaint of reported mechanical fall. Patient states that she is been experiencing shoulder pain back pain and left hip pain. Patient denies loss consciousness. Patient was placed at longboard and collar prior to arrival. Patient was cleared from the board with logroll performed with C-spine precautions in place. Patient had trauma scans performed which shows no intracranial hemorrhage no cervical spine fractures. Patient does not have any fractures of shoulders or hip joint. Patient found to have a 3 mm kidney stone in the ureter on the left side. Patient still having significant pain and having ambulatory dysfunction will admit to the hospital service further treatment and evaluation. Patient's urinalysis came back suspicious for infection after patient was already admitted to hospital service. I notified Dr. Todd and he will look into the patient's case and decide if antibiotics are needed in order to them himself. Labs (independently interpreted) are significant for: Troponin negative Imaging results (independently interpreted): X-ray hip negative for acute fracture EKG interpretation (independently interpreted): Normal sinus rhythm no ST segment elevation or depression Medications given: Morphine Consultants: Hospitalist Triage Nursing notes reviewed and agree them. 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, estrogen receptor negative (06/02/22) Anticoagulation adequate Atrial fibrillation Port-A-Cath in place implanted- 07/16/22- Breast cancer Anemia Persistent atrial fibrillation Nonischemic congestive cardiomyopathy HFrEF (heart failure with reduced ejection fraction) Acute dyspnea (Acute) Bronchitis Acute on chronic systolic CHF (congestive heart failure) ICD (implantable cardioverter-defibrillator) in place Hypokalemia (Acute) Anemia (Acute) Pancytopenia Mobitz (type) I (Wenckebach's) atrioventricular block History of hysterectomy (Chronic) Status post left breast lumpectomy Left partial mastectomy with SLN biopsy on 07/16/22 Nonischemic cardiomyopathy Paroxysmal atrial fibrillation follows w/ Dr Hammond CKD (chronic kidney disease), stage III (Chronic) HTN (hypertension) (Chronic) controlled, stable per pt Nocturnal hypoxia (Chronic) pt denies S/P ICD (internal cardiac defibrillator) procedure (Chronic) replaced 2022 Gianna Almaraz - follows w/ Dr Larson IMPLANTED PACEMAKER/DEFIB ([facility]) Idiopathic cardiomyopathy (Chronic) Chronic systolic heart failure (Chronic) Diabetes mellitus, type II (Chronic) IDDM History of cholecystectomy (Chronic) History of appendectomy (Chronic) History of partial nephrectomy (Chronic) [place] [facility] [place] Medical History History of blood transfusion 1970s Hard of hearing Limb alert care status left arm-lymphedema shelter current use of anticoagulant History of COVID-19 10/2021 and 2021- hosp @ [facility] w/ covid- resolved Basal cell carcinoma HX--Nose;Mohs Presence of combination internal cardiac defibrillator (ICD) and pacemaker medtronic--checked remotely from home nightly Hyperlipidemia Hemorrhoids History of kidney cancer 02/21/24 states has another renal tumor presently; just monitoring at this time hx-Left renal papillary carcinoma History of kidney stones one remaining in place-monitoring per pt GERD (gastroesophageal reflux disease) controlled, stable per pt Hypothyroidism Hx of blood clots in heart per pt-no notation by [facility] cardiology on most recent office note Diabetic neuropathy feet Surgical History History of surgery T&A Hx of partial mastectomy 2021--left History of removal of Port-a-Cath Status post Mohs surgery History of anesthesia reaction N/V AND AGITATED WITH ANESTHESIA H/O cervical spine surgery X 2 (GOOD ROM) History of cystoscopy H/O partial nephrectomy LEFT "CANCEROUS TUMOR REMOVED" 03/28/2018 Dr. [place] [facility] H/O knee surgery LEFT H/O: hysterectomy Uterine leiomyoma H/O breast biopsy History of esophagogastroduodenoscopy (EGD) History of colonoscopy History of tooth extraction History of tonsillectomy History of cataract surgery RT/LEFT History of cardiac cath X 4 (NO STENTS) Family History Mother , in her 50s Colorectal cancer Brother COVID Sister Colorectal cancer Lymphoma Father , 60yo Stroke Pneumonia Hypertension Brother Myocardial infarction Brother Primary cancer of bone marrow Pneumonia Brother Cancer "Tumors in brain and lungs" Sister Lung cancer Sister Heart disease Daughter Diabetes Psoriatic arthritis Son Diabetes Psoriatic arthritis Other No family history of adverse response to anesthesia Social History Smoking Status: Former smoker Tobacco Type: Cigarettes Second Hand Exposure: No; Do You Dip or Chew Tobacco: No; Hx Alcohol Use: No Hx Substance Use: No Preferred Language: German Communication Ability: Effective Visual Impairment: No Limitations Hearing Ability: Normal Movie Star Required: No Beliefs That Will Affect Care: None marital status: / Current Living Situation: Alone current occupational status: retired current occupation: [employer] How many Children do You have: 2 Feels Safe at Home: Yes Diet: regular caffeine: Yes (2 cups/day) Assistive Devices: Cane Allergies Allergies Allergy/AdvReac Type Severity Reaction Status Date / Time ketorolac Allergy Severe FACE Verified 11/07/25 19:37 SWELLING/PRURITIS/NAUSEA Sulfa (Sulfonamide Allergy Severe EDEMA Verified 11/07/25 19:37 Antibiotics) FACE/LIPS/TONGUE clindamycin Allergy Intermediate ITCHY, Verified 11/07/25 19:47 FLUSHED FACE nitrofurantoin Allergy Intermediate ITCHY Verified 11/07/25 19:37 [From Macrodantin] HIVES/RASH codeine AdvReac Intermediate Vomiting Verified 11/07/25 19:37 hydrocodone AdvReac Intermediate NAUSEA AND Verified 11/07/25 19:37 VOMITING hydromorphone [From Dilaudid] AdvReac Intermediate NAUSEA/VOMI Verified 11/07/25 19:37 TING meloxicam AdvReac Intermediate Vomiting Verified 11/07/25 19:37 oxycodone AdvReac Intermediate Vomiting Verified 11/07/25 19:37 propoxyphene [From Darvon] AdvReac Intermediate Vomiting Verified 11/07/25 19:37 Skcwtkr-HTT-UbL Reductase AdvReac Intermediate Muscle Pain Verified 11/07/25 19:37 Inhibitor [Afuuqdx-Xol-Udi Reductase Inhibitor] tramadol AdvReac Intermediate VERY SICK Verified 11/07/25 19:37 TO STOMACH Home Meds Home Medications Medication Instructions Recorded Confirmed levothyroxine 50 mcg tablet 50 mcg PO QAM 05/15/19 11/07/25 omeprazole 20 mg capsule,delayed 20 mg PO QAM 05/15/19 11/07/25 release polyethylene glycol 3350 17 17 g PO DAILY PRN Constipation 08/27/21 11/07/25 gram/dose oral powder (Miralax) omega-3s 300 pm-bea-yvv-other 1 cap PO DAILY 10/15/22 11/07/25 [id number] oil 1,000 mg capsule (Clarkson-3 Fish Oil) apixaban 5 mg tablet 5 mg PO BID 11/25/22 11/07/25 spironolactone 25 mg tablet 25 mg PO Q OTHER DAY 11/25/22 11/07/25 bumetanide 2 mg tablet 2 mg PO DAILY 02/09/23 11/07/25 insulin glargine 100 unit/mL (3 16 unit subcut HS 02/09/23 11/07/25 mL) subcutaneous pen (Lantus Solostar U-100 Insulin) loratadine 10 mg tablet 10 mg PO DAILY PRN allergy symptoms 02/09/23 11/07/25 metoprolol succinate 50 mg 75 mg PO DAILY 04/10/24 11/07/25 tablet,extended release 24 hr acetaminophen 500 mg tablet 500 mg PO Q6H PRN Pain 07/06/25 11/07/25 amiodarone 200 mg tablet 200 mg PO QAM 07/06/25 11/07/25 linagliptin 5 mg tablet (Tradjenta) 5 mg PO QAM 07/06/25 11/07/25 sacubitril 24 mg-valsartan 26 mg 1 tab PO BID 07/06/25 11/07/25 tablet benzonatate 100 mg capsule 100 mg PO DIRECTED PRN Cough 11/07/25 11/07/25 chlorpheniramine-dextromethorphan 1 tab PO Q6H PRN COUGH/COLD 11/07/25 11/07/25 4 mg-30 mg tablet (Coricidin HBP SYMPTOMS Cough and Cold) cyclobenzaprine 5 mg tablet 5 mg PO BID PRN muscle spasm 11/07/25 11/07/25 docusate sodium 100 mg capsule 200 mg PO HS 11/07/25 11/07/25 Results & Data (ED) Vital Signs Vital Signs - 24 hr 11/07/25 17:05 11/07/25 17:05 11/07/25 17:14 Temperature 36.7 C 36.7 C Temperature Source Oral Pulse Rate - Lying Pulse Rate - Sitting Pulse Rate 65 62 65 Pulse Rate [Apical] Respiratory Rate 19 19 19 Respiratory Effort / Characteristics Non-Labored Spontaneous Respiratory Depth Shallow Respiratory Pattern Regular Blood Pressure - Lying Blood Pressure - Sitting Blood Pressure 121/71 121/71 Blood Pressure [Right Arm] Blood Pressure Mean 87 Blood Pressure Mean [Right Arm] Blood Pressure Position [Right Arm] Pulse Oximetry 98 98 98 Oxygen Delivery Method Nasal Cannula Nasal Cannula Nasal Cannula Oxygen Flow Rate 6 6 Sepsis Recent Fever Within 48 Hours Yes Sepsis New/Unexplained Change in Mental Status No Sepsis Action Taken by Nursing No Action Required Oxygen Flow Rate - Titration 11/07/25 17:14 11/07/25 18:14 11/07/25 19:15 Temperature Temperature Source Pulse Rate - Lying Pulse Rate - Sitting Pulse Rate Pulse Rate [Apical] 63 57 L Respiratory Rate 19 18 Respiratory Effort / Characteristics Non-Labored Spontaneous Respiratory Depth Shallow Respiratory Pattern Regular Blood Pressure - Lying Blood Pressure - Sitting Blood Pressure Blood Pressure [Right Arm] 129/60 129/62 Blood Pressure Mean Blood Pressure Mean [Right Arm] 83 84 Blood Pressure Position [Right Arm] Lying Pulse Oximetry 98 100 92 Oxygen Delivery Method Nasal Cannula Nasal Cannula Room Air Oxygen Flow Rate 6 5 Sepsis Recent Fever Within 48 Hours Sepsis New/Unexplained Change in Mental Status Sepsis Action Taken by Nursing Oxygen Flow Rate - Titration 5 11/07/25 20:45 11/07/25 20:46 Temperature Temperature Source Pulse Rate - Lying 68 Pulse Rate - Sitting 63 Pulse Rate Pulse Rate [Apical] 63 Respiratory Rate 18 Respiratory Effort / Characteristics Respiratory Depth Respiratory Pattern Blood Pressure - Lying 112/48 L Blood Pressure - Sitting 108/53 L Blood Pressure Blood Pressure [Right Arm] 108/53 L Blood Pressure Mean Blood Pressure Mean [Right Arm] 71 Blood Pressure Position [Right Arm] Pulse Oximetry 98 Oxygen Delivery Method Room Air Oxygen Flow Rate Sepsis Recent Fever Within 48 Hours Sepsis New/Unexplained Change in Mental Status Sepsis Action Taken by Nursing Oxygen Flow Rate - Titration Laboratory Data 11/07/25 17:28 11/07/25 17:28 Lab Results 11/07/25 11/07/25 11/07/25 Range/Units 17:10 17:24 17:28 WBC 7.61 (4.8-10.8) K/ul RBC 3.75 L (4.20-5.40) M/uL Hgb 11.2 L (12.0-16.0) g/dL POC Hgb 10.9 L (12.0-16.0) g/dl Hct 33.3 L (37.0-47.0) % POC Hct 32 L (37-47) % MCV 88.8 (80.0-100.0) fL MCH 29.9 (25.0-34.0) pg MCHC 33.6 (32.0-36.0) g/dL RDW Std Deviation 44.0 (36.4-46.3) fL RDW Coeff of Edilma 13.4 (11.5-14.5) % Plt Count 129 L (130-400) K/uL MPV 11.5 (9.4-12.4) fL Immature Gran % (Auto) 0.7 % Neut % (Auto) 90.3 % Lymph % (Auto) 3.8 % [place] % (Auto) 4.6 % Eos % (Auto) 0.3 % Baso % (Auto) 0.3 % Neut # (Auto) 6.88 H (1.40-6.50) K/uL Lymph # (Auto) 0.29 L (1.20-3.40) K/uL [place] # (Auto) 0.35 (0.11-0.59) K/uL Eos # (Auto) 0.02 (0.00-0.50) K/uL Baso # (Auto) 0.02 (0.00-0.20) K/uL Immature Gran # (Auto) 0.05 (0.01-0.20) K/uL Ovalocytes 1+ PT 11.4 (9.0-12.0) Seconds INR 1.1 (0.9-1.1) APTT 33 H (21-31) Seconds PTT Ratio 1.2 POC Sodium 141 (135-144) mmol/L Sodium 141 (136-145) mmol/L POC Potassium 3.8 (3.3-5.0) mmol/L Potassium 4.1 (3.5-5.1) mmol/L POC Chloride 108 (101-112) mmol/L Chloride 108 H (98-107) mmol/L Carbon Dioxide 24 (21-32) mmol/L POC Total CO2 20 L (24-31) mmol/L Anion Gap 9 (3-11) POC Anion Gap 17.0 (16-25) mmol/L POC BUN 30 H (7-18) mg/dl BUN 29 H (6-23) mg/dl Creatinine 1.65 H (0.6-1.2) mg/dl POC Creatinine 1.9 H (0.6-1.3) mg/dl Est Cr Clr Drug Dosing 32.4 ml/min eGFR 31.62 BUN/Creatinine Ratio 17.6 (10-20) Glucose 146 H (70-99(Fasting)) mg/dl POC Glucose (other) 146 H (70-99) mg/dl Lactate 1.3 (0.4-2.0) mmol/L Calcium 8.9 (8.6-10.3) mg/dl POC Ioniz Calcium Justin 1.12 (1.12-1.32) mmol/l Total Bilirubin 0.9 (0.2-1.0) mg/dl AST 18 (13-39) U/L ALT 12 (7-52) U/L Alkaline Phosphatase 52 (34-104) U/L Troponin I High Sens 7.5 (0-14) pg/ml Total Protein 6.7 (6.0-8.3) gm/dl Albumin 4.3 (3.4-5.0) gm/dl Globulin 2.4 L (2.5-4.0) gm/dl Albumin/Globulin Ratio 1.8 (0.9-2) Lipase 68 (11-82) U/L Urine Color Urine Appearance (Clear) Urine pH (4.5-7.5) Ur Specific [place] (1.000-1.030) Urine Protein (Negative) Urine Glucose (UA) (Negative) Urine Ketones (Negative) Urine Blood (Negative) Urine Nitrite (Negative) Urine Bilirubin (Negative) Urine Urobilinogen (Negative) Ur Leukocyte Esterase (Negative) Urine WBC (Auto) (0-5) /hpf Urine RBC (Auto) (0-2) /hpf U Hyaline Cast (Auto) (0-2) /lpf U Epithel Cells (Auto) (0-2) /hpf Urine Bacteria (Auto) (None Seen) Urine Comment SARS-CoV-2 (PCR) NEGATIVE (Negative) Influenza Type A (PCR) Negative (Neg) Influenza Type B (PCR) Negative (Neg) RSV (RT-PCR) Negative (Neg) 11/07/25 Range/Units 20:44 WBC (4.8-10.8) K/ul RBC (4.20-5.40) M/uL Hgb (12.0-16.0) g/dL POC Hgb (12.0-16.0) g/dl Hct (37.0-47.0) % POC Hct (37-47) % MCV (80.0-100.0) fL MCH (25.0-34.0) pg MCHC (32.0-36.0) g/dL RDW Std Deviation (36.4-46.3) fL RDW Coeff of Edilma (11.5-14.5) % Plt Count (130-400) K/uL MPV (9.4-12.4) fL Immature Gran % (Auto) % Neut % (Auto) % Lymph % (Auto) % [place] % (Auto) % Eos % (Auto) % Baso % (Auto) % Neut # (Auto) (1.40-6.50) K/uL Lymph # (Auto) (1.20-3.40) K/uL [place] # (Auto) (0.11-0.59) K/uL Eos # (Auto) (0.00-0.50) K/uL Baso # (Auto) (0.00-0.20) K/uL Immature Gran # (Auto) (0.01-0.20) K/uL Ovalocytes PT (9.0-12.0) Seconds INR (0.9-1.1) APTT (21-31) Seconds PTT Ratio POC Sodium (135-144) mmol/L Sodium (136-145) mmol/L POC Potassium (3.3-5.0) mmol/L Potassium (3.5-5.1) mmol/L POC Chloride (101-112) mmol/L Chloride (98-107) mmol/L Carbon Dioxide (21-32) mmol/L POC Total CO2 (24-31) mmol/L Anion Gap (3-11) POC Anion Gap (16-25) mmol/L POC BUN (7-18) mg/dl BUN (6-23) mg/dl Creatinine (0.6-1.2) mg/dl POC Creatinine (0.6-1.3) mg/dl Est Cr Clr Drug Dosing ml/min eGFR BUN/Creatinine Ratio (10-20) Glucose (70-99(Fasting)) mg/dl POC Glucose (other) (70-99) mg/dl Lactate (0.4-2.0) mmol/L Calcium (8.6-10.3) mg/dl POC Ioniz Calcium Justin (1.12-1.32) mmol/l Total Bilirubin (0.2-1.0) mg/dl AST (13-39) U/L ALT (7-52) U/L Alkaline Phosphatase (34-104) U/L Troponin I High Sens (0-14) pg/ml Total Protein (6.0-8.3) gm/dl Albumin (3.4-5.0) gm/dl Globulin (2.5-4.0) gm/dl Albumin/Globulin Ratio (0.9-2) Lipase (11-82) U/L Urine Color Yellow Urine Appearance Clear (Clear) Urine pH 5.5 (4.5-7.5) Ur Specific [place] 1.015 (1.000-1.030) Urine Protein Negative (Negative) Urine Glucose (UA) Negative (Negative) Urine Ketones Negative (Negative) Urine Blood 2+ H (Negative) Urine Nitrite Negative (Negative) Urine Bilirubin Negative (Negative) Urine Urobilinogen Negative (Negative) Ur Leukocyte Esterase 2+ H (Negative) Urine WBC (Auto) 21-50 H (0-5) /hpf Urine RBC (Auto) 0-2 (0-2) /hpf U Hyaline Cast (Auto) 0-2 (0-2) /lpf U Epithel Cells (Auto) 0-2 (0-2) /hpf Urine Bacteria (Auto) 4+ H (None Seen) Urine Comment SARS-CoV-2 (PCR) (Negative) Influenza Type A (PCR) (Neg) Influenza Type B (PCR) (Neg) RSV (RT-PCR) (Neg) Administered Medications Discontinued Medications Albuterol (Albut/Ipratrop 3mg/0.5mg Neb 3 Ml Vial) 3 ml NEB NOW STA; Protocol Stop: 11/07/25 19:27 Last Admin: 11/07/25 19:31 Dose: 3 ml Documented By: [id number] Sodium Chloride (Nss) 500 mls @ 999 mls/hr IV .Q31M JULIA Stop: 11/07/25 17:45 Last Infusion: 11/07/25 19:33 Dose: Infused Documented By: [id number] Admin: 11/07/25 17:40 Dose: 999 mls/hr Documented By: guerrero Morphine Sulfate (Morphine Sulfate 2 Mg/Ml Carp) 2 mg IV NOW STA Stop: 11/07/25 17:07 Last Admin: 11/07/25 17:40 Dose: 2 mg Documented By: guerrero Morphine Sulfate (Morphine Sulfate 2 Mg/Ml Carp) 2 mg IV NOW STA Stop: 11/07/25 18:33 Last Admin: 11/07/25 18:36 Dose: 2 mg Documented By: guerrero Tamsulosin HCl (Tamsulosin Hcl 0.4 Mg Cap) 0.4 mg PO NOW ONE Stop: 11/07/25 19:44 Last Admin: 11/07/25 20:41 Dose: 0.4 mg Documented By: [id number] Imaging Data Radiologist's Impression: Chest X-Ray 11/07/25 17:05 Clinical History: Trauma Technique: A frontal view of the chest was obtained Findings: There are no confluent pulmonary infiltrates. The heart size is within normal limits. No pleural effusion or pneumothorax is seen. There is no definite pulmonary nodule. No fracture is noted. There is a left chest wall pacemaker device Impression: No active disease Electronically signed by Shady Trinh 11-07-2025 6:[address] 11/07/25 17:06 Clinical history: Injury Technique: Axial computed tomography images were obtained of the cervical spine without intravenous contrast. Sagittal and coronal reconstructions were obtained Comparison is made to the prior CT dated 07/06/2025 Findings: No fracture is identified. No listhesis is seen. No focal osseous lesion is evident. There is atlantoaxial osteoarthritis. There is unchanged interbody bony fusion at C5-6 At C2-3, no disc herniation is identified. There is no spinal stenosis. The neural foramen are patent At C3-4, there is a mild disc bulge without spinal stenosis. There is right neural foramen narrowing that may affect the right C4 nerve root At C4-5, there is a mild disc bulge without spinal stenosis. There is right neural foramen narrowing that may affect the right C5 nerve root At C5-6, there is a disc bulge without clear spinal cord deformity. There is right neural foramen narrowing that may affect the right C6 nerve root At C6-7, there is a disc bulge without clear spinal cord deformity. There is mild right neural foramen narrowing At C7-T1, there is a disc bulge without spinal stenosis. The neural foramen are patent There is a 4 mm nodule in the right lung apex. The visualized soft tissues of the neck appear unremarkable. No foreign body is seen Impression: 1. No definite cervical spine fracture 2. Right-sided neural foramen narrowing from C3-4 through C5-6, which may affect the exiting nerve roots 3. Small nodule in the right lung apex, likely benign but indeterminate in nature. A follow-up chest CT could be obtained ACT 112: Positive. There are findings on this exam that require communication between the performing entity and the patient following Patient Test Result Information Act ([place] ACT 112) guidelines. Electronically signed by Shady Trinh 11-07-2025 6:[address] 11/07/25 17:06 Clinical History: Trauma. Technique: Axial computed tomography images were obtained of the brain from the vertex to the skull base without intravenous contrast. Findings: There is no sign of intracranial hemorrhage. There is normal manley-white matter differentiation with no sign of acute or old infarction. No midline shift or other form of herniation is identified. There is no hydrocephalus. No obvious mass lesion is seen on this noncontrast examination. The visualized portions of the orbits and paranasal sinuses appear unremarkable. The mastoid air cells appear clear Impression: Unremarkable noncontrast CT of the brain Electronically signed by Shady Trinh 11-07-2025 6:24 PM Hip/Pelvis X-Ray 11/07/25 17:06 Clinical History: Trauma 4 views of the pelvis and left hip are submitted for review. Findings: No fracture or dislocation is seen. No significant arthritic changes are noted. No other osseous abnormality is identified. There are no radiopaque foreign bodies. There are prominent air-filled loops of small and large bowel, suggestive of ileus. There is constipation Impression: 1. No definite fracture 2. Constipation and suspected ileus Electronically signed by Shady Trinh 11-07-2025 6:13 PM Shoulder X-Ray 11/07/25 17:06 2 views of the left shoulder are submitted for review. Findings: No fracture or dislocation is seen. There is mild acromioclavicular osteoarthritis. No other osseous abnormality is identified. There is a left chest wall pacemaker device Impression: Mild acromioclavicular osteoarthritis Electronically signed by Shady Trinh 11-07-2025 6:09 PM Shoulder X-Ray 11/07/25 17:06 2 views of the right shoulder are submitted for review. Findings: No fracture or dislocation is seen. There is mild acromioclavicular osteoarthritis. No other osseous abnormality is identified. There are no radiopaque foreign bodies. Impression: Mild acromioclavicular osteoarthritis Electronically signed by Shady Trinh 11-07-2025 6:08 PM Abdomen/Pelvis CT 11/07/25 17:51 EXAMINATION: CT of the chest, abdomen and pelvis performed without the administration of IV contrast TECHNIQUE: Helical CT images from the lung apices through the symphysis pubis were obtained without contrast. Coronal and sagittal reformatted images were generated at a workstation for further assessment. Dose reduction techniques were achieved by using automatic exposure control and/or adjustment of mA and/or kV according to patient size and/or use of iterative reconstruction technique. COMPARISON: 04/09/2024 HISTORY: Trauma FINDINGS: Lines and tubes: None Mediastinum/Neck Base: No thyroid nodules. Central tracheobronchial tree is patent. Heart size is enlarged. Moderate to heavy coronary calcification. Left chest wall single-lead AICD. No pericardial effusion. Normal thoracic vasculature. No thoracic lymphadenopathy. Lungs: No consolidation. Trace left pleural effusion. Liver: No suspicious liver lesions. No change in scattered low-density, somewhat lobulated lesions in the liver, which may represent hemangiomas versus possibly cysts. Gallbladder: Cholecystectomy Spleen: Normal size. Pancreas: No suspicious pancreatic lesions. The pancreatic duct is not dilated. Adrenal glands: No adrenal nodules. Kidneys: 3 millimeters stone in the proximal left ureter resulting in mild hydronephrosis. Scattered bilateral renal cysts. Bladder / Pelvic organs: Unremarkable. Bowel: No bowel obstruction. No abnormal bowel wall thickening. No evidence for appendicitis. 3 cm lipoma in the wall of the cecum. Lymph nodes: No retroperitoneal, mesenteric, or pelvic lymphadenopathy. Peritoneum / Retroperitoneum: No free fluid or air within the abdomen. Vessels: No infrarenal aortic aneurysm. Bones and soft tissues: Degenerative changes of the spine. No acute osseous normality. IMPRESSION: 3 mm stone in the proximal left ureter resulting in mild hydronephrosis. Persistent trace left pleural effusion. No other acute findings in the chest, abdomen or pelvis. Electronically signed by Aaron Rdz 11-07-2025 6:[address] 11/07/25 17:51 EXAMINATION: CT of the chest, abdomen and pelvis performed without the administration of IV contrast TECHNIQUE: Helical CT images from the lung apices through the symphysis pubis were obtained without contrast. Coronal and sagittal reformatted images were generated at a workstation for further assessment. Dose reduction techniques were achieved by using automatic exposure control and/or adjustment of mA and/or kV according to patient size and/or use of iterative reconstruction technique. COMPARISON: 04/09/2024 HISTORY: Trauma FINDINGS: Lines and tubes: None Mediastinum/Neck Base: No thyroid nodules. Central tracheobronchial tree is patent. Heart size is enlarged. Moderate to heavy coronary calcification. Left chest wall single-lead AICD. No pericardial effusion. Normal thoracic vasculature. No thoracic lymphadenopathy. Lungs: No consolidation. Trace left pleural effusion. Liver: No suspicious liver lesions. No change in scattered low-density, somewhat lobulated lesions in the liver, which may represent hemangiomas versus possibly cysts. Gallbladder: Cholecystectomy Spleen: Normal size. Pancreas: No suspicious pancreatic lesions. The pancreatic duct is not dilated. Adrenal glands: No adrenal nodules. Kidneys: 3 millimeters stone in the proximal left ureter resulting in mild hydronephrosis. Scattered bilateral renal cysts. Bladder / Pelvic organs: Unremarkable. Bowel: No bowel obstruction. No abnormal bowel wall thickening. No evidence for appendicitis. 3 cm lipoma in the wall of the cecum. Lymph nodes: No retroperitoneal, mesenteric, or pelvic lymphadenopathy. Peritoneum / Retroperitoneum: No free fluid or air within the abdomen. Vessels: No infrarenal aortic aneurysm. Bones and soft tissues: Degenerative changes of the spine. No acute osseous normality. IMPRESSION: 3 mm stone in the proximal left ureter resulting in mild hydronephrosis. Persistent trace left pleural effusion. No other acute findings in the chest, abdomen or pelvis. Electronically signed by Aaron Rdz 11-07-2025 6:40 PM Discharge Plan Visit Data Chief Complaint: Trauma Stated Complaint: FALL, ILLNESS, NECK SHOULDER HIP & HEAD PAIN ED Provider: Demian Durán Discharge Problem: Kidney stones, Fall Condition: Fair Forms [facility] Prescriptions Prescriptions: No Action apixaban 5 mg tablet 5 mg PO BID spironolactone 25 mg tablet 25 mg PO Q OTHER DAY bumetanide 2 mg tablet 2 mg PO DAILY levothyroxine 50 mcg tablet 50 mcg PO QAM omeprazole 20 mg capsule,delayed release(DR/EC) 20 mg PO QAM insulin glargine [Lantus Solostar U-100 Insulin] 100 unit/mL (3 mL) insulin pen 16 unit subcut HS Patient Comments: WILL ADJUST DOSE BASED ON BSG polyethylene glycol 3350 [Miralax] 17 gram/dose Powder 17 g PO DAILY PRN (Reason: Constipation) Clarkson-3 Fish Oil 300-1,000 mg Capsule 1 cap PO DAILY loratadine 10 mg tablet 10 mg PO DAILY PRN (Reason: allergy symptoms ) amiodarone 200 mg tablet 200 mg PO QAM acetaminophen [Tylenol Ex Str Rapid Release] 500 mg Tablet 500 mg PO Q6H PRN (Reason: Pain) Tradjenta 5 mg tablet 5 mg PO QAM sacubitril-valsartan 24-26 mg tablet 1 tab PO BID metoprolol succinate 50 mg tablet extended release 24 hr 75 mg PO DAILY Coricidin HBP Cough and Cold 4-30 mg Tablet 1 tab PO Q6H PRN (Reason: COUGH/COLD SYMPTOMS) benzonatate [Tessalon Perles] 100 mg Capsule 100 mg PO DIRECTED PRN (Reason: Cough) docusate sodium 100 mg Capsule 200 mg PO HS cyclobenzaprine 5 mg tablet 5 mg PO BID PRN (Reason: muscle spasm) Referrals Referrals: Nimesh Carpenter DO [Primary Care Provider] -
[2025-11-07] MEDS: MoRPHine SULFATE 2 MG/ML CARP IV STA ×2 (17:40→18:36)
[2025-11-07] MEDS: SODIUM CHLORIDE 0.9% 500 ML IV SCH (17:40)
[2025-11-07 17:57] LABS: Hematocrit (blood only) 33.3 % (37.0-47.0); Hemoglobin 11.2 g/dL (12.0-16.0); Mean Corpuscular Hemoglobin 29.9 pg (25.0-34.0); Mean Corpuscular Volume 88.8 fL (80.0-100.0); Platelet Count 129 K/uL (130-400); RDW Standard Deviation 44.0 fL (36.4-46.3); Red Blood Count 3.75 M/uL (4.20-5.40); White Blood Count 7.61 K/ul (4.8-10.8)
[2025-11-07 18:03] LABS: Alanine Aminotransferase 12.0 U/L (7-52); Albumin Globulin Ratio 1.8 (0.9-2); Albumin Level 4.3 gm/dl (3.4-5.0); Alkaline Phosphatase 52.0 U/L (34-104); Anion Gap 9.0 (3-11); Bilirubin,Total 0.9 mg/dl (0.2-1.0); Blood Urea Nitrogen 29.0 mg/dl (6-23); Calcium 8.9 mg/dl (8.6-10.3); Carbon Dioxide 24.0 mmol/L (21-32); Chloride 108.0 mmol/L (98-107); Creatinine Clr Calc Pharmacy 32.4 ml/min; Globulin 2.4 gm/dl (2.5-4.0); Glucose 146.0 mg/dl (70-99(Fasting)); Lipase 68.0 U/L (11-82); Potassium 4.1 mmol/L (3.5-5.1); Sodium 141.0 mmol/L (136-145); Total Protein 6.7 gm/dl (6.0-8.3)
[2025-11-07 18:09] LABS: Immature Granulocytes # (auto) 0.05 K/uL (0.01-0.20); Immature Granulocytes % (auto) 0.7 %; Ovalocytes 1+
--- NOTE | 2025-11-07 18:16 | XRay Report ---
Clinical History: Trauma 4 views of the pelvis and left hip are submitted for review. Findings: No fracture or dislocation is seen. No significant arthritic changes are noted. No other osseous abnormality is identified. There are no radiopaque foreign bodies. There are prominent air-filled loops of small and large bowel, suggestive of ileus. There is constipation Impression: 1. No definite fracture 2. Constipation and suspected ileus Electronically signed by Shady Trinh 11-07-2025 6:13 PM
--- NOTE | 2025-11-07 18:16 | XRay Report ---
Clinical History: Trauma Technique: A frontal view of the chest was obtained Findings: There are no confluent pulmonary infiltrates. The heart size is within normal limits. No pleural effusion or pneumothorax is seen. There is no definite pulmonary nodule. No fracture is noted. There is a left chest wall pacemaker device Impression: No active disease Electronically signed by Shady Trinh 11-07-2025 6:10 PM
--- NOTE | 2025-11-07 18:16 | XRay Report ---
2 views of the right shoulder are submitted for review. Findings: No fracture or dislocation is seen. There is mild acromioclavicular osteoarthritis. No other osseous abnormality is identified. There are no radiopaque foreign bodies. Impression: Mild acromioclavicular osteoarthritis Electronically signed by Shady Trinh 11-07-2025 6:08 PM
--- NOTE | 2025-11-07 18:16 | XRay Report ---
2 views of the left shoulder are submitted for review. Findings: No fracture or dislocation is seen. There is mild acromioclavicular osteoarthritis. No other osseous abnormality is identified. There is a left chest wall pacemaker device Impression: Mild acromioclavicular osteoarthritis Electronically signed by Shady Trinh 11-07-2025 6:09 PM
[2025-11-07 18:18] LABS: INR 1.1 (0.9-1.1); Partial Thromboplastin Time 33 Seconds (21-31); Prothrombin Time 11.4 Seconds (9.0-12.0)
[2025-11-07 18:25] LABS: Influenza A virus by PCR Negative (Neg); Influenza B virus by PCR Negative (Neg); SARS CoV2 RNA(COVID-19) Ceph NEGATIVE (Negative)
--- NOTE | 2025-11-07 18:25 | CT Scan Report ---
Clinical History: Trauma. Technique: Axial computed tomography images were obtained of the brain from the vertex to the skull base without intravenous contrast. Findings: There is no sign of intracranial hemorrhage. There is normal manley-white matter differentiation with no sign of acute or old infarction. No midline shift or other form of herniation is identified. There is no hydrocephalus. No obvious mass lesion is seen on this noncontrast examination. The visualized portions of the orbits and paranasal sinuses appear unremarkable. The mastoid air cells appear clear Impression: Unremarkable noncontrast CT of the brain Electronically signed by Shady Trinh 11-07-2025 6:24 PM
--- NOTE | 2025-11-07 18:30 | CT Scan Report ---
Clinical history: Injury Technique: Axial computed tomography images were obtained of the cervical spine without intravenous contrast. Sagittal and coronal reconstructions were obtained Comparison is made to the prior CT dated 07/06/2025 Findings: No fracture is identified. No listhesis is seen. No focal osseous lesion is evident. There is atlantoaxial osteoarthritis. There is unchanged interbody bony fusion at C5-6 At C2-3, no disc herniation is identified. There is no spinal stenosis. The neural foramen are patent At C3-4, there is a mild disc bulge without spinal stenosis. There is right neural foramen narrowing that may affect the right C4 nerve root At C4-5, there is a mild disc bulge without spinal stenosis. There is right neural foramen narrowing that may affect the right C5 nerve root At C5-6, there is a disc bulge without clear spinal cord deformity. There is right neural foramen narrowing that may affect the right C6 nerve root At C6-7, there is a disc bulge without clear spinal cord deformity. There is mild right neural foramen narrowing At C7-T1, there is a disc bulge without spinal stenosis. The neural foramen are patent There is a 4 mm nodule in the right lung apex. The visualized soft tissues of the neck appear unremarkable. No foreign body is seen Impression: 1. No definite cervical spine fracture 2. Right-sided neural foramen narrowing from C3-4 through C5-6, which may affect the exiting nerve roots 3. Small nodule in the right lung apex, likely benign but indeterminate in nature. A follow-up chest CT could be obtained ACT 112: Positive. There are findings on this exam that require communication between the performing entity and the patient following Patient Test Result Information Act ([place] ACT 112) guidelines. Electronically signed by Shady Trinh 11-07-2025 6:28 PM
--- NOTE | 2025-11-07 18:41 | CT Scan Report ---
EXAMINATION: CT of the chest, abdomen and pelvis performed without the administration of IV contrast TECHNIQUE: Helical CT images from the lung apices through the symphysis pubis were obtained without contrast. Coronal and sagittal reformatted images were generated at a workstation for further assessment. Dose reduction techniques were achieved by using automatic exposure control and/or adjustment of mA and/or kV according to patient size and/or use of iterative reconstruction technique. COMPARISON: 04/09/2024 HISTORY: Trauma FINDINGS: Lines and tubes: None Mediastinum/Neck Base: No thyroid nodules. Central tracheobronchial tree is patent. Heart size is enlarged. Moderate to heavy coronary calcification. Left chest wall single-lead AICD. No pericardial effusion. Normal thoracic vasculature. No thoracic lymphadenopathy. Lungs: No consolidation. Trace left pleural effusion. Liver: No suspicious liver lesions. No change in scattered low-density, somewhat lobulated lesions in the liver, which may represent hemangiomas versus possibly cysts. Gallbladder: Cholecystectomy Spleen: Normal size. Pancreas: No suspicious pancreatic lesions. The pancreatic duct is not dilated. Adrenal glands: No adrenal nodules. Kidneys: 3 millimeters stone in the proximal left ureter resulting in mild hydronephrosis. Scattered bilateral renal cysts. Bladder / Pelvic organs: Unremarkable. Bowel: No bowel obstruction. No abnormal bowel wall thickening. No evidence for appendicitis. 3 cm lipoma in the wall of the cecum. Lymph nodes: No retroperitoneal, mesenteric, or pelvic lymphadenopathy. Peritoneum / Retroperitoneum: No free fluid or air within the abdomen. Vessels: No infrarenal aortic aneurysm. Bones and soft tissues: Degenerative changes of the spine. No acute osseous normality. IMPRESSION: 3 mm stone in the proximal left ureter resulting in mild hydronephrosis. Persistent trace left pleural effusion. No other acute findings in the chest, abdomen or pelvis. Electronically signed by Aaron Rdz 11-07-2025 6:40 PM
[2025-11-07] MEDS: ALBUT/IPRATROP 3MG/0.5MG NEB 3 ML VIAL NEB STA (19:31)
--- NOTE | 2025-11-07 19:47 | History & Physical Report ---
Date of Service November 07, 2025 Assessment & Plan (1) Fall: (2) Lightheaded: (3) Ureteral stone with hydronephrosis: (4) Constipation: (5) HFrEF (heart failure with reduced ejection fraction): (6) Nonischemic congestive cardiomyopathy: (7) CKD (chronic kidney disease) stage 4, GFR 15-29 ml/min: Plan This is a 80-year-old female who has significant past medical history of T2DM, chronic systolic CHF, PAF, HTN, nonischemic cardiomyopathy, presence of AICD, CKD stage IV, hyperlipidemia, hypothyroidism, multiple lung nodules on CT, GERD, B12 deficiency, history of left renal cancer, history of left breast cancer and history of iron deficiency anemia who presents to ED secondary to fall. #Fall with associated lightheadedness Pt reports coughing jag prior to lightheadedness and falling forward sx could be associated to vasovagal, hypovolemia in setting of poor intake due to illness vs arrhythmia will monitor on tele, obtain pacer interrogation orthostatic vitals PT/OT lidocaine patch, prn apap, prn IV morphine for pain consult PT/OT #3mm Proximal L ureteral stone with mild hydronephrosis incidental finding on trauma imaging, prior hx of partial left nephrectomy due to cancer pt asymptomatic will consult urology given hydronephrosis start flomax will not initiate further fluids as pt can tolerate orals and hx of Systolic CHF obtain urine sample #Constipation chronic 2/2 tradjenta typically controlled on docusate 200mg daily will start senna s BID and miralax BID likely 2/2 to illness #Viral URI prn antitussives and supportive care negative for flu, rsv suspect other respiratory pathogen #T2DM Chronic, a1c 6.5 on 09/26 On lantus and tradjenta as outpt insulin per protocol #Chronic systolic CHF #HTN #Nonischemic cardiomyopathy with AICD in place Echo 11/2024: EF 35%, left-ventricular wall segments moderately hypokinetic, moderate to severe mitral regurg, mild tricuspid regurg on apixaban, Bumex, metoprolol, Entresto and Aldactone Daily weights, strict I's and O's will hold bumex until re assessed by am provider and volume status/sx evaluated, resume bumex tomorrow if improved #PAF chronic, stable continue apixaban, metoprolol and amiodarone #anemia chronic, hx of iron def hgb 11.2 #CKD IV baseline creatinine 1.5-1.9 avoid nephrotoxic agents, monitor renal function #Hx of Left renal cancer s/p L partial nephrectomy #Hx left breast ca treated with surgery/chemo/radiation #DVT ppx: Eliquis FULL CODE PCP: Jayden Dispo: admit Pt was seen and examined. Case was discussed with Dr. Thompson, please refer to his addendum for full details regarding assessment and plan. I spent a total of 76 minutes coordinating, documenting and providing care for this patient excluding time spent in the performance of separately billed services or time spent by another provider/QHP. History of Present Illness Chief Complaint: Fall prior to arrival. Primary Care Provider: Nimesh Carpenter, This is a 80-year-old female who has significant past medical history of T2DM, chronic systolic CHF, PAF, HTN, nonischemic cardiomyopathy, presence of AICD, CKD stage IV, hyperlipidemia, hypothyroidism, multiple lung nodules on CT, GERD, B12 deficiency, history of left renal cancer, history of left breast cancer and history of iron deficiency anemia who presents to ED secondary to fall. Patient reports over the last few days feeling unwell. Over the last 2 to 3 days she complains of sinus congestion, pressure and a harsh cough. She states she initially was lying down whenever she got into a coughing jag and decided to go into the bathroom. Whenever she went down to sit on the toilet she felt lightheaded and fell forward hitting her head on the tub. She was unable to get up on her own. She reports that is not uncommon for her. She currently is complaining of some low back pain. She denies losing consciousness. She recalls all events and denies any syncope. She denies any fever, chills, sweats, chest pain, hemoptysis, abdominal pain, dysuria, increased urgency or frequency with urination, melena or hematochezia. She does have chronic shortness of breath. She reports, "I been short of breath since the ." She feels this is unchanged. She weighs herself on a regular basis and her weights have remained stable. She denies any lower extremity edema or orthopnea. She was nauseated today and did have 1 episode of vomiting. She reports known history of kidney stone in the past. She follows with [facility] urology. She states in the past she can never tell when she is passing a kidney stone except she typically has blood in her urine. She denies ever having pain. She reports having recurrent urinary tract infections. This typically presents with foul-smelling urine as well as increased urgency or frequency with urination. She denies any of this. She has been having constipation issues ever since starting Tradjenta. She t akes 200 mg of Colace daily. This typically produces 2-3 bowel movements a day. She has not had a bowel movement in the last 2 days due to decreased activity in the setting of not feeling well. Allergies Allergy/AdvReac Type Severity Reaction Status Date / Time ketorolac Allergy Severe FACE Verified 11/07/25 19:37 SWELLING/PRURITIS/NAUSEA Sulfa (Sulfonamide Allergy Severe EDEMA Verified 11/07/25 19:37 Antibiotics) FACE/LIPS/TONGUE clindamycin Allergy Intermediate ITCHY, Verified 11/07/25 19:47 FLUSHED FACE nitrofurantoin Allergy Intermediate ITCHY Verified 11/07/25 19:37 [From Macrodantin] HIVES/RASH codeine AdvReac Intermediate Vomiting Verified 11/07/25 19:37 hydrocodone AdvReac Intermediate NAUSEA AND Verified 11/07/25 19:37 VOMITING hydromorphone [From Dilaudid] AdvReac Intermediate NAUSEA/VOMI Verified 11/07/25 19:37 TING meloxicam AdvReac Intermediate Vomiting Verified 11/07/25 19:37 oxycodone AdvReac Intermediate Vomiting Verified 11/07/25 19:37 propoxyphene [From Darvon] AdvReac Intermediate Vomiting Verified 11/07/25 19:37 Dlxscnw-XAE-MpQ Reductase AdvReac Intermediate Muscle Pain Verified 11/07/25 19:37 Inhibitor [Xwyaycv-Rsq-Oof Reductase Inhibitor] tramadol AdvReac Intermediate VERY SICK Verified 11/07/25 19:37 TO STOMACH Home Medications Medication Instructions Recorded Confirmed Type levothyroxine 50 mcg tablet 50 mcg PO QAM 05/15/19 11/07/25 History omeprazole 20 mg capsule,delayed 20 mg PO QAM 05/15/19 11/07/25 History release polyethylene glycol 3350 17 17 g PO DAILY PRN Constipation 08/27/21 11/07/25 History gram/dose oral powder (Miralax) omega-3s 300 hz-ctq-wxl-other 1 cap PO DAILY 10/15/22 11/07/25 History lcaos1q-colr oil 1,000 mg capsule ([place]-3 Fish Oil) apixaban 5 mg tablet 5 mg PO BID 11/25/22 11/07/25 History spironolactone 25 mg tablet 25 mg PO Q OTHER DAY 11/25/22 11/07/25 History bumetanide 2 mg tablet 2 mg PO DAILY 02/09/23 11/07/25 History insulin glargine 100 unit/mL (3 16 unit subcut HS 02/09/23 11/07/25 History mL) subcutaneous pen (Lantus Solostar U-100 Insulin) loratadine 10 mg tablet 10 mg PO DAILY PRN allergy symptoms 02/09/23 11/07/25 History metoprolol succinate 50 mg 75 mg PO DAILY 04/10/24 11/07/25 History tablet,extended release 24 hr acetaminophen 500 mg tablet 500 mg PO Q6H PRN Pain 07/06/25 11/07/25 History amiodarone 200 mg tablet 200 mg PO QAM 07/06/25 11/07/25 History linagliptin 5 mg tablet (Tradjenta) 5 mg PO QAM 07/06/25 11/07/25 History sacubitril 24 mg-valsartan 26 mg 1 tab PO BID 07/06/25 11/07/25 History tablet benzonatate 100 mg capsule 100 mg PO DIRECTED PRN Cough 11/07/25 11/07/25 History chlorpheniramine-dextromethorphan 1 tab PO Q6H PRN COUGH/COLD 11/07/25 11/07/25 History 4 mg-30 mg tablet (Coricidin HBP SYMPTOMS Cough and Cold) cyclobenzaprine 5 mg tablet 5 mg PO BID PRN muscle spasm 11/07/25 11/07/25 History docusate sodium 100 mg capsule 200 mg PO HS 11/07/25 11/07/25 History Past Med/Surg History Problem List Fall (Acute) Kidney stones (Acute) CKD (chronic kidney disease) stage 4, GFR 15-29 ml/min Constipation Ureteral stone with hydronephrosis Lightheaded Fall Tinnitus, left ear Sensorineural hearing loss, bilateral Occipital neuralgia of right side RITESH (acute kidney injury) (Acute) Weakness (Acute) Acute UTI (Acute) Osteoarthritis of right shoulder region Malignant neoplasm of upper-outer quadrant of left breast in female, estrogen receptor negative (06/02/22) Anticoagulation adequate Atrial fibrillation Port-A-Cath in place implanted- 07/16/22- Breast cancer Anemia Persistent atrial fibrillation Nonischemic congestive cardiomyopathy HFrEF (heart failure with reduced ejection fraction) Acute dyspnea (Acute) Bronchitis Acute on chronic systolic CHF (congestive heart failure) ICD (implantable cardioverter-defibrillator) in place Hypokalemia (Acute) Anemia (Acute) Pancytopenia Mobitz (type) I (Wenckebach's) atrioventricular block History of hysterectomy (Chronic) Status post left breast lumpectomy Left partial mastectomy with SLN biopsy on 07/16/22 Nonischemic cardiomyopathy Paroxysmal atrial fibrillation follows w/ Dr Hammond CKD (chronic kidney disease), stage III (Chronic) HTN (hypertension) (Chronic) controlled, stable per pt Nocturnal hypoxia (Chronic) pt denies S/P ICD (internal cardiac defibrillator) procedure (Chronic) replaced 2022 [facility] Sung - follows w/ Dr Larson IMPLANTED PACEMAKER/DEFIB ([facility]) Idiopathic cardiomyopathy (Chronic) Chronic systolic heart failure (Chronic) Diabetes mellitus, type II (Chronic) IDDM History of cholecystectomy (Chronic) History of appendectomy (Chronic) History of partial nephrectomy (Chronic) Left, [facility] in 2018 Medical History History of blood transfusion 1970s Hard of hearing Limb alert care status left arm-lymphedema 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 current use of anticoagulant History of COVID-19 10/2021 and 2021- hosp @ [facility] w/ covid- resolved Basal cell carcinoma HX--Nose;Mohs Presence of combination internal cardiac defibrillator (ICD) and pacemaker medtronic--checked remotely from home nightly Hyperlipidemia Hemorrhoids History of kidney cancer 02/21/24 states has another renal tumor presently; just monitoring at this time hx-Left renal papillary carcinoma History of kidney stones one remaining in place-monitoring per pt GERD (gastroesophageal reflux disease) controlled, stable per pt Hypothyroidism Hx of blood clots in heart per pt-no notation by [facility] cardiology on most recent office note Diabetic neuropathy feet Surgical History History of surgery T&A Hx of partial mastectomy 2021--left History of removal of Port-a-Cath Status post Mohs surgery History of anesthesia reaction N/V AND AGITATED WITH ANESTHESIA H/O cervical spine surgery X 2 (GOOD ROM) History of cystoscopy H/O partial nephrectomy LEFT "CANCEROUS TUMOR REMOVED" 03/28/2018 Dr. Tellez at [facility] H/O knee surgery LEFT H/O: hysterectomy Uterine leiomyoma H/O breast biopsy History of esophagogastroduodenoscopy (EGD) History of colonoscopy History of tooth extraction History of tonsillectomy History of cataract surgery RT/LEFT History of cardiac cath X 4 (NO STENTS) Family History Mother , in her 50s Colorectal cancer Brother COVID Sister Colorectal cancer Lymphoma Father , 60yo Stroke Pneumonia Hypertension Brother Myocardial infarction Brother Primary cancer of bone marrow Pneumonia Brother Cancer "Tumors in brain and lungs" Sister Lung cancer Sister Heart disease Daughter Diabetes Psoriatic arthritis Son Diabetes Psoriatic arthritis Other No family history of adverse response to anesthesia Social History Smoking Status: Former smoker Tobacco Type: Cigarettes Second Hand Exposure: No; Do You Dip or Chew Tobacco: No; Hx Alcohol Use: No Hx Substance Use: No Preferred Language: Korean Communication Ability: Effective Visual Impairment: No Limitations Hearing Ability: Normal Criminology Professor Required: No Beliefs That Will Affect Care: None and Temple Temple Beliefs: TAOIST marital status: / Current Living Situation: Alone Current Living Situation Comment: home alone, daughter down the street current occupational status: retired 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 How many Children do You have: 2 Feels Safe at Home: Yes Diet: regular caffeine: Yes (2 cups/day) Assistive Devices: None Review of Systems Review of Systems: All systems reviewed & are unremarkable except as noted in HPI & below Physical Exam Physical Exam: Constitutional: WD/WN, vitals as above, NAD, sitting up in bed, pleasant, conversing easily Head: Normocephalic, Atraumatic Eyes: conjunctivae normal, anicteric sclerae ENMT: external ear and nose normal, oropharynx normal Neck: trachea midline, no thyromegaly normal visual inspection Respiratory: CTAB, no W/R/R, normal inspection, no accessory muscle use Cardiovascular: RRR, +LACW AICD, no murmur, no edema Chest: normal inspection of chest Abdomen: S, NT, ND, +BS x 4 Musculoskeletal: no cyanosis or clubbing, extremities AROM x 4 Skin: no rashes, warm and dry normal turgor Neurologic: PERRL, EOMI, accommodation nl, no face palsy, no dysarthria CN's II-XI intact bilaterally and moves all extremities Psychiatric: A+Ox3, euthymic affect Results & Data Results & Data Vital Signs (Past 12 Hours) Vital Signs Temp Pulse Pulse Resp BP BP Pulse Ox 11/07/25 19:15 57 L 18 129/62 92 11/07/25 18:14 63 19 129/60 100 11/07/25 17:14 98 11/07/25 17:14 36.7 C 65 19 121/71 98 11/07/25 17:05 62 19 98 11/07/25 17:05 36.7 C 65 19 121/71 98 O2 Del Method O2 Flow Rate 11/07/25 19:15 Room Air 11/07/25 18:14 Nasal Cannula 5 11/07/25 17:14 Nasal Cannula 6 11/07/25 17:14 Nasal Cannula 6 11/07/25 17:05 Nasal Cannula 11/07/25 17:05 Nasal Cannula 6 Laboratory Results I have independently reviewed and interpreted patient's admitting labs including CBC, CMP, PTT, PT/INR, mag and troponin. Diagnostic Findings Chest X-Ray 11/07/25 17:05 Clinical History: Trauma Technique: A frontal view of the chest was obtained Findings: There are no confluent pulmonary infiltrates. The heart size is within normal limits. No pleural effusion or pneumothorax is seen. There is no definite pulmonary nodule. No fracture is noted. There is a left chest wall pacemaker device Impression: No active disease Electronically signed by Shady Trinh 11-07-2025 6:[address] 11/07/25 17:06 Clinical history: Injury Technique: Axial computed tomography images were obtained of the cervical spine without intravenous contrast. Sagittal and coronal reconstructions were obtained Comparison is made to the prior CT dated 07/06/2025 Findings: No fracture is identified. No listhesis is seen. No focal osseous lesion is evident. There is atlantoaxial osteoarthritis. There is unchanged interbody bony fusion at C5-6 At C2-3, no disc herniation is identified. There is no spinal stenosis. The neural foramen are patent At C3-4, there is a mild disc bulge without spinal stenosis. There is right neural foramen narrowing that may affect the right C4 nerve root At C4-5, there is a mild disc bulge without spinal stenosis. There is right neural foramen narrowing that may affect the right C5 nerve root At C5-6, there is a disc bulge without clear spinal cord deformity. There is right neural foramen narrowing that may affect the right C6 nerve root At C6-7, there is a disc bulge without clear spinal cord deformity. There is mild right neural foramen narrowing At C7-T1, there is a disc bulge without spinal stenosis. The neural foramen are patent There is a 4 mm nodule in the right lung apex. The visualized soft tissues of the neck appear unremarkable. No foreign body is seen Impression: 1. No definite cervical spine fracture 2. Right-sided neural foramen narrowing from C3-4 through C5-6, which may affect the exiting nerve roots 3. Small nodule in the right lung apex, likely benign but indeterminate in nature. A follow-up chest CT could be obtained ACT 112: Positive. There are findings on this exam that require communication between the performing entity and the patient following Patient Test Result Information Act ([place] ACT 112) guidelines. Electronically signed by Shady Trinh 11-07-2025 6:[address] 11/07/25 17:06 Clinical History: Trauma. Technique: Axial computed tomography images were obtained of the brain from the vertex to the skull base without intravenous contrast. Findings: There is no sign of intracranial hemorrhage. There is normal manley-white matter differentiation with no sign of acute or old infarction. No midline shift or other form of herniation is identified. There is no hydrocephalus. No obvious mass lesion is seen on this noncontrast examination. The visualized portions of the orbits and paranasal sinuses appear unremarkable. The mastoid air cells appear clear Impression: Unremarkable noncontrast CT of the brain Electronically signed by Shady Trinh 11-07-2025 6:24 PM Hip/Pelvis X-Ray 11/07/25 17:06 Clinical History: Trauma 4 views of the pelvis and left hip are submitted for review. Findings: No fracture or dislocation is seen. No significant arthritic changes are noted. No other osseous abnormality is identified. There are no radiopaque foreign bodies. There are prominent air-filled loops of small and large bowel, suggestive of ileus. There is constipation Impression: 1. No definite fracture 2. Constipation and suspected ileus Electronically signed by Shady Trinh 11-07-2025 6:13 PM Shoulder X-Ray 11/07/25 17:06 2 views of the left shoulder are submitted for review. Findings: No fracture or dislocation is seen. There is mild acromioclavicular osteoarthritis. No other osseous abnormality is identified. There is a left chest wall pacemaker device Impression: Mild acromioclavicular osteoarthritis Electronically signed by Shady Trinh 11-07-2025 6:09 PM Shoulder X-Ray 11/07/25 17:06 2 views of the right shoulder are submitted for review. Findings: No fracture or dislocation is seen. There is mild acromioclavicular osteoarthritis. No other osseous abnormality is identified. There are no radiopaque foreign bodies. Impression: Mild acromioclavicular osteoarthritis Electronically signed by Shady Trinh 11-07-2025 6:08 PM Abdomen/Pelvis CT 11/07/25 17:51 EXAMINATION: CT of the chest, abdomen and pelvis performed without the administration of IV contrast TECHNIQUE: Helical CT images from the lung apices through the symphysis pubis were obtained without contrast. Coronal and sagittal reformatted images were generated at a workstation for further assessment. Dose reduction techniques were achieved by using automatic exposure control and/or adjustment of mA and/or kV according to patient size and/or use of iterative reconstruction technique. COMPARISON: 04/09/2024 HISTORY: Trauma FINDINGS: Lines and tubes: None Mediastinum/Neck Base: No thyroid nodules. Central tracheobronchial tree is patent. Heart size is enlarged. Moderate to heavy coronary calcification. Left chest wall single-lead AICD. No pericardial effusion. Normal thoracic vasculature. No thoracic lymphadenopathy. Lungs: No consolidation. Trace left pleural effusion. Liver: No suspicious liver lesions. No change in scattered low-density, somewhat lobulated lesions in the liver, which may represent hemangiomas versus possibly cysts. Gallbladder: Cholecystectomy Spleen: Normal size. Pancreas: No suspicious pancreatic lesions. The pancreatic duct is not dilated. Adrenal glands: No adrenal nodules. Kidneys: 3 millimeters stone in the proximal left ureter resulting in mild hydronephrosis. Scattered bilateral renal cysts. Bladder / Pelvic organs: Unremarkable. Bowel: No bowel obstruction. No abnormal bowel wall thickening. No evidence for appendicitis. 3 cm lipoma in the wall of the cecum. Lymph nodes: No retroperitoneal, mesenteric, or pelvic lymphadenopathy. Peritoneum / Retroperitoneum: No free fluid or air within the abdomen. Vessels: No infrarenal aortic aneurysm. Bones and soft tissues: Degenerative changes of the spine. No acute osseous normality. IMPRESSION: 3 mm stone in the proximal left ureter resulting in mild hydronephrosis. Persistent trace left pleural effusion. No other acute findings in the chest, abdomen or pelvis. Electronically signed by Aaron Rdz 11-07-2025 6:[address] 11/07/25 17:51 EXAMINATION: CT of the chest, abdomen and pelvis performed without the administration of IV contrast TECHNIQUE: Helical CT images from the lung apices through the symphysis pubis were obtained without contrast. Coronal and sagittal reformatted images were generated at a workstation for further assessment. Dose reduction techniques were achieved by using automatic exposure control and/or adjustment of mA and/or kV according to patient size and/or use of iterative reconstruction technique. COMPARISON: 04/09/2024 HISTORY: Trauma FINDINGS: Lines and tubes: None Mediastinum/Neck Base: No thyroid nodules. Central tracheobronchial tree is patent. Heart size is enlarged. Moderate to heavy coronary calcification. Left chest wall single-lead AICD. No pericardial effusion. Normal thoracic vasculature. No thoracic lymphadenopathy. Lungs: No consolidation. Trace left pleural effusion. Liver: No suspicious liver lesions. No change in scattered low-density, somewhat lobulated lesions in the liver, which may represent hemangiomas versus possibly cysts. Gallbladder: Cholecystectomy Spleen: Normal size. Pancreas: No suspicious pancreatic lesions. The pancreatic duct is not dilated. Adrenal glands: No adrenal nodules. Kidneys: 3 millimeters stone in the proximal left ureter resulting in mild hydronephrosis. Scattered bilateral renal cysts. Bladder / Pelvic organs: Unremarkable. Bowel: No bowel obstruction. No abnormal bowel wall thickening. No evidence for appendicitis. 3 cm lipoma in the wall of the cecum. Lymph nodes: No retroperitoneal, mesenteric, or pelvic lymphadenopathy. Peritoneum / Retroperitoneum: No free fluid or air within the abdomen. Vessels: No infrarenal aortic aneurysm. Bones and soft tissues: Degenerative changes of the spine. No acute osseous normality. IMPRESSION: 3 mm stone in the proximal left ureter resulting in mild hydronephrosis. Persistent trace left pleural effusion. No other acute findings in the chest, abdomen or pelvis. Electronically signed by Aaron Rdz 11-07-2025 6:40 PM Medications Administered Medication List Discontinued Medications Albuterol (Albut/Ipratrop 3mg/0.5mg Neb 3 Ml Vial) 3 ml NEB NOW STA; Protocol Stop: 11/07/25 19:27 Last Admin: 11/07/25 19:31 Dose: 3 ml Documented By: [id number] Sodium Chloride (Nss) 500 mls @ 999 mls/hr IV .Q31M JULIA Stop: 11/07/25 17:45 Last Infusion: 11/07/25 19:33 Dose: Infused Documented By: [id number] Admin: 11/07/25 17:40 Dose: 999 mls/hr Documented By: guerrero Morphine Sulfate (Morphine Sulfate 2 Mg/Ml Carp) 2 mg IV NOW STA Stop: 11/07/25 17:07 Last Admin: 11/07/25 17:40 Dose: 2 mg Documented By: guerrero Morphine Sulfate (Morphine Sulfate 2 Mg/Ml Carp) 2 mg IV NOW STA Stop: 11/07/25 18:33 Last Admin: 11/07/25 18:36 Dose: 2 mg Documented By: guerrero ECG Additional Comments: I have independently reviewed and interpreted patient's admitting EKG which revealed: 63, normal sinus rhythm, no ST or T wave changes, QTc 540 MS COVID-19 Results Results COVID-19 Adm Lab Results: RBC 3.75 M/uL (4.20-5.40) L 11/07/25 WBC 7.61 K/ul (4.8-10.8) 11/07/25 Hgb 11.2 g/dL (12.0-16.0) L 11/07/25 Hct 33.3 % (37.0-47.0) L 11/07/25 Plt Count 129 K/uL (130-400) L 11/07/25 Neutrophils (%) (Auto) 90.3 % 11/07/25 Lymphocytes (%) (Auto) 3.8 % 11/07/25 Monocytes # (Auto) 0.35 K/uL (0.11-0.59) 11/07/25 Eosinophils # (Auto) 0.02 K/uL (0.00-0.50) 11/07/25 Immature Granulocyte % (Auto) 0.7 % 11/07/25 Neutrophils # (Auto) 6.88 K/uL (1.40-6.50) H 11/07/25 Lymphocytes # (Auto) 0.29 K/uL (1.20-3.40) L 11/07/25 Monocytes # (Auto) 0.35 K/uL (0.11-0.59) 11/07/25 Eosinophils # (Auto) 0.02 K/uL (0.00-0.50) 11/07/25 Basophils # (Auto) 0.02 K/uL (0.00-0.20) 11/07/25 Immature Granulocyte # (Auto) 0.05 K/uL (0.01-0.20) 5 Ovalocytes 1+ 11/07/25 Na 141 mmol/L (136-145) 11/07/25 K 4.1 mmol/L (3.5-5.1) 11/07/25 Cl 108 mmol/L (98-107) H 11/07/25 CO2 24 mmol/L (21-32) 11/07/25 Anion Gap 9 (3-11) 11/07/25 BUN 29 mg/dl (6-23) H 11/07/25 Creatinine 1.65 mg/dl (0.6-1.2) H 11/07/25 BUN/Creatinine Ratio 17.6 (10-20) 11/07/25 Glucose Level 146 mg/dl (70-99(Fasting)) H 11/07/25 Ca 8.9 mg/dl (8.6-10.3) 11/07/25 Total Bilirubin 0.9 mg/dl (0.2-1.0) 11/07/25 AST/SGOT 18 U/L (13-39) 11/07/25 ALT/SGPT 12 U/L (7-52) 11/07/25 Alkaline Phosphatase 52 U/L (34-104) 11/07/25 Total Protein 6.7 gm/dl (6.0-8.3) 11/07/25 Albumin 4.3 gm/dl (3.4-5.0) 11/07/25 Globulin 2.4 gm/dl (2.5-4.0) L 11/07/25 Albumin/Globulin Ratio 1.8 (0.9-2) 11/07/25 PTT 33 Seconds (21-31) H 11/07/25 INR 1.1 (0.9-1.1) 11/07/25 COVID-19 PCR NEGATIVE (Negative) 11/07/25 Influenza Virus Type A (PCR) Negative (Neg) 11/07/25 Influenza Virus Type B (PCR) Negative (Neg) 11/07/[address] 11/07/25 Chest X-Ray 11/07/25 Code Status & VTE Plan Code Status full code Supervising Physician Co-Signing Physician Notes IM ATTENDING : Patient seen and examined. History obtained from patient and records. Concur with salient points upon review of preceding documentation by Ms. Bianka Potts PA-C. In addition, UA WBC esterase positive I take responsibility for plan of care below. FINAL ASSESSMENT AND PLAN as follows : Complicated UTI, obstructing kidney stone No sepsis for now Dizziness secondary to illness Rule out orthostasis, pacemaker dysfunction Recent head trauma Hypertension, borderline BP Chronic systolic heart failure (EF 35%, TTE 2024) status post ICD, patient euvolemic to dry Valvular heart disease (moderate to severe MR/mild TR A-fib on Eliquis Valvular heart disease Bronchial asthma, not in acute exacerbation CRI, creatinine at baseline Chronic anemia, hemoglobin at baseline DM 2 insulin requiring, well-controlled as of recent hemoglobin A1c of 6.01 September 2025 Hypothyroidism, euthyroid as of recent outpatient TSH Left breast cancer status post surgery/chemoradiation, in remission Left renal cancer status post surgery Mood disorder, stable Ambulatory dysfunction Past tobacco abuse Admit to med/tele given dizziness CS, Ceftriaxone Strain urine Flomax trial Urology consult re: obstructive uropathy N.p.o. in anticipation of procedure Check orthostatic vitals Pacemaker interrogation Cardiology consult re: cardiac medication management given borderline BP Decrease maintenance beta-tammi dose for now given bradycardic episodes, hold other BP medications, diuretics until patient seen by cardiology Initiate midodrine if with hypotension Hold Eliquis for now given recent head trauma Repeat CT head 6 hours after initial study RE head trauma, Eliquis Rx Basal bolus insulin adjusted for n.p.o. status, ISS BG goal 110-140 PT OT eval once medically stable DVT prophylaxis. SCDs while Eliquis on hold Full code Patient requesting daughter to be given updates regarding care. Ms. Christianne Dolan, contact #[phone]. I spent a total of 30 minutes coordinating, documenting, and providing care for this patientexcludingtime spent by another provider/QHP. Text document was generated using [employer] voice recognition software. It may contain grammatical or spelling errors. Kindly contact undersigned for clarification of any documentation item in question.
[2025-11-07] MEDS: TAMSULOSIN HCL 0.4 MG CAP PO ONE (20:41)
[2025-11-07 20:57] LABS: Appearance Urine Clear (Clear); Bacteria Urine Automated 4+ (None Seen); Cast Urine Automated 0-2 /lpf (0-2); Epithelial Cell Urine Auto 0-2 /hpf (0-2); Glucose Urine UA Negative (Negative); RBC Urine Automated 0-2 /hpf (0-2); WBC Urine Automated 21-50 /hpf (0-5)
[2025-11-07] MEDS ORDERED: PROMETHAZINE 6.25 MG/50.25 ML BAG IV PRN (22:37)
[2025-11-07] MEDS ORDERED: HYDROmorphone INJ 0.5 MG/0.5 ML SYR IV PRN (22:37)
[2025-11-07] MEDS: SODIUM CHLORIDE 0.9% 1,000 ML IV STA (22:56)
[2025-11-07] MEDS: cefTRIAXone SODIUM 2,000 MG/50 ML BAG IV STA (22:56)
[2025-11-07 23:05] LABS: Magnesium 2.1 mg/dl (1.7-2.4)
--- NOTE | 2025-11-08 01:38 | CT Scan Report ---
EXAM: CT head/brain wo con CLINICAL HISTORY: ff up head trauma, noac TECHNIQUE: Axial non-contrast CT scan of the brain was performed from the skull base to the high parietal region in axial, sagittal and coronal reconstructions. One of the following dose reduction techniques were utilized for this exam: Automated exposure control, adjustment of the mA and/or kV according to patient size, use of iterative reconstruction. COMPARISON: 11/07/2025 and 07/06/2025. FINDINGS: Brain Parenchyma: Multiple subcortical and periventricular white matter hypodensities likely represent chronic microvascular ischemic changes. No evidence of acute infarct, hemorrhage, or mass effect. No abnormal areas of hypo- or hyperattenuation. Ventricular System: A capacious ventricular system, denoting atrophic changes. No evidence of hydrocephalus or ventricular enlargement. Subarachnoid Spaces: Capacious CSF spaces denote atrophic changes. No evidence of subarachnoid hemorrhage or extra-axial fluid collections. Cerebellum and Brainstem: No masses, lesions, or areas of abnormal density. Orbits: Normal appearance of the globes, optic nerves, and extraocular muscles. No evidence of orbital masses or abnormal density. Sinuses: Clear paranasal sinuses. No evidence of sinusitis or mucosal thickening. Mastoid Air Cells: Clear mastoid air cells. No evidence of mastoiditis. Skull: Multifocal areas of osteopenia are noted, unchanged. No evidence of acute skull fracture. IMPRESSION: 1. No evidence of acute skull fracture or acute intracranial hemorrhage. 2. Chronic microvascular ischemic changes. 3. Senile brain atrophy changes. 4. No time interval changes since prior. Electronically signed by Boubacar Mai 11-08-2025 01:37 AM
[2025-11-08] MEDS ORDERED: GLUCOSE 10 TAB/TUBE PO PRN (02:30)
[2025-11-08] MEDS ORDERED: MELATONIN 3 MG TAB PO PRN (02:30)
[2025-11-08] MEDS ORDERED: GLUCOSE 40% GEL 15 GM TUBE PO PRN (02:30)
[2025-11-08] MEDS ORDERED: CARBOHYDRATES FOR HYPOGLYCEMIA PO PRN (02:30)
[2025-11-08] MEDS ORDERED: DEXTROSE 50% 50 ML SYRINGE IV PRN (02:30)
[2025-11-08] MEDS ORDERED: GLUCAGON FOR INJ 1 MG VIAL SQ PRN (02:30)
[2025-11-08] MEDS: ACETAMINOPHEN 325 MG TAB PO PRN (03:38)
[2025-11-08] MEDS: POLYETHYLENE (MIRALAX) 17 GM PACK PO SCH (03:38)
[2025-11-08] MEDS: DOCUSATE SODIUM/SENNA 50/8.6MG TAB PO SCH (03:38)
[2025-11-08] MEDS: LIDOCAINE 5% 1 PATCH TD STA (03:39)
[2025-11-08] MEDS: LEVOTHYROXINE SODIUM 50 MCG TABLET PO SCH (05:59)
--- NOTE | 2025-11-08 05:59 | Communication Note ---
Date of Service: November 08, 2025 SBP 90s noted around 2:40 AM. Initiate midodrine.
[2025-11-08] MEDS: MIDODRINE HCL 2.5 MG TAB PO SCH (06:15)
[2025-11-08 06:52] LABS: Hematocrit (blood only) 28.7 % (37.0-47.0); Hemoglobin 9.7 g/dL (12.0-16.0); Mean Corpuscular Hemoglobin 30.3 pg (25.0-34.0); Mean Corpuscular Volume 89.7 fL (80.0-100.0); Platelet Count 89 K/uL (130-400); RDW Standard Deviation 43.7 fL (36.4-46.3); Red Blood Count 3.20 M/uL (4.20-5.40); White Blood Count 3.13 K/ul (4.8-10.8)
[2025-11-08 07:15] LABS: Immature Granulocytes # (auto) 0.01 K/uL (0.01-0.20); Immature Granulocytes % (auto) 0.3 %; Ovalocytes 1+
[2025-11-08 07:17] LABS: Alanine Aminotransferase 20.0 U/L (7-52); Albumin Globulin Ratio 1.7 (0.9-2); Albumin Level 3.6 gm/dl (3.4-5.0); Alkaline Phosphatase 41.0 U/L (34-104); Anion Gap 8.0 (3-11); Bilirubin,Total 0.5 mg/dl (0.2-1.0); Blood Urea Nitrogen 28.0 mg/dl (6-23); Calcium 8.4 mg/dl (8.6-10.3); Carbon Dioxide 24.0 mmol/L (21-32); Chloride 110.0 mmol/L (98-107); Creatinine Clr Calc Pharmacy 35.4 ml/min; Globulin 2.1 gm/dl (2.5-4.0); Glucose 121.0 mg/dl (70-99(Fasting)); Magnesium 2.0 mg/dl (1.7-2.4); Potassium 3.5 mmol/L (3.5-5.1); Sodium 142.0 mmol/L (136-145); Total Protein 5.7 gm/dl (6.0-8.3)
[2025-11-08 07:31] LABS: Thyroid Stimulating Hormone 2.23 uIu/ml (0.300-4.500)
--- NOTE | 2025-11-08 08:51 | Cardiology Consultation ---
Date of Consultation November 08, 2025 Assessment & Plan (1) Fall: (2) Lightheaded: (3) Nonischemic cardiomyopathy: (4) ICD (implantable cardioverter-defibrillator) in place: (5) Paroxysmal atrial fibrillation: (6) Ureteral stone with hydronephrosis: Plan Assessment: 80 year old female with NICM admitted for acute URI symptoms, with dizziness resulting in subsequent loss of balance and fall. Concerns for longstanding orthostatic hypotension, acutely worsened in the setting of an acute illness. Cardiology consulted for further evaluation/recommendations. Plan: 1. Fall 2. Lightheaded 3. History of NICM 4. ICD -patient with longstanding history of non-ischemic cardiomyopathy s/p ICD on GDMT with Spironolactone, Entresto, Toprol xl and Bumex per home regimen. -patient has been acutely ill for several days, endorses significant head/sinus pressure, has been taking OTC cold preps PRN and has had poor oral intake. She carries a history of intermittent orthostatic symptoms, very cautious about quick position changes; however, admits that she had moved a little quicker than usual and was dizzy upon ambulating to the bathroom, but upon trying to sit, lost her balance due to the dizziness falling forward and striking her head. -CT imaging and x-ray imaging show no acute injury s/t fall. -She is resting comfortably in bed today, receiving gentle IV fluid resuscitation. -Patient reports that her blood pressures at baseline are often on the lower side. She was started on midodrine overnight and offers no ill effect. BP stable. -Review of telemetry shows no acute events overnight. -Please obtain [employer] device interrogation to ensure no arrhythmias around time of event. -Continue Toprol xl as per current regimen -Spironolactone, Bumex and Entresto currently on hold in the setting of acute infectious process. Monitor fluid levels closely, and will make adjustments/restart as patient's status improves. -Euvolemic on exam 5. Paroxysmal Atrial fibrillation -Currently normal sinus on telemetry, continue to monitor -Continue Toprol xl and Amiodarone for both rate/rhythm control. -Eliquis currently on hold by primary team? Suspect this is because they are awaiting Urology consultation due to presence of a kidney stone with mild hydonephrosis on CT imaginag. -CT Head negative for any bleeds. -If Urology does not plan to pursue any type of surgical intervention, please resume Eliquis 6. Ureteral stone with hydronephrosis -As per CT imaging -UA abnormal, hx of recurrent UTIs. Culture pending -Continued antibiotics as per management of primary team -Monitor fluid status very closely as many of patients chronic heart failure therapies are on hold in the setting of an acute infectious process and low blood pressures. -Per review of chart, primary team awaiting urology consultation. If no plans for surgical intervention and labs remain stable, would recommend resuming Eliquis Case has been discussed with Dr. Hayden. Further recommendations regarding plan of care as per his assessment. I spent a total of 50 minutes on the date of service in preparation, delivery, documentation of the care provided to the patient excluding any time spent in the performance of separately billed services. MIC Laws [facility] Cardiology [facility] Supervising Physician Co-Signing Physician Notes Attending attestation: Case reviewed with the advanced practitioner. I have personally performed a history and physical examination on the patient. I have reviewed the advanced practitioner's documentation on the date of service referenced in note, and I agree with, and take responsibility for the plan of care. Subjective:No acute complaints except sinus congestion during my assessment. Exam: CV: regular rhythm, no murmurs AICD pocket , clean, dry, intact No edema Pulm: course BS bilaterally Data: Remote transmission of Medtronic single-chamber AICD obtained 11/08/2025 and data was reviewed. Ventricular paced 2.4% the time, generator longevity stable at 9.1 years. No recent arrhythmia issues detected. Stable lead impedance EKG performed at 11/07/2025 at 1705, reviewed/interpreted independently reveals sinus rhythm at 63 bpm with first-degree AV block, nonspecific IVCD. Stable findings compared to Mar, 2024 Impression/ Plan: Symptomatic hypotension -Clinically question of patient has a sinus infection or complicated bronchitis -Jennie with course of antibiotics -Continue Metoprolol and Eliquis -OK to hold the spironolactone, bumex , and entresto today and reintroduce as tolerated over 24-48 hours -increase metoprolol back to OIL EXPERT dose of 75 mg daily. -Continue amiodarone -Agree with midodrine 2.5 mg TID, perhaps continue at discharge unless BP elevated to the point where it is clearly not necessary. -no need to repeat echo No additional cardiac testing indicated at present. Cardiology to sign off. Call with questions or concerns. Sami Hayden DO History of Present Illness Reason for Consultation: medication management, borderline BP , history of nonischemic cardiomyopathy Requesting Physician: [facility] hospitalist Attending Physician: Rich Dudley DO History of Present Illness HPI: Patient is a 80 year old female with PMHx as outlined below that presents to the ER due to a fall. Patient reports that over the past few days she had not been feeling well endorsing acute URI symptoms including sinus congestion/pressure and a "harsh cough". She reported that she had been laying in bed when she developed a coughing jag, she proceeded to get up and ambulate to the restroom, upon attempting to sit down on the toilet she felt lightheaded and fell forward striking her head on the side of the bathtub. She denies any loss of consciousness. Patient states she has not had a good appetite s/t her URI symptoms, and is aware of intermittent orthostatic symptoms, but attributes her incident to rushing, not being well hydrated and feeling dizzy due to her sinuses. She denies any chest pain, pressure, palpitations. No shortness of breath, but does endorse some mild expiratory wheezing. No pre-syncope or syncope. No edema Patient is an established cardiology patient of Dr. 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 QTC 540ms (history of ICD) Chest x-ray negative Head CT: IMPRESSION: 1. No evidence of acute skull fracture or acute intracranial hemorrhage. 2. Chronic microvascular ischemic changes. 3. Senile brain atrophy changes. 4. No time interval changes since prior. Cervical spine CT with no acute fracture Shoulder xray: No acute fractures or dislocation Chest CT: IMPRESSION: 3 mm stone in the proximal left ureter resulting in mild hydronephrosis. Persistent trace left pleural effusion. No other acute findings in the chest, abdomen or pelvis. CT ABD/Pelvis: IMPRESSION: 3 mm stone in the proximal left ureter resulting in mild hydronephrosis. Persistent trace left pleural effusion. UA abnormal--Culture pending Blood Cultures pending High sensitivity troponin negative x1 Review of telemetry shows SR/SB rates 56-60s; 1st degree AVB. No acute events overnight. Allergies Allergy/AdvReac Type Severity Reaction Status Date / Time ketorolac Allergy Severe FACE Verified 11/07/25 19:37 SWELLING/PRURITIS/NAUSEA Sulfa (Sulfonamide Allergy Severe EDEMA Verified 11/07/25 19:37 Antibiotics) FACE/LIPS/TONGUE clindamycin Allergy Intermediate ITCHY, Verified 11/07/25 19:47 FLUSHED FACE nitrofurantoin Allergy Intermediate ITCHY Verified 11/07/25 19:37 [From Macrodantin] HIVES/RASH codeine AdvReac Intermediate Vomiting Verified 11/07/25 19:37 hydrocodone AdvReac Intermediate NAUSEA AND Verified 11/07/25 19:37 VOMITING hydromorphone [From Dilaudid] AdvReac Intermediate NAUSEA/VOMI Verified 11/07/25 19:37 TING meloxicam AdvReac Intermediate Vomiting Verified 11/07/25 19:37 oxycodone AdvReac Intermediate Vomiting Verified 11/07/25 19:37 propoxyphene [From Darvon] AdvReac Intermediate Vomiting Verified 11/07/25 19:37 Hgmzbbo-BZH-ShW Reductase AdvReac Intermediate Muscle Pain Verified 11/07/25 19:37 Inhibitor [Jjaeaia-Lfy-Ctr Reductase Inhibitor] tramadol AdvReac Intermediate VERY SICK Verified 11/07/25 19:37 TO STOMACH Home Medications Medication Instructions Recorded Confirmed Type levothyroxine 50 mcg tablet 50 mcg PO QAM 05/15/19 11/07/25 History omeprazole 20 mg capsule,delayed 20 mg PO QAM 05/15/19 11/07/25 History release polyethylene glycol 3350 17 17 g PO DAILY PRN Constipation 08/27/21 11/07/25 History gram/dose oral powder (Miralax) omega-3s 300 wn-kmb-zyn-other 1 cap PO DAILY 10/15/22 11/07/25 History toktk1k-mtdh oil 1,000 mg capsule (Shunk-3 Fish Oil) apixaban 5 mg tablet 5 mg PO BID 11/25/22 11/07/25 History spironolactone 25 mg tablet 25 mg PO Q OTHER DAY 11/25/22 11/07/25 History bumetanide 2 mg tablet 2 mg PO DAILY 02/09/23 11/07/25 History insulin glargine 100 unit/mL (3 16 unit subcut HS 02/09/23 11/07/25 History mL) subcutaneous pen (Lantus Solostar U-100 Insulin) loratadine 10 mg tablet 10 mg PO DAILY PRN allergy symptoms 02/09/23 11/07/25 History metoprolol succinate 50 mg 75 mg PO DAILY 04/10/24 11/07/25 History tablet,extended release 24 hr acetaminophen 500 mg tablet 500 mg PO Q6H PRN Pain 07/06/25 11/07/25 History amiodarone 200 mg tablet 200 mg PO QAM 07/06/25 11/07/25 History linagliptin 5 mg tablet (Tradjenta) 5 mg PO QAM 07/06/25 11/07/25 History sacubitril 24 mg-valsartan 26 mg 1 tab PO BID 07/06/25 11/07/25 History tablet benzonatate 100 mg capsule 100 mg PO DIRECTED PRN Cough 11/07/25 11/07/25 History chlorpheniramine-dextromethorphan 1 tab PO Q6H PRN COUGH/COLD 11/07/25 11/07/25 History 4 mg-30 mg tablet (Coricidin HBP SYMPTOMS Cough and Cold) cyclobenzaprine 5 mg tablet 5 mg PO BID PRN muscle spasm 11/07/25 11/07/25 History docusate sodium 100 mg capsule 200 mg PO HS 11/07/25 11/07/25 History Patient History Medical History History of blood transfusion 1970s Hard of hearing Limb alert care status 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 History of COVID-19 10/2021 and 2021- hosp @ [facility] w/ covid- resolved Basal cell carcinoma HX--Nose;Mohs Presence of combination internal cardiac defibrillator (ICD) and pacemaker medtronic--checked remotely from home nightly Hyperlipidemia Hemorrhoids History of kidney cancer 02/21/24 states has another renal tumor presently; just monitoring at this time hx-Left renal papillary carcinoma History of kidney stones one remaining in place-monitoring per pt GERD (gastroesophageal reflux disease) controlled, stable per pt Hypothyroidism Hx of blood clots in heart per pt-no notation by [facility] cardiology on most recent office note Diabetic neuropathy feet Surgical History History of surgery T&A Hx of partial mastectomy 2021--left History of removal of Port-a-Cath Status post Mohs surgery History of anesthesia reaction N/V AND AGITATED WITH ANESTHESIA H/O cervical spine surgery X 2 (GOOD ROM) History of cystoscopy H/O partial nephrectomy LEFT "CANCEROUS TUMOR REMOVED" 03/28/2018 Dr. [place] [facility] [place] knee surgery LEFT H/O: hysterectomy Uterine leiomyoma H/O breast biopsy History of esophagogastroduodenoscopy (EGD) History of colonoscopy History of tooth extraction History of tonsillectomy History of cataract surgery RT/LEFT History of cardiac cath X 4 (NO STENTS) Family History Mother , in her 50s Colorectal cancer Brother COVID Sister Colorectal cancer Lymphoma Father , 60yo Stroke Pneumonia Hypertension Brother Myocardial infarction Brother Primary cancer of bone marrow Pneumonia Brother Cancer "Tumors in brain and lungs" Sister Lung cancer Sister Heart disease Daughter Diabetes Psoriatic arthritis Son Diabetes Psoriatic arthritis Other No family history of adverse response to anesthesia Social History Smoking Status: Former smoker Tobacco Type: Cigarettes Second Hand Exposure: No; Do You Dip or Chew Tobacco: No; Hx Alcohol Use: No Hx Substance Use: No Preferred Language: Yoruba Communication Ability: Effective Visual Impairment: No Limitations Hearing Ability: Normal [place] [employer] Member Required: No Beliefs That Will Affect Care: None and Islam Islam Beliefs: SYNAGOGUE marital status: / Current Living Situation: Alone Current Living Situation Comment: home alone, daughter down the street current occupational status: retired 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 wheezes in bilateral upper lobes ) Cardiovascular: Rate/Rhythm: regular rate and regular rhythm Heart Sounds: normal S1, normal S2 and + murmur (+2/6 systolic ) Vessels: dorsalis pedis pulses present; no JVD Extremities: no edema Skin: no rashes, warm and dry Psychiatric: A+Ox3, euthymic affect Results & Data Vital Signs (Past 12 Hours) Vital Signs Temp Pulse Pulse Pulse Resp BP Pulse Ox 11/08/25 08:05 36.4 C L 61 18 111/58 L 97 11/08/25 06:10 96/54 L 11/08/25 05:31 60 11/08/25 02:40 36.5 C 60 16 99/61 L 97 11/08/25 02:21 86 11/08/25 02:00 58 L 18 107/57 L 94 11/08/25 01:40 56 L 18 108/61 96 11/07/25 23:00 56 L 18 107/47 L 94 11/07/25 22:18 58 L 11/07/25 20:46 63 18 108/53 L 98 O2 Del Method 11/08/25 08:05 Room Air 11/08/25 06:10 11/08/25 05:31 11/08/25 02:40 Room Air 11/08/25 02:21 11/08/25 02:00 Room Air 11/08/25 01:40 Room Air 11/07/25 23:00 Room Air 11/07/25 22:18 11/07/25 20:46 Room Air Laboratory Results Cardiac Enzymes 11/07/25 11/08/25 Range/Units 17:28 05:56 AST 18 20 (13-39) U/L Troponin I High Sens 7.5 (0-14) pg/ml Coagulation 11/07/25 Range/Units 17:28 PT 11.4 (9.0-12.0) Seconds APTT 33 H (21-31) Seconds CBC 25 11/08/25 Range/Units 17:28 05:56 WBC 7.61 3.13 L (4.8-10.8) K/ul RBC 3.75 L 3.20 L (4.20-5.40) M/uL Hgb 11.2 L 9.7 L (12.0-16.0) g/dL Hct 33.3 L 28.7 L (37.0-47.0) % Plt Count 129 L 89 L (130-400) K/uL Neut # (Auto) 6.88 H 2.42 (1.40-6.50) K/uL Lymph # (Auto) 0.29 L 0.33 L (1.20-3.40) K/uL [place] # (Auto) 0.35 0.32 (0.11-0.59) K/uL Eos # (Auto) 0.02 0.04 (0.00-0.50) K/uL Baso # (Auto) 0.02 0.01 (0.00-0.20) K/uL Comprehensive Metabolic Panel 11/07/25 11/08/25 Range/Units 17:28 05:56 Sodium 141 142 (136-145) mmol/L Potassium 4.1 3.5 (3.5-5.1) mmol/L Chloride 108 H 110 H (98-107) mmol/L Carbon Dioxide 24 24 (21-32) mmol/L BUN 29 H 28 H (6-23) mg/dl Creatinine 1.65 H 1.51 H (0.6-1.2) mg/dl Glucose 146 H 121 H (70-99(Fasting)) mg/dl Calcium 8.9 8.4 L (8.6-10.3) mg/dl AST 18 20 (13-39) U/L ALT 12 20 (7-52) U/L Alkaline Phosphatase 52 41 (34-104) U/L Total Protein 6.7 5.7 L (6.0-8.3) gm/dl Albumin 4.3 3.6 (3.4-5.0) gm/dl Intake and Output 11/07/25 11/08/25 11/08/25 22:59 06:59 14:59 Intake Total 500 / 550 50 / 550 Balance 500 / 550 50 / 550 Intake: IV 500 / 550 50 / 550 Sodium Chloride 0.9% 500 ml @ 500 / 500 999 mls/hr IV .Q31M [facility] Rx#: [id number] cefTRIAXone SODIUM 2,000 mg In 50 / 50 50 ml @ 100 mls/hr IV ONE ST[facility] Rx#:[id number] Other: Weight 79.6 kg 81.9 kg Weight Measurement Method Built in Bedscale Built in Bedscale Diagnostic Findings Device interrogation 09/02/25 Normal Device Function Alerts or events: None Battery: OK, 9.42 yrs Sensing, impedance and thresholds reviewed Programmed parameters reviewed Presenting rhythm reviewed Heart Rate Histograms reviewed No significant changes noted RV pacin.84% Summary of transthoracic echocardiogram performed 12/13/2024: (Obtained from [facility]) The qualitative LV ejection fraction is 35-39% (moderately reduced). The left ventricular cavity is severely dilated (LVED volume >80 ml/m^2). The septal motion is abnormal consistent with intrventricular conduction delay. The remaining left ventricular wall segments are moderately hypokinetic. Iyhgjpuz-wi-prsldr mitral regurgitation. Mild tricuspid regurgitation is present. There is no evidence of pulmonary hypertension. Trivial loculated anterior pericardial effusion with moderate organization. Cardiac tamponade is absent. The left atrial size is normal. Compared to prior study of 02/23/2021, there is no significant change. Coding Level of Care Code 16681 IN/OBS CONSULT LVL 5,80M Diagnoses Fall W19.XXXA Lightheaded R42 Nonischemic cardiomyopathy I42.8 ICD (implantable cardioverter-defibrillator) in place Z95.810 Paroxysmal atrial fibrillation I48.0 Ureteral stone with hydronephrosis N13.2
[2025-11-08] MEDS ORDERED: METOPROLOL SUCC 25MG EXT REL TAB PO SCH (09:00)
[2025-11-08] MEDS: AMIODARONE 200 MG TAB PO SCH (09:00)
[2025-11-08] MEDS ORDERED: TAMSULOSIN HCL 0.4 MG CAP PO SCH (09:00)
[2025-11-08] MEDS: OMEGA-3 (PURIFIED FISH OIL) 1 GM CAP PO SCH (09:00)
[2025-11-08] MEDS: METOPROLOL SUCC 25MG EXT REL TAB PO SCH (09:01)
[2025-11-08] MEDS: INSULIN ASPART PER UNIT CHARGE SC SCH ×2 (09:03→17:51)
[2025-11-08] MEDS: LANTUS PER UNIT CHARGE SQ SCH (09:07)
--- NOTE | 2025-11-08 09:55 | Electrocardiogram Report ---
Test Reason : Blood Pressure : */* mmHG Vent. Rate : 63 BPM Atrial Rate : 63 BPM P-R Int : 200 ms QRS Dur : 150 ms QT Int : 528 ms P-R-T Axes : 79 -86 76 degrees QTcB Int : 540 ms Normal sinus rhythm with sinus arrhythmia Left axis deviation Non-specific intra-ventricular conduction block Minimal voltage criteria for LVH, may be normal variant ( Morris product ) Abnormal ECG When compared with ECG of 09-Apr-2024 19:10, No significant change was found Confirmed by Alverto Zamora ([id number]) on 11/08/2025 9:55:20 AM Referred By: Confirmed By: Alverto aZmora
--- NOTE | 2025-11-08 12:32 | Hospitalist Progress Note ---
Date of Service November 08, 2025 Assessment & Plan (1) Fall: (2) Lightheaded: (3) Ureteral stone with hydronephrosis: (4) Constipation: (5) HFrEF (heart failure with reduced ejection fraction): (6) Nonischemic congestive cardiomyopathy: (7) CKD (chronic kidney disease) stage 4, GFR 15-29 ml/min: Plan This is a 80-year-old female who has significant past medical history of T2DM, chronic systolic CHF, PAF, HTN, nonischemic cardiomyopathy, presence of AICD, CKD stage IV, hyperlipidemia, hypothyroidism, multiple lung nodules on CT, GERD, B12 deficiency, history of left renal cancer, history of left breast cancer and history of iron deficiency anemia who presents to ED secondary to fall. #Fall with associated lightheadedness -Pt reports coughing prior to lightheadedness and falling forward -Differential includes vasovagal, hypovolemia in setting of poor intake due to illness vs arrhythmia -EKG without arrhythmia -Etiology not entirely clear for her lightheadedness Plan -Cardiology consulted on admission, appreciate input -PPM interrogation -Continue IVF for the afternoon, can stop tonight -Cardiac monitoring -Midodrine started on admission, can continue this for now if this allows her GDMT to be resumed #UTI -Patient endorses chronic UTIs and recently completed a course of keflex -Endorsing dysuria again starting day of admission -UA dirty and good specimen with low squamous cells Plan -Continue CTX for now -F/u on Urine and blood cultures. Low suspicion for bacteremia #3mm Proximal L ureteral stone with mild hydronephrosis incidental finding on trauma imaging, prior hx of partial left nephrectomy due to cancer -pt asymptomatic Plan -will consult urology given hydronephrosis -Cannot give flomax due to hypotension -Eliquis on hold. resume ERICK -NPO for now. Cardiac diet when able #Constipation -chronic 2/2 tradjenta -No SBO or ileus on CT -Continue current bowel regimen -If no BM by tomorrow, give enema #Viral URI prn antitussives and supportive care negative for flu, rsv No O2 requirements suspect other respiratory pathogen #T2DM Chronic, a1c 6.5 on 09/26 On lantus and tradjenta as outpt insulin per protocol #Chronic systolic CHF #HTN #Nonischemic cardiomyopathy with AICD in place Echo 11/2024: EF 35%, left-ventricular wall segments moderately hypokinetic, moderate to severe mitral regurg, mild tricuspid regurg on apixaban, Bumex, metoprolol, Entresto and Aldactone Daily weights, strict I's and O's #PAF chronic, stable continue apixaban, metoprolol and amiodarone #anemia chronic, hx of iron def hgb 11.2 #CKD IV baseline creatinine 1.5-1.9 avoid nephrotoxic agents, monitor renal function #Hx of Left renal cancer s/p L partial nephrectomy #Hx left breast ca treated with surgery/chemo/radiation #DVT ppx: Eliquis FULL CODE PCP: Jayden Dispo: admit I spent a total of 51 minutes coordinating, documenting, and providing care for this patient excluding time spent in the performance of separately billed services. This included personally reviewing all current laboratories and imaging studies, medical reconciliation, outpatient chart review and discussion with specialists Admission and Anticipated Discharge Date Admission Date: November 07, 2025 Subjective Feeling well today. she does endorse dysuria to author. no other complaints. she had sinus congestion and pressure a few days ago but that is better now. Physical Exam Physical Exam: Vitals and labs reviewed General: Well appearing, NAD HEENT: EOMI, PERRLA Neck: Supple Cardiac: RRR no rubs gallops or murmurs Lungs: CTA no rhonchi wheezing or rales Abd: S NT ND BS positive : Deffered MSK: Full ROM. No obvious deformities Ext: No Edema cyanosis Skin: Warm, Dry Neuro: AOx3 No focal deficits. Psych: Normal Mood Results & Data Results & Data Vital Signs (Past 12 Hours) Vital Signs Temp Pulse Pulse Pulse Resp BP Pulse Ox 11/08/25 11:19 36.7 C 59 L 18 118/59 L 93 11/08/25 10:03 11/08/25 08:05 36.4 C L 61 18 111/58 L 97 11/08/25 06:10 96/54 L 11/08/25 05:31 60 11/08/25 02:40 36.5 C 60 16 99/61 L 97 11/08/25 02:21 86 11/08/25 02:00 58 L 18 107/57 L 94 11/08/25 01:40 56 L 18 108/61 96 O2 Del Method 11/08/25 11:19 Room Air 11/08/25 10:03 Room Air 11/08/25 08:05 Room Air 11/08/25 06:10 11/08/25 05:31 11/08/25 02:40 Room Air 11/08/25 02:21 11/08/25 02:00 Room Air 11/08/25 01:40 Room Air Laboratory Results Abnormal lab results 11/07/25 11/07/25 11/07/25 Range/Units 17:24 17:28 20:44 WBC (4.8-10.8) K/ul RBC 3.75 L (4.20-5.40) M/uL Hgb 11.2 L (12.0-16.0) g/dL POC Hgb 10.9 L (12.0-16.0) g/dl Hct 33.3 L (37.0-47.0) % POC Hct 32 L (37-47) % Plt Count 129 L (130-400) K/uL Neut # (Auto) 6.88 H (1.40-6.50) K/uL Lymph # (Auto) 0.29 L (1.20-3.40) K/uL APTT 33 H (21-31) Seconds Chloride 108 H (98-107) mmol/L POC Total CO2 20 L (24-31) mmol/L POC BUN 30 H (7-18) mg/dl BUN 29 H (6-23) mg/dl Creatinine 1.65 H (0.6-1.2) mg/dl POC Creatinine 1.9 H (0.6-1.3) mg/dl Glucose 146 H (70-99(Fasting)) mg/dl POC Glucose (70-99) mg/dl POC Glucose (other) 146 H (70-99) mg/dl Calcium (8.6-10.3) mg/dl Total Protein (6.0-8.3) gm/dl Globulin 2.4 L (2.5-4.0) gm/dl Urine Blood 2+ H (Negative) Ur Leukocyte Esterase 2+ H (Negative) Urine WBC (Auto) 21-50 H (0-5) /hpf Urine Bacteria (Auto) 4+ H (None Seen) 11/08/25 11/08/25 11/08/25 Range/Units 02:43 05:22 05:56 WBC 3.13 L (4.8-10.8) K/ul RBC 3.20 L (4.20-5.40) M/uL Hgb 9.7 L (12.0-16.0) g/dL POC Hgb (12.0-16.0) g/dl Hct 28.7 L (37.0-47.0) % POC Hct (37-47) % Plt Count 89 L (130-400) K/uL Neut # (Auto) (1.40-6.50) K/uL Lymph # (Auto) 0.33 L (1.20-3.40) K/uL APTT (21-31) Seconds Chloride 110 H (98-107) mmol/L POC Total CO2 (24-31) mmol/L POC BUN (7-18) mg/dl BUN 28 H (6-23) mg/dl Creatinine 1.51 H (0.6-1.2) mg/dl POC Creatinine (0.6-1.3) mg/dl Glucose 121 H (70-99(Fasting)) mg/dl POC Glucose 143 H 135 H (70-99) mg/dl POC Glucose (other) (70-99) mg/dl Calcium 8.4 L (8.6-10.3) mg/dl Total Protein 5.7 L (6.0-8.3) gm/dl Globulin 2.1 L (2.5-4.0) gm/dl Urine Blood (Negative) Ur Leukocyte Esterase (Negative) Urine WBC (Auto) (0-5) /hpf Urine Bacteria (Auto) (None Seen) 11/08/25 11/08/25 Range/Units 07:58 12:16 WBC (4.8-10.8) K/ul RBC (4.20-5.40) M/uL Hgb (12.0-16.0) g/dL POC Hgb (12.0-16.0) g/dl Hct (37.0-47.0) % POC Hct (37-47) % Plt Count (130-400) K/uL Neut # (Auto) (1.40-6.50) K/uL Lymph # (Auto) (1.20-3.40) K/uL APTT (21-31) Seconds Chloride (98-107) mmol/L POC Total CO2 (24-31) mmol/L POC BUN (7-18) mg/dl BUN (6-23) mg/dl Creatinine (0.6-1.2) mg/dl POC Creatinine (0.6-1.3) mg/dl Glucose (70-99(Fasting)) mg/dl POC Glucose 117 H 125 H (70-99) mg/dl POC Glucose (other) (70-99) mg/dl Calcium (8.6-10.3) mg/dl Total Protein (6.0-8.3) gm/dl Globulin (2.5-4.0) gm/dl Urine Blood (Negative) Ur Leukocyte Esterase (Negative) Urine WBC (Auto) (0-5) /hpf Urine Bacteria (Auto) (None Seen)
[2025-11-08] MEDS: REMOVE LIDODERM PATCH ONE (12:54)
--- NOTE | 2025-11-08 12:57 | Urology Consultation ---
Date of Consultation November 08, 2025 Assessment & Plan (1) Ureteral stone with hydronephrosis: (2) UTI (urinary tract infection): Plan 80yo female admitted s/p a fall at home and was incidentally found to have an obstructing 3mm proximal left ureteral stone. She is afebrile and hemodynamically stable Labs today -WBCs 3.13, hemoglobin 9.7, creatinine 1.51 Urine and blood cultures pending She is on ceftriaxone She is currently asymptomatic from a stone standpoint. No flank pain, hematuria, dysuria, or fever. We discussed acute stone management with cystoscopy and stent placement. Ureteral stents were discussed as well as postoperative issues and pain management. Discussed that we would offer stent placement today, but would not treat her stones. She is aware a second procedure would be needed for stone treatment. Risks and benefits were discussed. All questions were answered. At the present time she is asymptomatic and stable from a urological standpoint. She declines stent placement today. She prefers to manage with one outpatient procedure with her primary urologist of [facility] urology unless she passes the stone spontaneously. We did discuss that if she were to develop fevers or worsening infectious symptoms, we may need to proceed with ureteral stent placement. No plan for intervention at this time. Continue supportive care and antibiotic therapy, follow cultures. She will need close outpatient follow-up with her primary urologist. Urology will follow, please contact us with any question/concerns or changes in patient status History of Present Illness Attending Physician: Rich Dudley DO History of Present Illness 80 year old female who presented to the ED on 11/07/2025 after a fall at home. Patient reports that she had been feeling unwell at home due to a sinus infection and feels that she became lightheaded which caused her fall. Workup in the ED with a CT abdomen pelvis demonstrated a 3 mm stone in the proximal left ureter with mild hydronephrosis. Labs showed no leukocytosis and creatinine of 1.65 (baseline 1.5-1.9). Urinalysis with 2+ blood, 2+ LE, 2150 WBC, 4+ bacteria. She is admitted to medicine service. Urine and blood cultures collected and pending. She is on ceftriaxone. Patient was seen at bedside today. She is awake and resting in bed on arrival. No acute distress. Reports she follows with [facility] urology (Dr. Sims). She has a history of kidney stones with prior intervention and a history of a partial left nephrectomy. She currently denies flank pain. Denies hematuria or dysuria. Denies fever or chills. She has been NPO. Allergies Allergy/AdvReac Type Severity Reaction Status Date / Time ketorolac Allergy Severe FACE Verified 11/07/25 19:37 SWELLING/PRURITIS/NAUSEA Sulfa (Sulfonamide Allergy Severe EDEMA Verified 11/07/25 19:37 Antibiotics) FACE/LIPS/TONGUE clindamycin Allergy Intermediate ITCHY, Verified 11/07/25 19:47 FLUSHED FACE nitrofurantoin Allergy Intermediate ITCHY Verified 11/07/25 19:37 [From Macrodantin] HIVES/RASH codeine AdvReac Intermediate Vomiting Verified 11/07/25 19:37 hydrocodone AdvReac Intermediate NAUSEA AND Verified 11/07/25 19:37 VOMITING hydromorphone [From Dilaudid] AdvReac Intermediate NAUSEA/VOMI Verified 11/07/25 19:37 TING meloxicam AdvReac Intermediate Vomiting Verified 11/07/25 19:37 oxycodone AdvReac Intermediate Vomiting Verified 11/07/25 19:37 propoxyphene [From Darvon] AdvReac Intermediate Vomiting Verified 11/07/25 19:37 Mqnkfzo-HVP-ShM Reductase AdvReac Intermediate Muscle Pain Verified 11/07/25 19:37 Inhibitor [Kxopycg-Yym-Gxi Reductase Inhibitor] tramadol AdvReac Intermediate VERY SICK Verified 11/07/25 19:37 TO STOMACH Home Medications Medication Instructions Recorded Confirmed Type levothyroxine 50 mcg tablet 50 mcg PO QAM 05/15/19 11/07/25 History omeprazole 20 mg capsule,delayed 20 mg PO QAM 05/15/19 11/07/25 History release polyethylene glycol 3350 17 17 g PO DAILY PRN Constipation 08/27/21 11/07/25 History gram/dose oral powder (Miralax) omega-3s 300 pi-rdx-nuy-other 1 cap PO DAILY 10/15/22 11/07/25 History [id number] oil 1,000 mg capsule (Entriken-3 Fish Oil) apixaban 5 mg tablet 5 mg PO BID 11/25/22 11/07/25 History spironolactone 25 mg tablet 25 mg PO Q OTHER DAY 11/25/22 11/07/25 History bumetanide 2 mg tablet 2 mg PO DAILY 02/09/23 11/07/25 History insulin glargine 100 unit/mL (3 16 unit subcut HS 02/09/23 11/07/25 History mL) subcutaneous pen (Lantus Solostar U-100 Insulin) loratadine 10 mg tablet 10 mg PO DAILY PRN allergy symptoms 02/09/23 11/07/25 History metoprolol succinate 50 mg 75 mg PO DAILY 04/10/24 11/07/25 History tablet,extended release 24 hr acetaminophen 500 mg tablet 500 mg PO Q6H PRN Pain 07/06/25 11/07/25 History amiodarone 200 mg tablet 200 mg PO QAM 07/06/25 11/07/25 History linagliptin 5 mg tablet (Tradjenta) 5 mg PO QAM 07/06/25 11/07/25 History sacubitril 24 mg-valsartan 26 mg 1 tab PO BID 07/06/25 11/07/25 History tablet benzonatate 100 mg capsule 100 mg PO DIRECTED PRN Cough 11/07/25 11/07/25 History chlorpheniramine-dextromethorphan 1 tab PO Q6H PRN COUGH/COLD 11/07/25 11/07/25 History 4 mg-30 mg tablet (Coricidin HBP SYMPTOMS Cough and Cold) cyclobenzaprine 5 mg tablet 5 mg PO BID PRN muscle spasm 11/07/25 11/07/25 History docusate sodium 100 mg capsule 200 mg PO HS 11/07/25 11/07/25 History Patient History Medical History History of blood transfusion 1970s Hard of hearing Limb alert care status left arm-lymphedema [facility] current use of anticoagulant History of COVID-19 10/2021 and 2021- hosp @ [facility] w/ covid- resolved Basal cell carcinoma HX--Nose;Mohs Presence of combination internal cardiac defibrillator (ICD) and pacemaker medtronic--checked remotely from home nightly Hyperlipidemia Hemorrhoids History of kidney cancer 02/21/24 states has another renal tumor presently; just monitoring at this time hx-Left renal papillary carcinoma History of kidney stones one remaining in place-monitoring per pt GERD (gastroesophageal reflux disease) controlled, stable per pt Hypothyroidism Hx of blood clots in heart per pt-no notation by [facility] cardiology on most recent office note Diabetic neuropathy feet Surgical History History of surgery T&A Hx of partial mastectomy 2021--left History of removal of Port-a-Cath Status post Mohs surgery History of anesthesia reaction N/V AND AGITATED WITH ANESTHESIA H/O cervical spine surgery X 2 (GOOD ROM) History of cystoscopy H/O partial nephrectomy LEFT "CANCEROUS TUMOR REMOVED" 03/28/2018 Dr. [place] [facility] [place] knee surgery LEFT H/O: hysterectomy Uterine leiomyoma H/O breast biopsy History of esophagogastroduodenoscopy (EGD) History of colonoscopy History of tooth extraction History of tonsillectomy History of cataract surgery RT/LEFT History of cardiac cath X 4 (NO STENTS) Family History Mother , in her 50s Colorectal cancer Brother COVID Sister Colorectal cancer Lymphoma Father , 60yo Stroke Pneumonia Hypertension Brother Myocardial infarction Brother Primary cancer of bone marrow Pneumonia Brother Cancer "Tumors in brain and lungs" Sister Lung cancer Sister Heart disease Daughter Diabetes Psoriatic arthritis Son Diabetes Psoriatic arthritis Other No family history of adverse response to anesthesia Social History Smoking Status: Former smoker Tobacco Type: Cigarettes Second Hand Exposure: No; Do You Dip or Chew Tobacco: No; Hx Alcohol Use: No Hx Substance Use: No Preferred Language: Luxembourgish Communication Ability: Effective Visual Impairment: No Limitations Hearing Ability: Normal Packaging Inspector Required: No Beliefs That Will Affect Care: None and Yazidism Yazidism Beliefs: ADVENTIST marital status: / Current Living Situation: Alone Current Living Situation Comment: home alone, daughter down the street current occupational status: retired current occupation: [employer]OUNT [employer] How many Children do You have: 2 Feels Safe at Home: Yes Diet: regular caffeine: Yes (2 cups/day) Assistive Devices: Cane Review of Systems Review of Systems: All systems reviewed & are unremarkable except as noted in HPI & below Physical Exam Constitutional: no acute distress Respiratory: no respiratory distress and no labored breathing Neurologic: awake Psychiatric: A+Ox3, euthymic affect Results & Data Vital Signs (Past 12 Hours) Vital Signs Temp Pulse Pulse Pulse Resp BP Pulse Ox 11/08/25 11:19 36.7 C 59 L 18 118/59 L 93 11/08/25 10:03 11/08/25 08:05 36.4 C L 61 18 111/58 L 97 11/08/25 06:10 96/54 L 11/08/25 05:31 60 11/08/25 02:40 36.5 C 60 16 99/61 L 97 11/08/25 02:21 86 11/08/25 02:00 58 L 18 107/57 L 94 11/08/25 01:40 56 L 18 108/61 96 O2 Del Method 11/08/25 11:19 Room Air 11/08/25 10:03 Room Air 11/08/25 08:05 Room Air 11/08/25 06:10 11/08/25 05:31 11/08/25 02:40 Room Air 11/08/25 02:21 11/08/25 02:00 Room Air 11/08/25 01:40 Room Air PG Care Time/CCT Total # of Minutes Spent Total Time Spent with Patient: Total time spent is greater than 50% in coordination of care (as documented) at patient's floor/unit and/or counseling patient: Coding Level of Care Code 35171 INT INP/OBS CARE 2/55MIN Diagnoses Ureteral stone with hydronephrosis N13.2 UTI (urinary tract infection) N39.0
[2025-11-08] MEDS ORDERED: Nursing to Pharmacy Communication SCH (13:45)
[2025-11-08] MEDS: METOPROLOL SUCC 50MG EXT REL TAB PO STA (16:47)
[2025-11-08] MEDS: APIXABAN 5 MG TABLET PO SCH (21:19)
[2025-11-08] MEDS: cefTRIAXone SODIUM 2,000 MG/50 ML BAG IV SCH (21:20)
[2025-11-09] MEDS: METOPROLOL SUCC 25MG EXT REL TAB PO SCH (08:38)
--- NOTE | 2025-11-09 10:12 | Hospitalist Progress Note ---
Date of Service November 09, 2025 Assessment & Plan (1) Fall: (2) Lightheaded: (3) Ureteral stone with hydronephrosis: (4) Constipation: (5) HFrEF (heart failure with reduced ejection fraction): (6) Nonischemic congestive cardiomyopathy: (7) CKD (chronic kidney disease) stage 4, GFR 15-29 ml/min: Plan This is a 80-year-old female who has significant past medical history of T2DM, chronic systolic CHF, PAF, HTN, nonischemic cardiomyopathy, presence of AICD, CKD stage IV, hyperlipidemia, hypothyroidism, multiple lung nodules on CT, GERD, B12 deficiency, history of left renal cancer, history of left breast cancer and history of iron deficiency anemia who presents to ED secondary to fall. #Fall with associated lightheadedness -Pt reports coughing prior to lightheadedness and falling forward -Differential includes vasovagal, hypovolemia in setting of poor intake due to illness vs arrhythmia -EKG without arrhythmia -Etiology not entirely clear for her lightheadedness Plan -Cardiology consulted on admission, appreciate input -Resume and monitor response to home entresto -PPM interrogation -Cardiac monitoring -Midodrine started on admission, increase to 5 TID #UTI -Patient endorses chronic UTIs and recently completed a course of keflex -Endorsing dysuria again starting day of admission -UA dirty and good specimen with low squamous cells -Urine growing E. coli, sens to augmentin Plan -Deescalate to augmentin. allergy to sulfas and macrobid -F/u on Urine and blood cultures. Low suspicion for bacteremia #Constipation -chronic 2/2 tradjenta -No SBO or ileus on CT -Continue current bowel regimen -Give suppository today #3mm Proximal L ureteral stone with mild hydronephrosis incidental finding on trauma imaging, prior hx of partial left nephrectomy due to cancer -pt asymptomatic -No urologic plans #Viral URI prn antitussives and supportive care negative for flu, rsv No O2 requirements suspect other respiratory pathogen #T2DM Chronic, a1c 6.5 on 09/26 On lantus and tradjenta as outpt insulin per protocol #Chronic systolic CHF #HTN #Nonischemic cardiomyopathy with AICD in place Echo 11/2024: EF 35%, left-ventricular wall segments moderately hypokinetic, moderate to severe mitral regurg, mild tricuspid regurg on apixaban, Bumex, metoprolol, Entresto and Aldactone Daily weights, strict I's and O's #PAF chronic, stable continue apixaban, metoprolol and amiodarone #anemia chronic, hx of iron def hgb 11.2 #CKD IV baseline creatinine 1.5-1.9 avoid nephrotoxic agents, monitor renal function #Hx of Left renal cancer s/p L partial nephrectomy #Hx left breast ca treated with surgery/chemo/radiation #DVT ppx: Eliquis FULL CODE PCP: Jayden Dispo: admit I spent a total of 53 minutes coordinating, documenting, and providing care for this patient excluding time spent in the performance of separately billed servic es. This included personally reviewing all current laboratories and imaging studies, medical reconciliation, outpatient chart review and discussion with specialists Admission and Anticipated Discharge Date Admission Date: November 07, 2025 Subjective Feeling well today. no dysuria or polyuria today . no other complaints. she had sinus congestion and pressure a few days ago but that is better now. updated daughter today on phone Physical Exam Physical Exam: Vitals and labs reviewed General: Well appearing, NAD HEENT: EOMI, PERRLA Neck: Supple Cardiac: RRR no rubs gallops or murmurs Lungs: CTA no rhonchi wheezing or rales Abd: S NT ND BS positive : Deffered MSK: Full ROM. No obvious deformities Ext: No Edema cyanosis Skin: Warm, Dry Neuro: AOx3 No focal deficits. Psych: Normal Mood Results & Data Results & Data Vital Signs (Past 12 Hours) Vital Signs Temp Pulse Pulse Resp BP Pulse Ox O2 Del Method 11/09/25 08:10 36.8 C 64 16 110/62 96 Room Air 11/09/25 05:46 64 11/09/25 03:53 36.7 C 64 20 130/66 97 Room Air 11/08/25 23:01 36.9 C 76 18 109/69 95 Room Air 11/08/25 22:29 62
--- NOTE | 2025-11-09 10:46 | Urology Progress Note ---
Date of Service November 09, 2025 Assessment & Plan (1) Kidney stones: Plan History of left robotic partial nephrectomy; history of recurrent UTIs; incidentally discovered stone after hospitalization secondary to a fall 1. Renal cell carcinoma, no acute issues, can follow-up with Dr. Sims long- term 2. Recurrent UTIs Currently asymptomatic but being treated We did discuss that if she experiences fevers or chills after discharge, she will likely need to return 3. Incidentally discovered kidney stone This left ureteral stone is small enough that it could pass spontaneously, however given her history of recurrent UTIs I think there is a slight risk that she could develop sepsis or worsening infection She has shown no signs of this right now and we discussed indications that would necessitate a return and immediate intervention. She is extremely aware of these. I think from a urological standpoint she is very safe for discharge home with antibiotics She will follow-up with her outpatient urologist as previously scheduled Please call if further issues during this hospitalization Admission and Anticipated Discharge Date Admission Date: November 07, 2025 Subjective Subjectively doing quite well She is ambulatory and feels good She does not have any left flank pain consistent with renal colic She has passed stones in the past She has not always experience pain with stone passage She does follow with Dr. Sai Sims closely Physical Exam Physical Exam: Appropriately interactive Some productive cough Abdomen soft, nontender, no CVA tenderness Results & Data Vital Signs (Past 12 Hours) Vital Signs Temp Pulse Pulse Resp BP Pulse Ox O2 Del Method 11/09/25 08:10 36.8 C 64 16 110/62 96 Room Air 11/09/25 05:46 64 11/09/25 03:53 36.7 C 64 20 130/66 97 Room Air 11/08/25 23:01 36.9 C 76 18 109/69 95 Room Air PG Care Time/CCT Total # of Minutes Spent Total Time Spent with Patient: Total time spent is greater than 50% in coordination of care (as documented) at patient's floor/unit and/or counseling patient: Coding Level of Care Code 50088 SUB INP/OBS CARE 2/35MIN Diagnoses Kidney stones N20.0
[2025-11-09] MEDS: MIDODRINE HCL 2.5 MG TAB PO SCH (12:45)
[2025-11-09 16:06] VITALS: O2SAT 97
[2025-11-09] MEDS: AMOXICILLIN/CLAVULANATE 875 MG TAB PO SCH (16:30)
[2025-11-09] MEDS: VALSARTAN/SACUBITRIL 26/24MG TAB PO SCH (20:44)
[2025-11-09 23:21] VITALS: RESP 18
[2025-11-10 08:20] VITALS: BP 134/68; TEMP 98.1
[2025-11-10 09:20] VITALS: PULSE 58
--- NOTE | 2025-11-10 09:21 | Discharge Summary ---
Discharge Summary Date of Service November 10, 2025 Principal Dx & Hospital Course #1 = Principal Diagnosis (1) Fall: (2) Lightheaded: (3) Ureteral stone with hydronephrosis: (4) Constipation: (5) HFrEF (heart failure with reduced ejection fraction): (6) Nonischemic congestive cardiomyopathy: (7) CKD (chronic kidney disease) stage 4, GFR 15-29 ml/min: Plan This is a 80-year-old female who has significant past medical history of T2DM, chronic systolic CHF, PAF, HTN, nonischemic cardiomyopathy, presence of AICD, CKD stage IV, hyperlipidemia, hypothyroidism, multiple lung nodules on CT, GERD, B12 deficiency, history of left renal cancer, history of left breast cancer and history of iron deficiency anemia who presents to ED secondary to fall. She was near syncopal prior to fall. BP was soft. Low BP likely secondary to her numerous cardiac meds. No fractures on imaging. SHe was diagnosed with a UTI and started on CTX. Urine cx grew E. coli. CT AP did show a small 3mm ureteral stone. urology was consulted, no urologic plans. Cardio was consulted. Midodrine was started. cardio recommended resuming home cardiac meds and continuing midodrine on discharge. Her cardiac meds were resumed yesterday and BP has been normal. She was transitioned to augmentin for UTI and possible sinus infection. Today, she feels well and wishes to go home. cleared by PT/OT. vitals and labs are stable on day of discharge. #Fall with associated lightheadedness -Pt reports coughing prior to lightheadedness and falling forward -Differential includes vasovagal, hypovolemia in setting of poor intake due to illness vs arrhythmia -EKG without arrhythmia #UTI -Patient endorses chronic UTIs and recently completed a course of keflex -Endorsing dysuria again starting day of admission -UA dirty and good specimen with low squamous cells -Urine growing E. coli, sens to augmentin Plan -Deescalate to augmentin. allergy to sulfas and macrobid -F/u on Urine and blood cultures. Low suspicion for bacteremia #Constipation -chronic 2/2 tradjenta -No SBO or ileus on CT -Resolved with suppository 11/09 #3mm Proximal L ureteral stone with mild hydronephrosis incidental finding on trauma imaging, prior hx of partial left nephrectomy due to cancer -pt asymptomatic -No urologic plans -f/u with her primary urologist #Viral URI prn antitussives and supportive care negative for flu, rsv No O2 requirements suspect other respiratory pathogen #T2DM Chronic, a1c 6.5 on 09/26 On lantus and tradjenta as outpt insulin per protocol #Chronic systolic CHF #HTN #Nonischemic cardiomyopathy with AICD in place Echo 11/2024: EF 35%, left-ventricular wall segments moderately hypokinetic, moderate to severe mitral regurg, mild tricuspid regurg on apixaban, Bumex, metoprolol, Entresto and Aldactone Daily weights, strict I's and O's #PAF chronic, stable continue apixaban, metoprolol and amiodarone #anemia chronic, hx of iron def hgb 11.2 #CKD IV baseline creatinine 1.5-1.9 avoid nephrotoxic agents, monitor renal function #Hx of Left renal cancer s/p L partial nephrectomy #Hx left breast ca treated with surgery/chemo/radiation #DVT ppx: Eliquis FULL CODE PCP: Jayden Dispo: admit I spent a total of 40 minutes coordinating, documenting, and providing care for this patient excluding time spent in the performance of separately billed services. This included personally reviewing all current laboratories and imagin g studies, medical reconciliation, outpatient chart review and discussion with specialists Notes For Next Care Provider Medication Changes From Visit midodrine 5 BID Augmentin Admission HPI Per Admitting Provider This is a 80-year-old female who has significant past medical history of T2DM, chronic systolic CHF, PAF, HTN, nonischemic cardiomyopathy, presence of AICD, CKD stage IV, hyperlipidemia, hypothyroidism, multiple lung nodules on CT, GERD, B12 deficiency, history of left renal cancer, history of left breast cancer and history of iron deficiency anemia who presents to ED secondary to fall. Patient reports over the last few days feeling unwell. Over the last 2 to 3 days she complains of sinus congestion, pressure and a harsh cough. She states she initially was lying down whenever she got into a coughing jag and decided to go into the bathroom. Whenever she went down to sit on the toilet she felt lightheaded and fell forward hitting her head on the tub. She was unable to get up on her own. She reports that is not uncommon for her. She currently is complaining of some low back pain. She denies losing consciousness. She recalls all events and denies any syncope. She denies any fever, chills, sweats, chest pain, hemoptysis, abdominal pain, dysuria, increased urgency or frequency with urination, melena or hematochezia. She does have chronic shortness of breath. She reports, "I been short of breath since the ." She feels this is unchanged. She weighs herself on a regular basis and her weights have remained stable. She denies any lower extremity edema or orthopnea. She was nauseated today and did have 1 episode of vomiting. She reports known history of kidney stone in the past. She follows with [facility] urology. She states in the past she can never tell when she is passing a kidney stone except she typically has blood in her urine. She denies ever having pain. She reports having recurrent urinary tract infections. This typically presents with foul-smelling urine as well as increased urgency or frequency with urination. She denies any of this. She has been having constipation issues ever since starting Tradjenta. She takes 200 mg of Colace daily. This typically produces 2-3 bowel movements a day. She has not had a bowel movement in the last 2 days due to decreased activity in the setting of not feeling well. Discharge Exam Vitals and labs reviewed General: Well appearing, NAD HEENT: EOMI, PERRLA Neck: Supple Cardiac: RRR no rubs gallops or murmurs Lungs: CTA no rhonchi wheezing or rales Abd: S NT ND BS positive : Deffered MSK: Full ROM. No obvious deformities Ext: No Edema cyanosis Skin: Warm, Dry Neuro: AOx3 No focal deficits. Psych: Normal Mood Updated Medication List Medication Instructions Recorded Confirmed Type levothyroxine 50 mcg tablet 50 mcg PO QAM 05/15/19 11/07/25 History omeprazole 20 mg capsule,delayed 20 mg PO QAM 05/15/19 11/07/25 History release polyethylene glycol 3350 17 17 g PO DAILY PRN Constipation 08/27/21 11/07/25 History gram/dose oral powder (Miralax) omega-3s 300 [id number] 1 cap PO DAILY 10/15/22 11/07/25 History [id number] oil 1,000 mg capsule (Atkinson-3 Fish Oil) apixaban 5 mg tablet 5 mg PO BID 11/25/22 11/07/25 History spironolactone 25 mg tablet 25 mg PO Q OTHER DAY 11/25/22 11/07/25 History bumetanide 2 mg tablet 2 mg PO DAILY 02/09/23 11/07/25 History insulin glargine 100 unit/mL (3 16 unit subcut HS 02/09/23 11/07/25 History mL) subcutaneous pen (Lantus Solostar U-100 Insulin) loratadine 10 mg tablet 10 mg PO DAILY PRN allergy symptoms 02/09/23 11/07/25 History metoprolol succinate 50 mg 75 mg PO DAILY 04/10/24 11/07/25 History tablet,extended release 24 hr acetaminophen 500 mg tablet 500 mg PO Q6H PRN Pain 07/06/25 11/07/25 History amiodarone 200 mg tablet 200 mg PO QAM 07/06/25 11/07/25 History linagliptin 5 mg tablet (Tradjenta) 5 mg PO QAM 07/06/25 11/07/25 History sacubitril 24 mg-valsartan 26 mg 1 tab PO BID 07/06/25 11/07/25 History tablet benzonatate 100 mg capsule 100 mg PO DIRECTED PRN Cough 11/07/25 11/07/25 History chlorpheniramine-dextromethorphan 1 tab PO Q6H PRN COUGH/COLD 11/07/25 11/07/25 History 4 mg-30 mg tablet (Coricidin HBP SYMPTOMS Cough and Cold) cyclobenzaprine 5 mg tablet 5 mg PO BID PRN muscle spasm 11/07/25 11/07/25 History docusate sodium 100 mg capsule 200 mg PO HS 11/07/25 11/07/25 History amoxicillin 875 mg-potassium 1 tab PO BIDM 4 days #8 tabs 11/10/25 Rx clavulanate 125 mg tablet midodrine 5 mg tablet 5 mg PO BID 30 days #60 tabs 11/10/25 Rx Hospital Stay Data Consultations 11/07/25 19:32 ED Decision to Admit Stat 11/07/25 22:34 Consult Urology Routine 11/08/25 02:30 Consult Urology Routine 11/08/25 05:51 Consult Cardiology Routine Diagnostic Imagining Performed 11/07/25 17:06 CT cervical spine wo con Stat CT head/brain wo con Stat 11/07/25 17:51 CT abd pelvis wo con Stat CT chest diagnostic wo con Stat 11/08/25 00:00 CT head/brain wo con Urgent Pending Results Patient Have Any Pending Studies at Discharge: No Discharge Instructions Given to Patient (Per Discharging Provider) Please finish your antibiotics. Your new medication is midodrine, take it once in the AM and once at night. Check your BP daily. 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 Do not shovel snow! Total Time Total Time Spent Total Time Spent (In Minutes): 40
== END 2025-11-10 11:03 | disposition home or self-care (01) | DRG 690 ==
LOC: ED 16:53 → 2N 21:34 → SUATTDRO 21:34 → 2N 11-08 02:11